=== PATIENT | female | born 1945 | race Caucasian/White ===

== ENCOUNTER 2023-11-02 23:36 | Inpatient (IN) | payer MEDICARE, BC, SELFPAY ==
[2023-11-02] VITALS (23 sets, daily range): BP systolic 77–124; BP diastolic 51–77; BMI 20.8
[2023-11-02] MEDS: NSS 1000 IV ×3 (20:36→21:20)
[2023-11-02 20:37] LABS: % Basophils 0.2 % (0-2); % Eosinophils 0.7 % (0-6); % Immature Granulocytes 0.4 % (0-0.5); % Lymphocytes 4.4 % (20.5-51.1); % Monocytes 4.8 % (1.7-9.3); % Neutrophils 89.5 % (42.2-75.2); Absolute Eosinophils 0.1 10^3/uL (0-0.7); Absolute Immature Granulocytes 0.1 10^3/uL (0-0.05); Absolute Lymphocytes 0.8 10^3/uL (1.2-3.4); Absolute Monocytes 0.9 10^3/uL (0.1-0.6); Absolute Neutrophils 16.3 10^3/uL (1.4-6.5); Hematocrit 38.1 % (37.0-47.0); Hemoglobin 12.4 g/dL (12.0-16.0); Mean Corp Hgb Conc. 32.5 g/dL (33.0-37.0); Mean Platelet Volume 9.5 fL (7.4-10.4); Nucleated Red Blood Cells % 0 %; Platelet Count 628 10^3/uL (130-400); Red Blood Cell Count 4.43 10^6/uL (4.20-5.40); Red Cell Dist. Width 21.9 % (11.5-14.5); White Blood Cell Count 18.2 10^3/uL (4.8-10.8)
[2023-11-02 20:48] LABS: APTT 27.5 Sec (23.4-35.0)
--- NOTE | 2023-11-02 20:49 | ED.GENMED ---
History of Present Illness
General
Chief Complaint: Abdominal Symptoms
Source: patient
Exam Limitations: none
Time Seen by Provider: 11/02/23 20:23
Nursing documentation reviewed up to this point in time: agreed with
History of Present Illness
History of Present Illness:
Patient presents to ED secondary to worsening abdominal pain with multiple vomiting episodes over the past 2 days. Patient has had history of umbilical hernia, which has been asymptomatic. Patient feels as though her local hernia may have
worsened. Denies fever. Denies trauma. Patient unsure of her last bowel movement. Denies previous history of similar symptoms.
Review of Systems
Review of Systems
Allergies reviewed?: Yes
All Other Systems: ROS reviewed and negative except as documented in HPI and ROS
Constitutional: Reports no symptoms
EENT: Reports no symptoms
Respiratory: Reports no symptoms
Cardiac: Reports no symptoms
ABD/GI: Reports abdominal pain, nausea and vomiting
Musculoskeletal: Reports no symptoms
Skin: Reports no symptoms
Neurological: Reports no symptoms
Phy Exam
Physical Exam
Physical Exam:
Physical Exam
General: moderate distress, acutely ill. febrile
Head: nc/at. eomi
Neck: supple. no meningeal signs.
Heart: s1/s2 regular rate and rhythm, no murmur. equal radial pulses.
Lungs: no acute respiratory distress. clear bilaterally
Abdomen: normal bowel sounds. umbilical hernia noted with ecchymosis/swelling/tenderness.
Neuro: alert and oriented. no focal neurological deficits
Skin: no rash
Psychiatric: well kept. interactive and cooperative
Extremities: no edema. no calf tenderness.
Course
Orders/Labs/Results
Orders:
Orders
11/02/23 20:13
Electrocardiogram (*1) Urgent
Reason for Study: Tachycardia
EKG- Treatment ONCE
11/02/23 20:23
IV Insert/Care/Rem.- Treatment PRN
11/02/23 20:30
Type+Screen Urgent
Complete Blood Count/With Diff Urgent
Comprehensive Metabolic Panel Urgent
Magnesium Urgent
PTT Urgent
Prothrombin Time Urgent
11/02/23 20:34
Cardiac Monitoring- Treatment ONCE
O2 Therapy [RESP] Urgent
Titrate/Wean O2 to maintain O2 sat greater than (%): 93
Special Instructions: TO MAINTAIN CONTINUOUS O2 SATS > OR = 93%
11/02/23 20:36
0.9% Sodium Chloride 1000 ml [Nss] 1,000 ml IV BOLUS
11/02/23 20:37
Lactic Acid Q4H
Comment: ON ICE, CANCEL 2ND ORDER IF FIRST LACTIC ACID LEVEL <2
Blood Culture Q30M
MITCH Source: Blood/Venous
Specimen Description:
Comment: FROM 2 SEPARATE SITES
Blood Culture Q30M
MITCH Source: Blood/Venous
Specimen Description:
Comment: FROM 2 SEPARATE SITES
11/02/23 20:44
0.9% Sodium Chloride 1000 ml [Nss] 1,000 ml IV BOLUS
11/02/23 20:54
Acetaminophen 1000MG/100Ml [Ofirmev] 1,000 mg in 100 ml IV ONCE
Acetaminophen IV Indication:: ED Narcotic Naive Pt-ONCE
Piperacillin/Tazo 3.375 Gram [Zosyn] 3.375 gram in 50 ml IV NOW
11/02/23 21:20
0.9% Sodium Chloride 1000 ml [Nss] 1,000 ml IV BOLUS
11/02/23 22:17
NORepinephrine 4 MG/250 ML [Levophed] 4 mg in 250 ml IV NOW
Initial dose in mcg/min, then titrate:: 5
Titrate to keep:: SBP > 90 mmHg
Titrate by mcg/min:: 1-2 mcg/min
Frequency of titrations (minutes):: 5
Maximum dose in ICU in mcg/min:: 30
Maximum dose in IMU in mcg/min:: 8
Maximum dose in IVU in mcg/min:: 4
Begin to taper infusion when:: Remained at goal for 4hrs
Taper by mcg/min:: 1-2 mcg/min
Frequency of taper (minutes) if patient maintains goal:: 30
Taper to off?: Yes
If infusion off & no longer maintaining goal:: Contact Provider
11/03/23 00:26
Lactic Acid Q4H
Comment: ON ICE, CANCEL 2ND ORDER IF FIRST LACTIC ACID LEVEL <2
Abnormal Lab Results
11/02/23 11/02/23
20:30 20:37
WBC 18.2 H 10^3/uL
(4.8-10.8)
MCHC 32.5 L g/dL
(33.0-37.0)
RDW 21.9 H %
(11.5-14.5)
Plt Count 628 H 10^3/uL
(130-400)
Abs Immat Gran (auto) 0.1 H 10^3/uL
(0-0.05)
Absolute Neuts (auto) 16.3 H 10^3/uL
(1.4-6.5)
Absolute Lymphs (auto) 0.8 L 10^3/uL
(1.2-3.4)
Absolute Monos (auto) 0.9 H 10^3/uL
(0.1-0.6)
Neutrophils % 89.5 H %
(42.2-75.2)
Lymphocytes % 4.4 L %
(20.5-51.1)
PT 15.3 H Sec
(11.4-14.6)
Sodium 127 L mmol/L
(135-145)
Chloride 86 L mmol/L
(98-107)
Carbon Dioxide 21 L mmol/L
(22-30)
BUN 67 H mg/dl
(7-17)
Creatinine 1.9 H mg/dL
(0.6-1.0)
Glucose 236 H mg/dl
(70-99)
Lactic Acid 6.3 H* mmol/L
(0.7-2.0)
Magnesium 2.8 H mg/dl
(1.6-2.3)
Total Bilirubin 1.5 H mg/dl
(0.2-1.3)
AST 45 H U/L
(14-36)
Crossmatch IS Only See Detail
11/02/23 20:30
11/02/23 20:30
Vital Signs
Initial and Last Documented VS:
Initial Vital Signs
Pulse Resp BP Pulse Ox
137 20 88/59 100
11/02/23 20:11 11/02/23 20:11 11/02/23 20:11 11/02/23 20:11
Last Documented Vital Signs
Temp Pulse Resp BP Pulse Ox
99.7 F 93 15 100/63 97
11/04/23 07:36 11/04/23 08:30 11/04/23 08:30 11/03/23 23:15 11/04/23 08:30
MDM/Problems Addressed
MDM/Problems Addressed:
History and exam concerning for incarcerated hernia. Hypotension noted and patient being resuscitated with 2 L IV fluid bolus. Hypotension persisting despite IV fluid administration.
Levophed infusion started, along with IV antibiotics.
Discussed with , surgery on-call, who will come and evaluate patient in ED.
Pt evaluated by (surgery) - patient/family refusing surgical intervention. Aware that she may worsen and may potential without intervention. Requesting iv abx/ivf, supportive treatment only at this time.
Pt will be admitted to hospitalist service
Critical care statement: A total of 60 minutes of critical care time was provided for this patient. This includes management of unstable vital signs, evaluation of the patient at bedside, reviewing the patient's pertinent medical records, discussion
with consultants, review of old EKGs and review of pertinent medical records. This time with separate from time utilized to perform the aforementioned documented procedures
*Critical Care Note
Total Time (30-74mins, 75-104mins- exclusive of procedures): 60 min
ED Attending Note
-
Portions of this chart may have been created with voice recognition software.� Occasional wrong word or��sound alike� substitutions may have occurred due to the inherent limitations of voice recognition software.
Discharge Plan
Departure
Patient Disposition: Admit
Date of Disposition: 11/02/23
Time of Disposition: 22:28
Admit to: Telemetry
Presentation/result/management discussed w/ accepting MD/DO: Hospitalist
Discharge Problem:
Septic shock, Incarcerated umbilical hernia
Interventions
Interventions:
*Risk Screen - Suicide Last Done: 11/02/23 20:39
*General Assessment Last Done: 11/02/23 20:39
*Neglect/Abuse Screening Last Done: 11/02/23 20:39
ED- Fall Risk Assessment Last Done: 11/02/23 20:39
*ED COVID-19 Vaccine History Last Done: 11/03/23 00:44
*Nursing Disposition Last Done: 11/03/23 00:44
BL-Abvqtp-Dtfvflgpky Assessment Last Done: 11/02/23 20:39
Discharge Date and Time
Discharge Date/Time: 11/03/23 01:00
[2023-11-02] MEDS: ZOSYN 50 IV (20:59)
[2023-11-02 21:00] LABS: AST (SGOT) 45 U/L (14-36); Albumin 4.2 g/dl (3.5-5.0); Alkaline Phosphatase 116 U/L (38-126); Blood Urea Nitrogen 67 mg/dl (7-17); Calcium 9.6 mg/dl (8.4-10.2); Carbon Dioxide 21 mmol/L (22-30); Chloride 86 mmol/L (98-107); Glucose 236 mg/dl (70-99); Magnesium 2.8 mg/dl (1.6-2.3); Potassium 3.7 mmol/L (3.5-5.1); Sodium 127 mmol/L (135-145); Total Bilirubin 1.5 mg/dl (0.2-1.3); Total Protein 6.8 g/dl (6.3-8.2)
[2023-11-02] MEDS: OFIRMEV 100 IV (21:05)
[2023-11-02 21:08] LABS: Lactic Acid 6.3 mmol/L (0.7-2.0)
[2023-11-02 21:11] LABS: Estimated Creatinine Clearance 20 ml/min; eGFR 26.36
[2023-11-02 21:16] LABS: ALT (SGPT) < 30 U/L (0-35)
[2023-11-02 21:26] LABS: INR 1.23; PT 15.3 Sec (11.4-14.6)
--- NOTE | 2023-11-02 21:28 | PHANOTE ---
med rec althea(11/02/23)- Spouse states patient has stopped taking metronidazole(500mg/100ml BID), metoprolol succinate(100 mg daily), prilosec(20 mg daily), multivitamin, and Afinitor(5 mg daily) due to side effects of the Afinitor. The medications
were stopped on 10/05/23, and the dosages were to be reevaluated in the patient's next appointment with their oncologist.
[2023-11-02] MEDS: LEVOPHED 250 IV (22:26)
--- NOTE | 2023-11-02 22:26 | CON.GS ---
Consultation
-
Reason for Consultation: sepsis; hernia
Medical History
-
Chief Complaint: abdominal pain
History of Present Illness:
78 yo F with history of longstanding umbilical hernia and breast cancer treated at [facility] with ?immunotherapy until a month ago with 2 days of loss of appetite, abdominal discomfort and nausea and emesis. noticed discoloration of the skin at
her known umbilical hernia site this afternoon and thus brought her into ER. In ER BP initially in 70s, fever of 100.9, WBC of 18.2, lactate of 6.3, and creatinine of 1.9. I was consulted with concern for sepsis and umbilical hernia issue.
Patient poor historian who is [place] so does most the talking.
Past Medical History
Past Medical History: Other (breast cancer)
Past Surgical History: Other (no prior abdominal surgery)
Social History
Tobacco: Non-Smoker
Alcohol: None
Personal:
Living: With Family
Family History
Family History: Reviewed & Not Pertinent
Allergies / Home Medications
Allergy/AdvReac Type Severity Reaction Status Date / Time
No Known Allergies Allergy Unverified 11/02/23 20:13
�Medication �Instructions �Recorded �Confirmed �Type
aspirin 81 mg tablet,delayed 81 mg PO DAILYPRN PRN mild pain 11/02/23 11/02/23 History
release
dexamethasone 0.5 mg/5 mL oral 0 mg PO DAILYPRN PRN mouth sores 11/02/23 11/02/23 History
solution
magnesium gluconate 250 mg PO Q48H 11/02/23 11/02/23 History
Review of Systems
-
A 10 point review of systems was completed, and was negative except as per HPI.
Physical Exam
Vital Signs
Temp Pulse Resp BP Pulse Ox
100.9 F H 100 23 86/56 93
11/02/23 20:33 11/02/23 22:15 11/02/23 22:15 11/02/23 22:15 11/02/23 22:15
11/01/23 11/02/23 11/03/23
06:59 06:59 06:59
Actual Weight 55 kg
Body Mass Index (BMI) 20.8
Lab Results
11/02/23 20:30
11/02/23 20:30
WBC 18.2 10^3/uL (4.8-10.8) H 11/02/23 20:30
Hgb 12.4 g/dL (12.0-16.0) 11/02/23 20:30
Hct 38.1 % (37.0-47.0) 11/02/23 20:30
Plt Count 628 10^3/uL (130-400) H 11/02/23 20:30
Abs Immat Gran (auto) 0.1 10^3/uL (0-0.05) H 11/02/23 20:30
Neutrophils % 89.5 % (42.2-75.2) H 11/02/23 20:30
Physical Exam
General: Other (chronically ill appearance)
HEENT: Normocephalic
Respiratory: Clear
Cardiac: S1/S2
GI: Tender (mild to moderate umbilical area), Distended (mild) and Other (umbilical hernia apparent with ecchymosis/discoloration of skin)
Musculoskeletal: No Clubbing, No Cyanosis and No Edema
Skin: Dry
Neuro: Awake and Other
Psych: Other (a bit lethargic)
Data Reviewed
-
Labs: Labs Reviewed by me, Discussed with Physician and Discussed with Family
Total Time Spent with Patient (in minutes): 60
Assessment / Plan
-
78 yo F with likely incarcerated and strangulated umbilical hernia with resultant sepsis. Discussed situation in detail with patient and her family. Recommended trip to OR in an urgent fashion for exploration and possible partial bowel resection,
possible stoma creation, and possible primary umbilical hernia repair. Risks and benefits discussed. Risks covered including bleeding, infection, anastomotic leak (if created), anastomotic stricture (if created), bowel or organ injury, hernia
formation or recurrence, stoma creation, potential need for second look, , and anesthetic risks. Patient and family not interested in surgery and understand that she may pass if surgery not undertaken. They would prefer supportive care and
letting nature take it's course.
[2023-11-03] VITALS (58 sets, daily range): BP systolic 85–171; BP diastolic 43–87; BMI 21.7
[2023-11-03] MEDS: LR 1000 IV ×4 (01:28→20:48)
[2023-11-03] MEDS: ZOSYN 50 IV ×4 (01:50→21:04)
[2023-11-03] MEDS: VANCOCIN 300 ML IV (02:23)
[2023-11-03] MEDS: VANCOCIN 300 MG IV (02:23)
--- NOTE | 2023-11-03 02:25 | HPS.HSE ---
Family Physician
-
Family Physician: * NONE
Chief Complaint
-
Abd Pain, N/V
History of Present Illness
Patient is an 78y F with PMH significant for metastatic breast cancer who presents to ED complaining of poor appetite, abdominal pain and N/V x several days. Patient states that she has felt poorly for about 4-5 days or so with diminished
appetite and occasional episodes of N/V. She began to complain of abdominal discomfort about 2 days ago. Today, family noted discoloration associated with her chronic umbilical hernia which prompted them to bring her to the ED for further
evaluation.
On evaluation in the ED, patient is noted to have firm, tender and grossly discolored umbilical hernia concerning for incarceration +/- strangulation.
She was seen by Colorectal Surgery who discussed benefit of prompt surgical intervention. Patient declines surgery at this time and is to be admitted to medical service to try more conservative therapy.
Patient denies any pain at the time of my examination.
She is quite hard of hearing.
Patient has metastatic breast cancer for which she is followed at [facility]. She was treated for a time with Ibrance which became ineffective.
She was changed to Afinitor in August and had a dramatic response within the first month.
She did have adverse effects including weight loss, anorexia and fatigue associated with this medicine change.
She was seen by her Oncologist October 04 and taken off all of her medications at that time with plan to try a lower dose in early November.
Medical History
Past Medical History
Past Medical History: Reports Other
Additional Past Medical History:
Metastatic Breast Cancer
Past Surgical History: Reports None and Other
Social History
Tobacco: Non-smoker
Alcohol: None
Drug: None
Personal:
Living: With Family
Family History
Family History: Other (Multiple family members with various malignancies.)
Allergies / Home Medications
Allergies reflects when Allergies were last updated in [facility].
Home Medications with original date entered in [facility]
Allergy/Medication List:
Allergies
Allergy/AdvReac Type Severity Reaction Status Date / Time
No Known Allergies Allergy Unverified 11/02/23 20:13
Home Medications
Patient is not currently taking any medications.
Review of Systems
-
History Source: Patient and Family
A 12 point ROS was completed and negative except as noted: Yes
Constitutional: Reports Weight Loss and Fatigue; Denies Fever or Chills
EENT: Denies Sore Throat
Respiratory: Denies Cough or Trouble Breathing
Cardiac: Denies Chest Pain or Palpitations
Abdomen/GI: Reports Abdominal Pain, Nausea, Vomiting and Anorexia; Denies Diarrhea, Bloody Stools or Black Stools
: Denies Dysuria, Frequency or Flank Pain
Musculoskeletal: Denies Joint Pain or Edema
Neurological: Denies Dizzy or Headache
Psych: Denies Depression or Anxiety
Physical Exam
Vital Signs
Vital Signs
Temp Pulse Resp BP Pulse Ox
100.9 F H 103 21 119/71 98
11/02/23 20:33 11/03/23 01:26 11/03/23 01:26 11/03/23 01:26 11/03/23 01:26
Physical Exam
General: Other (Chronically ill-appearing 78y F in no acute distress.)
HEENT: Other (Extremely poor dentition. Skin changes L neck due to metastatic cancer (family denies any prior XRT, etc))
Respiratory: Other (Decreased at bases - otherwise clear.)
Cardiac: S1/S2 and Regular Rhythm; No Murmur
GI: Other (Umbilical hernia with tense edema and localized tenderness. Overlying skin is dusky / discolored with wide area of lesser skin discoloration. Scant bleeding from umbilicus. Bowel sounds are appreciated.)
Musculoskeletal: No Clubbing, No Cyanosis and No Edema
Neuro: Awake, Alert and Other (Patient seems somewhat confused at time. Difficult to assess if cognitive impairment v sequelae of hearing impairment. Likley combination of both.)
Laboratory Results
-
Laboratory Results
PT 15.3 Sec (11.4-14.6) H 11/02/23 20:30
INR 1.23 11/02/23 20:30
APTT 27.5 Sec (23.4-35.0) 11/02/23 20:30
Lactic Acid 6.3 mmol/L (0.7-2.0) H* 11/02/23 20:37
Total Bilirubin 1.5 mg/dl (0.2-1.3) H 11/02/23 20:30
AST 45 U/L (14-36) H 11/02/23 20:30
ALT < 30 U/L (0-35) 11/02/23 20:30
Alkaline Phosphatase 116 U/L (38-126) 11/02/23 20:30
Impression/Plan
-
A/P: Patient is an 78y F with PMH significant for metastatic breast cancer who presents to ED complaining of abdominal pain, N/V and malaise.
Incarcerated / Strangulated Umbilical Hernia
Septic Shock secondary to the above
- Admit for further evaluation and treatment.
- Extensive discussion with patient and family regarding current presentation and treatment options.
- They declined surgical intervention at this time.
- Communicated to family with some difficulty the severity and extent of her current clinical condition and poor prognosis with or without surgical intervention.
- Will treat for now with IVFs, IV abx +/- pressor support to maintain BP / perfusion.
- Family / patient may reconsider surgical options in the future.
- Retail Department Reset / CRS consulted.
- Prognosis is poor.
Metastatic Breast Cancer
- Followed at [facility]. Currently on no active therapy / medications.
- On med holiday for a month with plan to revisit / restart meds in early November.
Hyponatremia
- Likely hypovolemic hyponatremia.
- IVF support as noted above for septic shock.
- Follow for any improvement in labs / lytes / lactate / etc.
REINA
- SCr = 1.9. No prior SCr to compare, but suspect REINA secondary to sepsis / hypoperfusion.
- IVFs / pressor support as noted above.
- Follow for improvement in renal function.
DVT Prophylaxis: SCDs
Code Status: Extensive discussion with patient / family as noted above. In light of decision to forego surgery - addressed code status at length. Advised family that if cardiac arrest were to occur as a result of her current issue, attempts to
resuscitate without addressing underlying primary process (in this case, incarcerated hernia) would likely prove futile. Despite this information, they wish for patient to remain full code.
[2023-11-03 02:47] LABS: Lactic Acid 1.3 mmol/L (0.7-2.0)
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
[2023-11-03 05:01] LABS: ALT (SGPT) 14 U/L (0-35); AST (SGOT) 31 U/L (14-36); Albumin 2.9 g/dl (3.5-5.0); Alkaline Phosphatase 86 U/L (38-126); Blood Urea Nitrogen 63 mg/dl (7-17); Calcium 7.8 mg/dl (8.4-10.2); Carbon Dioxide 23 mmol/L (22-30); Chloride 97 mmol/L (98-107); Direct Bilirubin 0.6 mg/dl (0.0-0.4); Estimated Creatinine Clearance 24 ml/min; Glucose 167 mg/dl (70-99); Magnesium 2.5 mg/dl (1.6-2.3); Phosphorus 4.3 mg/dl (2.5-4.5); Potassium 3.1 mmol/L (3.5-5.1); Sodium 131 mmol/L (135-145); Total Bilirubin 1.1 mg/dl (0.2-1.3); Total Protein 5.2 g/dl (6.3-8.2)
[2023-11-03 05:09] LABS: Hematocrit 29.5 % (37.0-47.0); Hemoglobin 9.9 g/dL (12.0-16.0); Mean Corp Hgb Conc. 33.6 g/dL (33.0-37.0); Mean Corpuscular Hgb 28.3 pg (27.0-31.0); Mean Corpuscular Volume 84.3 fL (81.0-99.0); Mean Platelet Volume 9.4 fL (7.4-10.4); Platelet Count 391 10^3/uL (130-400); Red Cell Dist. Width 21.6 % (11.5-14.5); White Blood Cell Count 11.4 10^3/uL (4.8-10.8)
[2023-11-03] MEDS: KCL 270 MEQ IV (06:11)
--- NOTE | 2023-11-03 07:13 | CON.INTV ---
Consultation
Consultation Request
Date/Time Consultation Requested: 11/03/23
Date/Time Consultation Performed: 11/03/23
Performing Provider: Karen
Reason for Consultation: ICU
Medical History
-
History of Present Illness:
Patient is an 78 year old F with history of metastatic breast cancer (treated at [facility] on Ibrance->Afinitor) presenting to ED complaining of poor appetite, abdominal pain and N/V x 4-5 days. Of note, she had experienced weight
loss/anorexia with use of Afinitor. She began to complain of abdominal discomfort about 2 days ago. Today, family noted discoloration associated with her long standing chronic umbilical hernia which prompted them to bring her to the ED for further
evaluation.
On evaluation in the ED, patient is noted to have firm, tender and grossly discolored umbilical hernia concerning for incarceration +/- strangulation. BP 70s, Tmax 100.9, WBC 18, lactate 6, creat 1.9.
She was seen by Colorectal Surgery who discussed benefit of urgent surgical intervention. Patient declined surgery at this time despite risk of .
She is placed on levophed, and empiric abx and admitted to ICU.
She remains full code.
Past Medical History
Past Medical History: Cancer
Social History
Tobacco: Non-smoker
Alcohol: None
Drug: None
Family History
Family History: Reviewed & Not Pertinent
Allergies / Home Medications
Allergies
Allergy/AdvReac Type Severity Reaction Status Date / Time
No Known Allergies Allergy Unverified 11/02/23 20:13
Home Medications
�Medication �Instructions �Recorded �Confirmed �Last Taken �Type
aspirin 81 mg tablet,delayed 81 mg PO DAILYPRN PRN mild pain 11/02/23 11/02/23 3 Days Ago History
release ~10/30/23
dexamethasone 0.5 mg/5 mL oral 0 mg PO DAILYPRN PRN mouth sores 11/02/23 11/02/23 11/01/23 History
solution
magnesium gluconate 250 mg PO Q48H 11/02/23 11/02/23 3 Days Ago History
~10/30/23
Review of Systems
-
History Source: Patient
All other systems: Negative unless noted
Vitals / Labs / Diagnostic Testing
Vital Signs
Temp Pulse Resp BP Pulse Ox
98.4 F 85 22 121/66 100
11/03/23 02:28 11/03/23 03:45 11/03/23 03:45 11/03/23 03:45 11/03/23 03:45
Lab Data
11/03/23 04:50
11/03/23 04:20
Laboratory Results
11/02/23
20:30
PT 15.3 H
INR 1.23
APTT 27.5
Diagnostic Testing:
Physical Exam
-
HEENT: Normocephalic, Anicteric and Other (dry MM)
Cardiovascular: S1/S2 and Regular Rhythm
Respiratory: Clear and Non-Labored Respirations
GI: Soft, Non Distended and Other (absent BS, malodorous/bruised/discoloration over palpable umbilical hernia, tender to palpation)
Neurology: Awake, Alert, Oriented, AO x 3, No Motor Deficits and Other (very [place])
Skin: Warm and Dry
General: Comfortable, Pain, Poor Appetite and Other (NAD)
Assessment
-
Patient is an 78 year old F with history of metastatic breast cancer (treated at [facility] on Ibrance->Afinitor) presenting to ED complaining of poor appetite, abdominal pain and N/V x 4-5 days. Of note, she had experienced weight
loss/anorexia with use of Afinitor. She began to complain of abdominal discomfort about 2 days ago. Today, family noted discoloration associated with her long standing chronic umbilical hernia. On evaluation in the ED, patient is noted to have
firm, tender and grossly discolored umbilical hernia concerning for incarceration +/- strangulation. BP 70s, Tmax 100.9, WBC 18, lactate 6, creat 1.9. She was seen by Colorectal Surgery who discussed benefit of urgent surgical intervention. She is
placed on levophed, and empiric abx and admitted to ICU.
Septic shock
Incarcerated umbilical hernia wtih concern for ischemic bowel
REINA
Leukocytosis
Lactic acidosis
Hyponatremia
Hyperglycemia
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
Metastatic breast cancer
Plan
No current signs of metabolic encephalopathy or MS changes/following commands
She is very [place]
Denies pain at this time.
Pain/sedation: PRN
RASS goals: 0
Hemodynamically unstable, requiring pressors.
Requiring pressors: levophed, but weaned to off this AM
Cardiac history reviewed--none
No prior ECHO for review
Monitor on telemetry
Oxygen needs: stable on RA
Prior history of lung disease: none
Supplemental O2 as indicated to maintain sats > 89%
No imaging for review
Suspected incarcerated bowel, on exam/severe findings
CRS on board, for OR today
NPO
Aspiration precautions, HOB > 30 degrees
GI prophylaxis if indicated for mechanical ventilation >48 hours, prior history of GERD, stress ulcer formation in the critically ill
REINA present, no history of renal disease
Void trials
Follow urine output, critical I/Os
Replete electrolytes as needed
Possible colitis, ischemic bowel
Fever and increased WBC on presentation, empiric abx started
Antibiotics: Zosyn IV, Vanc IV
Cultures sent/pending
Follow fever trend, WBC count
Lactate elevated on admission, continue to trend until <2
CBC stable, no signs of bleeding or coagulopathy.
DVT prophylaxis as assessed based on risk, including mechanical SCDs
Can transfuse if indicated for Hb <7, plt < 10
INR WNL
No prior h/o diabetes or thyroid disease
Monitor accuchecks PRN/SS coverage if needed
Family Discussions
Karen 11/03/23- I had a long discussion with the and daughter at bedside regarding decision making. Initially patient had declined surgery as she did not want to live with a colostomy but then subsequently did not change her code status
despite urgency of the situation. She then changed her mind this morning stating she does want to live and would undergo surgery. The family did feel she was not quite sure/had cognitive impairment on presentation, but she seems more clear to them
this morning. It is difficult to discuss with her as she has very severe hearing impairment and does not use hearing aids. I answered all questions from including her future oncologic care, that he will need to discuss with their
oncologist for next steps. They are now agreeing for surgery and care team was updated in further discussions.
Diagnostic Data
Chest X-Ray:
CT Scan:
Echo:
PFT's:
Reports and relevant images were personally reviewed.
-----
Critical care time 75 mins -- this includes review of history, physical exam, medications, hemodynamic/ventilator parameters, laboratory data, imaging and discussion with house staff, pharmacy, respiratory therapy, underwater trapper, and nursing.
--- NOTE | 2023-11-03 07:14 | PHA.VAN.IN ---
Assessment
- Assessment
Renal Function: Unknown baseline
Maximum Temperature: 100.9 11/02/232032
Concomitant Antimicrobials: pip/tazo
Plan
- Plan
Initial / Loading Dose: 1500 mg (26 mg/kg) LD given 11/02 ~229
Maintenance Regimen: dose by random level ( CrCl ~20-25 ml/min)
Monitoring: random level 11/03 599
Pharmacokinetics Vancomycin I
- -
Patient Age: 78
Patient Sex: Female
Vancomycin Day #: 1
Indication: Gi / Intra-Abdominal
Requesting Provider: Royal
Height / Weight:
Height 5 ft 4 in
Actual Weight 57.4 kg
Pertinent Past Medical History: met breast ca
- Vital Signs / Lab Results
Temp Pulse Resp BP Pulse Ox
98.4 F 85 22 121/66 100
11/03/23 02:28 11/03/23 03:45 11/03/23 03:45 11/03/23 03:45 11/03/23 03:45
Lab Results - Hematology
11/02/23 11/03/23 11/03/23
20:30 04:19 04:50
WBC 18.2 H Cancelled 11.4 H
Lab Results - Chemistry
11/02/23 11/03/23
20:30 04:20
BUN 67 H 63 H
Creatinine 1.9 H 1.6 H
Estimated Creat Clear
Albumin 4.2 2.9 L
11/02/23 11/03/23 11/03/23
20:37 00:26 00:58
Lactic Acid 6.3 H* 1.3 Cancelled
11/03/23 11/03/23
06:58 12:58
Lactic Acid Cancelled Cancelled
--- NOTE | 2023-11-03 07:30 | PTCARENOTE ---
Received pt awake, lethargic. She is extremely hard of hearing. Right arm with lymphedema.Right arm w/Doppler radial pulse, arm cool, elevated on pillow. Left AC#20g protective catheter with LR@150ml/hr with Potassium Chloride IVPB. Left wrist #20g
protective catheter flushed and patent. Wek DP pulses. Trace ankle edema, Lungs dim throughout posteriorly, poor inspiratory effort. Tolerating oxygen 1 liter nasal cannula. She denies pain but admits to nausea. She was noted to be clearing her
throat often. Abdomen large, round, firm, tender. Umbilical mass, hard and discolored deep maroon with brown edges that are marked. Absent bowel sounds. Temperature sensing Osorio catheter with small amount of nai urine. Optifoam gentle dressing to
sacrum intact. Left neck with hard, puckered skin lesion, anterior chest with a small hard mass and puckered skin. Repositioned. Her and daughter remain at the bedside. Safe environment maintained.
[2023-11-03] MEDS: PROTONIX IV 40 MG IV (08:06)
[2023-11-03] MEDS: NSS (PRESERVATIVE FREE) 10 ML IV (08:06)
--- NOTE | 2023-11-03 08:14 | W.PN.UPDATE ---
Update Note
Progress Note Update
seen and examined
Non-billbale note
Medical Billing And Coding Instructor at bedside discussing care plan with family member
Patient resting comfortably in bed
Remains on small dose of vasopressors.
Abd exam - grossly discolored and ischemic looking umbilical hernia, tenderness around the area, absent bowel sounds
Left neck - metastatic skin lesion, hard subcutaneous tissue
Patient and family have agreed to move forward with surgery and CRS has been notified
Potassium has been low and being replaced
Blood cs collected, maintain on empiric antibiotics
--- NOTE | 2023-11-03 09:20 | PTCARENOTE ---
Pt noted to have increased throat clearing after she brushed her teeth prior to going to the OR. Per the he had noticed her clearing her throat more often in the last week. I expressed my concern for aspiration given she is clearing her
throat more since brushing her teeth, and wiping the side of her mouth frequently with tissues. They verbalized their understanding.
--- NOTE | 2023-11-03 09:54 | W.PN.UPDATE ---
Update Note
Progress Note Update
Patient changed mind this am regarding surgery--wishes to proceed and understands risks. Exam unchanged.
--- NOTE | 2023-11-03 11:23 | W.IMMPOSTOP ---
Addendum entered and electronically signed by Bijan Gonzales MD 11/03/23 11:37:
[facility]# [id number]
Original Note:
Surgical Immed Post Op Note
-
Primary Surgeon: Christian
Assisting Surgeon: Sabas
Pre-op Diagnosis: Strangulated umbilical hernia
Post-op Diagnosis: Strangulated umbilical hernia
Procedure Performed: Exploratory laparotomy, small bowel resection with primary anastomosis, primary umbilical hernia repair
Anesthesia Type: General
Specimen / Cultures:
1. Small bowel
Estimated Blood Loss: 7 cc
Complications: None
Operative Findings:
1. Strangulated umbilical hernia containing 45 cm of necrotic small bowel, fascial defect approximately 4 cm (widened for exposure and anastomosis), healthy proximal and distal bowel
2. Small bowel resection with primary stapled anastomosis using MICKI 80 blue load x2 (Agustín technique), mesenteric defect closed
3. Primary fascial closure under minimal tension with #1 Stratafix
4. Skin stapled, soft tissue packed
--- NOTE | 2023-11-03 11:45 | PTCARENOTE ---
Pt returned from OR via bed with RNjenni, being bagged. She is intubated, with left AC#20g protective catheter with 0.9nss infusing off pump, Left wrist #20g protective catheter capped, and left inner FA#16g protective catheter capped. Left radial
arterial line transduced, calibrated and monitored. #7 ETT secured with clear tape 23cm left lip. Placed on AC 14/450/.10/+5. Pulse ox 98%. Improved breath sounds. Bloody secretions via cast tube. Left Nare [place] sump secured with silk tape @ 55cm.
Placed on LIWS for light brown secretions. Absent bowels sounds. While laying flat pt's abdomen now concave, & soft. Aquacel dressing CDI, no drainage noted. Temperature sensing Osorio catheter intact, minimal nai urine. CHG bath given, medicated
for pain, reviewed the post-op plan of care with Dr. Jones. Will obtain ABG, labs, CXR and abdominal film as ordered. Safe environment maintained. Will continue to monitor. HOB elevated 30%, ETT guillen changed to soft velcro guillen and [place] sump now
secured with drainage tube guillen @55cm left nare. Family was updated regarding the plan of care and remaining on the ventilator overnight. They verbalized their understanding.
[2023-11-03] MEDS: DILAUDID 0.5 MG IV (12:08)
[2023-11-03] MEDS: DIPRIVAN 100 IV ×2 (12:37→21:46)
[2023-11-03] MEDS: SUBLIMAZE 50 MCG IV ×4 (12:39→18:13)
[2023-11-03 13:02] LABS: HCO3 21.2 mmol/L (21-28); PCO2 43 mmHg (32-35); PO2 221 mmHg (83-108)
[2023-11-03 13:22] LABS: ALT (SGPT) 13 U/L (0-35); AST (SGOT) 30 U/L (14-36); Albumin 2.8 g/dl (3.5-5.0); Alkaline Phosphatase 88 U/L (38-126); Blood Urea Nitrogen 62 mg/dl (7-17); Calcium 7.7 mg/dl (8.4-10.2); Carbon Dioxide 20 mmol/L (22-30); Chloride 101 mmol/L (98-107); Estimated Creatinine Clearance 28 ml/min; Glucose 172 mg/dl (70-99); Potassium 3.3 mmol/L (3.5-5.1); Sodium 132 mmol/L (135-145); Total Bilirubin 1.2 mg/dl (0.2-1.3); Triglycerides 151 mg/dl (10-149); eGFR 38.03
--- NOTE | 2023-11-03 13:40 | PTCARENOTE ---
Dr. Jones, Dr. Chavez and Sabas notified of no urinary output this past hour, and current drip rates, including Norepinephrine @ 2mcg/min.Will increase IVF as ordered.
--- NOTE | 2023-11-03 14:15 | PTCARENOTE ---
Dr. Jones notified of ABG and CMP results. Amp NaHCO3 to be administered.
[2023-11-03] MEDS: SODIUM BICARBONATE 50 MEQ IV (14:25)
--- NOTE | 2023-11-03 17:18 | PTCARENOTE ---
Fentanyl bolus administered. She is becoming increasingly restless and pulling on her gown with her right hand. RR increased. Alarming ventilator. She is mouthing words and moving her head side to side. She was informed that surgery is Over and that
she is back in the ICU. She was also informed that she is on the ventilator and would not be able to talk until it is removed. She nodded her head in understanding.
[2023-11-03] MEDS: OFIRMEV 100 IV (18:04)
--- NOTE | 2023-11-03 18:35 | PTCARENOTE ---
Leslee WITT notified of pt's increased restlessness, elevated HR, medication administration and increasing doses of Norepinephrine peripherally. Would require PICC line.
[2023-11-03] MEDS: ATIVAN 0.5 MG IV (18:39)
[2023-11-03] MEDS: NSS (PRESERVATIVE FREE) 0.25 ML IV (18:39)
[2023-11-03] MEDS: SUBLIMAZE 100 IV (18:47)
--- NOTE | 2023-11-03 21:00 | PTCARENOTE ---
rec`d pt at 1900 intubated and sedated. SR to ST on monitor. levo, fent, prop, and LR running through peripherals. 20 LW and 20 LAC. PICC line tried to be place by IV team, but unsuccessful. CREDIT REVIEW MANAGER aware. + pulses. rt arm lymphedema, trace edema lower
legs. afebrile. #7 ETT at 23. a/c 14/450/50%/5 of peep. scds. POX 98%. clear lung sounds. left nare antonieta SOARES. no BS. butcher draining minimal yellow urine. midline abdomen incision closed with linda w/ wet to dry gauze in between. original
post op dressing in place. small drainage. restraints. right bruise on back of hip. left neck calcification, both open to air. safe environment maintained. pt`s also updated via phone call.
[2023-11-03] MEDS: LEVOPHED 250 IV ×2 (21:04→23:19)
--- NOTE | 2023-11-04 | PTCARENOTE ---
levo titrated to maintain a map 65>.
[2023-11-04] MEDS: ZOSYN 50 IV ×4 (02:17→19:43)
[2023-11-04] MEDS: LEVOPHED 250 IV ×4 (02:17→16:32)
--- NOTE | 2023-11-04 02:22 | VATNOTE ---
VAT received PICC order. PICC placed in left cephalic vein at approximately 1930 however unable to advance catheter fully. This VAT RN made several attempts to redirect PICC during insertion to be able to fully insert catheter. Unable to fully
insert PICC as resistance was met with 8cm outside of the vein. TCL 43cm, ECL 8cm. Both lumens flushing with a blood return. Placed sterile gauze over PICC catheter that remains outside of the vein. CXR ordered and [employer] MANAGER notified of issues inserting
PICC and need for IR consult. Primary RN at bedside and made aware not to use PICC until tip is in the correct location. Patient with sufficient peripheral access at the moment. Will continue to monitor and obtain more peripheral access if needed.
[2023-11-04] MEDS: LR 1000 IV ×3 (04:03→22:40)
[2023-11-04 05:17] LABS: B.E. -3.7 mmol/L; HCO3 20.3 mmol/L (21-28); PCO2 32 mmHg (32-35); PO2 174 mmHg (83-108); pH 7.41 (7.35-7.45)
[2023-11-04 05:21] LABS: Hematocrit 30.2 % (37.0-47.0); Hemoglobin 9.7 g/dL (12.0-16.0); Mean Corp Hgb Conc. 32.1 g/dL (33.0-37.0); Mean Corpuscular Hgb 28.2 pg (27.0-31.0); Mean Corpuscular Volume 87.8 fL (81.0-99.0); Mean Platelet Volume 9.4 fL (7.4-10.4); Platelet Count 456 10^3/uL (130-400); Red Blood Cell Count 3.44 10^6/uL (4.20-5.40); Red Cell Dist. Width 21.5 % (11.5-14.5)
[2023-11-04] MEDS: SUBLIMAZE 50 MCG IV ×3 (05:40→19:43)
[2023-11-04 05:43] LABS: Blood Urea Nitrogen 60 mg/dl (7-17); Calcium 7.9 mg/dl (8.4-10.2); Carbon Dioxide 18 mmol/L (22-30); Chloride 101 mmol/L (98-107); Estimated Creatinine Clearance 24 ml/min; Glucose 202 mg/dl (70-99); Potassium 3.2 mmol/L (3.5-5.1); Sodium 130 mmol/L (135-145)
[2023-11-04 05:46] VITALS: BMI 23.5
[2023-11-04 05:48] LABS: Vancomycin Random 10.8 ug/ml
[2023-11-04] MEDS: DIPRIVAN 100 IV ×3 (05:52→20:33)
[2023-11-04] MEDS: KCL 270 MEQ IV (06:00)
--- NOTE | 2023-11-04 06:39 | PTCARENOTE ---
daughter updated via phone call.
--- NOTE | 2023-11-04 07:16 | W.PN.INTV ---
Today's Communication / Plan
Recommendations
Increasing Levophed requirements, add vaso
No plans for SBT while unstable
Bolus 1/2L saline, follow UO
Continue abx, culture pending
L picc attempted-unsuccessful, R fem CVC attempted-unsuccessful, IR consult
Consideration for CT imaging if she continues to clinically deteriorate
Assessment
-
Patient is an 78 year old F with history of metastatic breast cancer (treated at [facility] on Ibrance->Afinitor) presenting to ED complaining of poor appetite, abdominal pain and N/V x 4-5 days. Of note, she had experienced weight
loss/anorexia with use of Afinitor. She began to complain of abdominal discomfort about 2 days ago. Today, family noted discoloration associated with her long standing chronic umbilical hernia. On evaluation in the ED, patient is noted to have
firm, tender and grossly discolored umbilical hernia concerning for incarceration +/- strangulation. BP 70s, Tmax 100.9, WBC 18, lactate 6, creat 1.9. She was seen by Colorectal Surgery who discussed benefit of urgent surgical intervention. She is
placed on levophed, and empiric abx and admitted to ICU.
Septic shock on pressors
Incarcerated umbilical hernia wtih concern for ischemic bowel s/p resection with anastomosis 11/03/23
Perioperative mechanical ventilation
Aspiration PNA upon intubation, 2L bilious vomiting suctioned s/p NGT likely obstruction from hernia
REINA
Leukocytosis
Lactic acidosis
Hyponatremia
Hyperglycemia
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
Metastatic breast cancer
Plan
Sedated/intubated
Denies pain at this time.
Pain/sedation: PRN
RASS goals: 0
Hemodynamically unstable, requiring pressors.
Requiring pressors: levophed increasing, will add vaso
Cardiac history reviewed--none
No prior ECHO for review, can obtain new study in AM
Monitor on telemetry
Vent settings reviewed: AC 450/14/40/5
ABG 7.3/43/221 repeat 7.
Prior history of lung disease: none
Supplemental O2 as indicated to maintain sats > 89%
CXR showing L sided atelectasis improved on repeat CXR with ETT position adjusted
ABx continued for presumed aspiration as well
Will hold off on SBT while unstable
Suspected incarcerated bowel, on exam/severe findings
CRS on board, s/p resection with anastomosis 11/03/23
NPO s/p NGT, 300mL overnight in NGT output, continue monitoring
Aspiration precautions, HOB > 30 degrees
GI prophylaxis if indicated for mechanical ventilation >48 hours, prior history of GERD, stress ulcer formation in the critically ill
Will add H2B ppx
REINA present, no history of renal disease
Void trials
Follow urine output, critical I/Os--increasing in output
Replete electrolytes as needed
IVFs continued, can give 500cc bolus if remains poor/hypotensive
Possible colitis, ischemic bowel, aspiration PNA
Fever and increased WBC on presentation, empiric abx started
Antibiotics: Zosyn IV, Vanc IV
Cultures sent/pending
Follow fever trend, WBC count
Lactate elevated on admission, continue to trend until <2
CBC stable, no signs of bleeding or coagulopathy.
DVT prophylaxis as assessed based on risk, including mechanical SCDs
Can transfuse if indicated for Hb <7, plt < 10
INR WNL
No prior h/o diabetes or thyroid disease
Monitor accuchecks PRN/SS coverage if needed
Lines- PICC attempted on L, could not thread, R fem line attempted (by myself >60 mins) could not thread. She has RUE lymphedema and L sided neck metastatic disease
CVC needed but having difficult access sites, will consult IR
Prognosis guarded
Family Discussions
Karen 11/03/23- I had a long discussion with the and daughter at bedside regarding decision making. Initially patient had declined surgery as she did not want to live with a colostomy but then subsequently did not change her code status
despite urgency of the situation. She then changed her mind this morning stating she does want to live and would undergo surgery. The family did feel she was not quite sure/had cognitive impairment on presentation, but she seems more clear to them
this morning. It is difficult to discuss with her as she has very severe hearing impairment and does not use hearing aids. I answered all questions from including her future oncologic care, that he will need to discuss with their
oncologist for next steps. They are now agreeing for surgery and care team was updated in further discussions.
Diagnostic Data
Chest X-Ray:
CT Scan:
Echo:
PFT's:
Reports and relevant images were personally reviewed.
-----
Critical care time 105 mins -- this includes review of history, physical exam, medications, hemodynamic/ventilator parameters, laboratory data, imaging and discussion with house staff, pharmacy, respiratory therapy, sleep technologist, and nursing. Procedure
attempted but aborted due to failure to pass wire.
Subjective Dataa
Subjective Data
Date of Service:
Date of Service: November 04, 2023
Chief Complaint: [employer] Follow Up
Subjective:
increased pressors requirements overnight
more agitation requiring sedation
picc attempted, could not advance on L
Objective Data
Data Reviewed
Vital Signs / I&O / Oxygen:
Vital Signs
Temp Pulse Resp BP Pulse Ox
99.3 F 95 16 100/63 96
11/04/23 03:38 11/04/23 06:15 11/04/23 06:15 11/03/23 23:15 11/04/23 06:15
Intake and Output
11/03/23 11/04/23 11/05/23
06:59 06:59 06:59
Intake Total 1050 / 1267.5 4167.6 / 4167.6
Output Total 410 / 460 529 / 529
Balance 640 / 807.5 3638.6 / 3638.6
SaO2 [A/C] 98
SaO2 96
Nasal Cannula flow liters per 2
minute
Physical Exam
General: Other (chronically ill appearing, sedated/intubated)
HEENT: Normocephalic and Anicteric
Cardiovascular: S1-S2, Regular Rhythm and Peripheral Edema (R RUE swelling/lymphedema)
Respiratory: Crackles, Non-Labored Respirations and ET Tube
GI: Soft, Non Distended, Other (absent sounds) and Other (incision noted, improved exam from prior)
Neurology: Non Verbal (sedated/intubated)
Skin: Warm, Dry and Other (numerous skin lesions over sternum, L side of neck--presumed fungating metastatic disease)
Labs/Micro/Reports
Lab Data
11/04/23 05:08
11/04/23 05:08
Laboratory Results
11/03/23 11/04/23
12:55 05:08
pH 7.30 L 7.41
pCO2 43 H 32
pO2 221 H 174 H
HCO3 21.2 20.3 L
O2 Delivery Level
Microbiology
11/02/23 20:37 Blood/Venous Blood Culture - Preliminary
No Growth in 24 hours- Final report to follow
11/02/23 20:37 Blood/Venous Blood Culture - Preliminary
No Growth in 24 hours- Final report to follow
--- NOTE | 2023-11-04 07:30 | PTCARENOTE ---
Receive patient from police shift commander. Patient is intubated, sedated, restrained. Patient RASS -3, reduced dose of propofol. Patient has fentanyl, propfol, levophed and potassium rider infusing into peripheral sites. Called IVT, they could not place
central line last night, call was made to IR for access. IV sites appear to be WNL. Patient is intubated with #7 tube at 23 cm at lip. oral care completed. She is AC control 14/450/5/40% with oxygen saturation at 96%. Patient is in a sinus
rhythm in the 90s. Right arm is edematous, has known lymphedema, bilateral SCDs on. Patient is NPO, NG tube is to low intermiteent suction, brownish drainage is noted coming out of tube. Patient has butcher catheter for accurate I&O. Patient has
midline incision to abdomen, surrounding skin ecchymotic. Some petechiae noted on bilateral feet. Will review orders and place call to IR for central line access.
--- NOTE | 2023-11-04 08:05 | PHA.VAN.FU ---
Vancomycin Assessment / Plan
- Assessment
Renal Function: SCR Increasing (1.4->1.6)
In the past 24 hrs, patient has been: Afebrile
Concomitant Antimicrobials: pip/tazo
- Assessment - Therapeutic Drug Monitoring
Random Level: 10.9 - ~ 21 hours post initial 1500 mg dose
- Dosing Plan
Continue: dose by random levels
Dosing by Level: Re-dose today (1000 mg x 1 dose)
- Monitoring Plan
Random Level: repeat random level AM 11/04
- Follow Up
Pharmacy will continue to follow.
Vancomycin Follow UP
- -
Patient Age: 78
Patient Sex: Female
Vancomycin Day #: 2
Indication: Gi / Intra-Abdominal
Requesting Provider: Royal
Height / Weight:
Height 5 ft 4 in
Actual Weight 62.1 kg
Pertinent Past Medical History: met breast ca
- Vital Signs / Lab Results
Temp Pulse Resp BP Pulse Ox
99.7 F 95 16 100/63 95
11/04/23 07:36 11/04/23 06:15 11/04/23 06:15 11/03/23 23:15 11/04/23 07:55
Lab Results - Hematology
11/02/23 11/03/23 11/03/23
20:30 04:19 04:50
WBC 18.2 H Cancelled 11.4 H
11/04/23
05:08
WBC 13.0 H
Lab Results - Chemistry
11/02/23 11/03/23 11/03/23
20:30 04:20 12:55
BUN 67 H 63 H 62 H
Creatinine 1.9 H 1.6 H 1.4 H
Estimated Creat Clear
Albumin 4.2 2.9 L 2.8 L
11/04/23
05:08
BUN 60 H
Creatinine 1.6 H
Estimated Creat Clear 24
Albumin
11/02/23 11/03/23 11/03/23
20:37 00:26 00:58
Lactic Acid 6.3 H* 1.3 Cancelled
11/03/23 11/03/23
06:58 12:58
Lactic Acid Cancelled Cancelled
Microbiology Results
11/02/23 20:37 Blood Culture - Preliminary
Blood/Venous No Growth in 24 hours- Final report to follow
11/02/23 20:37 Blood Culture - Preliminary
Blood/Venous No Growth in 24 hours- Final report to follow
Therapeutic Drug Monitoring
Random Vancomycin 10.8 ug/ml 11/04/23 05:08
--- NOTE | 2023-11-04 08:14 | VATNOTE ---
Called to place additional PIV access. Patient agitated and uncooperative. Unable to use right arm due to reported lymphedema; foot IV order obtained. Multiple unsuccessful attempts made to place PIV. Tumbler Drier Operator at bedside and made aware of access
issues. IRAD consult placed as per last shift RN.
--- NOTE | 2023-11-04 08:20 | PTCARENOTE ---
Dr. Jones at bedside, attempt to put in femoral central line unsuccessful. IRAD called in.
[2023-11-04] MEDS: PITRESSIN 100 IV (08:52)
--- NOTE | 2023-11-04 08:58 | W.PN.HOSP.TC ---
Today's Communication/Plan
-
see note
continue abx
wean off pressure as possible
Assessment / Plan
Assessment / Plan
Incarcerated / Strangulated Umbilical Hernia
Septic Shock
-Patient usually hesitant to undergo surgery although per discussion was held and patient agreeable to surgery afterwards
-Patient underwent resection of 45 cm necrotic small bowel with internal anastomosis and fixation of fascial defect on 11/02
-Patient remains in septic shock postop day 1, vasopressor requirement increased in morning although stabilized at this point
-Continue to wean off vasopressors as possible
-Currently on empiric vancomycin and Zosyn
-Blood culture has been negative so far. No intraoperative culture collected.
Ventilator dependent respiratory failure
-Postop patient was maintained on ventilatory support
-Ongoing vent weaning effort per smoke eater
Metastatic Breast Cancer
-Followed at [facility]. Currently on no active therapy / medications.
-On med holiday for a month with plan to revisit / restart meds in early November.
Acute blood loss anemia from surgery
-Hemoglobin is drifted down to 9.7 postoperatively, at admission 12.5
-continue monitor
Thrombocytosis
-Reactive/infection related as well, monitor
Hyponatremia
-Likely hypovolemic hyponatremia.
Hypokalemia
-replace as needed
REINA
Metabolic acidosis
-SCr = 1.9. No prior SCr to compare, but suspect REINA secondary to sepsis / hypoperfusion.
-IVFs / pressor support as noted above.
-metabolic acidosis multifactorial from lactic acidosis (resolved) and REINA
DVT Prophylaxis: SCDs
Full code
Care plan discussed with smoke eater.
Patient family at bedside and all questions answered with best understanding.
Total critical care time 40 mins . Total critical care time documented does not include time spent on separately billed procedures or the services of residents, students, nurses or physician assistants. I personally saw and examined the patient. I
have reviewed all diagnostic interpretations and treatment plans as written. I was present for the easley portions of any procedures performed and the inclusive time noted in any critical care statement. Critical care time includes patient management
by me, time spent at the patients bedside, time to review lab and imaging results, discussing patient care, documentation in the medical record, and time spent with the family or caregiver.
Anticipated Discharge: > 48 hours
Subjective/Interval History
-
Date of Service: November 04, 2023
patient remains intubated and on vasopressors
difficult IV access
no acute issues reported
Objective Data
-
Labs:
Laboratory Results
11/04/23
05:08
WBC 13.0 H
Hgb 9.7 L
Hct 30.2 L
Plt Count 456 H
HCO3 20.3 L
Sodium 130 L
Potassium 3.2 L
Chloride 101
Carbon Dioxide 18 L
BUN 60 H
Creatinine 1.6 H
Glucose 202 H
Calcium 7.9 L
Vital Signs:
Vital Signs
Temp Pulse Resp BP Pulse Ox
99.7 F 93 15 100/63 97
11/04/23 07:36 11/04/23 08:30 11/04/23 08:30 11/03/23 23:15 11/04/23 08:30
I&O
11/03/23 11/04/23 11/05/23
06:59 06:59 06:59
Intake Total 1050 / 1267.5 4167.6 / 4378.7 286.3 / 286.3
Output Total 410 / 460 529 / 679 150 / 150
Balance 640 / 807.5 3638.6 / 3699.7 136.3 / 136.3
Review of Systems
-
Unable to obtain full review of systems at this time due to: Patient Intubation
Physical Exam
-
General: Comfortable
HEENT: Other (ET tube in place, on vent)
Respiratory: Clear to Auscultation
Cardiac: Regular Rhythm and S1/S2; Negative Murmur or Rub
GI: Distended and Other (Midline dressing in place); Negative Normal Bowel Sounds
Musculoskeletal: No Edema
Neuro: Negative Awake or Alert
Psych: Calm
[2023-11-04] MEDS: NSS IV (09:00)
[2023-11-04] MEDS: PROTONIX IV 40 MG IV (10:38)
[2023-11-04] MEDS: NSS (PRESERVATIVE FREE) 10 ML IV (10:38)
[2023-11-04] MEDS: PEPCID 10 MG IV (11:24)
[2023-11-04] MEDS: VANCOCIN 200 IV (11:28)
--- NOTE | 2023-11-04 11:56 | W.PN.GS2 ---
Addendum entered and electronically signed by Warren Obregon MD 11/04/23 13:25:
I saw and examined the patient.
The SUPERVISOR COKE HANDLING's note was reviewed and I agree with the note.
Comment:
Seen in am with PA.
Patient intubated, sedated, on pressors and with NGT in place.
Tm 100.9. BP supported with pressors. WBC 13 on Zosyn. UO reasonable.
NGT with bilious output.
Abdominal dressings changed. No skin erythema but some bruising vs dark skin discoloration--was present preop. Nondistended.
Obviously still critically ill. Unclear whether aspiration is playing a role here too.
Continue current measures/ICU support.
Discussed situation with Drs. Chavez and Eloise. Also discussed with patient's and daughter.
Original Note:
Today's Communication / Plan
-
Continue NGT to suction
Assessment / Plan
-
78 yo female with h/o metastatic breast ca undergoing recent immunotherapy at [facility] presenting with strangulated umbilical hernia. Patient and family initially declined surgery and patient admitted to ICU on pressors as they also declined hospice.
Roughly 12 hours after presentation, family and patient willing to proceed with surgery and she was taken to the OR emergently.
POD #1 Exploratory laparotomy, small bowel resection with primary anastomosis, primary umbilical hernia repair
Continued on pressors (increasing requirements this am) with and mechanical ventilation support. Afebrile.
Mild leukocytosis
Cr elevated, but stable
NGT with bilious outputs
Await bowel recovery
--Keep NPO with NGT to wall suction
--Dressing changed at bedside, incision without erythema or purulence
--C/W butcher
--Critical care management as per Is Manager
--Lovenox/SCD's for VTE ppx
--Will follow closely
Subjective Data
-
Date of Service: November 04, 2023
Patient seen and examined at bedside with Dr. Obregon. and daughter present, questions addressed. VDRF and sedation limiting subjective portion of exam.
Objective Data
-
Intake and Output
11/03/23 11/04/23 11/05/23
06:59 06:59 06:59
Intake Total 1050 / 1267.5 4167.6 / 4378.7 781.9 / 781.9
Output Total 410 / 460 529 / 679 525 / 525
Balance 640 / 807.5 3638.6 / 3699.7 256.9 / 256.9
Intake:
IV fluids (Total) 750 / 900 3835.1 / 4046.2 781.9 / 781.9
LR 80 / 80
Levophed 882.2 / 957.2 210.0 / 210.0
Lr 1,000 ml @ 125 mls/hr IV . 750 / 900 2700 / 2825 500 / 500
Q8H LORENA Rx#:[id number]
Propofol 142.9 / 151.5 37.9 / 37.9
Vasopressin
fent 30.0 / 32.5 10.0 / 10.0
IV piggybacks 300 / 367.5 302.5 / 302.5
Amount instilled into GI Tube (
Total)
[place]
Output:
Urine, Butcher 410 / 460 529 / 679 525 / 525
Vital Signs
Temp Pulse Resp BP Pulse Ox
99.2 F 93 15 100/63 97
11/04/23 11:30 11/04/23 08:30 11/04/23 08:30 11/03/23 23:15 11/04/23 11:12
Lab Results
11/04/23 05:08
11/04/23 05:08
Calcium 7.9 mg/dl (8.4-10.2) L 11/04/23 05:08
Phosphorus 4.3 mg/dl (2.5-4.5) 11/03/23 04:20
Magnesium 2.5 mg/dl (1.6-2.3) H 11/03/23 04:20
Total Bilirubin 1.2 mg/dl (0.2-1.3) 11/03/23 12:55
Direct Bilirubin 0.6 mg/dl (0.0-0.4) H 11/03/23 04:20
AST 30 U/L (14-36) 11/03/23 12:55
ALT 13 U/L (0-35) 11/03/23 12:55
Alkaline Phosphatase 88 U/L (38-126) 11/03/23 12:55
Total Protein 5.0 g/dl (6.3-8.2) L 11/03/23 12:55
Albumin 2.8 g/dl (3.5-5.0) L 11/03/23 12:55
Physical Exam
-
NAD, sedated
VDRF on pressor support
NGT with 400ml for brown/bilious outputs
ABD soft, nt, mild distention, SUPERVISOR COKE HANDLING. butcher with clear, yellow urine
Incision with intact staple line, open area to umbilicus with ss drainage on packing which was changed
--- NOTE | 2023-11-04 12:00 | PTCARENOTE ---
Patient now has femoral central line, all IV tubing exchanged. Added vasopressin in attempt to wean Levophed. CHG and oral care completed. linens exchanged. Dr. Chavez at bedside with family. Updated patient's and children.
[2023-11-04 12:38] VITALS: BP 152/67
[2023-11-04 13:32] VITALS: BP 136/61
--- NOTE | 2023-11-04 14:17 | PTCARENOTE ---
Fentanyl bolus given for sustained agitation/pain, as charted in MAR
[2023-11-04 14:35] VITALS: BP 121/61
[2023-11-04 16:13] LABS: Blood Urea Nitrogen 45 mg/dl (7-17); Calcium 7.6 mg/dl (8.4-10.2); Carbon Dioxide 20 mmol/L (22-30); Chloride 100 mmol/L (98-107); Estimated Creatinine Clearance 26 ml/min; Glucose 162 mg/dl (70-99); Potassium 3.2 mmol/L (3.5-5.1); Sodium 130 mmol/L (135-145); eGFR 35.01
[2023-11-04 16:15] LABS: Lactic Acid 5.8 mmol/L (0.7-2.0)
--- NOTE | 2023-11-04 16:30 | PTCARENOTE ---
Lactic Acid level came back at 5.8. Notified Dr. Chavez. Will give earlier ordered 250ml bolus and trend Lactic levels q4.
[2023-11-04] MEDS: NSS 250 IV (16:34)
[2023-11-04] MEDS: LOVENOX 30 MG SC (17:58)
--- NOTE | 2023-11-04 19:24 | PTCARENOTE ---
Assumed care of pt. approx 1899.
Intubated/sedated, prop/fent.
MAP goals supported through Norepi gtt, see titration flowsheet for details.
GCS 7T, pupils E/R 3, unable to access sensation/analysis manager due to pt unable to follow commands appropriately.
Sinus tach w/o ectopy, normothermic, s1 s2 present.
Saturating 96-98 sp02 on 40%/5 PEEP, pulling volumes, slight overbreathing of vent.
Abdominal sounds hypoactive, surgical site C/D/I.
[2023-11-04 20:17] LABS: Lactic Acid 3.8 mmol/L (0.7-2.0)
[2023-11-04 22:23] LABS: Blood Urea Nitrogen 42 mg/dl (7-17); Calcium 7.8 mg/dl (8.4-10.2); Carbon Dioxide 22 mmol/L (22-30); Chloride 102 mmol/L (98-107); Estimated Creatinine Clearance 35 ml/min; Glucose 122 mg/dl (70-99); Sodium 131 mmol/L (135-145)
[2023-11-04] MEDS: SUBLIMAZE 100 IV (22:25)
[2023-11-04] MEDS: KCL 100 IV (22:30)
[2023-11-05] VITALS (8 sets, daily range): BP systolic 84–135; BP diastolic 47–71; BMI 24.3
[2023-11-05 00:04] LABS: Lactic Acid 3.1 mmol/L (0.7-2.0)
--- NOTE | 2023-11-05 00:05 | PTCARENOTE ---
No deviation from prior assessment.
repleted K, central line dressing changed, trending serum lactic.
Norepi, Fent, Prop, LR gtt cont., see titration flowsheet for details, Vasopressin remains off.
[2023-11-05] MEDS: ZOSYN 50 IV ×4 (02:07→19:38)
[2023-11-05] MEDS: DIPRIVAN 100 IV ×3 (02:07→21:02)
--- NOTE | 2023-11-05 03:56 | PTCARENOTE ---
No deviation from prior assessment.
Attempting to wean down vasopressor support/sedation.
[2023-11-05 04:34] LABS: HCO3 23.5 mmol/L (21-28); PCO2 37 mmHg (32-35); PO2 141 mmHg (83-108); pH 7.41 (7.35-7.45)
[2023-11-05 04:36] LABS: Hematocrit 26.1 % (37.0-47.0); Hemoglobin 8.7 g/dL (12.0-16.0); Mean Corp Hgb Conc. 33.3 g/dL (33.0-37.0); Mean Corpuscular Hgb 28.4 pg (27.0-31.0); Mean Corpuscular Volume 85.3 fL (81.0-99.0); Mean Platelet Volume 9.3 fL (7.4-10.4); Platelet Count 345 10^3/uL (130-400); Red Blood Cell Count 3.06 10^6/uL (4.20-5.40); Red Cell Dist. Width 21.2 % (11.5-14.5)
[2023-11-05 05:00] LABS: Blood Urea Nitrogen 35 mg/dl (7-17); Calcium 8.1 mg/dl (8.4-10.2); Carbon Dioxide 23 mmol/L (22-30); Chloride 105 mmol/L (98-107); Estimated Creatinine Clearance 35 ml/min; Glucose 115 mg/dl (70-99); Potassium 3.6 mmol/L (3.5-5.1); Sodium 135 mmol/L (135-145)
[2023-11-05 05:06] LABS: Vancomycin Random 12.4 ug/ml
[2023-11-05] MEDS: LR 1000 IV ×4 (05:19→23:35)
[2023-11-05] MEDS: LEVOPHED 250 IV ×4 (06:09→20:45)
--- NOTE | 2023-11-05 06:43 | W.PN.INTV ---
Today's Communication / Plan
Recommendations
Transition to ASV and monitor
Echocardiogram later today
Adjust dosing of antibiotics
1 L bolus this morning, wean norepinephrine
Discontinue famotidine
Chest x-ray in a.m.
Assessment
-
Patient is an 78 year old F with history of metastatic breast cancer (treated at [facility] on Ibrance->Afinitor) presenting to ED complaining of poor appetite, abdominal pain and N/V x 4-5 days. Of note, she had experienced weight
loss/anorexia with use of Afinitor. She began to complain of abdominal discomfort about 2 days ago. Today, family noted discoloration associated with her long standing chronic umbilical hernia. On evaluation in the ED, patient is noted to have
firm, tender and grossly discolored umbilical hernia concerning for incarceration +/- strangulation. BP 70s, Tmax 100.9, WBC 18, lactate 6, creat 1.9. She was seen by Colorectal Surgery who discussed benefit of urgent surgical intervention. She is
placed on levophed, and empiric abx and admitted to ICU.
Septic shock on pressors
Incarcerated umbilical hernia wtih concern for ischemic bowel s/p resection with anastomosis 11/03/23
Perioperative mechanical ventilation
Aspiration PNA upon intubation, 2L bilious vomiting suctioned s/p NGT likely obstruction from hernia
REINA
Leukocytosis
Lactic acidosis
Hyponatremia
Hyperglycemia
Conditions present LEGISLATIVE ASSISTANT
Metastatic breast cancer
Plan/recommendations
At this time, patient remains critically ill. She was on vasopressin, norepinephrine overnight, vasopressin weaned off this morning. She remains on Zosyn/vancomycin. Patient does get agitated with weaning of sedation, moves all extremities, turns
head but does not follow commands. Remains on fentanyl/propofol and IV fluids.
Remains on volume-cycled ventilation, assist control
Moving forward
Continue with VCV
AC 14/450/5/40%
Ppk 25, Pplat 18
Will consider transitioning to ASV to optimize spontaneous breathing in the setting of sedation
Would like to pursue wean as able.
Check chest x-ray in a.m., ABG in a.m.
Sedated/intubated
Denies pain at this time.
Pain/sedation: PRN
RASS goals: 0
Remains on fentanyl/propofol
Hemodynamically unstable, requiring pressors.
Requiring pressors: Vasopressin has been weaned off, Levophed slowly being weaned
Cardiac history reviewed--none
No prior ECHO for review, await study today
Monitor on telemetry
Suspected incarcerated bowel, on exam/severe findings
CRS on board, s/p resection with anastomosis 11/03/23
LAUREN drain 300 cc
Aspiration precautions, HOB > 30 degrees
GI prophylaxis if indicated for mechanical ventilation >48 hours, prior history of GERD, stress ulcer formation in the critically ill
Continue Protonix, discontinue famotidine
REINA present, no history of renal disease
Void trials
Follow urine output, critical I/Os--increasing in output
Replete electrolytes as needed
Received another bolus of 1 L LR this morning. Continue to wean norepinephrine. Creatinine 1.1
Possible colitis, ischemic bowel, aspiration PNA
Fever and increased WBC on presentation, empiric abx started
Antibiotics: Zosyn IV, Vanc IV. Will adjust dosing of Zosyn
Cultures sent/pending
Follow fever trend, WBC count
Lactate elevated on admission, trending down to 3
CBC stable, no signs of bleeding or coagulopathy.
DVT prophylaxis as assessed based on risk, including mechanical SCDs
Can transfuse if indicated for Hb <7, plt < 10
INR WNL
No prior h/o diabetes or thyroid disease
Monitor accuchecks PRN/SS coverage if needed
Lines- PICC attempted on L, could not thread, R fem line attempted (by myself >60 mins) could not thread. She has RUE lymphedema and L sided neck metastatic disease
CVC needed but having difficult access sites. IR placed right groin line
Prognosis guarded
Reviewed at length with critical care nursing, respiratory care, pharmacy, primary service
Critical care time 45 mins -- this includes review of history, physical exam, medications, hemodynamic/ventilator parameters, laboratory data, imaging and discussion with house staff, pharmacy, respiratory therapy, balance clerk, and nursing.
Family Discussions
Jamal 11/05/2023: Extensive update with at the bedside. He does not want his 1 daughter Samreen to be updated as she has difficulty processing information at that time, gets very anxious. Other 2 children are to be updated (Temo, Luna).
All questions answered
Karen 11/03/23- I had a long discussion with the and daughter at bedside regarding decision making. Initially patient had declined surgery as she did not want to live with a colostomy but then subsequently did not change her code status
despite urgency of the situation. She then changed her mind this morning stating she does want to live and would undergo surgery. The family did feel she was not quite sure/had cognitive impairment on presentation, but she seems more clear to them
this morning. It is difficult to discuss with her as she has very severe hearing impairment and does not use hearing aids. I answered all questions from including her future oncologic care, that he will need to discuss with their
oncologist for next steps. They are now agreeing for surgery and care team was updated in further discussions.
Diagnostic Data
Chest X-Ray:
CT Scan:
Echo:
PFT's:
Reports and relevant images were personally reviewed.
-----
Subjective Dataa
Subjective Data
Date of Service:
Date of Service: November 05, 2023
Chief Complaint: Digital Proofing And Platemaker Follow Up
Subjective:
Patient remains critically ill, on pressors. Has been weaned off of vasopressin, norepinephrine also being weaned. Remains on volume-cycled ventilation. LAUREN drainage 300, urine output adequate. Patient spontaneously moves extremities, turns head
but does not follow commands. Remains sedated
Objective Data
Data Reviewed
Vital Signs / I&O / Oxygen:
Vital Signs
Temp Pulse Resp BP Pulse Ox
98.0 F 74 24 121/61 93
11/05/23 03:26 11/05/23 05:30 11/05/23 05:30 11/04/23 14:35 11/05/23 05:30
Intake and Output
11/03/23 11/04/23 11/05/23
06:59 06:59 06:59
Intake Total 1050 / 1267.5 4167.6 / 4378.7 5704.1 / 5704.1
Output Total 410 / 460 529 / 679 3085 / 3085
Balance 640 / 807.5 3638.6 / 3699.7 2619.1 / 2619.1
SaO2 [A/C] 96
SaO2 93
Nasal Cannula flow liters per 2
minute
Physical Exam
General: Comfortable, Other (chronically ill appearing, sedated/intubated) and Other (Right femoral groin line, left upper extremity A-line)
HEENT: Normocephalic and Anicteric
Cardiovascular: S1-S2, Regular Rhythm, Murmur (n), Rub (n) and Peripheral Edema (R RUE swelling/lymphedema)
Respiratory: Wheeze (n), Crackles (n), Rhonchi (n), Non-Labored Respirations, ET Tube and Other (Decreased left base)
GI: Soft, Non Distended, Other (absent sounds) and Other (Abdominal dressing in place)
Neurology: Lethargic (Spontaneously moves extremities, turns head)
Skin: Cyanosis (n), Jaundice (n), Rash and Other (numerous skin lesions over sternum, L side of neck--presumed fungating metastatic disease)
Labs/Micro/Reports
Lab Data
11/05/23 04:22
11/05/23 04:22
Laboratory Results
11/05/23
04:22
pH 7.41
pCO2 37 H
pO2 141 H
HCO3 23.5
O2 Delivery Level
Microbiology
11/02/23 20:37 Blood/Venous Blood Culture - Preliminary
No Growth in 48 hours- Final report to follow
11/02/23 20:37 Blood/Venous Blood Culture - Preliminary
No Growth in 48 hours- Final report to follow
[2023-11-05] MEDS: PROTONIX IV 40 MG IV (07:30)
[2023-11-05] MEDS: NSS (PRESERVATIVE FREE) 10 ML IV (07:30)
--- NOTE | 2023-11-05 08:17 | PTCARENOTE ---
Update with Band Singer this am. Follow up labs, plan of cares and ongoing assessment trends. Updated assessment, vital signs ongoing and as documented. Patient remains very sensitive to levophed wean. Returned presently to 8mcg/min. Continue
fluids, IVF bolus, and antibiotics as ordered. Update family at bedside. Continue with teaching and supportive cares.
--- NOTE | 2023-11-05 08:55 | PHA.VAN.FU ---
Vancomycin Assessment / Plan
- Assessment
Renal Function: Stable
WBC's are: Trending Up
In the past 24 hrs, patient has been: Afebrile
Concomitant Antimicrobials: piperacillin/tazobactam
- Assessment - Therapeutic Drug Monitoring
Random Level: 12.4 - drawn ~17H after previous dose of 1000mg
Specimen was not protected from light and there may have been some degradation of level
- Dosing Plan
Dosing by Level: Re-dose today (Vanc 750mg)
- Monitoring Plan
Random Level: 11/05 06
- Follow Up
Pharmacy will continue to follow.
Vancomycin Follow UP
- -
Patient Age: 78
Patient Sex: Female
Vancomycin Day #: 3
Indication: Gi / Intra-Abdominal
Requesting Provider: Dr. Paige
Pertinent Antimicrobial Allergies:
NKDA
Height / Weight:
Height 5 ft 4 in
Actual Weight 64.2 kg
Pertinent Past Medical History: metastatic breast cancer
- Vital Signs / Lab Results
Temp Pulse Resp BP Pulse Ox
98.3 F 78 14 135/71 98
11/05/23 07:30 11/05/23 08:15 11/05/23 08:15 11/05/23 07:23 11/05/23 08:15
Lab Results - Hematology
11/02/23 11/03/23 11/03/23
20:30 04:19 04:50
WBC 18.2 H Cancelled 11.4 H
11/04/23 11/05/23
05:08 04:22
WBC 13.0 H 19.0 H
Lab Results - Chemistry
11/02/23 11/03/23 11/03/23
20:30 04:20 12:55
BUN 67 H 63 H 62 H
Creatinine 1.9 H 1.6 H 1.4 H
Estimated Creat Clear
Albumin 4.2 2.9 L 2.8 L
11/04/23 11/04/23 11/04/23
05:08 15:47 21:54
BUN 60 H 45 H 42 H
Creatinine 1.6 H 1.5 H 1.1 H
Estimated Creat Clear 24 26 35
Albumin
11/05/23
04:22
BUN 35 H
Creatinine 1.1 H
Estimated Creat Clear 35
Albumin
11/02/23 11/03/23 11/03/23
20:37 00:26 00:58
Lactic Acid 6.3 H* 1.3 Cancelled
11/03/23 11/03/23 11/04/23
06:58 12:58 15:47
Lactic Acid Cancelled Cancelled 5.8 H*
11/04/23 11/04/23 11/05/23
19:57 23:42 04:22
Lactic Acid 3.8 H 3.1 H 3.0 H
Microbiology Results
11/02/23 20:37 Blood Culture - Preliminary
Blood/Venous No Growth in 48 hours- Final report to follow
11/02/23 20:37 Blood Culture - Preliminary
Blood/Venous No Growth in 48 hours- Final report to follow
Therapeutic Drug Monitoring
Random Vancomycin 12.4 ug/ml 11/05/23 04:22
--- NOTE | 2023-11-05 09:16 | PTCARENOTE ---
Update with critical care team in morning rounds. Surgery and Hospitalist teams at bedside with family. Updated plan of cares, updated teaching and follow up concerns. Pharmacy to update antibiotics, follow up via E[facility]. Continue hourly/bedside
rounds. Drip titration as per protocol and follow up parameters. Await echo and follow up diagnostic trends.
--- NOTE | 2023-11-05 09:23 | W.PN.HOSP.TC ---
Today's Communication/Plan
-
Plan discussed with the family member - at bedside.
Plan discussed with ICU and Surgery
Assessment / Plan
Assessment / Plan
Incarcerated / Strangulated Umbilical Hernia
Septic Shock
Remains on pressor support continue to wean as tolerated.
S/p resection of 45 cm necrotic small bowel with internal anastomosis and fixation on 11/02 with surgery
Currently on empiric vancomycin and Zosyn. Dose adjusted per renal function as improving
Blood cultures no growth to date. No IntraOp cultures obtained
May consider infectious disease consult for antibiotic duration and recommendation
Ventilator dependent respiratory failure
-Postop patient was maintained on ventilatory support
-Ongoing vent weaning effort per interactive media director
Metastatic Breast Cancer
-Followed at [facility]. Currently on no active therapy / medications.
-On med holiday for a month with plan to revisit / restart meds in early November.
Acute blood loss anemia from surgery
Now hemoglobin 8.7 postoperatively. Admission ended 12. Trending down slowly. Will continue to monitor closely. Without evidence of ongoing bleeding at this time
Thrombocytosis
-Reactive/infection related as well, monitor
Hyponatremia
Resolved
Hypokalemia
As needed
REINA
Likely secondary to sepsis/hypoperfusion/ischemic ATN. Now on IV fluids and pressor support. Improving to 1.1 from 1.9 unknown baseline
Monitor renal output. Avoid nephrotoxins hypotension.
Renally dose medications
DVT Prophylaxis: SCDs
Full code
Care plan discussed with interactive media director and surgery
Patient family at bedside and all questions answered with best understanding.
Total critical care time 40 mins . Total critical care time documented does not include time spent on separately billed procedures or the services of residents, students, nurses or physician assistants. I personally saw and examined the patient. I
have reviewed all diagnostic interpretations and treatment plans as written. I was present for the easley portions of any procedures performed and the inclusive time noted in any critical care statement. Critical care time includes patient management
by me, time spent at the patients bedside, time to review lab and imaging results, discussing patient care, documentation in the medical record, and time spent with the family or caregiver.
Anticipated Discharge: > 48 hours
Subjective/Interval History
-
Date of Service: November 05, 2023
Seen and examined. Sedated and mechanically ventilated. Remains on norepinephrine.
-Is not following commands. Per hard of hearing better hearing on the right side.
at bedside. Discussed hospital course.
Has a right femoral trialysis catheter
Objective Data
-
Labs:
Laboratory Results
11/04/23 11/05/23
21:54 04:22
WBC 19.0 H
Hgb 8.7 L
Hct 26.1 L
Plt Count 345 D
HCO3 23.5
Sodium 131 L 135
Potassium 3.0 L 3.6
Chloride 102 105
Carbon Dioxide 22 23
BUN 42 H 35 H
Creatinine 1.1 H 1.1 H
Glucose 122 H 115 H
Calcium 7.8 L 8.1 L
Vital Signs:
Vital Signs
Temp Pulse Resp BP Pulse Ox
98.3 F 80 15 135/71 96
11/05/23 07:30 11/05/23 09:15 11/05/23 09:15 11/05/23 07:23 11/05/23 09:15
I&O
11/04/23 11/05/23 11/06/23
06:59 06:59 06:59
Intake Total 4167.6 / 4378.7 5704.1 / 6869.0 1552.1 / 1552.1
Output Total 529 / 679 3085 / 3235 475 / 475
Balance 3638.6 / 3699.7 2619.1 / 3634.0 1077.1 / 1077.1
Review of Systems
-
Unable to obtain full review of systems at this time due to: Patient Intubation
History Source: Family and Records
Physical Exam
-
General: Well Nourished and Comfortable
HEENT: Normocephalic, Atraumatic and Hearing Impaired
Respiratory: Rhonchi (Throughout all lung santos)
Cardiac: Regular Rhythm
Breast: Deferred by me
GI: Soft and Tender (Facial grimacing when abdominal near surgical line palpated)
Rectal: Deferred by Provider
Genito-urinary: Deferred by me
Musculoskeletal: No Clubbing, No Cyanosis, Edema, Right Lower Extrem and Edema, Left Lower Extrem
Skin: Warm and Dry
Neuro: Other (Unable to assess as she is mechanically ventilated and sedated on propofol)
[2023-11-05] MEDS: VANCOCIN 150 IV (09:24)
--- NOTE | 2023-11-05 10:28 | W.PN.GS2 ---
Today's Communication / Plan
-
--Keep NPO with NGT to wall suction
--PICC and TPN
--Increase dosage of Zosyn
Assessment / Plan
-
Patient is an 78 yo F p/w strangulated umbilical hernia
POD#2 Exploratory laparotomy, small bowel resection with primary anastomosis, primary umbilical hernia repair
Continued on pressors with and mechanical ventilation support. Afebrile.
Rising leukocytosis
Cr elevated, but stable
NGT with low volume light bilious outputs
Await bowel recovery
--Keep NPO with NGT to wall suction
--PICC and TPN
--May need to increase dosage of Zosyn given stable Cr clearance
--C/W butcher
--Critical care management as per Water Leak Repairer, continue support and resuscitation with elevated lactate
--Lovenox/SCD's for VTE ppx
--Will follow closely
Subjective Data
-
Date of Service: November 05, 2023
Intubated and sedated
Objective Data
-
Intake and Output
11/04/23 11/05/23 11/06/23
06:59 06:59 06:59
Intake Total 4167.6 / 4378.7 5704.1 / 6869.0 1552.1 / 1552.1
Output Total 529 / 679 3085 / 3235 475 / 475
Balance 3638.6 / 3699.7 2619.1 / 3634.0 1077.1 / 1077.1
Intake:
Oral fluids 0 / 0
IV fluids (Total) 3835.1 / 4046.2 4399.1 / 4564.0 502.1 / 502.1
LR 80 / 80
Levophed 882.2 / 957.2 836.4 / 862.7 86.3 / 86.3
Lr 1,000 ml @ 125 mls/hr IV . 2700 / 2825 3125 / 3250 375 / 375
Q8H [facility] Rx#:[id number]
Propofol 142.9 / 151.5 287.7 / 296.3 25.8 / 25.8
Vasopressin 60 / 60
fent 30.0 / 32.5 90.0 / 95.0 15
IV piggybacks 302.5 / 302.5 1155 / 2155 1050 / 1050
Amount instilled into GI Tube ( 30 150 / 150
Total)
[place] Sump 30 150 / 150
Output:
Gastrointestinal tube output ( 300 / 300
Total)
[place] Sump 300 / 300
Urine, Butcher 529 / 679 2785 / 2935 475 / 475
Vital Signs
Temp Pulse Resp BP Pulse Ox
98.3 F 80 15 135/71 96
11/05/23 07:30 11/05/23 09:15 11/05/23 09:15 11/05/23 07:23 11/05/23 09:15
Lab Results
11/05/23 04:22
11/05/23 04:22
Calcium 8.1 mg/dl (8.4-10.2) L 11/05/23 04:22
Phosphorus 4.3 mg/dl (2.5-4.5) 11/03/23 04:20
Magnesium 2.0 mg/dl (1.6-2.3) 11/05/23 04:22
Total Bilirubin 1.2 mg/dl (0.2-1.3) 11/03/23 12:55
Direct Bilirubin 0.6 mg/dl (0.0-0.4) H 11/03/23 04:20
AST 30 U/L (14-36) 11/03/23 12:55
ALT 13 U/L (0-35) 11/03/23 12:55
Alkaline Phosphatase 88 U/L (38-126) 11/03/23 12:55
Total Protein 5.0 g/dl (6.3-8.2) L 11/03/23 12:55
Albumin 2.8 g/dl (3.5-5.0) L 11/03/23 12:55
Physical Exam
-
Gen: intubated and sedated
HEENT: NGT with light bilious output
Abd: soft, winces with palpation of abdomen, mild distension, non-peritoneal, incision c/d/i - no erythema, slight ecchymotic discoloration, minimal drainage, packing changes at bedside (non-purulent, non-bilious)
[2023-11-05 12:01] LABS: ALT (SGPT) < 10 U/L (0-35); AST (SGOT) 18 U/L (14-36); Albumin 1.2 g/dl (3.5-5.0); Alkaline Phosphatase 65 U/L (38-126); Blood Urea Nitrogen 18 mg/dl (7-17); Calcium 5.2 mg/dl (8.4-10.2); Carbon Dioxide 14 mmol/L (22-30); Chloride 120 mmol/L (98-107); Estimated Creatinine Clearance 65 ml/min; Glucose 106 mg/dl (70-99); Magnesium 1.3 mg/dl (1.6-2.3); Phosphorus 1.2 mg/dl (2.5-4.5); Potassium 2.2 mmol/L (3.5-5.1); Sodium 138 mmol/L (135-145); Total Bilirubin 0.8 mg/dl (0.2-1.3); Total Protein 2.5 g/dl (6.3-8.2); Triglycerides 364 mg/dl (10-149); eGFR > 60.00
[2023-11-05 12:34] LABS: Ionized Calcium 1.17 mMOL/L (1.15-1.33)
[2023-11-05 12:49] LABS: Blood Urea Nitrogen 28 mg/dl (7-17); Calcium 8.1 mg/dl (8.4-10.2); Carbon Dioxide 24 mmol/L (22-30); Chloride 105 mmol/L (98-107); Estimated Creatinine Clearance 43 ml/min; Glucose 144 mg/dl (70-99); Potassium 3.2 mmol/L (3.5-5.1); Sodium 134 mmol/L (135-145); eGFR > 60.00
[2023-11-05] MEDS: KCL 100 IV (13:07)
[2023-11-05] MEDS: SUBLIMAZE 50 MCG IV (13:07)
[2023-11-05] MEDS: MAGNESIUM SULFATE 50 IV (13:07)
--- NOTE | 2023-11-05 13:24 | W.PN.UPDATE ---
Update Note
Progress Note Update
Labs reviewed. Potassium and magnesium being repleted
Patient is currently on ASV mode with spontaneous breathing, is awake, eyes open
Updated at bedside
apparently is refusing echocardiogram. I explained the reasoning for the echocardiogram (high risk for thromboembolic disease, to assess RV function, persistent hypotension, to assess LV function)
He does not want her to experience any pain during the ultrasound due to her left-sided breast cancer. I spoke with the echocardiogram air analysis technician. Although they take extreme care to try to make it as comfortable as possible, cannot guarantee that
patient will not be without discomfort.
was very adamant about minimizing any pain. also proceeded to lecture me on 'do no harm' mentality. I relayed to him that as a critical care physician, we always need to balance risks and benefits keeping in mind to 'do no harm' to
the patient.
Given his concerns, I asked him to reflect on long-term goals if her comfort is the primary goal, especially if chest percussions, CPR is required.
Will cancel echocardiogram based on 's concerns
--- NOTE | 2023-11-05 13:33 | CM ---
CM following re: discharge planning.
Reviewed pt's chart, met with pt. Pt's and daughter Liz at bedside.
Pt is an 78 year old female, admitted with primary dx of POD#2 Exploratory laparotomy, small bowel resection with primary anastomosis, primary umbilical hernia repair. Per Rounds meeting, Per Rounds meeting, pt remains critically ill, remains
intubated, NGT, TPN, continue supportive care.
Per daughter Liz, pt lives with in a condo 2SH, 2 steps to enter, has 3 supportive children. Per daughter pt has no DME, no VN or SNF history.
Pt and OT will evaluate the pt when clinically appropriate to determine a level of care at discharge.
D/C plan: uncertain at this time and will depend on pt's progress.
CM will follow with discharge plan updates as hospitalization progresses
--- NOTE | 2023-11-05 17:43 | PTCARENOTE ---
Telephone Maintenance Mechanic return to bedside to help address any questions might have. Continue to reinforce concerns and follow up cares. Ongoing skin cares, oral cares and early mobility protocols in place. Continue hourly rounds and more frequent
patient safety checks. Ongoing supportive cares and emotional support. Reinforce positive patient progress thru day. IVF, ABX as ordered, follow up medications via [facility].
[2023-11-05] MEDS: LOVENOX 40 MG SC (18:15)
[2023-11-05] MEDS: SUBLIMAZE 100 IV (18:25)
--- NOTE | 2023-11-05 21:19 | PTCARENOTE ---
received patient from previous shift. opens eyes and reaches for tube during turns. pupils 2 bilaterally and sluggish. oral care completed, pt attempted to reach for the tube during care. ASV on the vent sats in the mid 90's. lungs coarse
throughout. NS on the monitor. left radial a-line in place. NG to low intermittent suction. butcher draining clear yellow urine. midline dressing intact, no drainage. fentanyl, propofol,IVF, and levo infusing.
[2023-11-06] VITALS (9 sets, daily range): BP systolic 114–153; BP diastolic 47–68; BMI 25.4
[2023-11-06] MEDS: ZOSYN 50 IV ×4 (03:01→20:15)
[2023-11-06] MEDS: LEVOPHED 250 IV ×2 (03:22→11:50)
[2023-11-06 04:32] LABS: B.E. -3.5 mmol/L; HCO3 21.4 mmol/L (21-28); O2 Saturation % 99.6 % (94-98); PCO2 37 mmHg (32-35); PO2 89 mmHg (83-108); pH 7.37 (7.35-7.45)
[2023-11-06 05:07] LABS: Hematocrit 25.7 % (37.0-47.0); Mean Corp Hgb Conc. 31.1 g/dL (33.0-37.0); Mean Corpuscular Volume 89.9 fL (81.0-99.0); Mean Platelet Volume 9.8 fL (7.4-10.4); Platelet Count 222 10^3/uL (130-400); Red Blood Cell Count 2.86 10^6/uL (4.20-5.40); Red Cell Dist. Width 20.6 % (11.5-14.5); White Blood Cell Count 16.6 10^3/uL (4.8-10.8)
[2023-11-06 05:35] LABS: Blood Urea Nitrogen 20 mg/dl (7-17); Calcium 8.4 mg/dl (8.4-10.2); Carbon Dioxide 25 mmol/L (22-30); Chloride 105 mmol/L (98-107); Estimated Creatinine Clearance 55 ml/min; Glucose 121 mg/dl (70-99); Magnesium 2.2 mg/dl (1.6-2.3); Phosphorus 1.7 mg/dl (2.5-4.5); Potassium 3.6 mmol/L (3.5-5.1); Sodium 133 mmol/L (135-145); eGFR > 60.00
[2023-11-06 05:55] LABS: Triglycerides 455 mg/dl (10-149)
[2023-11-06] MEDS: POTASSIUM PHOSPHATE 259.0909 MEQ IV (06:01)
--- NOTE | 2023-11-06 07:18 | W.PN.INTV ---
Today's Communication / Plan
Recommendations
Echocardiogram today
Discontinue propofol, start Precedex
CPAP wean as able
Decrease IV fluids
TPN per surgery
IR to assess for PICC line, access may be difficult
Ongoing discussion regarding goals of care
Assessment
-
Patient is an 78 year old F with history of metastatic breast cancer (treated at [facility] on Ibrance->Afinitor) presenting to ED complaining of poor appetite, abdominal pain and N/V x 4-5 days. Of note, she had experienced weight
loss/anorexia with use of Afinitor. She began to complain of abdominal discomfort about 2 days ago. Today, family noted discoloration associated with her long standing chronic umbilical hernia. On evaluation in the ED, patient is noted to have
firm, tender and grossly discolored umbilical hernia concerning for incarceration +/- strangulation. BP 70s, Tmax 100.9, WBC 18, lactate 6, creat 1.9. She was seen by Colorectal Surgery who discussed benefit of urgent surgical intervention. She is
placed on levophed, and empiric abx and admitted to ICU.
Septic shock on pressors
Incarcerated umbilical hernia wtih concern for ischemic bowel s/p resection with anastomosis 11/03/23
Perioperative mechanical ventilation
Aspiration PNA upon intubation, 2L bilious vomiting suctioned s/p NGT likely obstruction from hernia
Suspected lung injury, aspiration pneumonitis
REINA
Leukocytosis
Lactic acidosis
Hyponatremia
Hyperglycemia
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
Metastatic breast cancer
Diagnosed 2017
On chemotherapy, held recently months ago due to significant side effects, neutropenia/leukopenia
Plan/recommendations
At this time, patient remains critically ill.
She remains on norepinephrine, unable to wean
Chest x-ray this morning concerning for bilateral patchy infiltrates per my review
Weight is increased 10 kg since admission
NG output 200 cc. Hemoglobin stable at 8.0 but trending down
Albumin 1.2
ABG reviewed, adequate ventilation
Of note, patient did move all extremities, turn head during sedation vacation
Moving forward
Continue with ASV 100%
Airway pressures adequate
Will consider transition to CPAP 5/pressure support 20 intermittently during the day
I am concerned about her chest x-ray findings given clinical presentation with incarcerated bowel, aspiration event
She is at high risk for lung injury process
Ideally, would like to pursue diuresis but difficult given hypotension
Maintain CPAP for now and reassess throughout the day
Sedated/intubated
Will transition from propofol to Precedex
Triglyceride 455
Pain/sedation: PRN
RASS goals: 0
Remains on fentanyl 50 mcg
Hemodynamically unstable, requiring pressors.
Requiring pressors: Vasopressin has been weaned off, Levophed slowly being weaned, unable to wean lower than 8 mcg
Cardiac history reviewed--none
Reviewed at length pathophysiology of hypotension. Would like to rule out RV dysfunction, LV dysfunction
This was explained at length with the patient.
Patient is agreeable to echocardiogram. Reviewed with telecommunications switch technician regarding possibility of pain
Suspected incarcerated bowel, on exam/severe findings
CRS on board, s/p resection with anastomosis 11/03/23
LAUREN drain 200 cc
Aspiration precautions, HOB > 30 degrees
GI prophylaxis if indicated for mechanical ventilation >48 hours, prior history of GERD, stress ulcer formation in the critically ill
Continue Protonix
TPN to be ordered by colorectal surgery
REINA present, no history of renal disease
Void trials
Follow urine output, critical I/Os--increasing in output
Replete electrolytes as needed
Weight up 10 kg
Will decrease LR fluids, continue to monitor I's and O's
Patient at risk for renal injury
Possible colitis, ischemic bowel, aspiration PNA
Fever and increased WBC on presentation, empiric abx started
Antibiotics: Zosyn IV, Vanc IV. Dose adjusted
Cultures sent/pending
Follow fever trend, WBC count
Lactate elevated on admission, trending down to 3
CBC stable, no signs of bleeding or coagulopathy.
DVT prophylaxis as assessed based on risk, including mechanical SCDs
Can transfuse if indicated for Hb <7, plt < 10
INR WNL
Maintain active type and screen but would minimize transfusion given risk for lung injury
No prior h/o diabetes or thyroid disease
Monitor accuchecks PRN/SS coverage if needed
Lines- PICC attempted on L, could not thread, R fem line attempted (by myself >60 mins) could not thread. She has RUE lymphedema and L sided neck metastatic disease
CVC needed but having difficult access sites. IR placed right groin line
Will need to assess for PICC line per IR. This may be difficult given metastatic breast cancer in the left involving the neck and right upper extremity lymphedema
According to , patient refused port placement in the past
Discussed worst-case scenario where we may have to accept chronic right groin placement but this would put patient at risk for infection
Prognosis guarded
Had extensive discussion with 11/05 regarding preadmission chronic medical conditions
Patient at risk for progressive lung injury, renal failure
On multiple occasions he has been suggested that she would not want aggressive care, and at 1 point requested hospice
Unclear when transition from hospice discussion to pursuing surgery and life support happened
I encouraged to take a step back and look at big picture and to look back on what his would want in current situation
is fearful of how he may feel in the setting of . Emotional support provided
We will continue full supportive care
Reviewed at length with critical care nursing, respiratory care, pharmacy, primary service
Reviewed with interventional radiology, surgery
Critical care time 77 mins -- this includes review of history, physical exam, medications, hemodynamic/ventilator parameters, laboratory data, imaging and discussion with house staff, pharmacy, respiratory therapy, global sales director, and nursing.
Family Discussions
Jamal 11/05/2023: Extensive update with at the bedside. He does not want his 1 daughter Samreen to be updated as she has difficulty processing information at that time, gets very anxious. Other 2 children are to be updated (Luna Plascencia).
All questions answered
Karen 11/03/23- I had a long discussion with the and daughter at bedside regarding decision making. Initially patient had declined surgery as she did not want to live with a colostomy but then subsequently did not change her code status
despite urgency of the situation. She then changed her mind this morning stating she does want to live and would undergo surgery. The family did feel she was not quite sure/had cognitive impairment on presentation, but she seems more clear to them
this morning. It is difficult to discuss with her as she has very severe hearing impairment and does not use hearing aids. I answered all questions from including her future oncologic care, that he will need to discuss with their
oncologist for next steps. They are now agreeing for surgery and care team was updated in further discussions.
Diagnostic Data
Chest X-Ray:
CT Scan:
Echo:
PFT's:
Reports and relevant images were personally reviewed.
-----
Subjective Dataa
Subjective Data
Date of Service:
Date of Service: November 06, 2023
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
Subjective:
Patient remains critically ill, on norepinephrine. Had to increase to 8 mcg, unable to wean. Developed tachycardia, tachypnea during CPAP wean yesterday, maintained on ASV overnight
Objective Data
Data Reviewed
Vital Signs / I&O / Oxygen:
Vital Signs
Temp Pulse Resp BP Pulse Ox
99.1 F 78 11 119/54 96
11/06/23 07:08 11/06/23 06:15 11/06/23 06:15 11/05/23 18:50 11/06/23 06:15
Intake and Output
11/05/23 11/06/23 11/07/23
06:59 06:59 06:59
Intake Total 5704.1 / 6869.0 5643.2 / 5643.2
Output Total 3085 / 3235 3105 / 3105
Balance 2619.1 / 3634.0 2538.2 / 2538.2
SaO2 [ASV] 97
SaO2 [A/C] 98
SaO2 96
Nasal Cannula flow liters per 2
minute
Physical Exam
General: Comfortable, Other (chronically ill appearing, sedated/intubated) and Other (Right femoral groin line, left upper extremity A-line)
HEENT: Normocephalic and Anicteric
Cardiovascular: S1-S2, Regular Rhythm, Murmur (n), Rub (n) and Peripheral Edema (R RUE swelling/lymphedema)
Respiratory: Wheeze (n), Crackles (Few), Rhonchi (n), Non-Labored Respirations, ET Tube and Other (Decreased left base)
GI: Soft, Non Distended, Other (absent sounds) and Other (Abdominal dressing in place)
Neurology: Lethargic (Spontaneously moves extremities, turns head)
Skin: Cyanosis (n), Jaundice (n), Rash and Other (numerous skin lesions over sternum, L side of neck--presumed fungating metastatic disease)
Labs/Micro/Reports
Lab Data
11/06/23 04:24
11/06/23 04:24
Laboratory Results
11/06/23
04:24
pH 7.37
pCO2 37 H
pO2 89
HCO3 21.4
O2 Delivery Level
Microbiology
11/02/23 20:37 Blood/Venous Blood Culture - Preliminary
No Growth in 72 hours- Final report to follow
11/02/23 20:37 Blood/Venous Blood Culture - Preliminary
No Growth in 72 hours- Final report to follow
--- NOTE | 2023-11-06 07:58 | PHA.VAN.FU ---
Vancomycin Assessment / Plan
- Assessment
Renal Function: Stable
WBC's are: Trending Down
In the past 24 hrs, patient has been: Afebrile
Concomitant Antimicrobials: piperacillin/tazobactam
- Assessment - Therapeutic Drug Monitoring
Random Level: 11 - drawn ~19H after previous dose of 750mg
- Dosing Plan
Dosing by Level: Re-dose today (Vanc 1000mg)
Patient's renal function improving
Trial of slightly higher dosing today - if not maintaining levels, may require Vanc 1250mg Q24H
- Monitoring Plan
Random Level: 11/06 0600
- Follow Up
Pharmacy will continue to follow.
Vancomycin Follow UP
- -
Patient Age: 78
Patient Sex: Female
Vancomycin Day #: 4
Indication: Gi / Intra-Abdominal
Requesting Provider: Dr. Paige
Pertinent Antimicrobial Allergies:
NKDA
Height / Weight:
Height 5 ft 4 in
Actual Weight 67.1 kg
Pertinent Past Medical History: metastatic breast cancer
- Vital Signs / Lab Results
Temp Pulse Resp BP Pulse Ox
99.1 F 78 11 119/54 96
11/06/23 07:08 11/06/23 06:15 11/06/23 06:15 11/05/23 18:50 11/06/23 06:15
Lab Results - Hematology
11/04/23 11/05/23 11/06/23
05:08 04:22 04:24
WBC 13.0 H 19.0 H 16.6 H
Lab Results - Chemistry
11/03/23 11/04/23 11/04/23
12:55 05:08 15:47
BUN 62 H 60 H 45 H
Creatinine 1.4 H 1.6 H 1.5 H
Estimated Creat Clear
Albumin 2.8 L
11/04/23 11/05/23 11/05/23
21:54 04:22 11:09
BUN 42 H 35 H 18 H
Creatinine 1.1 H 1.1 H 0.6
Estimated Creat Clear 35 35 65
Albumin 1.2 L D
11/05/23 11/06/23
12:18 04:24
BUN 28 H 20 H
Creatinine 0.9 0.7
Estimated Creat Clear 43 55
Albumin
11/04/23 11/04/23 11/04/23
15:47 19:57 23:42
Lactic Acid 5.8 H* 3.8 H 3.1 H
11/05/23
04:22
Lactic Acid 3.0 H
Microbiology Results
11/02/23 20:37 Blood Culture - Preliminary
Blood/Venous No Growth in 72 hours- Final report to follow
11/02/23 20:37 Blood Culture - Preliminary
Blood/Venous No Growth in 72 hours- Final report to follow
Therapeutic Drug Monitoring
Random Vancomycin 11.0 ug/ml 11/06/23 04:24
[2023-11-06] MEDS: PROTONIX IV 40 MG IV (08:16)
[2023-11-06] MEDS: NSS (PRESERVATIVE FREE) 10 ML IV (08:16)
[2023-11-06] MEDS: LR 1000 IV ×2 (08:17→10:14)
--- NOTE | 2023-11-06 08:35 | PTCARENOTE ---
Update with White Metal Corrosion Proofer this am. Update plan of cares, chest xray, labs and morning concerns. Await orders and follow up with pharmacy. Critical care nursing at bedside. .Oral cares and skin cares with mobility protocols in place and in use. Follow
up with respiratory cares team.
[2023-11-06] MEDS: PRECEDEX 100 IV ×2 (09:08→18:04)
--- NOTE | 2023-11-06 10:05 | PTCARENOTE ---
Am rounds with critical care team. Updates with Facility Manager and pharmacy. Surgery at bedside for dressing change and update with at bedside. Facility Manager in conference with to update plan of cares. Hospitalist also at bedside continue
to review teaching, plan of cares and concerns. Will follow drip changes with pharmacy.. Drip trends as per unit based protocols. Teaching and supportive cares ongoing for patient and family.
--- NOTE | 2023-11-06 10:11 | W.PN.GS2 ---
Today's Communication / Plan
-
--Keep NPO with NGT to wall suction
--TPN via central line
--Abx: Zosyn
Assessment / Plan
-
Patient is an 78 yo F p/w strangulated umbilical hernia
POD#3 Exploratory laparotomy, small bowel resection with primary anastomosis, primary umbilical hernia repair
CXR with bl infiltrates
Continued on pressors with and mechanical ventilation support. Afebrile.
Leukocytosis down
Cr normal
NGT with low volume gastric outputs
Await bowel recovery
--Keep NPO with NGT to wall suction
--TPN via central line
--Abx: Zosyn
--C/W Osorio
--Critical care management as per Events Assistant, continue support and resuscitation with elevated lactate
--Lovenox/SCD's for VTE ppx
--Will follow closely
Subjective Data
-
Date of Service: November 06, 2023
Intubated and sedated. Minimal light bilious NGT outputs. No reports of BM per nursing. Down on pressors (off Vaso).
Objective Data
-
Intake and Output
11/05/23 11/06/23 11/07/23
06:59 06:59 06:59
Intake Total 5704.1 / 6869.0 5643.2 / 5852.9 663.2 / 663.2
Output Total 3085 / 3235 3105 / 3140 245 / 245
Balance 2619.1 / 3634.0 2538.2 / 2712.9 418.2 / 418.2
Intake:
Oral fluids 0 / 0
IV fluids (Total) 4399.1 / 4564.0 4058.2 / 4217.9 563.2 / 563.2
Levophed 836.4 / 862.7 757.4 / 783.7 97.8 / 97.8
Lr 1,000 ml @ 125 mls/hr IV . 3125 / 3250 3000 / 3125 375 / 375
Q8H [facility] Rx#:[id number]
Lr 1,000 ml @ 60 mls/hr IV . 60 / 60
[id number] [facility] Rx#:[id number]
Prescedex 3.6 / 3.6
Propofol 287.7 / 296.3 180.8 / 184.2 6.8 / 6.8
Vasopressin 60 / 60
fent 90.0 / 95.0 120 / 125 20 / 20
IV piggybacks 1155 / 2155 1525 / 1575 100 / 100
Amount instilled into GI Tube ( 150 / 150 60 / 60
Total)
[place] Sump 150 / 150 60 / 60
Output:
Gastrointestinal tube output ( 300 / 300 200 / 200
Total)
[place] Sump 300 / 300 200 / 200
Urine, Osorio 2785 / 2935 2905 / 2940 245 / 245
Vital Signs
Temp Pulse Resp BP Pulse Ox
99.4 F 81 16 123/57 95
11/06/23 08:31 11/06/23 08:31 11/06/23 08:31 11/06/23 08:31 11/06/23 09:41
Lab Results
11/06/23 04:24
11/06/23 04:24
Calcium 8.4 mg/dl (8.4-10.2) 11/06/23 04:24
Phosphorus 1.7 mg/dl (2.5-4.5) L 11/06/23 04:24
Magnesium 2.2 mg/dl (1.6-2.3) 11/06/23 04:24
Total Bilirubin 0.8 mg/dl (0.2-1.3) 11/05/23 11:09
Direct Bilirubin 0.6 mg/dl (0.0-0.4) H 11/03/23 04:20
AST 18 U/L (14-36) 11/05/23 11:09
ALT < 10 U/L (0-35) 11/05/23 11:09
Alkaline Phosphatase 65 U/L (38-126) 11/05/23 11:09
Total Protein 2.5 g/dl (6.3-8.2) L D 11/05/23 11:09
Albumin 1.2 g/dl (3.5-5.0) L D 11/05/23 11:09
Physical Exam
-
Gen: intubated and sedated
HEENT NGT with minimal gastric outputs
Abd: soft, wincing with dressing change, mild distension, incision c/d/i - no erythema or drainage, packing changed, slight ecchymotic skin stable
[2023-11-06] MEDS: VANCOCIN 200 IV (10:15)
--- NOTE | 2023-11-06 11:42 | W.PN.UPDATE ---
Update Note
Progress Note Update
Consult placed for IR PICC line. Pt was brought down to IR suite. She has a right arm restriction. US of the left arm showed no accessible vessels.
[2023-11-06] MEDS: SUBLIMAZE 50 MCG IV (11:48)
[2023-11-06] MEDS: SUBLIMAZE 100 IV (12:04)
--- NOTE | 2023-11-06 12:29 | W.PN.HOSP.TC ---
Today's Communication/Plan
-
Case discussed with nursing home physician
Assessment / Plan
Assessment / Plan
General: Orally intubated, sedated, on mechanical ventilator, OGT placed orally to suction
HEENT: Normocephalic, Atraumatic and Moist Mucous Membranes. No JVD
Respiratory: Mechanical vent sounds along with diffuse crackles
Cardiac: Regular Rhythm and S1/S2.
GI: Soft, NT, ND, BS+
Musculoskeletal: No Cyanosis , No Edema
Skin: Dry
Neuro: Sedated
Psych: Unable to assess
Incarcerated / Strangulated Umbilical Hernia
Septic Shock
Remains on pressor support continue to wean as tolerated.
S/p resection of 45 cm necrotic small bowel with internal anastomosis and fixation on 11/02 with surgery
Currently on empiric vancomycin and Zosyn. Dose adjusted per renal function as improving
Blood cultures no growth to date. No IntraOp cultures obtained
May consider infectious disease consult for antibiotic duration and recommendation
Acute hypoxemic respiratory failure secondary to ventilator dependent respiratory failure
-Postop patient was maintained on ventilatory support
-Ongoing vent weaning effort per nursing home physician
-Attempt to liberate from vent
-CXR worse, I personally discussed this with the nursing home physician to change propofol to Precedex. Both agree with this.
- -Fluffiness may be pulmonary edema versus neuro versus poor inspiratory effort versus ARDS. Check ABG calculate FiO2 ratio.
- -May need support/precaution bed
- -May need 2D echocardiogram, will need to discuss this with her as he has been refusing as he is concerned that it will cause her pain as it caused him pain when he received his
- -Come off of fentanyl drip as tolerated however asked her to be in pain as she just recently had surgery
Metastatic Breast Cancer
-Followed at [facility]. Currently on no active therapy / medications.
-On med holiday for a month with plan to revisit / restart meds in early November.
Acute blood loss anemia from surgery
Continues to trend down now he. Blood pressure still fluctuating on pressor support. Without acute evidence of blood loss at this time. Will continue to monitor sleep.
Chest x-ray does show pulmonary edema therefore holding fluid, if hemoglobin less than 7 would consider transfusion depending on volume status and overall clinical picture at that time
Thrombocytosis
-Reactive/infection related as well, monitor
Hyponatremia
Resolved
Hypokalemia
As needed
REINA
Likely secondary to sepsis/hypoperfusion/ischemic ATN. Now on IV fluids and pressor support. Improving to 1.1 from 1.9 unknown baseline
Monitor renal output. Avoid nephrotoxins hypotension.
Renally dose medications
Stage 1 buttock pressure injury
Wound care
Pressure offloading
DVT Prophylaxis: SCDs
Full code
Care plan discussed with nursing home physician and surgery
Patient family at bedside and all questions answered with best understanding
May need to start discussing with family/ goals of care and hospice
-Overall prognosis at this time remains grim
Total critical care time 40 mins . Total critical care time documented does not include time spent on separately billed procedures or the services of residents, students, nurses or physician assistants. I personally saw and examined the patient. I
have reviewed all diagnostic interpretations and treatment plans as written. I was present for the easley portions of any procedures performed and the inclusive time noted in any critical care statement. Critical care time includes patient management
by me, time spent at the patients bedside, time to review lab and imaging results, discussing patient care, documentation in the medical record, and time spent with the family or caregiver.
Anticipated Discharge: > 48 hours
Subjective/Interval History
-
Date of Service: November 06, 2023
Seen and examined. Remains mechanically ventilated sedated.
OGT to suction
Discussed with at bedside.
Objective Data
-
Labs:
Laboratory Results
11/06/23 11/06/23
04:24 18:30
WBC 16.6 H
Hgb 8.0 L
Hct 25.7 L
Plt Count 222 D
HCO3 21.4 Pending
Sodium 133 L
Potassium 3.6
Chloride 105
Carbon Dioxide 25
BUN 20 H
Creatinine 0.7
Glucose 121 H
Calcium 8.4
Vital Signs:
Vital Signs
Temp Pulse Resp BP Pulse Ox
98.8 F 78 24 130/53 95
11/06/23 11:50 11/06/23 10:15 11/06/23 09:45 11/06/23 10:01 11/06/23 10:15
I&O
11/05/23 11/06/23 11/07/23
06:59 06:59 06:59
Intake Total 5704.1 / 6869.0 5643.2 / 5852.9 663.2 / 663.2
Output Total 3085 / 3235 3105 / 3140 245 / 245
Balance 2619.1 / 3634.0 2538.2 / 2712.9 418.2 / 418.2
CXR
IMPRESSION:
Progression of bilateral patchy opacities. Some of several differential diagnostic possibilities include progression of acute pulmonary edema or pneumonia.
Electronically signed by Harry Bender MD,
Review of Systems
-
Unable to obtain full review of systems at this time due to: Patient Intubation
[2023-11-06 13:50] LABS: Triglycerides 391 mg/dl (10-149)
--- NOTE | 2023-11-06 14:00 | PTCARENOTE ---
Updates with family ongoing thru shift. Echo presently at bedside. Patient taken to down to IR and reviewed plan of cares with Pulling Unit Operator, Surgery and pharmacy ongoing. Continue with drip trends as per protocol. Follow up respiratory cares.
Presently back weaning fio2 60% fio2 asv 100% 5 peep. Patient desaturates flat and turning, supported with fio2 in IR. Held Cpap/Ps wean that patient was in earlier today. Will attempt again later. Continue to follow pulmonary assessments with
respiratory cares team. Ongoing teaching, emotional support and supportive cares for patient and family. Assessment unchanged a this hour. Hourly rounds ongoing, frequent patient safety checks, skin cares and oral cares by unit based protocols.
[2023-11-06] MEDS: LOVENOX 40 MG SC (18:04)
--- NOTE | 2023-11-06 18:07 | PTCARENOTE ---
Electronic Assembly update with , updated plan of cares and concerns thru shift and cares from here. Continue follow up teaching. Hold abg till am with plan to return to Cpap/ps, labs, chest xray all pending review for am. Continue levophed wean as
tolerated presently on 4mcg/min. Presently weaned back to 40%fio2 on ASV 100% with 5 of peep. Saturation now 95-97%. verbalizes satisfaction of cares with all aspects of ICU stay, mD, RN, PCT and constant support of staff. Continue
supportive cares emotional support for patient and family ongoing.
[2023-11-06] MEDS: Parenteral Nutrition, Central 890 IV (20:18)
--- NOTE | 2023-11-06 22:41 | PTCARENOTE ---
received patient from the previous shift. opens eyes, does not follow commands. bilateral wrist restraints in place. desatting to the mid 80's on the vent. respiratory called and pt increased from 40-60%. TPN started, IVF discontinued.
called in and was updated.
[2023-11-07] MEDS: ZOSYN 50 IV ×4 (02:07→19:25)
[2023-11-07] MEDS: SUBLIMAZE 50 MCG IV ×3 (02:29→19:27)
[2023-11-07] MEDS: SUBLIMAZE 100 IV ×2 (03:59→15:30)
[2023-11-07 04:06] LABS: B.E. -1.1 mmol/L; HCO3 23.5 mmol/L (21-28); PCO2 38 mmHg (32-35); PO2 177 mmHg (83-108)
[2023-11-07 04:29] LABS: % Basophils 0.3 % (0-2); % Eosinophils 2.8 % (0-6); % Immature Granulocytes 1.6 % (0-0.5); % Lymphocytes 4.4 % (20.5-51.1); % Monocytes 3.4 % (1.7-9.3); % Neutrophils 87.5 % (42.2-75.2); Absolute Basophils 0.1 10^3/uL (0-0.2); Absolute Eosinophils 0.5 10^3/uL (0-0.7); Absolute Immature Granulocytes 0.3 10^3/uL (0-0.05); Absolute Lymphocytes 0.8 10^3/uL (1.2-3.4); Absolute Monocytes 0.6 10^3/uL (0.1-0.6); Hematocrit 27.9 % (37.0-47.0); Hemoglobin 8.8 g/dL (12.0-16.0); Mean Corp Hgb Conc. 31.5 g/dL (33.0-37.0); Mean Corpuscular Hgb 28.2 pg (27.0-31.0); Mean Corpuscular Volume 89.4 fL (81.0-99.0); Nucleated Red Blood Cells % 0 %; Platelet Count 152 10^3/uL (130-400); Red Blood Cell Count 3.12 10^6/uL (4.20-5.40); Red Cell Dist. Width 20.2 % (11.5-14.5); White Blood Cell Count 17.2 10^3/uL (4.8-10.8)
[2023-11-07 04:32] LABS: Vancomycin Random 10.9 ug/ml
--- NOTE | 2023-11-07 04:36 | PTCARENOTE ---
reassessed, pt agitated earlier, opening eyes, reaching for tube, vent alarming. PRN fentanyl given and gtt increased. labs drawn, results pending.
[2023-11-07 04:50] VITALS: BMI 25.8
[2023-11-07 04:54] LABS: Blood Urea Nitrogen 15 mg/dl (7-17); Calcium 8.6 mg/dl (8.4-10.2); Carbon Dioxide 26 mmol/L (22-30); Chloride 104 mmol/L (98-107); Estimated Creatinine Clearance 65 ml/min; Glucose 192 mg/dl (70-99); Magnesium 1.9 mg/dl (1.6-2.3); Phosphorus 2.6 mg/dl (2.5-4.5); Potassium 3.6 mmol/L (3.5-5.1); Sodium 133 mmol/L (135-145); eGFR > 60.00
--- NOTE | 2023-11-07 07:14 | W.PN.INTV ---
Today's Communication / Plan
Recommendations
Lasix 20 mg x 1
CPAP wean as able
Minimize fluids
Continue antibiotics
Check electrolytes, replete as able
Assessment
-
Patient is an 78 year old F with history of metastatic breast cancer (treated at [facility] on Ibrance->Afinitor) presenting to ED complaining of poor appetite, abdominal pain and N/V x 4-5 days. Of note, she had experienced weight
loss/anorexia with use of Afinitor. She began to complain of abdominal discomfort about 2 days ago. Today, family noted discoloration associated with her long standing chronic umbilical hernia. On evaluation in the ED, patient is noted to have
firm, tender and grossly discolored umbilical hernia concerning for incarceration +/- strangulation. BP 70s, Tmax 100.9, WBC 18, lactate 6, creat 1.9. She was seen by Colorectal Surgery who discussed benefit of urgent surgical intervention. She is
placed on levophed, and empiric abx and admitted to ICU.
Septic shock on pressors
Incarcerated umbilical hernia wtih concern for ischemic bowel s/p resection with anastomosis 11/03/23
Perioperative mechanical ventilation
Aspiration PNA upon intubation, 2L bilious vomiting suctioned s/p NGT likely obstruction from hernia
Suspected lung injury, aspiration pneumonitis
Possible component of pulmonary edema
REINA
Leukocytosis
Lactic acidosis
Hyponatremia
Hyperglycemia
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
Metastatic breast cancer
Diagnosed 2017
On chemotherapy, held recently months ago due to significant side effects, neutropenia/leukopenia
Plan/recommendations
At this time, patient remains critically ill.
She remains on norepinephrine, wean down to 1 to 2 mcg. Systolic pressure goes down to the 70s with movement and/or further wean
Chest x-ray this morning concerning for bilateral patchy infiltrates per my review, no change
Weight is increased 10 kg since admission
NG output 175 cc. Hemoglobin stable at 8.8
Albumin 1.2
ABG reviewed, adequate ventilation, oxygenation
Of note, patient did move all extremities, turn head during sedation vacation, pulling for tube
Moving forward
Continue with ASV 100%/50%
Airway pressures adequate
Will consider transition to CPAP 5/pressure support 20 intermittently during the day
I am concerned about her chest x-ray findings given clinical presentation with incarcerated bowel, aspiration event
She is at high risk for lung injury process
Will give low-dose Lasix 20 mg x 1 today and reassess
Maintain CPAP for now and reassess throughout the day as able
Sedated/intubated
Continue with Precedex, fentanyl. Wean Precedex as able
Pain/sedation: PRN
RASS goals: 0
Remains on fentanyl 75 mcg
Hemodynamically unstable, requiring pressors.
Requiring pressors: Vasopressin has been weaned off, Levophed slowly being weaned, now down to 2 mcg
Cardiac history reviewed--none
Reviewed at length pathophysiology of hypotension. Echocardiogram with normal biventricular function, could not assess pulmonary artery pressures
Suspected incarcerated bowel, on exam/severe findings
CRS on board, s/p resection with anastomosis 11/03/23
LAUREN drain 175 cc
Aspiration precautions, HOB > 30 degrees
GI prophylaxis if indicated for mechanical ventilation >48 hours, prior history of GERD, stress ulcer formation in the critically ill
Continue Protonix
Continue TPN per surgery
REINA present, no history of renal disease
Void trials
Follow urine output, critical I/Os--increasing in output
Replete electrolytes as needed
Weight up 10 kg
Fluids discontinued
Lasix low doses
Repeat studies, potassium later p.m.
Possible colitis, ischemic bowel, aspiration PNA
Fever and increased WBC on presentation, empiric abx started
Antibiotics: Zosyn IV, Vanc IV. Dose adjusted
Cultures sent/pending
Follow fever trend, WBC count
Lactate elevated on admission, trending down
CBC stable, no signs of bleeding or coagulopathy.
DVT prophylaxis as assessed based on risk, including mechanical SCDs
Can transfuse if indicated for Hb <7, plt < 10
INR WNL
Maintain active type and screen but would minimize transfusion given risk for lung injury
No prior h/o diabetes or thyroid disease
Monitor accuchecks PRN/SS coverage if needed
Lines- PICC attempted on L, could not thread, R fem line attempted (by myself >60 mins) could not thread. She has RUE lymphedema and L sided neck metastatic disease
CVC needed but having difficult access sites. IR placed right groin line
Unable to place additional access per interventional radiology 11/05 (metastatic breast cancer in the left involving the neck and right upper extremity lymphedema
According to , patient refused port placement in the past
Discussed worst-case scenario where we may have to accept chronic right groin placement but this would put patient at risk for infection
Prognosis guarded
Had extensive discussion with 11/06 regarding preadmission chronic medical conditions
Patient at risk for progressive lung injury, renal failure
On multiple occasions he has been suggested that she would not want aggressive care, and at 1 point requested hospice
Unclear when transition from hospice discussion to pursuing surgery and life support happened
I encouraged to take a step back and look at big picture and to look back on what his would want in current situation
is fearful of how he may feel in the setting of . Emotional support provided
We will continue full supportive care
DVT prophylaxis: Continue with pharmacological and mechanical
GI prophylaxis: Remains on Protonix
Reviewed at length with critical care nursing, respiratory care, pharmacy, primary service
Reviewed with interventional radiology, surgery
Critical care time 40 mins -- this includes review of history, physical exam, medications, hemodynamic/ventilator parameters, laboratory data, imaging and discussion with house staff, pharmacy, respiratory therapy, ballroom dance instructor, and nursing.
Family Discussions
Jamal 11/05/2023: Extensive update with at the bedside. He does not want his 1 daughter Samreen to be updated as she has difficulty processing information at that time, gets very anxious. Other 2 children are to be updated (Luna Plascencia).
All questions answered
Kraen 11/03/23- I had a long discussion with the and daughter at bedside regarding decision making. Initially patient had declined surgery as she did not want to live with a colostomy but then subsequently did not change her code status
despite urgency of the situation. She then changed her mind this morning stating she does want to live and would undergo surgery. The family did feel she was not quite sure/had cognitive impairment on presentation, but she seems more clear to them
this morning. It is difficult to discuss with her as she has very severe hearing impairment and does not use hearing aids. I answered all questions from including her future oncologic care, that he will need to discuss with their
oncologist for next steps. They are now agreeing for surgery and care team was updated in further discussions.
Diagnostic Data
Chest X-Ray:
CT Scan:
Echo:
PFT's:
Reports and relevant images were personally reviewed.
-----
Subjective Dataa
Subjective Data
Date of Service:
Date of Service: November 07, 2023
Chief Complaint: Telesales Specialist Follow Up
Subjective:
Patient remains critically ill, remains on pressors. Chest x-ray with persistent bilateral infiltrates. TPN continues.
Objective Data
Data Reviewed
Vital Signs / I&O / Oxygen:
Vital Signs
Temp Pulse Resp BP Pulse Ox
97.1 F 64 11 126/64 97
11/07/23 04:52 11/07/23 06:30 11/07/23 06:30 11/06/23 18:17 11/07/23 06:30
Intake and Output
11/06/23 11/07/23 11/08/23
06:59 06:59 06:59
Intake Total 5643.2 / 5852.9 2574.9 / 2574.9
Output Total 3105 / 3140 1260 / 1260
Balance 2538.2 / 2712.9 1314.9 / 1314.9
SaO2 [ASV] 93
SaO2 [A/C] 98
SaO2 97
Nasal Cannula flow liters per 2
minute
Physical Exam
General: Comfortable, Other (chronically ill appearing, sedated/intubated) and Other (Right femoral groin line, left upper extremity A-line)
HEENT: Normocephalic and Anicteric
Cardiovascular: S1-S2, Regular Rhythm, Murmur (n), Rub (n) and Peripheral Edema (R RUE swelling/lymphedema)
Respiratory: Wheeze (n), Crackles (Few), Rhonchi (n), Non-Labored Respirations, ET Tube and Other (Decreased left base)
GI: Soft, Non Distended, Other (absent sounds) and Other (Abdominal dressing in place)
Neurology: Lethargic (Spontaneously moves extremities, turns head)
Skin: Cyanosis (n), Jaundice (n), Rash and Other (numerous skin lesions over sternum, L side of neck--presumed fungating metastatic disease)
Labs/Micro/Reports
Lab Data
11/07/23 03:53
11/07/23 03:53
Laboratory Results
11/06/23 11/07/23
18:30 03:53
pH Cancelled 7.40
pCO2 Cancelled 38 H
pO2 Cancelled 177 H
HCO3 Cancelled 23.5
O2 Delivery Level Cancelled
Microbiology
11/02/23 20:37 Blood/Venous Blood Culture - Preliminary
No Growth in 4 days- Final report to follow
11/02/23 20:37 Blood/Venous Blood Culture - Preliminary
No Growth in 4 days- Final report to follow
[2023-11-07] MEDS: PRECEDEX 100 IV (07:20)
[2023-11-07] MEDS: NSS (PRESERVATIVE FREE) 10 ML IV (07:20)
[2023-11-07] MEDS: PROTONIX IV 40 MG IV (07:20)
[2023-11-07 07:34] VITALS: BP 152/68
[2023-11-07] MEDS: LASIX 20 MG IV ×2 (08:40→16:47)
--- NOTE | 2023-11-07 09:10 | PTCARENOTE ---
Addendum entered by Bethany Arthur RN 11/07/23 17:17:
ngt to low int. suction- flushed with water.
Original Note:
pt received from previous rn- ett to vent- see settings as charted on asv mode- switched to cpap by respiratory for wean. precedex decreased see flowsheet, remains on levo and fentanyl. sedation vacation provided- pt anxious, attempting to pull
tubes. right fem cvc dressing c/d/i, flushes with good blood return. left radial zaynab zeroed and functioning. pt with right arm edema, general anasarca. weak pulses. nsr on monitor. lungs coarse. turned and repositioned, suctioned for thick ross
secretions, oral care provided. butcher draining yellow urine. left hand with skin tear, left neck noted from radiation site and bilateral breasts. all safety precautions in place.
[2023-11-07] MEDS: KCL 100 IV (10:34)
[2023-11-07 11:44] LABS: Glucose - Point of Care 250 mg/dl (70-99)
[2023-11-07] MEDS: NOVOLOG FLEXPEN-LOW RESISTANCE 3 UNITS SC (12:11)
--- NOTE | 2023-11-07 12:21 | PTCARENOTE ---
pt tolerating wean cpap 20/5 40%, precedex weaned down, titrating levo for map>65. awakens to name, nods head yes and no to some questions.turned and repositioned. poc discussed with and Dr. Berry. assessment unchanged.
--- NOTE | 2023-11-07 13:06 | W.PN.GS2 ---
Today's Communication / Plan
-
DC vanc
Cont TPN
Wean pressors
Wean vent
Assessment / Plan
-
Patient is an 78 yo F p/w strangulated umbilical hernia
POD#4 Exploratory laparotomy, small bowel resection with primary anastomosis, primary umbilical hernia repair
CXR with bl infiltrates
Continued on pressors with and mechanical ventilation support, pressors down to 1mcg levo only. Afebrile.
Leukocytosis down
Cr normal
NGT with low volume gastric outputs
Await bowel recovery
--Keep NPO with NGT to wall suction
--TPN via central line, reordered with 10% reduction in non-protein calories per Refractory Technician recs, she is having some glucose intolerance
--Abx: Zosyn, OK to DC vanc
--C/W Osorio
--Critical care management as per Railway Equipment Operator, continue support and resuscitation with elevated lactate
--Lovenox/SCD's for VTE ppx
--Will follow closely
Subjective Data
-
Date of Service: November 07, 2023
Remains on low dose pressors, remains vented/sedated
Objective Data
-
Intake and Output
11/06/23 11/07/23 11/08/23
06:59 06:59 06:59
Intake Total 5643.2 / 5852.9 2574.9 / 2634.7 401.2 / 401.2
Output Total 3105 / 3140 1260 / 1360 905 / 905
Balance 2538.2 / 2712.9 1314.9 / 1274.7 -503.8 / -503.8
Intake:
IV fluids (Total) 4058.2 / 4217.9 2164.9 / 2224.7 361.2 / 361.2
Levophed 757.4 / 783.7 402.0 / 405.8 33.9 / 33.9
Lr 1,000 ml @ 125 mls/hr IV . 3000 / 3125 375 / 375
Q8H LORENA Rx#:[id number]
Lr 1,000 ml @ 60 mls/hr IV . 780 / 780
[id number] LORENA Rx#:[id number]
Prescedex 152.6 / 164.1 60.3 / 60.3
Propofol 180.8 / 184.2 6.8 / 6.8
TPN 296 / 333 222 / 222
fent 120 / 125 152.5 / 160.0 45.0 / 45.0
IV piggybacks 1525 / 1575 350 / 350
Amount instilled into GI Tube ( 60 / 60 60 / 60 40 / 40
Total)
[place] 60 / 60 60 / 60 40 / 40
Output:
Gastrointestinal tube output ( 200 / 200 175 / 175
Total)
[place] S[place] 200 / 200 175 / 175
Urine, Osorio 2905 / 2940 1085 / 1185 905 / 905
Vital Signs
Temp Pulse Resp BP Pulse Ox
97.3 F 62 13 123/51 95
11/07/23 11:00 11/07/23 11:00 11/07/23 11:00 11/07/23 08:40 11/07/23 11:30
Lab Results
11/07/23 03:53
11/07/23 03:53
Calcium 8.6 mg/dl (8.4-10.2) 11/07/23 03:53
Phosphorus 2.6 mg/dl (2.5-4.5) 11/07/23 03:53
Magnesium 1.9 mg/dl (1.6-2.3) 11/07/23 03:53
Total Bilirubin 0.8 mg/dl (0.2-1.3) 11/05/23 11:09
Direct Bilirubin 0.6 mg/dl (0.0-0.4) H 11/03/23 04:20
AST 18 U/L (14-36) 11/05/23 11:09
ALT < 10 U/L (0-35) 11/05/23 11:09
Alkaline Phosphatase 65 U/L (38-126) 11/05/23 11:09
Total Protein 2.5 g/dl (6.3-8.2) L D 11/05/23 11:09
Albumin 1.2 g/dl (3.5-5.0) L D 11/05/23 11:09
Physical Exam
-
Gen: vented/sedated
Abd: soft, incision cdi, unable to assess ttp
--- NOTE | 2023-11-07 14:47 | CM ---
CM following re: discharge planning.
Reviewed pt's chart, met with pt.
Pt is POD#4 Exploratory laparotomy, small bowel resection with primary anastomosis, primary umbilical hernia repair. Per Rounds meeting, Per Rounds meeting, pt remains critically ill, remains intubated, NGT, TPN, continue supportive care.
Pt lives with in a condo 2SH, 2 steps to enter, has 3 supportive children and was independent in all areas [employer]AR [employer]OT [employer]
D/C plan: uncertain at this time and will depend on pt's progress.
CM will follow with discharge plan updates as hospitalization progresses
--- NOTE | 2023-11-07 15:24 | W.PN.HOSP.TC ---
Today's Communication/Plan
-
wean vent and precedex
continue zosyn
started on tpn via picc line that was placed by ir
Assessment / Plan
Assessment / Plan
General: Orally intubated, sedated, on mechanical ventilator, OGT placed orally to suction, started on tpn
HEENT: Normocephalic, Atraumatic and Moist Mucous Membranes. No JVD
Respiratory: Mechanical vent sounds along with diffuse crackles
Cardiac: Regular Rhythm and S1/S2.
GI: Soft, NT, ND, BS+
Musculoskeletal: No Cyanosis , No Edema
Skin: Dry
Neuro: Sedated
Psych: Unable to assess
Incarcerated / Strangulated Umbilical Hernia
Septic Shock
Remains on pressor support continue to wean as tolerated.
S/p resection of 45 cm necrotic small bowel with internal anastomosis and fixation on 11/02 with surgery
LAUREN drain remains in
Currently Zosyn. Vanc DC'ed Dose adjusted per renal function as improving
Blood cultures no growth to date. No IntraOp cultures obtained
May consider infectious disease consult for antibiotic duration and recommendation
Acute hypoxemic respiratory failure secondary to ventilator dependent respiratory failure
-Postop patient was maintained on ventilatory support
-Ongoing vent weaning effort per commercial lines account executive
-Attempt to liberate from vent
-CXR worse, I personally discussed this with the commercial [employer] account executive to change propofol to Precedex. Both agree with this.
- -Fluffiness may be pulmonary edema versus neuro versus poor inspiratory effort versus ARDS. Check ABG calculate FiO2 ratio.
- -May need support/precaution bed
- -May need 2D echocardiogram, will need to discuss this with her as he has been refusing as he is concerned that it will cause her pain as it caused him pain when he received his
- -Come off of fentanyl drip as tolerated however asked her to be in pain as she just recently had surgery
Metastatic Breast Cancer
[place] [facility] [place] on no active therapy / medications.
-On med holiday for a month with plan to revisit / restart meds in early November.
Acute blood loss anemia from surgery
Continues to trend down now he. Blood pressure still fluctuating on pressor support. Without acute evidence of blood loss at this time. Will continue to monitor sleep.
Chest x-ray does show pulmonary edema therefore holding fluid, if hemoglobin less than 7 would consider transfusion depending on volume status and overall clinical picture at that time
Thrombocytosis
-Reactive/infection related as well, monitor
Hyponatremia
Resolved
Hypokalemia
Replete as needed
REINA - resolved
Likely secondary to sepsis/hypoperfusion/ischemic ATN. Now on IV fluids and pressor support.
Monitor renal output. Avoid nephrotoxins hypotension.
Renally dose medications
Stage 1 buttock pressure injury
Wound care
Pressure offloading
DVT Prophylaxis: SCDs
Full code
Family at bedside and all questions answered with best understanding
May need to start discussing with family/ goals of care and hospice
-Overall prognosis at this time remains grim
Total critical care time 40 mins . Total critical care time documented does not include time spent on separately billed procedures or the services of residents, students, nurses or physician assistants. I personally saw and examined the patient. I
have reviewed all diagnostic interpretations and treatment plans as written. I was present for the easley portions of any procedures performed and the inclusive time noted in any critical care statement. Critical care time includes patient management
by me, time spent at the patients bedside, time to review lab and imaging results, discussing patient care, documentation in the medical record, and time spent with the family or caregiver.
Anticipated Discharge: > 48 hours
Subjective/Interval History
-
Date of Service: November 07, 2023
seen and examined
remains mechanically ventilated on Precedex
no acute overinght events
Objective Data
-
Labs:
Laboratory Results
11/07/23 11/07/23
03:53 16:00
WBC 17.2 H
Hgb 8.8 L
Hct 27.9 L
Plt Count 152 D
HCO3 23.5
Sodium 133 L
Potassium 3.6 Pending
Chloride 104
Carbon Dioxide 26
BUN 15
Creatinine 0.6
Glucose 192 H
Calcium 8.6
Vital Signs:
Vital Signs
Temp Pulse Resp BP Pulse Ox
98.4 F 77 24 123/51 97
11/07/23 15:00 11/07/23 14:00 11/07/23 14:00 11/07/23 08:40 11/07/23 14:00
I&O
11/06/23 11/07/23 11/08/23
06:59 06:59 06:59
Intake Total 5643.2 / 5852.9 2574.9 / 2634.7 659.6 / 659.6
Output Total 3105 / 3140 1260 / 1360 1255 / 1255
Balance 2538.2 / 2712.9 1314.9 / 1274.7 -595.4 / -595.4
Review of Systems
-
Unable to obtain full review of systems at this time due to: Patient Intubation
[2023-11-07 16:02] LABS: Potassium 4.1 mmol/L (3.5-5.1)
--- NOTE | 2023-11-07 16:41 | PTCARENOTE ---
pt remains on wean, oral care provided, turned and repositioned. assessment unchanged. poc discussed with dr. arroyo.
[2023-11-07] MEDS: LOVENOX 40 MG SC (16:46)
[2023-11-07] MEDS: NOVOLOG FLEXPEN-LOW RESISTANCE 2 UNITS SC (17:02)
[2023-11-07 17:12] VITALS: BP 100/63
[2023-11-07 17:13] LABS: Glucose - Point of Care 245 mg/dl (70-99)
--- NOTE | 2023-11-07 17:17 | PTCARENOTE ---
abdominal dressing changed. fent bolus given for cpot of 7. assessment unchanged. remains on wean.
[2023-11-07] MEDS: NOVOLIN R 5 UNITS IV (18:11)
[2023-11-07] MEDS: NOVOLIN R INSULIN INFUSION 100 IV (18:12)
[2023-11-07 18:20] LABS: Glucose - Point of Care 251 mg/dl (70-99)
[2023-11-07 18:37] VITALS: BP 190/86
[2023-11-07 19:19] LABS: Glucose - Point of Care 217 mg/dl (70-99)
[2023-11-07 20:22] LABS: Glucose - Point of Care 174 mg/dl (70-99)
[2023-11-07] MEDS: Parenteral Nutrition, Central 860 IV (20:41)
--- NOTE | 2023-11-07 20:54 | PTCARENOTE ---
received from previous shift. pt awake, eyes open, pulling at restraints, thrashing in the bed. fentanyl bolus given and precedex gtt increased.
--- NOTE | 2023-11-07 21:00 | PTCARENOTE ---
patients called in for an update. very difficult to understand him, he was having difficulty finding his words, and trouble forming sentences. Asked pts when the last time he received an update on his , he got angry and said 'I
never received and update on her!' Pts was here earlier and spoke to multiple staff so I asked him when the last time he was here was. He said well I left at 6pm. He called in around 830PM. I informed him that since he left there hasn't been
much of a change, I told him that when I received the patient she was wide awake trying to reach for the ETT tube and pulling at the restraints, her heart rate was in the 150's and her BP was elevated so I had to increase her sedation and give her
some pain medication to make her more comfortable. He began to yell at me and tell me he was with her all day and nothing like that happened that I must not know what I'm doing because she has never had this behavior before. Attempted to explain to
the she has done things like this before that this is normal. He just continued to become more agitated and started cursing at me. Telling me that im supposed to be letting her breathe more on her own not giving her medication thats going to
make it more difficult for her to breathe. He said 'dont you understand how this works she cant have that tube in her forever' I told patients if he was going to continue to talk like that I would be ending the conversation. then
asked if she was on 'full blood pressure support' I said im not too sure what you mean by that. However I do have her on medication to bring her blood pressure up. He started yelling again and said that not what i'm asking you. He then asked me to
put the doctor on the phone because I wasn't following the orders that the doctor has given me and that I dont understand whats going on. Told him I wasn't able to do that because the doctor was not in the building. Continued to curse and said 'I
know nabor well you have his cell phone number give him a call right now.' Ended conversation with him after speaking with him for aprox. 15mins.
[2023-11-07 21:33] LABS: Glucose - Point of Care 149 mg/dl (70-99)
[2023-11-07 22:26] LABS: Glucose - Point of Care 137 mg/dl (70-99)
[2023-11-08] MEDS: ZOSYN 50 IV ×3 (01:20→13:50)
[2023-11-08 01:32] LABS: Glucose - Point of Care 116 mg/dl (70-99)
[2023-11-08 03:56] LABS: Glucose - Point of Care 107 mg/dl (70-99)
[2023-11-08 05:06] LABS: B.E. 4.8 mmol/L; HCO3 29.2 mmol/L (21-28); PCO2 42 mmHg (32-35); PO2 143 mmHg (83-108); pH 7.45 (7.35-7.45)
[2023-11-08 05:34] LABS: Blood Urea Nitrogen 21 mg/dl (7-17); Calcium 8.7 mg/dl (8.4-10.2); Carbon Dioxide 28 mmol/L (22-30); Chloride 105 mmol/L (98-107); Estimated Creatinine Clearance 65 ml/min; Glucose 100 mg/dl (70-99); Magnesium 1.8 mg/dl (1.6-2.3); Phosphorus 2.2 mg/dl (2.5-4.5); Potassium 3.5 mmol/L (3.5-5.1); Sodium 137 mmol/L (135-145); eGFR > 60.00
[2023-11-08] MEDS: PRECEDEX 100 IV ×2 (05:39→14:22)
[2023-11-08 05:45] LABS: Glucose - Point of Care 103 mg/dl (70-99)
[2023-11-08] MEDS: SUBLIMAZE 100 IV ×2 (06:15→14:21)
[2023-11-08] MEDS: KCL 160 MEQ IV (06:17)
[2023-11-08] MEDS: LASIX 40 MG IV (06:45)
[2023-11-08] MEDS: SUBLIMAZE 50 MCG IV ×3 (06:57→22:03)
[2023-11-08] MEDS: NSS (PRESERVATIVE FREE) 10 ML IV (06:58)
[2023-11-08] MEDS: PROTONIX IV 40 MG IV (06:58)
[2023-11-08 07:00] VITALS: BMI 25.0
--- NOTE | 2023-11-08 07:05 | W.PN.INTV ---
Addendum entered and electronically signed by Angeles Berry MD 11/08/23 11:54:
I updated son and at length at bedside
Reviewed clinical course to date
Reviewed concern regarding fevers
Encouraged and family to look at long-term, overall picture
I did discuss my concern that patient will not get back to her prior level of independent function, even if extubated
All questions were answered
Original Note:
Today's Communication / Plan
Recommendations
Lasix 40 mg this morning
Panculture
Replete potassium
CPAP wean
Continue TPN
Sedation vacation as able, hopefully can maintain CPAP for 24 hours or greater
Assessment
-
Patient is an 78 year old F with history of metastatic breast cancer (treated at [facility] on Ibrance->Afinitor) presenting to ED complaining of poor appetite, abdominal pain and N/V x 4-5 days. Of note, she had experienced weight
loss/anorexia with use of Afinitor. She began to complain of abdominal discomfort about 2 days ago. Today, family noted discoloration associated with her long standing chronic umbilical hernia. On evaluation in the ED, patient is noted to have
firm, tender and grossly discolored umbilical hernia concerning for incarceration +/- strangulation. BP 70s, Tmax 100.9, WBC 18, lactate 6, creat 1.9. She was seen by Colorectal Surgery who discussed benefit of urgent surgical intervention. She is
placed on levophed, and empiric abx and admitted to ICU.
Septic shock on pressors
Incarcerated umbilical hernia wtih concern for ischemic bowel s/p resection with anastomosis 11/03/23
Perioperative mechanical ventilation
Aspiration PNA upon intubation, 2L bilious vomiting suctioned s/p NGT likely obstruction from hernia
Suspected lung injury, aspiration pneumonitis
Possible component of pulmonary edema
REINA
Leukocytosis
Lactic acidosis
Hyponatremia
Hyperglycemia
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
Metastatic breast cancer
Diagnosed 2017
On chemotherapy, held recently months ago due to significant side effects, neutropenia/leukopenia
Plan/recommendations
At this time, patient remains critically ill. Still on low-dose norepinephrine, 1 to 2 mcg
Systolic pressure goes down to the 70s with movement and/or further wean
Tolerated Lasix overnight, negative fluid status noted
Becomes hypertensive, tachycardic with agitation during wean, resolved intermittently without intervention
Does receive fentanyl bolus intermittently
NG output continues to improve. Hemoglobin stable at 8.8, labs not drawn today
Albumin 1.2
ABG reviewed, adequate ventilation, oxygenation
Of note, patient did move all extremities, turn head during sedation vacation, pulling for tube
Chest x-ray today is improved
Moving forward
Continue with ASV 100%/40%
Airway pressures adequate
Will consider transition to CPAP 5/pressure support 10 through the day
Encouragingly, chest x-ray improved today
Continue as needed Lasix, 40 mg given this morning
Maintain CPAP for now and reassess throughout the day as able
Sedated/intubated
Continue with Precedex, fentanyl. Wean Precedex as able
Pain/sedation: PRN
RASS goals: 0
Remains on fentanyl 75 mcg
Hemodynamically unstable, requiring pressors.
Requiring pressors: Vasopressin has been weaned off, Levophed slowly being weaned, now down to 2 mcg
Cardiac history reviewed--none
Reviewed at length pathophysiology of hypotension. Echocardiogram with normal biventricular function, could not assess pulmonary artery pressures
Suspected incarcerated bowel, on exam/severe findings
CRS on board, s/p resection with anastomosis 11/03/23
LAUREN drain 175 cc
Aspiration precautions, HOB > 30 degrees
GI prophylaxis if indicated for mechanical ventilation >48 hours, prior history of GERD, stress ulcer formation in the critically ill
Continue Protonix
Continue TPN per surgery
Fevers noted
Check cultures through A-line and peripheral culture
Tracheal culture, UA with culture as indicated
Unfortunately, right groin line remains due to no additional access available. TPN continues
These risks were reviewed at length multiple times throughout hospital stay with
Possible colitis, ischemic bowel, aspiration PNA on presentation
Follow white count
REINA present, no history of renal disease
Creatinine normal
Replete potassium
TPN continue as per surgery
CBC stable, no signs of bleeding or coagulopathy.
DVT prophylaxis as assessed based on risk, including mechanical SCDs
Can transfuse if indicated for Hb <7, plt < 10
INR WNL
Maintain active type and screen but would minimize transfusion given risk for lung injury
Check CBC in a.m.
No prior h/o diabetes or thyroid disease
Elevated blood sugars noted since starting TPN requiring initiation of insulin drip
Continue to follow
Lines- PICC attempted on L, could not thread, R fem line attempted (by myself >60 mins) could not thread. She has RUE lymphedema and L sided neck metastatic disease
CVC needed but having difficult access sites. IR placed right groin line
Unable to place additional access per interventional radiology 11/05 (metastatic breast cancer in the left involving the neck and right upper extremity lymphedema
According to , patient refused port placement in the past
Discussed worst-case scenario where we may have to accept chronic right groin placement but this would put patient at risk for infection
This has been reviewed on a daily basis multiple times with
Prognosis guarded
Had extensive discussion with 11/06 regarding preadmission chronic medical conditions
Patient at risk for progressive lung injury, renal failure
On multiple occasions he has been suggested that she would not want aggressive care, and at 1 point requested hospice
Unclear when transition from hospice discussion to pursuing surgery and life support happened
I encouraged to take a step back and look at big picture and to look back on what his would want in current situation
is fearful of how he may feel in the setting of . Emotional support provided
was rude and cursing to nurses overnight by phone saying that he was not being updated. However I have updated him multiple times throughout the day and always updated him prior to leaving for the day
We will continue full supportive care
DVT prophylaxis: Continue with pharmacological and mechanical
GI prophylaxis: Remains on Protonix
Reviewed at length with critical care nursing, respiratory care, pharmacy, primary service
Critical care time 35 mins
Family Discussions
Jamal 11/05/2023: Extensive update with at the bedside. He does not want his 1 daughter Samreen to be updated as she has difficulty processing information at that time, gets very anxious. Other 2 children are to be updated (Temo, Luna).
All questions answered
Karen 11/03/23- I had a long discussion with the and daughter at bedside regarding decision making. Initially patient had declined surgery as she did not want to live with a colostomy but then subsequently did not change her code status
despite urgency of the situation. She then changed her mind this morning stating she does want to live and would undergo surgery. The family did feel she was not quite sure/had cognitive impairment on presentation, but she seems more clear to them
this morning. It is difficult to discuss with her as she has very severe hearing impairment and does not use hearing aids. I answered all questions from including her future oncologic care, that he will need to discuss with their
oncologist for next steps. They are now agreeing for surgery and care team was updated in further discussions.
Diagnostic Data
Chest X-Ray:
CT Scan:
Echo:
PFT's:
Reports and relevant images were personally reviewed.
-----
Subjective Dataa
Subjective Data
Date of Service:
Date of Service: November 08, 2023
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
Subjective:
Patient remains critically ill, remains on norepinephrine. Blood pressure goes down to the 70s when it is discontinued. She is tolerating Lasix therapy, becomes hypertensive when she gets agitated. Tolerated CPAP 5/pressure support 20 throughout
the day yesterday, rested on ASV overnight. Tmax 101.2 overnight noted. Patient does move extremities and reaches for ET tube, but does not consistently follow commands when awake and eyes are open
Objective Data
Data Reviewed
Vital Signs / I&O / Oxygen:
Vital Signs
Temp Pulse Resp BP Pulse Ox
100.3 F 75 13 99/41 96
11/08/23 03:50 11/08/23 06:45 11/08/23 06:15 11/08/23 06:45 11/08/23 06:15
Intake and Output
11/07/23 11/08/23 11/09/23
06:59 06:59 06:59
Intake Total 2574.9 / 2634.7 1595.7 / 1595.7
Output Total 1260 / 1360 2670 / 2670
Balance 1314.9 / 1274.7 -1074.3 / -1074.3
SaO2 [CPAP] 97
SaO2 [ASV] 96
SaO2 [A/C] 98
SaO2 96
Nasal Cannula flow liters per 2
minute
Physical Exam
General: Comfortable, Other (Left neck changes, left chest wall changes from breast cancer, right upper extremity lymphedema) and Other (Right femoral groin line, left upper extremity A-line)
HEENT: Normocephalic and Anicteric
Cardiovascular: S1-S2, Regular Rhythm, Murmur (n), Rub (n), Peripheral Edema (R RUE swelling/lymphedema) and Calf Tenderness (n)
Respiratory: Wheeze (n), Crackles (n), Rhonchi (n), Non-Labored Respirations and ET Tube
GI: Soft, Non Distended, Non Tender and Other (Abdominal dressing in place)
Neurology: Lethargic (Spontaneously moves extremities, turns head, eyes open)
Skin: Cyanosis (n), Jaundice (n), Rash and Other (numerous skin lesions over sternum, L side of neck--presumed fungating metastatic disease)
Labs/Micro/Reports
Lab Data
11/07/23 03:53
Laboratory Results
11/08/23
04:56
pH 7.45
pCO2 42 H
pO2 143 H
HCO3 29.2 H
O2 Delivery Level
Microbiology
11/02/23 20:37 Blood/Venous Blood Culture - Final
No Growth - Final Report
11/02/23 20:37 Blood/Venous Blood Culture - Final
No Growth - Final Report
--- NOTE | 2023-11-08 07:34 | PTCARENOTE ---
Addendum entered by Bethany Arthur RN 11/08/23 07:53:
left radial zaynab zeroed and functioning.
Original Note:
pt received from previous rn- agitated, tachycardiac and tachypneic on vent. pt trying to pull ett. following minimal commands, fentanyl bolus given as per order. Dr. Berry at bedside- poc discussed. oral care provided, turn and repositioned.
butcher draining dark yellow urine. see vent settings as charted. pt continues on insulin, fentanyl, dex and tpn gtts. post fentanyl bolus cpot 3. all safety precautions in place.
[2023-11-08 07:39] LABS: Glucose - Point of Care 115 mg/dl (70-99)
--- NOTE | 2023-11-08 07:55 | PTCARENOTE ---
Addendum entered by Bethany Arthur RN 11/08/23 16:59:
@ 0800- abdominal dressing c/d/i. left hand wound dressing change. left arm continues to weep.
Original Note:
pt received from previous rn- agitated, tachycardiac and tachypneic on vent. pt trying to pull ett. following minimal commands, fentanyl bolus given as per order. Dr. Berry at bedside- poc discussed. oral care provided, turn and repositioned.
butcher draining dark yellow urine. see vent settings as charted. pt continues on insulin, fentanyl, dex and tpn gtts. post fentanyl bolus cpot 3. left radial zaynab zeroed and functioning. ngt to low int. suction, flushed with tap water. all safety
precautions in place.
[2023-11-08 09:27] LABS: Glycohemoglobin (HgbA1c) 5.6 % (4.0-5.6)
[2023-11-08 09:39] LABS: Glucose - Point of Care 145 mg/dl (70-99)
--- NOTE | 2023-11-08 09:55 | W.PN.GS2 ---
Today's Communication / Plan
-
`
Assessment / Plan
-
Patient is an 78 yo F p/w strangulated umbilical hernia
POD#5 Exploratory laparotomy, small bowel resection with primary anastomosis, primary umbilical hernia repair
CXR with bl infiltrates
Continued on pressors with and mechanical ventilation support
Febrile overnight
NGT with low volume gastric outputs
Await bowel recovery
--Keep NPO with NGT to wall suction
--TPN renewed, slightly increased Kphos
--Abx: Zosyn
--C/W Osorio
--Critical care management as per Bull Wheel Worker, continue support and resuscitation with elevated lactate
--Lovenox/SCD's for VTE ppx
Subjective Data
-
Date of Service: November 08, 2023
pt seen and examined
at bedside
remains intubated
Objective Data
-
Intake and Output
11/07/23 11/08/23 11/09/23
06:59 06:59 06:59
Intake Total 2574.9 / 2634.7 1595.7 / 1655.8 178.3 / 178.3
Output Total 1260 / 1360 2670 / 2795 1450 / 1450
Balance 1314.9 / 1274.7 -1074.3 / -1139.2 -1271.7 / -1271.7
Intake:
IV fluids (Total) 2164.9 / 2224.7 1415.7 / 1475.8 178.3 / 178.3
Levophed 402.0 / 405.8 168.9 / 176.4 22.5 / 22.5
Lr 1,000 ml @ 125 mls/hr IV . 375 / 375
Q8H LORENA Rx#:[id number]
Lr 1,000 ml @ 60 mls/hr IV . 780 / 780
[id number] LORENA Rx#:[id number]
Prescedex 152.6 / 164.1 164.7 / 170.5 17.4 / 17.4
Propofol 6.8 / 6.8
TPN 296 / 333 888 / 925 109 / 109
fent 152.5 / 160.0 150.0 / 157.5 22.5 / 22.5
insulin 44.1 / 46.4 6.9 / 6.9
IV piggybacks 350 / 350 100 / 100
Amount instilled into GI Tube ( 60 / 60 80 / 80
Total)
[place] Sump 60 / 60 80 / 80
Output:
Gastrointestinal tube output ( 175 / 175 75 / 75
Total)
[place] Sump 175 / 175 75 / 75
Urine, Osorio 1085 / 1185 2595 / 2720 1450 / 1450
Vital Signs
Temp Pulse Resp BP Pulse Ox
100.5 F H 74 13 99/41 97
11/08/23 09:44 11/08/23 09:00 11/08/23 09:00 11/08/23 06:45 11/08/23 09:00
Lab Results
11/07/23 03:53
Calcium 8.7 mg/dl (8.4-10.2) 11/08/23 04:56
Phosphorus 2.2 mg/dl (2.5-4.5) L 11/08/23 04:56
Magnesium 1.8 mg/dl (1.6-2.3) 11/08/23 04:56
Total Bilirubin 0.8 mg/dl (0.2-1.3) 11/05/23 11:09
Direct Bilirubin 0.6 mg/dl (0.0-0.4) H 11/03/23 04:20
AST 18 U/L (14-36) 11/05/23 11:09
ALT < 10 U/L (0-35) 11/05/23 11:09
Alkaline Phosphatase 65 U/L (38-126) 11/05/23 11:09
Total Protein 2.5 g/dl (6.3-8.2) L D 11/05/23 11:09
Albumin 1.2 g/dl (3.5-5.0) L D 11/05/23 11:09
Physical Exam
-
intubated sedated
ABD: soft, incision with linda, small open area, clean, no drainage
[2023-11-08 10:44] LABS: Urine Albumin Negative (Neg - Trace); Urine Bilirubin Negative (Negative); Urine Character Clear (Clear); Urine Color Yellow; Urine Glucose Negative (Negative); Urine Ketone Negative (Negative); Urine Leukocyte Negative (Negative); Urine Nitrite Negative (Negative); Urine Occult Blood Negative (Negative); Urine Specific Gravity 1.005 (<1.030); Urine Urobilinogen Negative (Neg - 1+)
[2023-11-08] MEDS: LEVOPHED 250 IV (11:29)
[2023-11-08 11:39] LABS: Glucose - Point of Care 109 mg/dl (70-99)
--- NOTE | 2023-11-08 12:28 | PTCARENOTE ---
pt remains on wean, see vent settings- pt continues to tolerate. pt noted with low grade temp- dr. arroyo aware- josue cultures sent as per order. turned and repositioned, oral care provided. assessment unchanged further. education provided to son
and at bedside.
[2023-11-08 13:52] LABS: Glucose - Point of Care 116 mg/dl (70-99)
[2023-11-08 14:03] LABS: Potassium 3.7 mmol/L (3.5-5.1)
[2023-11-08] MEDS: OFIRMEV 100 IV ×2 (14:22→19:18)
--- NOTE | 2023-11-08 15:03 | W.PN.HOSP.TC ---
Today's Communication/Plan
-
Continue weaning Precedex
Wean ventilator
Follow-up on blood cultures
If continues to have fevers may consider obtaining CT abdomen pelvis with without contrast to assess for intra-abdominal fluid collection
Assessment / Plan
Assessment / Plan
General: Orally intubated, sedated, on mechanical ventilator, OGT placed orally to suction, started on tpn
HEENT: Normocephalic, Atraumatic and Moist Mucous Membranes. No JVD
Respiratory: Mechanical vent sounds along with diffuse crackles
Cardiac: Regular Rhythm and S1/S2.
GI: Soft, NT, ND, BS+
Musculoskeletal: No Cyanosis , No Edema
Skin: Dry
Neuro: Sedated
Psych: Unable to assess
Incarcerated / Strangulated Umbilical Hernia
Septic Shock
Remains on pressor support continue to wean as tolerated.
S/p resection of 45 cm necrotic small bowel with internal anastomosis and fixation on 11/02 with surgery
LAUREN drain remains in
Currently Zosyn. Vanc DC'ed Dose adjusted per renal function as improving
Blood cultures no growth to date. No IntraOp cultures obtained
May consider infectious disease consult for antibiotic duration and recommendation
Acute hypoxemic respiratory failure secondary to ventilator dependent respiratory failure
-Postop patient was maintained on ventilatory support
-Ongoing vent weaning effort per spray worker
-Attempt to liberate from vent
-CXR worse, I personally discussed this with the spray worker to change propofol to Precedex. Both agree with this.
-Continue IV Lasix per ICU
Fever potentially infectious versus drug-induced. Coming off of Precedex. Pancultured. ICU following closely.
-Concern is if she develops intra-abdominal infection she may have need to return to the OR as this could lead to septic shock
Metastatic Breast Cancer
-Followed at [facility]. Currently on no active therapy / medications.
-On med holiday for a month with plan to revisit / restart meds in early November.
Acute blood loss anemia from surgery
Continues to trend down now he. Blood pressure still fluctuating on pressor support. Without acute evidence of blood loss at this time. Will continue to monitor sleep.
Chest x-ray does show pulmonary edema therefore holding fluid, if hemoglobin less than 7 would consider transfusion depending on volume status and overall clinical picture at that time
Thrombocytosis
-Reactive/infection related as well, monitor
Hyponatremia
Resolved
Hypokalemia
Replete as needed
REINA - resolved
Likely secondary to sepsis/hypoperfusion/ischemic ATN. Now on IV fluids and pressor support.
Monitor renal output. Avoid nephrotoxins hypotension.
Renally dose medications
Stage 1 buttock pressure injury
Wound care
Pressure offloading
DVT Prophylaxis: SCDs
Full code
-Overall prognosis at this time remains grim
Total critical care time 40 mins . Total critical care time documented does not include time spent on separately billed procedures or the services of residents, students, nurses or physician assistants. I personally saw and examined the patient. I
have reviewed all diagnostic interpretations and treatment plans as written. I was present for the easley portions of any procedures performed and the inclusive time noted in any critical care statement. Critical care time includes patient management
by me, time spent at the patients bedside, time to review lab and imaging results, discussing patient care, documentation in the medical record, and time spent with the family or caregiver.
Anticipated Discharge: > 48 hours
Subjective/Interval History
-
Date of Service: November 08, 2023
Seen and examined. Remains on mechanical ventilated. Precedex coming down. On fentanyl as needed.
Objective Data
-
Labs:
Laboratory Results
11/08/23 11/08/23
04:56 13:41
HCO3 29.2 H
Sodium 137
Potassium 3.5 3.7
Chloride 105
Carbon Dioxide 28
BUN 21 H
Creatinine 0.6
Glucose 100 H
Calcium 8.7
Vital Signs:
Vital Signs
Temp Pulse Resp BP Pulse Ox
100.6 F H 100 22 99/41 97
11/08/23 11:12 11/08/23 12:00 11/08/23 12:00 11/08/23 06:45 11/08/23 12:00
I&O
11/07/23 11/08/23 11/09/23
06:59 06:59 06:59
Intake Total 2574.9 / 2634.7 1595.7 / 1655.8 475.3 / 475.3
Output Total 1260 / 1360 2670 / 2795 2450 / 2450
Balance 1314.9 / 1274.7 -1074.3 / -1139.2 -1973.7 / -1973.7
[2023-11-08 15:46] LABS: Glucose - Point of Care 131 mg/dl (70-99)
[2023-11-08] MEDS: MAGNESIUM SULFATE 102 GRAMS IV (16:24)
[2023-11-08] MEDS: KCL 100 IV (16:27)
[2023-11-08] MEDS: LOVENOX 40 MG SC (16:27)
[2023-11-08 16:54] VITALS: BP 120/69
--- NOTE | 2023-11-08 16:58 | PTCARENOTE ---
labs sent, mag and potassium riders infusing as per order. poc and education provided again to and son at bedside- verbalized understanding. pt remains on wean. given fentanyl bolus for cpot. remains sr to st on monitor.
[2023-11-08 17:27] VITALS: BP 97/57
[2023-11-08 17:34] LABS: Glucose - Point of Care 118 mg/dl (70-99)
[2023-11-08 18:55] VITALS: BP 103/60
--- NOTE | 2023-11-08 19:00 | PTCARENOTE ---
Received patient at 1900. Pt. currently on ventilator. Somnolent but arousable. Nods appropriately. No signs of pain or discomfort. Heart rate and blood prssure have been labile. Rhythm cyrrently sinus tachy. Levophed gtt infusing to maintain MAP
>65. Ventilator settings verified. Lungs sound coarse. Scant secretions. Currently NPO. Pt. has NG tube to LIS. TPN infusing through central line. Osorio catheter in place. Draining without issue. Skin as documented. Vital signs stable at this time.
[2023-11-08 19:34] LABS: Glucose - Point of Care 119 mg/dl (70-99)
[2023-11-08] MEDS: Parenteral Nutrition, Central 910 IV (20:15)
[2023-11-08] MEDS: NOVOLIN R INSULIN INFUSION 100 IV (20:23)
[2023-11-08 21:32] LABS: Glucose - Point of Care 97 mg/dl (70-99)
[2023-11-08 23:39] LABS: Glucose - Point of Care 139 mg/dl (70-99)
--- NOTE | 2023-11-08 23:45 | PTCARENOTE ---
Pt. assessment unchanged. Blood pressure and heart rate remain labile at times. Drips titrated appropriately. Patient appears comfortable at this time. Heart rhythm normal sinus in 80s. Vital signs stable.
[2023-11-09] VITALS (39 sets, daily range): BP systolic 75–190; BP diastolic 46–134; BMI 25.2
[2023-11-09] MEDS: PRECEDEX 100 IV ×4 (00:56→23:15)
[2023-11-09] MEDS: OFIRMEV 100 IV ×4 (00:57→20:29)
[2023-11-09 01:41] LABS: Glucose - Point of Care 107 mg/dl (70-99)
[2023-11-09 03:44] LABS: Glucose - Point of Care 91 mg/dl (70-99)
[2023-11-09 03:51] LABS: B.E. 6.4 mmol/L; HCO3 30.5 mmol/L (21-28); PCO2 41 mmHg (32-35); PO2 146 mmHg (83-108); pH 7.48 (7.35-7.45)
[2023-11-09 03:53] LABS: Hematocrit 22.8 % (37.0-47.0); Hemoglobin 7.6 g/dL (12.0-16.0); Mean Corp Hgb Conc. 33.3 g/dL (33.0-37.0); Mean Corpuscular Volume 84.1 fL (81.0-99.0); Mean Platelet Volume 10.3 fL (7.4-10.4); Platelet Count 145 10^3/uL (130-400); Red Blood Cell Count 2.71 10^6/uL (4.20-5.40); White Blood Cell Count 10.6 10^3/uL (4.8-10.8)
--- NOTE | 2023-11-09 04:00 | PTCARENOTE ---
Pt. assessment remains unchanged. AM labs drawn. Vital signs stable at this time.
[2023-11-09 04:08] LABS: Blood Urea Nitrogen 29 mg/dl (7-17); Calcium 8.8 mg/dl (8.4-10.2); Carbon Dioxide 27 mmol/L (22-30); Chloride 105 mmol/L (98-107); Estimated Creatinine Clearance 55 ml/min; Glucose 92 mg/dl (70-99); Magnesium 1.9 mg/dl (1.6-2.3); Potassium 4.1 mmol/L (3.5-5.1); Sodium 137 mmol/L (135-145); Triglycerides 232 mg/dl (10-149); eGFR > 60.00
[2023-11-09 06:02] LABS: Glucose - Point of Care 134 mg/dl (70-99)
[2023-11-09] MEDS: NSS (PRESERVATIVE FREE) 10 ML IV (07:16)
[2023-11-09] MEDS: PROTONIX IV 40 MG IV (07:16)
--- NOTE | 2023-11-09 07:17 | W.PN.INTV ---
Today's Communication / Plan
Recommendations
SBT
Consider discontinuing antibiotics
Follow cultures
Maintain active type and screen, follow CBC. Would like to minimize transfusion possible
Wean off Precedex during SBT
Ongoing discussion regarding goals of care
Assessment
-
Patient is an 78 year old F with history of metastatic breast cancer (treated at [facility] on Ibrance->Afinitor) presenting to ED complaining of poor appetite, abdominal pain and N/V x 4-5 days. Of note, she had experienced weight
loss/anorexia with use of Afinitor. She began to complain of abdominal discomfort about 2 days ago. Today, family noted discoloration associated with her long standing chronic umbilical hernia. On evaluation in the ED, patient is noted to have
firm, tender and grossly discolored umbilical hernia concerning for incarceration +/- strangulation. BP 70s, Tmax 100.9, WBC 18, lactate 6, creat 1.9. She was seen by Colorectal Surgery who discussed benefit of urgent surgical intervention. She is
placed on levophed, and empiric abx and admitted to ICU.
Septic shock on pressors
Incarcerated umbilical hernia wtih concern for ischemic bowel s/p resection with anastomosis 11/03/23
Post-op VDRF
Aspiration PNA upon intubation, 2L bilious vomiting suctioned s/p NGT likely obstruction from hernia
Suspected lung injury, aspiration pneumonitis
Possible component of pulmonary edema
Improved with diuresis
REINA, improved
Leukocytosis, improved
Lactic acidosis, improved
Hyponatremia, improved
Hyperglycemia, requiring insulin drip
Conditions present ABA TUTOR
Metastatic breast cancer
Diagnosed 2017
On chemotherapy, held recently months ago due to significant side effects, neutropenia/leukopenia
Apparently refused port placement, per
Was being considered for hospice, palliative care at one point, per
Plan/recommendations
At this time, patient remains critically ill. Still on low-dose norepinephrine, 1 to 2 mcg
Labile blood pressure and heart rate noted, seems to be related to agitation
Negative fluid status noted, weight down 2 to 3 kg
Minimal secretions, patient does cough with suction
NG output continues to improve. Hemoglobin trending down 7.6
Albumin 1.2
ABG reviewed, adequate ventilation, oxygenation while on CPAP
Of note, patient did move all extremities, turn head during sedation vacation, pulling for tube
She is following commands for me off Precedex. Remains on fentanyl 75 mcg
Moving forward
Continue with CPAP wean, 09/11
Check ABG
Has tolerated CPAP for greater than 24 hours with adequate ventilation, oxygenation.
Chest x-ray overall improved with diuresis but there is a patchy infiltrate on the right side
Will give Lasix intermittently
Assess for extubation. Will need to review with family risk for reintubation
Sedated/intubated
Continue with Precedex, fentanyl. Wean Precedex as able
Pain/sedation: PRN
RASS goals: 0
Remains on fentanyl 75 mcg
Patient has been complaining of abdominal pain.
Hemodynamically unstable, requiring pressors.
Requiring pressors: Vasopressin has been weaned off, Levophed slowly being weaned, now down to 2 mcg
Cardiac history reviewed--none
Reviewed at length pathophysiology of hypotension.
Echocardiogram with normal biventricular function, could not assess pulmonary artery pressures
Suspected incarcerated bowel, on exam/severe findings
CRS on board, s/p resection with anastomosis 11/03/23
NG tube output decreased
Aspiration precautions, HOB > 30 degrees
GI prophylaxis
Continue TPN per surgery
Fevers noted
Check cultures through A-line and peripheral culture
Tracheal culture, UA with culture as indicated
Unfortunately, right groin line remains due to no additional access available. TPN continues
These risks were reviewed at length multiple times throughout hospital stay with
Possible colitis, ischemic bowel, aspiration PNA on presentation
Follow white count, now normal
Would consider discontinuing antibiotics.
REINA present, no history of renal disease
Creatinine normal
Replete potassium
TPN continue as per surgery
Hemoglobin noted, slowly trending down
DVT prophylaxis as assessed based on risk, including mechanical SCDs
Can transfuse if indicated for Hb <7, plt < 10
INR WNL
Maintain active type and screen but would minimize transfusion given risk for lung injury
Would like to avoid transfusion unless necessary
Follow
No prior h/o diabetes or thyroid disease
Elevated blood sugars noted since starting TPN
requiring initiation of insulin drip
Continue to follow
Lines- PICC attempted on L, could not thread, R fem line attempted (by myself >60 mins) could not thread. She has RUE lymphedema and L sided neck metastatic disease
CVC needed but having difficult access sites. IR placed right groin line
Unable to place additional access per interventional radiology 11/05 (metastatic breast cancer in the left involving the neck and right upper extremity lymphedema
According to , patient refused port placement in the past
Discussed worst-case scenario where we may have to accept chronic right groin placement but this would put patient at risk for infection
This has been reviewed on a daily basis multiple times with
Prognosis guarded
Had extensive discussion with on daily basis and also reviewed with son and 11/07 at length
On multiple occasions he has been suggested that she would not want aggressive care, and at 1 point requested hospice
Unclear when transition from hospice discussion to pursuing surgery and life support happened, but states patient did change her mind last minute
I encouraged and family to take a step back and look at big picture and to look back on what his would want in current situation
is fearful of how he may feel in the setting of . Emotional support provided
We will continue full supportive care
DVT prophylaxis: Continue with pharmacological and mechanical
GI prophylaxis: Remains on Protonix
Reviewed at length with critical care nursing, respiratory care, pharmacy, primary service
Critical care time 35 mins
Family Discussions
Jamal 11/05/2023: Extensive update with at the bedside. He does not want his 1 daughter Samreen to be updated as she has difficulty processing information at that time, gets very anxious. Other 2 children are to be updated (Temo, Luna).
All questions answered
Karen 11/03/23- I had a long discussion with the and daughter at bedside regarding decision making. Initially patient had declined surgery as she did not want to live with a colostomy but then subsequently did not change her code status
despite urgency of the situation. She then changed her mind this morning stating she does want to live and would undergo surgery. The family did feel she was not quite sure/had cognitive impairment on presentation, but she seems more clear to them
this morning. It is difficult to discuss with her as she has very severe hearing impairment and does not use hearing aids. I answered all questions from including her future oncologic care, that he will need to discuss with their
oncologist for next steps. They are now agreeing for surgery and care team was updated in further discussions.
Diagnostic Data
Chest X-Ray:
CT Scan:
Echo:
PFT's:
Reports and relevant images were personally reviewed.
-----
Subjective Dataa
Subjective Data
Date of Service:
Date of Service: November 09, 2023
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
Subjective:
Patient remains critically ill, on low-dose norepinephrine. She has tolerated CPAP now for 24 hours, CPAP 5, pressure support of 10. ABG with adequate oxygenation/ventilation. Low-grade fevers continue, cultures have been sent. Negative fluid
status noted. Patient is awake and following commands but is profoundly weak and deconditioned. Remains on fentanyl
Objective Data
Data Reviewed
Vital Signs / I&O / Oxygen:
Vital Signs
Temp Pulse Resp BP Pulse Ox
100.4 F H 78 12 103/60 98
11/09/23 07:09 11/09/23 05:01 11/09/23 05:01 11/08/23 18:55 11/09/23 05:01
Intake and Output
11/08/23 11/09/23 11/10/23
06:59 06:59 06:59
Intake Total 1595.7 / 1655.8 1668.0 / 1668.0
Output Total 2670 / 2795 3535 / 3535
Balance -1074.3 / -1139.2 -1867.0 / -1867.0
SaO2 [CPAP] 99
SaO2 [ASV] 95
SaO2 [A/C] 98
SaO2 98
Nasal Cannula flow liters per 2
minute
Physical Exam
General: Comfortable, Other (Left neck changes, left chest wall changes from breast cancer, right upper extremity lymphedema) and Other (Right femoral groin line, left upper extremity A-line)
HEENT: Normocephalic and Anicteric
Cardiovascular: S1-S2, Regular Rhythm, Murmur (n), Rub (n), Peripheral Edema (RUE swelling/lymphedema) and Calf Tenderness (n)
Respiratory: Wheeze (n), Crackles (n), Rhonchi (n), Non-Labored Respirations and ET Tube
GI: Soft, Non Distended, Non Tender and Other (Abdominal dressing in place)
Neurology: Lethargic (Eyes are open, she does nod her head appropriately. She moves extremities, trying to say something, moves all extremities to stimuli)
Skin: Cyanosis (n), Jaundice (n), Rash and Other (numerous skin lesions over sternum, L side of neck--presumed fungating metastatic disease)
Labs/Micro/Reports
Lab Data
11/09/23 06:00
11/09/23 03:41
Laboratory Results
11/09/23
03:41
pH 7.48 H
pCO2 41 H
pO2 146 H
HCO3 30.5 H
O2 Delivery Level Not Reportable
Microbiology
11/08/23 10:28 Tracheal Aspirate Gram Stain - Preliminary
11/02/23 20:37 Blood/Venous Blood Culture - Final
No Growth - Final Report
11/02/23 20:37 Blood/Venous Blood Culture - Final
No Growth - Final Report
[2023-11-09 07:31] LABS: Lactic Acid 1.3 mmol/L (0.7-2.0)
[2023-11-09 07:34] LABS: Glucose - Point of Care 126 mg/dl (70-99)
--- NOTE | 2023-11-09 07:59 | PTCARENOTE ---
pt received from previous rn ett to vent- see vent settings as charted- POC discussed with Dr. Berry at bedside, precedex decreased for wean, following simple commands. labs sent as per order. butcher draining yellow urine. sinus tach on monitor.
levo, insulin, fentanyl and tpn gtts continue. left radial zaynab zeroed and calibrated. full am care provided, turned and repositioned. scant oral secretions. ngt flushed and to low int. suction. abdominal dressing c/d/i. left arm continues to weep.
all safety precautions in place.
[2023-11-09 08:48] LABS: Phosphorus 2.9 mg/dl (2.5-4.5)
--- NOTE | 2023-11-09 09:32 | PTCARENOTE ---
pt received from previous rn ett to vent- see vent settings as charted- POC discussed with Dr. Berry at bedside, precedex decreased for wean, following simple commands for Dr. Berry, pt moving arms up and down and leaning forward for rn, not
following all commands. labs sent as per order. butcher draining yellow urine. sinus tach on monitor. levo, insulin, fentanyl and tpn gtts continue. left radial zaynab zeroed and calibrated. full am care provided, turned and repositioned. scant oral
secretions. ngt flushed and to low int. suction. abdominal dressing c/d/i. left arm continues to weep. all safety precautions in place.
[2023-11-09 09:35] LABS: Glucose - Point of Care 103 mg/dl (70-99)
[2023-11-09 10:27] LABS: B.E. 5.9 mmol/L; HCO3 29.7 mmol/L (21-28); PCO2 39 mmHg (32-35); PO2 170 mmHg (83-108); pH 7.49 (7.35-7.45)
[2023-11-09] MEDS: LASIX 40 MG IV (10:30)
[2023-11-09] MEDS: SUBLIMAZE 25 MCG IV ×2 (10:45→11:38)
--- NOTE | 2023-11-09 11:05 | W.PN.GS2 ---
Addendum entered and electronically signed by Taj Parkinson MD 11/09/23 11:29:
I saw and examined the patient.
The Marine Firefighter's note was reviewed and I agree with the note.
Comment: Sedation holiday this am, more awake, does not follow commands. Abd exam approp, though exam is limited. Remains on the vent. Remains on TPN. Remains on levophed. Cont efforts to wean vent/pressors.
Original Note:
Today's Communication / Plan
-
Continue NGT
Assessment / Plan
-
Patient is an 78 yo F p/w strangulated umbilical hernia
POD#6 Exploratory laparotomy, small bowel resection with primary anastomosis, primary umbilical hernia repair
CXR with bl infiltrates, pulm following
Actively being weaned off pressors and mechanical ventilation support this am
Intermittent fevers but with resolution of leukocytosis
Discussed with training engineer regarding abx, ok from surgical/abdominal standpoint to follow off abx
NGT with low volume gastric outputs
Await bowel recovery
--Keep NPO with NGT to wall suction
--TPN renewed
--Follow labs/fever trends
--C/W Osorio
--Local incisional care
--Critical care management as per Sugar Boiler
--Lovenox/SCD's for VTE ppx
Subjective Data
-
Date of Service: November 09, 2023
Patient seen and examined at bedside with Dr. Parkinson. Awake for vent weaning. Pointing at but not following commands well. Family updated and questions addressed.
Objective Data
-
Intake and Output
11/08/23 11/09/23 11/10/23
06:59 06:59 06:59
Intake Total 1595.7 / 1655.8 1668.0 / 1733.6 324.9 / 324.9
Output Total 2670 / 2795 3535 / 3610 260 / 260
Balance -1074.3 / -1139.2 -1867.0 / -1876.4 64.9 / 64.9
Intake:
IV fluids (Total) 1415.7 / 1475.8 1513.0 / 1578.6 284.9 / 284.9
Levophed 168.9 / 176.4 225.6 / 236.9 26.5 / 26.5
Prescedex 164.7 / 170.5 170.0 / 175.8 21.4 / 21.4
TPN 888 / 925 885 / 923 190 / 190
fent 150.0 / 157.5 180.0 / 187.5 37.5 / 37.5
insulin 44.1 / 46.4 52.4 / 55.4 9.5 / 9.5
IV piggybacks 100 / 100 125 / 125
Amount instilled into GI Tube ( 80 / 80 30 / 30 40 / 40
Total)
[place] Sump 80 / 80 30 / 30 40 / 40
Output:
Gastrointestinal tube output ( 75 / 75 50 / 50
Total)
[place] Sump 75 / 75 50 / 50
Urine, Osorio 8923 / 9760 3485 / 3560 260 / 260
Vital Signs
Temp Pulse Resp BP Pulse Ox
100.4 F H 126 30 105/49 98
11/09/23 07:09 11/09/23 10:00 11/09/23 10:00 11/09/23 10:30 11/09/23 10:57
Lab Results
11/09/23 06:00
11/09/23 03:41
Calcium 8.8 mg/dl (8.4-10.2) 11/09/23 03:41
Phosphorus 2.9 mg/dl (2.5-4.5) 11/09/23 03:41
Magnesium 1.9 mg/dl (1.6-2.3) 11/09/23 03:41
Total Bilirubin 0.8 mg/dl (0.2-1.3) 11/05/23 11:09
Direct Bilirubin 0.6 mg/dl (0.0-0.4) H 11/03/23 04:20
AST 18 U/L (14-36) 11/05/23 11:09
ALT < 10 U/L (0-35) 11/05/23 11:09
Alkaline Phosphatase 65 U/L (38-126) 11/05/23 11:09
Total Protein 2.5 g/dl (6.3-8.2) L D 11/05/23 11:09
Albumin 1.2 g/dl (3.5-5.0) L D 11/05/23 11:09
Physical Exam
-
VDRF, Awake, unable to assess orientation, [place]
ABD: soft, incision with linda, small open area, clean, minimal serous drainage. Skin pink/warm.
[2023-11-09 11:43] LABS: Glucose - Point of Care 125 mg/dl (70-99)
--- NOTE | 2023-11-09 11:50 | PTCARENOTE ---
Addendum entered by Bethany Arthur RN 11/09/23 11:58:
respiratory rate in 40s.
Original Note:
pt hr in 160s, attempting to pull tube, restless in bed. dr. arroyo at bedside- fentanyl bolus given, precedex restarted, pt placed back on asv on ventilator.
[2023-11-09] MEDS: SUBLIMAZE 50 MCG IV ×3 (12:12→17:46)
--- NOTE | 2023-11-09 12:12 | W.PN.UPDATE ---
Update Note
Progress Note Update
Patient has been on CPAP wean throughout the day today. ABG reviewed. Adequate oxygenation/ventilation
However, patient becomes tachypneic with respiratory in the 30s, tidal volume dropped down to 250-300 at times. Heart rate increased to 160s with agitation
These parameters put patient at high risk for failed extubation
Resume Precedex, resume fentanyl for pain
Transition to ASV and then reconsider CPAP wean as clinically indicated
Reviewed with multiple family members, /daughter/granddaughter regarding potential window for extubation but risks for reintubation
At this point, given physiological parameters, patient not ready for extubation and I feel she will continue to be deconditioned moving forward.
Has on multiple occasions prior, relayed to the patient that I do not think patient will be able to return to prior functional status
Ongoing discussion regarding goals of care given overall poor long-term prognosis
--- NOTE | 2023-11-09 12:15 | PTCARENOTE ---
per Dr. Arroyo ordered to restart precedex at 0.4mcg/kg/hr (received pt on this dose) pt continues to be restless, agitated, attempting to pull at tubes. hr in 140s, bp 154/99 via cuff pressure, pt moving left wrist, unable to correlate zaynab after
multiple attempts. fentanyl bolus given. respiratory rate remains in 30s. dr. arroyo at bedside.
--- NOTE | 2023-11-09 12:23 | W.PN.HOSP.TC ---
Today's Communication/Plan
-
Continue mechanical ventilator settings per ICU
Resume Precedex/fentanyl
Follow-up blood cultures sputum culture urine culture
Continue TPN. Continue n.p.o. with NGT to wall suction
Continue Levophed. Wean pressor support and mechanical ventilator as tolerated. Continue daily SAT/SBT
ID consult for tracheal culture growing GNR
Assessment / Plan
Assessment / Plan
General: Orally intubated, sedated, on mechanical ventilator, OGT placed orally to suction, started on tpn. Was not following commands for me well when I saw her
HEENT: Normocephalic, Atraumatic and Moist Mucous Membranes. No JVD
Respiratory: Mechanical vent sounds
Cardiac: Regular Rhythm and S1/S2.
GI: Soft, NT, ND, BS+, NGT to suctions
Musculoskeletal: No Cyanosis , No Edema
Skin: Dry
Neuro: Sedated
Psych: Unable to assess
Incarcerated / Strangulated Umbilical Hernia
Septic Shock
Remains on pressor support continue to wean as tolerated.
S/p resection of 45 cm necrotic small bowel with internal anastomosis and fixation on 11/02 with surgery
LAUREN drain remains in
Zosyn DC'ed. Vanc DC'ed
Blood cultures no growth to date. No IntraOp cultures obtained
May consider infectious disease consult for antibiotic duration and recommendation
Acute hypoxemic respiratory failure secondary to ventilator dependent respiratory failure
-Postop patient was maintained on ventilatory support
-Ongoing vent weaning effort per assembler for puller over hand
-Attempt to liberate from vent
-CXR worse, I personally discussed this with the assembler for puller over hand to change propofol to Precedex. Both agree with this.
-Continue IV Lasix per ICU
Fever potentially infectious versus drug-induced. Coming off of Precedex. Pancultured. ICU following closely.
-Concern is if she develops intra-abdominal infection she may have need to return to the OR as this could lead to septic shock
-Tracheal cultures growing gnr, this was obtained while she was on Zosyn and having fevers, will ask ID to see her.
Metastatic Breast Cancer
-Followed at [facility]. Currently on no active therapy / medications.
-On med holiday for a month with plan to revisit / restart meds in early November.
Acute blood loss anemia from surgery
Continues to trend down now he. Blood pressure still fluctuating on pressor support. Without acute evidence of blood loss at this time. Will continue to monitor sleep.
Chest x-ray does show pulmonary edema therefore holding fluid, if hemoglobin less than 7 would consider transfusion depending on volume status and overall clinical picture at that time
Thrombocytosis
-Reactive/infection related as well, monitor
Hyponatremia
Resolved
Hypokalemia
Replete as needed
REINA - resolved
Likely secondary to sepsis/hypoperfusion/ischemic ATN. Now on IV fluids and pressor support.
Monitor renal output. Avoid nephrotoxins hypotension.
Renally dose medications
Stage 1 buttock pressure injury
Wound care
Pressure offloading
DVT Prophylaxis: SCDs
Full code
-Overall prognosis at this time remains grim
Total critical care time 40 mins . Total critical care time documented does not include time spent on separately billed procedures or the services of residents, students, nurses or physician assistants. I personally saw and examined the patient. I
have reviewed all diagnostic interpretations and treatment plans as written. I was present for the easley portions of any procedures performed and the inclusive time noted in any critical care statement. Critical care time includes patient management
by me, time spent at the patients bedside, time to review lab and imaging results, discussing patient care, documentation in the medical record, and time spent with the family or caregiver.
Anticipated Discharge: > 48 hours
Subjective/Interval History
-
Date of Service: November 09, 2023
Seen and examined. No new complaints. No acute overnight events.
Remains mechanically ventilated however on a weaning trial.
Spoke with bedside nurse not tolerating wean well. Reviewed update note from ICU respiratory rate into the 30s drop and tidal volume heart rate increased with agitation. Therefore likely has I have high RSBI which is not consistent with extubation
and if extubated likely will fail requiring reintubation. Therefore agree to resume Precedex fentanyl.
Objective Data
-
Labs:
Laboratory Results
11/09/23 11/09/23 11/09/23
03:41 06:00 10:20
WBC 10.6 Cancelled
Hgb 7.6 L Cancelled
Hct 22.8 L Cancelled
Plt Count 145 Cancelled
HCO3 30.5 H 29.7 H
Sodium 137
Potassium 4.1
Chloride 105
Carbon Dioxide 27
BUN 29 H
Creatinine 0.7
Glucose 92
Calcium 8.8
Vital Signs:
Vital Signs
Temp Pulse Resp BP Pulse Ox
100.6 F H 137 22 131/67 98
11/09/23 11:30 11/09/23 12:17 11/09/23 12:17 11/09/23 12:17 11/09/23 12:17
I&O
11/08/23 11/09/23 11/10/23
06:59 06:59 06:59
Intake Total 1595.7 / 1655.8 1668.0 / 1733.6 379.4 / 379.4
Output Total 2670 / 2795 3535 / 3610 1100 / 1100
Balance -1074.3 / -1139.2 -1867.0 / -1876.4 -720.6 / -720.6
[2023-11-09] MEDS: SUBLIMAZE 100 IV ×2 (12:39→22:05)
[2023-11-09] MEDS: SUBLIMAZE IV (13:17)
[2023-11-09 13:34] LABS: Glucose - Point of Care 126 mg/dl (70-99)
--- NOTE | 2023-11-09 14:21 | CON.ID ---
Consultation
-
Date/Time Consultation Requested: 11/09/23 12:40
Date/Time Consultation Performed: 11/09/23 14:21
Requesting Provider: Dr Chavez
Performing Provider: Dr Barber
Reason for Consultation: tracheal culture - gnr, septic shock
Chief Complaint / Past History
Chief Complaint
abdominal pain, nausea, vomiting
History of Present Illness
Ms Dowell is an 78 year old female with history of metastatic breast cancer on (treated at [facility] on [facility]) until 1 month ago who presented here 11/02 for abdominal pain, nausea, vomiting and anorexia. Symptoms first began about
4-5 days prior to arrival with poor appetite and nausea/vomiting. Then about 2 days ago progressed to abdominal pain. Then on day of arrival family noted discoloration of the chronic umbilical hernia which prompted them to present toe the ER for
further evaluation. History obtained by chart review due to the condition of the patient.
Of note chemotherapy was held several months ago due to neutropenia/leukopenia. Hospice was being consider prior to this admission.
Of note on dexamethasone swish and spit (do not swallow) for mouth sores prior to arrival.
Since arrival here she was initially febrile to 100.9, bp initially hypotensive, and tachycardic, wbc initially 18.2, hgb 12, plt 628, cr 1.9, na 127, lactic acid 6.3, t bili 1.5, ast 45, alt <30, alk phos 116, here staff noted that the umbilical
hernia was firm, tender and discolored; she was seen by colorectal surgery in the ER and felt to have a strangulated hernia, urgent partial bowel resection was recommended, patient and family declined initially. She began to require pressors and
was started on zosyn and vancomycin. She eventually agreed to surgery and was taken to the OR 11/02 for exlap, small bowel resection with primary anastomosis, primary umbilical hernia repair, 45 cm of necrotic small bowel was resected, there was
hemorrhagic and turbid fluid within the sac, post operatively patient with increasing pressor requirements. There were no intraoperative cultures done. Of note there was aspiration upon intubated with 2L bilious vomiting suctioned, aspiration
pneumonitis noted. She is on TPN at this time. Access has been very challenging and she currently has a right groin catheter. Patient was on vancomycin and zosyn from 11/01-11/06, then continued on zosyn monotherapy until yesterday when it was
stopped.
Currently core Ts are elevated to 101.2-101.3; note that with core Ts a fever is definited as above 101.0, bp with increasing pressor requirements this afternoon now on 4 mcg/min of levophed, wbc yesterday 17 today 10.6, hgb 7.6, plt 145, yesterday
L shfit was notable, as was lymphocytopenia, K 4.1, c4 0.7, lactic acid currently 1.3, 11/07 ua: no pyuria, CXR Low lung volumes with redemonstration of diffusely increased interstitial and patchy ground glass opacities bilaterally. No significant
pleural effusions, tracheal aspirate moderate GNR, rare squamous epithelial cells, blood cultures x2 from arrival finalized negative. repeat blood cultures x2 no growth at 24 hours. Currently not on antibiotics.
Discussed current findings at length with (medical decision maker) including my concerns that she has developed new fevers, increasing pressor requirements, new tachycardia, that it is now the period of time in which I would expect the
development of an intraabdominal abscess/fluid collection which is a common complication of necrotic bowel, however he is adamant that 'she didnt want a CT scan' even from the beginning and not willing to consider it now. I explained that if we
want to continue to be aggressive with her treatment that at this point in time that in my opinion it would be indicated and seeing a developing abscess/fluid collection at this time would be common. Shares his concern that he believes that CTs lead
to cancer. I discussed that a CT scan at this time is very unlikely to impact her cancer and would be a routine recommendation in this situation however he dismissed the idea. Went on to demand that I 'look him in the eye when you speak to me, Im
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
echocardiogram could be painful for her. Demands to know if Jeane ever had an echo myself; I explained that it would not be indicated for me. I stated that I was not involved in the decision making for that procedure and he would need to speak to
the ordering doctor. Asks when the CT would be done, and I explained that it was my understanding that she was going down to IR to have the line exchanged. (I did not state at that time, however I had the impression from speaking with her nurse
and assembler installer structures about next steps). He stated that she wasnt going down stairs and that she just had the procedure here in the room which determined that she would not be going down. I wasnt aware of this being part of the plan and expressed that
in my experience typically the patient would go down to the IR suite for the procedure. became more upset 'you better know before you speak with me.' At this time he is refusing the CT scan on his 's behalf. Asks to speak with the
surgeon 'who did the original surgery' and I explained that the surgical team will be by for rounds tomorrow and he can speak with the group at that time. I later called and learned that the utilization management nurse IR MD had recommended a bedside US of the IJ and
that unfortunately it was not patent; this was new information to me.
Past History
Additional Past Medical History:
as per hpi
Additional Past Surgical History:
of note refused port placement
Allergy History:
No Known Allergies Allergy (Unverified 11/02/23 20:13)
Medications Reviewed: Yes
Social History
Tobacco: Non-Smoker
Alcohol: None
Drug: None
Family History
Family History: Not Pertinent
Review of Systems
Review of Systems
unable to obtain due to the condition of the patient - intubated
Vital Signs
Temp Pulse Resp BP Pulse Ox
100.6 F H 137 22 131/67 98
11/09/23 11:30 11/09/23 12:17 11/09/23 12:17 11/09/23 12:17 11/09/23 12:17
Physical Exam
Physical Exam
Constitutional: No Acute Distress and Chronically Ill
Cardiovascular: Regular Rate and S1/S2; Negative Murmur or Rub
Pulmonary: Clear, Symmetric, Non Labored and Other (moderate amount of ross secretions in the canister at the bedside); Negative Wheezes, Rales or Rhonchi
Gastrointestinal: Soft, Non Tender, Non Distended and Normal Bowel Sounds
Skin: Warm and Dry; Negative Rash or Jaundice
Wound: Other (surgical site with pale tissue, visible in the wound bed - no significant drainage or odor)
Psychological: Negative Calm
Lines: Other (groin with TLC in place, no erythema, warmth, tenderness or drainage)
Lab / Diagnostic Study Results
11/09/23 06:00
11/09/23 03:41
Abs Immat Gran (auto) 0.3 10^3/uL (0-0.05) H 11/07/23 03:53
Absolute Neuts (auto) 15.0 10^3/uL (1.4-6.5) H 11/07/23 03:53
Absolute Lymphs (auto) 0.8 10^3/uL (1.2-3.4) L 11/07/23 03:53
Absolute Monos (auto) 0.6 10^3/uL (0.1-0.6) 11/07/23 03:53
Absolute Basos (auto) 0.1 10^3/uL (0-0.2) 11/07/23 03:53
Immature Gran % 1.6 % (0-0.5) H 11/07/23 03:53
Neutrophils % 87.5 % (42.2-75.2) H 11/07/23 03:53
Lymphocytes % 4.4 % (20.5-51.1) L 11/07/23 03:53
Monocytes % 3.4 % (1.7-9.3) 11/07/23 03:53
Eosinophils % 2.8 % (0-6) 11/07/23 03:53
Basophils % 0.3 % (0-2) 11/07/23 03:53
PT 15.3 Sec (11.4-14.6) H 11/02/23 20:30
INR 1.23 11/02/23 20:30
Lactic Acid 1.3 mmol/L (0.7-2.0) 11/09/23 07:05
Microbiology Results
Micro:
11/08/23 10:28 Blood Culture - Preliminary
Blood/Venous No Growth in 24 hours- Final report to follow
11/08/23 10:31 Blood Culture - Preliminary
Blood/Venous No Growth in 24 hours- Final report to follow
11/08/23 10:28 Respiratory Culture - Preliminary
Tracheal Aspirate Gram negative bacilli
Gram Stain - Preliminary
11/02/23 20:37 Blood Culture - Final
Blood/Venous No Growth - Final Report
11/02/23 20:37 Blood Culture - Final
Blood/Venous No Growth - Final Report
Assessment / Plan
Strangulated Umbilical Hernia s/p resection with anastomosis 11/03/23
Ongoing shock - suspected septic
H/o aspiration possible developing pneumonia
H/o leukopenia/neutropenia
- blood cultures x2 from 11/07 in progress no growth to date
- note blood cultures from 11/01 finalized negative
- resp culture 11/07 moderate GNR
- wbc count, hgb and plt have all been drifting down - she may be developing cytopenias (which she has a history of), alternatively leukocytosis may be normalizing
- note CXR with ground glass opacities
- not currently stable for extubation
- intubated 11/02, with aspiration noted at that time
- many GNR in the sputum, possible developing pneumonia
- additionally recommended CT scan of abd/pelvis with contrast to assess for developing intraabdominal abscesses/fluid collections given persistent HD instability, refuses. Risks, benefits, alternatives and impacts on medical decision
making discussed at length with who expresses understanding.
- will restart empiric meropenem and micafungin, decision re: duration of therapy (if she responds) will be more complicated if we do not get imaging, additionally, if there is a fluid collection that we do not identify, sepsis can progress. If
there is infection it could be partially treated and relapse later. Drainage could be indicated to improve response to antibiotics. There could be development of resistant bacteria.
Agree that short term to medium term prognosis is guarded. Patient is critically ill.
[2023-11-09] MEDS: LEVOPHED 250 IV (14:37)
--- NOTE | 2023-11-09 15:02 | CM ---
CM reviewed medical records. Patient remains critically ill. CM will remain available as needed.
[2023-11-09] MEDS: MYCAMINE 105 MG IV (16:06)
[2023-11-09 16:13] LABS: Glucose - Point of Care 81 mg/dl (70-99)
[2023-11-09 16:18] LABS: Hematocrit 22.7 % (37.0-47.0); Hemoglobin 7.4 g/dL (12.0-16.0)
[2023-11-09] MEDS: STERILE WATER FOR INJECTION 10 ML IV ×2 (16:20→23:22)
[2023-11-09] MEDS: MERREM 500 MG IV ×2 (16:21→23:21)
--- NOTE | 2023-11-09 16:24 | W.PN.UPDATE ---
Update Note
Progress Note Update
RE: venous access. Ultrasound was performed at the bedside in the ICU to evaluate for potential RIJ catheter placement. Right internal jugular vein not identified. There was a small external jugular vein branch with unsatisfactory course for central
line placement. With RUE restriction in place, no other satisfactory site for central venous access at this time. d/w Dr. Berry
--- NOTE | 2023-11-09 16:34 | PTCARENOTE ---
pt remains on asv- tachypneic at times, precedex at 1mcg/kg/hr, fentanyl at 100mcg/hr. oral care provided. labs sent. and daughter updated at bedside. awaiting ir consult. wedding band removed and taken by .
[2023-11-09 16:35] LABS: Blood Urea Nitrogen 29 mg/dl (7-17); Calcium 8.8 mg/dl (8.4-10.2); Carbon Dioxide 28 mmol/L (22-30); Chloride 103 mmol/L (98-107); Estimated Creatinine Clearance 55 ml/min; Glucose 75 mg/dl (70-99); Magnesium 1.8 mg/dl (1.6-2.3); Potassium 4.1 mmol/L (3.5-5.1); Sodium 137 mmol/L (135-145); eGFR > 60.00
[2023-11-09 17:12] LABS: Glucose - Point of Care 119 mg/dl (70-99)
--- NOTE | 2023-11-09 17:13 | PTCARENOTE ---
zaynab no longer functioning, Dr. Berry ordered to remove- pressure held, dressing applied. ngt noted with increased output- surgery and Dr. Berry made aware. no further orders at this time. ice packs applied for temp. turned and repositioned,
oral care provided. pt remains tachycardiac.
[2023-11-09] MEDS: LOVENOX 40 MG SC (17:46)
[2023-11-09 18:02] LABS: Glucose - Point of Care 115 mg/dl (70-99)
[2023-11-09 19:15] LABS: Glucose - Point of Care 118 mg/dl (70-99)
[2023-11-09 20:13] LABS: Glucose - Point of Care 107 mg/dl (70-99)
[2023-11-09] MEDS: Parenteral Nutrition, Central 1110 IV (20:20)
--- NOTE | 2023-11-09 20:30 | PTCARENOTE ---
Assumed care of pt. approx 1899.
Remains intubated, settings ASV 100 m/V, 5 Peep, 40 % fiO2.
Sedation w/ 1.2 ml dex, 100 fent.
Insulin gtt. to support TPN.
Remains sinus tach w/o ectopy, BP supported w/ single vasopressor norepi @ 2.
Febrile, agitated.
Bilat soft restraints remain in place.
[2023-11-09 21:08] LABS: Glucose - Point of Care 128 mg/dl (70-99)
[2023-11-09 22:14] LABS: Glucose - Point of Care 138 mg/dl (70-99)
[2023-11-09 23:37] LABS: Glucose - Point of Care 127 mg/dl (70-99)
[2023-11-10] VITALS (46 sets, daily range): BP systolic 87–160; BP diastolic 47–131; BMI 25.3
[2023-11-10 00:09] LABS: Glucose - Point of Care 141 mg/dl (70-99)
--- NOTE | 2023-11-10 00:30 | PTCARENOTE ---
No change from prior assessment.
MAP goals maintained w/ norepi. Remains febrile. Tachycardic w/o ectopy.
[2023-11-10 01:18] LABS: Glucose - Point of Care 160 mg/dl (70-99)
[2023-11-10 02:10] LABS: Glucose - Point of Care 162 mg/dl (70-99)
[2023-11-10 03:22] LABS: Glucose - Point of Care 157 mg/dl (70-99)
--- NOTE | 2023-11-10 04:09 | PTCARENOTE ---
No change from prior assessment.
Unable to titrate off 1 mcg of norepi, remains on fent/dex.
Tracheal culture back positive for gram negative rods.
[2023-11-10] MEDS: SUBLIMAZE 50 MCG IV ×7 (04:40→17:51)
[2023-11-10] MEDS: MERREM 500 MG IV ×4 (04:47→22:06)
[2023-11-10] MEDS: STERILE WATER FOR INJECTION 10 ML IV ×4 (04:47→22:06)
[2023-11-10] MEDS: PRECEDEX 100 IV ×5 (04:52→23:18)
[2023-11-10 04:53] LABS: % Basophils 0.3 % (0-2); % Eosinophils 4.3 % (0-6); % Immature Granulocytes 1.4 % (0-0.5); % Lymphocytes 16.4 % (20.5-51.1); % Neutrophils 69.6 % (42.2-75.2); Absolute Eosinophils 0.5 10^3/uL (0-0.7); Absolute Immature Granulocytes 0.2 10^3/uL (0-0.05); Absolute Neutrophils 8.3 10^3/uL (1.4-6.5); Hematocrit 26.3 % (37.0-47.0); Hemoglobin 8.1 g/dL (12.0-16.0); Mean Corp Hgb Conc. 30.8 g/dL (33.0-37.0); Mean Corpuscular Hgb 27.4 pg (27.0-31.0); Mean Corpuscular Volume 88.9 fL (81.0-99.0); Mean Platelet Volume 10.8 fL (7.4-10.4); Nucleated Red Blood Cells % 0 %; Platelet Count 197 10^3/uL (130-400); Red Blood Cell Count 2.96 10^6/uL (4.20-5.40); Red Cell Dist. Width 20.9 % (11.5-14.5); White Blood Cell Count 11.9 10^3/uL (4.8-10.8)
[2023-11-10 05:12] LABS: Glucose - Point of Care 120 mg/dl (70-99)
[2023-11-10 05:21] LABS: ALT (SGPT) 23 U/L (0-35); AST (SGOT) 56 U/L (14-36); Albumin 2.4 g/dl (3.5-5.0); Alkaline Phosphatase 160 U/L (38-126); Blood Urea Nitrogen 30 mg/dl (7-17); Carbon Dioxide 27 mmol/L (22-30); Chloride 104 mmol/L (98-107); Estimated Creatinine Clearance 65 ml/min; Glucose 108 mg/dl (70-99); Magnesium 1.9 mg/dl (1.6-2.3); Phosphorus 3.5 mg/dl (2.5-4.5); Potassium 4.4 mmol/L (3.5-5.1); Sodium 138 mmol/L (135-145); Total Bilirubin 1.1 mg/dl (0.2-1.3); Total Protein 5.2 g/dl (6.3-8.2); eGFR > 60.00
--- NOTE | 2023-11-10 05:38 | W.PN.INTV ---
Today's Communication / Plan
Recommendations
Continue antibiotics per ID
Transition to CPAP 5, pressure support 20
Wean Precedex as able
Follow cultures
Lasix intermittently
Minimize transfusion if able, not indicated at this time
Assessment
-
Patient is an 78 year old F with history of metastatic breast cancer (treated at [facility] on Ibrance->Afinitor) presenting to ED complaining of poor appetite, abdominal pain and N/V x 4-5 days. Of note, she had experienced weight
loss/anorexia with use of Afinitor. She began to complain of abdominal discomfort about 2 days ago. Today, family noted discoloration associated with her long standing chronic umbilical hernia. On evaluation in the ED, patient is noted to have
firm, tender and grossly discolored umbilical hernia concerning for incarceration +/- strangulation. BP 70s, Tmax 100.9, WBC 18, lactate 6, creat 1.9. She was seen by Colorectal Surgery who discussed benefit of urgent surgical intervention. She is
placed on levophed, and empiric abx and admitted to ICU.
Septic shock on pressors
Incarcerated umbilical hernia wtih concern for ischemic bowel s/p resection with anastomosis 11/03/23
Post-op VDRF
Aspiration PNA upon intubation, 2L bilious vomiting suctioned s/p NGT likely obstruction from hernia
Suspected lung injury, aspiration pneumonitis
Possible component of pulmonary edema
Improved with diuresis
REINA, improved
Leukocytosis, improved
Lactic acidosis, improved
Hyponatremia, improved
Hyperglycemia, requiring insulin drip
Persistent fevers
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
Metastatic breast cancer
Diagnosed 2017
On chemotherapy, held recently months ago due to significant side effects, neutropenia/leukopenia
Apparently refused port placement, per
Was being considered for hospice, palliative care at one point, per
Plan/recommendations
At this time, patient remains critically ill. Norepinephrine has been briefly weaned off this morning
Labile blood pressure and heart rate noted, seems to be related to agitation
Negative fluid status noted, weight down 2 to 3 kg
Minimal secretions, patient does cough with suction
Chest x-ray today with slight improvement
NG output increased over the last 24 hours, 580
Albumin 1.2
ABG reviewed, adequate ventilation, oxygenation while on CPAP
Of note, patient did move all extremities, turn head during sedation vacation, pulling for tube
She is following commands for me off Precedex. Remains on fentanyl 75 mcg
Did not tolerate SBT yesterday due to tachycardia, rapid shallow breathing, agitation
Moving forward
Continue with CPAP wean, resumed today 09/23
Chest x-ray overall improved with diuresis but there is a patchy infiltrate on the right side
Will give Lasix intermittently
Ongoing assessment for extubation
Sedated/intubated
Continue with Precedex, fentanyl. Wean Precedex as able
Pain/sedation: PRN
RASS goals: 0
Remains on fentanyl 75 mcg
Patient has been complaining of abdominal pain.
Hemodynamically unstable, requiring pressors.
Requiring pressors: Vasopressin has been weaned off, Levophed slowly being weaned, now off
Cardiac history reviewed--none
Echocardiogram with normal biventricular function, could not assess pulmonary artery pressures
Suspected incarcerated bowel, on exam/severe findings
CRS on board, s/p resection with anastomosis 11/03/23
NG tube output decreased
Aspiration precautions, HOB > 30 degrees
GI prophylaxis
Continue TPN per surgery
Fevers noted
Check cultures through A-line and peripheral culture
Tracheal culture gram-negative bacilli, await identification
Unfortunately, right groin line remains due to no additional access available. TPN continues
These risks were reviewed at length multiple times throughout hospital stay with
Possible colitis, ischemic bowel, aspiration PNA on presentation
ID following. Meropenem, micafungin
Note that refused abdominal imaging to rule out abscess or fluid collection
He is concerned about radiation from imaging. Despite discussing pros and cons and tried to educate with regards to critical care management, he has been difficult throughout hospital stay.
REINA present, no history of renal disease
Creatinine normal
Replete potassium
TPN continue as per surgery
Hemoglobin noted, slowly trending down
DVT prophylaxis as assessed based on risk, including mechanical SCDs
Can transfuse if indicated for Hb <7, plt < 10
INR WNL
Maintain active type and screen but would minimize transfusion given risk for lung injury
Would like to avoid transfusion unless necessary
is also implied he may not consent to transfusion (his granddaughter had a bad reaction)
Follow for now
No prior h/o diabetes or thyroid disease
Elevated blood sugars noted since starting TPN
requiring initiation of insulin drip
Continue to follow
Lines- PICC attempted on L, could not thread, R fem line attempted (by myself >60 mins) could not thread. She has RUE lymphedema and L sided neck metastatic disease
CVC needed but having difficult access sites. IR placed right groin line
Unable to place additional access per interventional radiology 11/05 (metastatic breast cancer in the left involving the neck and right upper extremity lymphedema
According to , patient refused port placement in the past
Discussed worst-case scenario where we may have to accept chronic right groin placement but this would put patient at risk for infection
This has been reviewed on a daily basis multiple times with
IR has evaluated 3 times for access, no practical solution. Will need to maintain right groin line. Site looks okay
Prognosis guarded
Had extensive discussion with on daily basis and also reviewed with son and 11/07 at length
On multiple occasions he has been suggested that she would not want aggressive care, and at 1 point requested hospice
Unclear when transition from hospice discussion to pursuing surgery and life support happened, but states patient did change her mind last minute
I encouraged and family to take a step back and look at big picture and to look back on what his would want in current situation
is fearful of how he may feel in the setting of . Emotional support provided
We will continue full supportive care
DVT prophylaxis: Continue with pharmacological and mechanical
GI prophylaxis: Remains on Protonix
Reviewed at length with critical care nursing, respiratory care, pharmacy, primary service
Critical care time 40mins
Family Discussions
Jamal 11/05/2023: Extensive update with at the bedside. He does not want his 1 daughter Samreen to be updated as she has difficulty processing information at that time, gets very anxious. Other 2 children are to be updated (Temo, Luna).
All questions answered
Karen 11/03/23- I had a long discussion with the and daughter at bedside regarding decision making. Initially patient had declined surgery as she did not want to live with a colostomy but then subsequently did not change her code status
despite urgency of the situation. She then changed her mind this morning stating she does want to live and would undergo surgery. The family did feel she was not quite sure/had cognitive impairment on presentation, but she seems more clear to them
this morning. It is difficult to discuss with her as she has very severe hearing impairment and does not use hearing aids. I answered all questions from including her future oncologic care, that he will need to discuss with their
oncologist for next steps. They are now agreeing for surgery and care team was updated in further discussions.
Diagnostic Data
Chest X-Ray:
CT Scan:
Echo:
PFT's:
Reports and relevant images were personally reviewed.
-----
Subjective Dataa
Subjective Data
Date of Service:
Date of Service: November 10, 2023
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
Subjective:
Patient remains critically ill, on and off norepinephrine. Agitated overnight, back on Precedex. Significant diuresis noted, almost -3 L. Hemoglobin stable. Maintained on ASV overnight
Objective Data
Data Reviewed
Vital Signs / I&O / Oxygen:
Vital Signs
Temp Pulse Resp BP Pulse Ox
98.4 F 98 22 139/69 95
11/10/23 03:15 11/10/23 03:00 11/10/23 03:00 11/10/23 03:00 11/10/23 04:05
Intake and Output
11/08/23 11/09/23 11/10/23
06:59 06:59 06:59
Intake Total 1595.7 / 1655.8 1668.0 / 1733.6 1949.8 / 1949.8
Output Total 2670 / 2795 3535 / 3610 4420 / 4420
Balance -1074.3 / -1139.2 -1867.0 / -1876.4 -2470.2 / -2470.2
SaO2 [CPAP] 97
SaO2 [ASV] 98
SaO2 [A/C] 98
SaO2 95
Nasal Cannula flow liters per 2
minute
Physical Exam
General: Comfortable, Other (Left neck changes, left chest wall changes from breast cancer, right upper extremity lymphedema) and Other (Right femoral groin line)
HEENT: Normocephalic and Anicteric
Cardiovascular: S1-S2, Regular Rhythm, Murmur (n), Rub (n), Peripheral Edema (RUE swelling/lymphedema) and Calf Tenderness (n)
Respiratory: Wheeze (n), Crackles (n), Rhonchi (n), Non-Labored Respirations and ET Tube
GI: Soft, Non Distended, Non Tender and Other (Abdominal dressing in place)
Neurology: Lethargic (Eyes are open, she does nod her head appropriately. She moves extremities, trying to say something, moves all extremities to stimuli)
Skin: Cyanosis (n), Jaundice (n), Rash and Other (numerous skin lesions over sternum, L side of neck--presumed fungating metastatic disease)
Labs/Micro/Reports
Lab Data
11/10/23 04:16
11/10/23 04:16
Laboratory Results
11/09/23
10:20
pH 7.49 H
pCO2 39 H
pO2 170 H
HCO3 29.7 H
O2 Delivery Level
Microbiology
11/08/23 10:28 Tracheal Aspirate Respiratory Culture - Preliminary
Gram negative bacilli
11/08/23 10:28 Tracheal Aspirate Gram Stain - Preliminary
11/08/23 10:28 Blood/Venous Blood Culture - Preliminary
No Growth in 24 hours- Final report to follow
11/08/23 10:31 Blood/Venous Blood Culture - Preliminary
No Growth in 24 hours- Final report to follow
11/02/23 20:37 Blood/Venous Blood Culture - Final
No Growth - Final Report
11/02/23 20:37 Blood/Venous Blood Culture - Final
No Growth - Final Report
[2023-11-10 06:51] LABS: Glucose - Point of Care 115 mg/dl (70-99)
--- NOTE | 2023-11-10 07:30 | PTCARENOTE ---
Received pt intubated,sedated with bilateral soft wrist restraints intact. She is awake and alert. Extremely RUBY. She is mouthing words, restless in the bed, and mouthing words. She was informed of the plan of care speaking directly into her right
ear. Right femoral TL CVC with TPN @ 46ml/hr via proximal port, Insulin drip @ 2.3units/hr via medial port with CCGP followed, Fentanyl@ 100mcg/hr and Precedex@ 1.2mcg/kg/hr via distal port. Doppler pedal pulses, palpable radial pulses, +2 anasarca
with right upper extremity +4 lymphedema and left +3 edema. #7 ETT secured 21cm left lip. ASV 100% MV, FiO2 .40/+5 peep. Posteriorly CTA Anteriorly left coarse breath sounds. Abdomen round, soft, hypoactive BSX4. Abdominal dressing CDI. Left nare
[place] sump to LIWS, flushed and draining green bilious secretions. Left hand dressing saturated with serous drainage, dressing changed. Skin barrier to left hand, Mepilex and secured with SBD. Optifoam dressing to sacrum intact, sacrum pink and
blanchable. Repositioned in the bed. Aspiration precautions maintained. Safe environment maintained.
--- NOTE | 2023-11-10 07:35 | W.PN.ID1 ---
Addendum entered and electronically signed by Cleo Barber MD 11/10/23 10:50:
notified by staff that patients is using AI program to determine which medical recommendations he accepts.
Original Note:
Date of Service
Date of Service: November 10, 2023
Today's Communication
continue meropenem/micafungin
Assessment / Plan
Strangulated Umbilical Hernia s/p resection with anastomosis 11/03/23
Ongoing shock - suspected septic
Developing pneumonia
H/o aspiration
H/o leukopenia/neutropenia
- fever may be improving since restarting and broadening antibiotics, wbc count has increased today
- bilious output from the NGT - no BM x6 days
- blood cultures x2 from 11/07 in progress no growth to date
- resp culture 11/07 moderate GNR
- recommend CT ab/pelvis which would help clarify cause of leukocytosis/fevers, duration of therapy, confirm source control, optimize management. Please see extended discussion in 11/08 note. Family has refused.
- continue meropenem/micafungin
- follow clinically
Agree that short term to medium term prognosis is guarded. There is some possible interval improvement since broadening coverage however prognosis unchanged.
Chief Complaint
-: Fever, Leukocytosis and Other (shock)
Subjective / Review of Systems
fevers ongoing overnight, may be resolving this am
pressors currently off
wbc/plt/hgb now increasing
no left shift today
cr 0.6
CXR: my read persistent infiltrates
11/07 blood cultures no growth to date
awaiting ID of the GNR from the ETT - moderate amount in culture
Vital Signs / Physical Exam
Vital Signs
Vital Signs
Temp Pulse Resp BP Pulse Ox
98.9 F 75 11 110/62 99
11/10/23 06:00 11/10/23 06:00 11/10/23 06:00 11/10/23 06:00 11/10/23 06:00
Physical Exam
Constitutional: Acutely Ill and Chronically Ill
Cardiovascular: Regular Rate and S1/S2; Negative Murmur or Rub
Pulmonary: Symmetric, Rhonchi (few anterior) and Non Labored; Negative Wheezes or Rales
Gastrointestinal: Soft, Non Tender, Non Distended and Normal Bowel Sounds
Skin: Warm and Dry; Negative Rash or Jaundice
Neurological: Awake
Lines: Other (bilious fluid in the NGT)
Objective Data
Lab Data
Lab Results
11/10/23 04:16
11/10/23 04:16
PT 15.3 Sec (11.4-14.6) H 11/02/23 20:30
INR 1.23 11/02/23 20:30
APTT 27.5 Sec (23.4-35.0) 11/02/23 20:30
Estimated Creat Clear 65 ml/min 11/10/23 04:16
Lactic Acid 1.3 mmol/L (0.7-2.0) 11/09/23 07:05
Total Bilirubin 1.1 mg/dl (0.2-1.3) 11/10/23 04:16
AST 56 U/L (14-36) H 11/10/23 04:16
ALT 23 U/L (0-35) 11/10/23 04:16
Alkaline Phosphatase 160 U/L (38-126) H 11/10/23 04:16
Most recent labs reviewed.
Micro Results:
11/08/23 10:28 Respiratory Culture - Preliminary
Tracheal Aspirate Gram negative bacilli
Gram Stain - Preliminary
11/08/23 10:28 Blood Culture - Preliminary
Blood/Venous No Growth in 24 hours- Final report to follow
11/08/23 10:31 Blood Culture - Preliminary
Blood/Venous No Growth in 24 hours- Final report to follow
11/02/23 20:37 Blood Culture - Final
Blood/Venous No Growth - Final Report
11/02/23 20:37 Blood Culture - Final
Blood/Venous No Growth - Final Report
[2023-11-10 07:43] LABS: Glucose - Point of Care 98 mg/dl (70-99)
[2023-11-10] MEDS: PROTONIX IV 40 MG IV (08:10)
[2023-11-10] MEDS: NSS (PRESERVATIVE FREE) 10 ML IV (08:10)
[2023-11-10 08:42] LABS: Glucose - Point of Care 127 mg/dl (70-99)
[2023-11-10 09:51] LABS: Glucose - Point of Care 111 mg/dl (70-99)
--- NOTE | 2023-11-10 11:11 | PTCARENOTE ---
provided supportive care. He is aware if the plan of care. He is also aware that we will continue to wean however, we are concerned that it is taking this long.
[2023-11-10 11:49] LABS: Glucose - Point of Care 107 mg/dl (70-99)
--- NOTE | 2023-11-10 12:25 | PTCARENOTE ---
Moderate amount of thick yellow secretions suctioned from the back of her throat. She was cooperative with mouth care. Her and son are here but speaking a conference room as to not excite and stimulate her. It was observed that her HR, RR @
activity increase significantly with stimulation. She continues to pedal her legs in the bed. She was provided supportive care.
--- NOTE | 2023-11-10 12:59 | W.PN.GS2 ---
Addendum entered and electronically signed by Kumar Roca MD 11/10/23 18:50:
Patient seen examined with nurse practitioner earlier today. This is a delayed entry.
Remains intubated. Weaning off sedation. Difficult to communicate with patient secondary to hearing loss. She does not readily follow commands but her eyes are open.
Febrile, sinus tachycardia, vital signs otherwise stable
Remains intubated
Abdomen is soft, nondistended, NG tube in place with minimal bilious output
Assessment/plan: Continue TPN
Suspect pulmonary source for ongoing fevers given severity of aspiration pneumonitis and infiltrate seen on x-ray
Abdominal examination soft, incision site healing well without erythema. Small opening clean and without any purulence or exudate noted.
No objection to further imaging of abdomen if family was agreeable
Will give Dulcolax suppository
If were to extubate NG tube can be removed
If ongoing vent dependent respiratory failure then consider starting enteral nutrition via NG tube
Original Note:
Today's Communication / Plan
-
Cont TPN
ABX as per ID
Assessment / Plan
-
Patient is an 78 yo F with breast CA and [place] [facility] [place]
POD#7 Exploratory laparotomy, small bowel resection with primary anastomosis, primary umbilical hernia repair
Intermittent fevers, tachycardic. BP stable and has been weaned off pressors.
ID following with us for abx
CXR with bl infiltrates, pulm following. Aspirated gastric contents early in admission
VDRF, weaning as per pulm
NGT with low volume gastric outputs, No BM's as of yet
Acute on chronic anemia, no signs of active bleeding
Mild leukocytosis
--Keep NPO with NGT to wall suction. Ok to remove NGT once extubated.
--TPN renewed, nutrition following.
--Follow labs/fever trends
--C/W Osorio
--Local incisional care
--Critical care management as per Policy Specialist
--Dulcolax supp x1
--Lovenox/SCD's for VTE ppx
Subjective Data
-
Date of Service: November 10, 2023
Patient seen and examined at bedside. Comfortable appearing. Subjective portion of exam limited d/t VDRF
Objective Data
-
Intake and Output
11/09/23 11/10/23 11/11/23
06:59 06:59 06:59
Intake Total 1668.0 / 1733.6 2031.7 / 2147.6 490.5 / 490.5
Output Total 3535 / 3610 4470 / 4620 665 / 665
Balance -1867.0 / -1876.4 -2438.3 / -2472.4 -174.5 / -174.5
Intake:
Oral fluids 0 / 0
IV fluids (Total) 1513.0 / 1578.6 1715.7 / 1745.6 144.5 / 144.5
Levophed 225.6 / 236.9 221.6 / 221.6 0 / 0
Prescedex 170.0 / 175.8 294.6 / 312.2 109.7 / 109.7
TPN 885 / 923 984 / 984
fent 180.0 / 187.5 180.0 / 190.0 22.5 / 22.5
insulin 52.4 / 55.4 35.5 / 37.8 12.3 / 12.3
IV piggybacks 125 / 125 110 / 110
TPN/PPN 46 / 92 276 / 276
Amount instilled into GI Tube ( 30 / 30 160 / 200 70 / 70
Total)
[place] Sump 30 / 30 160 / 200 70 / 70
Output:
Gastrointestinal tube output ( 50 / 50 580 / 580
Total)
[place] Sump 50 / 50 580 / 580
Urine, Osorio 3485 / 3560 3890 / 4040 665 / 665
Vital Signs
Temp Pulse Resp BP Pulse Ox
100.4 F H 112 25 123/88 99
11/10/23 12:14 11/10/23 12:00 11/10/23 12:00 11/10/23 12:00 11/10/23 12:00
Lab Results
11/10/23 04:16
11/10/23 04:16
Calcium 9.0 mg/dl (8.4-10.2) 11/10/23 04:16
Phosphorus 3.5 mg/dl (2.5-4.5) 11/10/23 04:16
Magnesium 1.9 mg/dl (1.6-2.3) 11/10/23 04:16
Total Bilirubin 1.1 mg/dl (0.2-1.3) 11/10/23 04:16
Direct Bilirubin 0.6 mg/dl (0.0-0.4) H 11/03/23 04:20
AST 56 U/L (14-36) H 11/10/23 04:16
ALT 23 U/L (0-35) 11/10/23 04:16
Alkaline Phosphatase 160 U/L (38-126) H 11/10/23 04:16
Total Protein 5.2 g/dl (6.3-8.2) L 11/10/23 04:16
Albumin 2.4 g/dl (3.5-5.0) L 11/10/23 04:16
Physical Exam
-
VDRF, Awake, unable to assess orientation, KLAMATH
ABD: soft, incision with linda, small open area to umbilicus, clean, minimal serous drainage. Skin pink/warm. NGT with minimal gastric contents
--- NOTE | 2023-11-10 13:00 | PTCARENOTE ---
Dr. Roca notified of no BM since admission, [place] sump to LIWS with less than 100ml's out overnight. Should she be extubated the [place] sump tube is also to be removed at that time per Dr. Roca. Will administer suppository as ordered. Family
updated regarding Dr. Roca's recommendation for Suppository due to no BM since admission. Discussed the importance of making a plan should she not be a successful extubation because the had stated the day of her surgery that she should
not want a tracheotomy.
[2023-11-10 13:39] LABS: Glucose - Point of Care 92 mg/dl (70-99)
--- NOTE | 2023-11-10 14:56 | W.PN.HOSP.TC ---
Today's Communication/Plan
-
continue sat/sbt
continue tpn
ngt to suction
continue meropenem/micafungin
monitor uop
prn lasix
Assessment / Plan
Assessment / Plan
General: Orally intubated, on mechanical ventilator, OGT placed orally to suction, started on tpn. W Attempting to wiggle toes by moving feet when asked and attempting to give thumbs up as she gave me index finger up
HEENT: Normocephalic, Atraumatic and Moist Mucous Membranes. No JVD
Respiratory: Mechanical vent sounds
Cardiac: Regular Rhythm and S1/S2.
GI: Soft, NT, ND, BS+, NGT to suctions
Musculoskeletal: No Cyanosis , No Edema
Skin: Dry
Neuro: Sedated
Psych: Unable to assess
Incarcerated / Strangulated Umbilical Hernia
Septic Shock
Remains on pressor support continue to wean as tolerated.
S/p resection of 45 cm necrotic small bowel with internal anastomosis and fixation on 11/02 with surgery
Blood cultures no growth to date. No IntraOp cultures obtained
Repeat cultures
-bcx ngtd
-ucx ngtd
-tracheal culture with growth - gnr
- - ID following resumed antibitoics and also started micafungin
Ideally, should obtain CTAP however, family refusing, has been reported in physician documentation that is using AI
- This has been a difficult and challenging case as the biggest barrier to be able to provide care to optimize treatment plans is hindered by her .
Acute hypoxemic respiratory failure secondary to ventilator dependent respiratory failure
-Postop patient was maintained on ventilatory support
-Ongoing vent weaning effort per finishing supervisor
-Attempt to liberate from vent.
-s/p IV lasix now on PRN IV Lasix per ICU
Fever potentially infectious versus drug-induced. Coming off of Precedex. Pancultured. ICU following closely.
-Concern is if she develops intra-abdominal infection she may have need to return to the OR as this could lead to septic shock
-Tracheal cultures growing gnr, this was obtained while she was on Zosyn and having fevers
- - ID started Lyle/Micafungin
Metastatic Breast Cancer
-[place] [facility] [place] Currently on no active therapy / medications.
-On med holiday for a month with plan to revisit / restart meds in early November.
Acute blood loss anemia from surgery
Continues to trend down now he. Blood pressure still fluctuating on pressor support. Without acute evidence of blood loss at this time. Will continue to monitor sleep.
Chest x-ray does show pulmonary edema therefore holding fluid, if hemoglobin less than 7 would consider transfusion depending on volume status and overall clinical picture at that time
Check CTAP but family declining.
Thrombocytosis
-Reactive/infection related as well, monitor
Hyponatremia
Resolved
Hypokalemia
Replete as needed
REINA - resolved
Likely secondary to sepsis/hypoperfusion/ischemic ATN. Now on IV fluids and pressor support.
Monitor renal output. Avoid nephrotoxins hypotension.
Renally dose medications
Stage 1 buttock pressure injury
Wound care
Pressure offloading
DVT Prophylaxis: SCDs
Full code
-Overall prognosis at this time remains grim
Total critical care time 40 mins . Total critical care time documented does not include time spent on separately billed procedures or the services of residents, students, nurses or physician assistants. I personally saw and examined the patient. I
have reviewed all diagnostic interpretations and treatment plans as written. I was present for the easley portions of any procedures performed and the inclusive time noted in any critical care statement. Critical care time includes patient management
by me, time spent at the patients bedside, time to review lab and imaging results, discussing patient care, documentation in the medical record, and time spent with the family or caregiver.
Anticipated Discharge: > 48 hours
Subjective/Interval History
-
Date of Service: November 10, 2023
seen and examined
remains vented on light sedation
attempting to follow commands
Objective Data
-
Labs:
Laboratory Results
11/10/23
04:16
WBC 11.9 H
Hgb 8.1 L
Hct 26.3 L
Plt Count 197 D
Sodium 138
Potassium 4.4
Chloride 104
Carbon Dioxide 27
BUN 30 H
Creatinine 0.6
Glucose 108 H
Calcium 9.0
Total Bilirubin 1.1
AST 56 H
ALT 23
Alkaline Phosphatase 160 H
Vital Signs:
Vital Signs
Temp Pulse Resp BP Pulse Ox
100.4 F H 112 25 123/88 99
11/10/23 12:14 11/10/23 12:00 11/10/23 12:00 11/10/23 12:00 11/10/23 12:00
I&O
11/09/23 11/10/23 11/11/23
06:59 06:59 06:59
Intake Total 1668.0 / 1733.6 2031.7 / 2147.6 490.5 / 490.5
Output Total 3535 / 3610 4470 / 4620 665 / 665
Balance -1867.0 / -1876.4 -2438.3 / -2472.4 -174.5 / -174.5
[2023-11-10] MEDS: DULCOLAX 10 MG RECTAL (15:20)
[2023-11-10] MEDS: MYCAMINE 105 MG IV (15:22)
[2023-11-10 15:45] LABS: Glucose - Point of Care 131 mg/dl (70-99)
--- NOTE | 2023-11-10 16:55 | PTCARENOTE ---
Pt agitated. and son sitting quietly in the room. While administering fentanyl she was kicking her leg up, striking the nurse. She was informed of the plan of care, repositioned, with safe environment maintained.
[2023-11-10] MEDS: LOVENOX 40 MG SC (17:50)
[2023-11-10 18:00] LABS: Glucose - Point of Care 95 mg/dl (70-99)
--- NOTE | 2023-11-10 19:19 | PTCARENOTE ---
Assumed care of pt. approx. 190.
Restless GCS 9T, not following simple commands, of note is very hard of hearing.
Pupils slugish =/R 3mm.
Wean ended, during dayshift, placed back on ASV 100 mV/40%/5 Peep, tolerating well.
Normotensive on no vasopressor support. Febrile. Tachycardic w/o ectopy. weak pulses.
Cont. ABX for systemic infections based upon josue CX results.
Fentanyl gtt off, receiving sedation by DEX only at 1.5.
TPN cont. w/ insulin gtt support.
[2023-11-10 19:28] LABS: Glucose - Point of Care 117 mg/dl (70-99)
[2023-11-10] MEDS: NOVOLIN R INSULIN INFUSION 100 IV (19:58)
[2023-11-10] MEDS: Parenteral Nutrition, Central 1110 IV (19:59)
[2023-11-10 21:56] LABS: Glucose - Point of Care 80 mg/dl (70-99)
[2023-11-10 23:44] LABS: Glucose - Point of Care 127 mg/dl (70-99)
[2023-11-11] VITALS (55 sets, daily range): BP systolic 87–159; BP diastolic 43–96; PULSE 59; BMI 25.5
--- NOTE | 2023-11-11 00:25 | PTCARENOTE ---
remains intubated/sedated.
Max dose of DEX for sedation. tolerating ASV however very restless.
No change in assessment from prior.
[2023-11-11] MEDS: VERSED 2 MG IV ×3 (01:46→19:48)
[2023-11-11 01:51] LABS: Glucose - Point of Care 94 mg/dl (70-99)
[2023-11-11] MEDS: PRECEDEX 100 IV ×4 (02:43→19:34)
[2023-11-11 03:47] LABS: Glucose - Point of Care 142 mg/dl (70-99)
[2023-11-11] MEDS: STERILE WATER FOR INJECTION 10 ML IV ×4 (03:50→21:02)
[2023-11-11] MEDS: MERREM 500 MG IV ×4 (03:50→21:02)
--- NOTE | 2023-11-11 04:00 | PTCARENOTE ---
Very restless, kicking all over, attempting to grab tube despite soft rx.
2 mg versed push ordered.
Tube remains intact.
No change from prior assessment.
[2023-11-11 04:09] LABS: Mean Corp Hgb Conc. 31.4 g/dL (33.0-37.0); Mean Corpuscular Hgb 27.6 pg (27.0-31.0); Platelet Count 198 10^3/uL (130-400); Red Blood Cell Count 2.17 10^6/uL (4.20-5.40); Red Cell Dist. Width 21.1 % (11.5-14.5); White Blood Cell Count 7.4 10^3/uL (4.8-10.8)
[2023-11-11 04:27] LABS: Hematocrit 19.1 % (37.0-47.0)
[2023-11-11 04:30] LABS: Blood Urea Nitrogen 31 mg/dl (7-17); Calcium 8.6 mg/dl (8.4-10.2); Carbon Dioxide 30 mmol/L (22-30); Chloride 106 mmol/L (98-107); Estimated Creatinine Clearance 65 ml/min; Glucose 120 mg/dl (70-99); Potassium 4.5 mmol/L (3.5-5.1); Sodium 136 mmol/L (135-145); eGFR > 60.00
--- NOTE | 2023-11-11 04:52 | PTCARENOTE ---
Addendum entered by Judd Bradley RN 11/11/23 06:19:
verbally consented over phone to icu petra for blood transfusion.
Transfusion orders placed.
Addendum entered by Judd Bradley RN 11/11/23 05:14:
STAT H/H resulted back hgb 6.2.
Due to risk of TRALI, from eyeglass inspector progress notes icu petra will defer to day team for further evaluation.
Addendum entered by Judd Bradley RN 11/11/23 04:53:
Type and screen current.
Original Note:
HGB resulted at 6.0. STAT H/H drawn to confirm. Blood consent not on chart. ICU PETRA made aware, awaiting orders.
[2023-11-11 05:14] LABS: Hematocrit 19.6 % (37.0-47.0); Hemoglobin 6.2 g/dL (12.0-16.0)
[2023-11-11 05:56] LABS: Glucose - Point of Care 94 mg/dl (70-99)
--- NOTE | 2023-11-11 07:06 | W.PN.INTV ---
Today's Communication / Plan
Recommendations
Transfuse 1 unit
Repeat hemoglobin in p.m.
Fentanyl, Versed as needed
Continue Precedex
CPAP wean as able
Chest x-ray in a.m.
Ongoing discussion regarding goals of care
Assessment
-
Patient is an 78 year old F with history of metastatic breast cancer (treated at [facility] on Ibrance->Afinitor) presenting to ED complaining of poor appetite, abdominal pain and N/V x 4-5 days. Of note, she had experienced weight
loss/anorexia with use of Afinitor. She began to complain of abdominal discomfort about 2 days ago. Today, family noted discoloration associated with her long standing chronic umbilical hernia. On evaluation in the ED, patient is noted to have
firm, tender and grossly discolored umbilical hernia concerning for incarceration +/- strangulation. BP 70s, Tmax 100.9, WBC 18, lactate 6, creat 1.9. She was seen by Colorectal Surgery who discussed benefit of urgent surgical intervention. She is
placed on levophed, and empiric abx and admitted to ICU.
Septic shock on pressors
Incarcerated umbilical hernia wtih concern for ischemic bowel s/p resection with anastomosis 11/03/23
Post-op VDRF
Aspiration PNA upon intubation, 2L bilious vomiting suctioned s/p NGT likely obstruction from hernia
Suspected lung injury, aspiration pneumonitis
Possible component of pulmonary edema
Improved with diuresis
REINA, improved
Leukocytosis, improved
Lactic acidosis, improved
Hyponatremia, improved
Hyperglycemia, requiring insulin drip
Persistent fevers
Anemia, requiring transfusion 11/10
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
Metastatic breast cancer
Diagnosed 2016
On chemotherapy, held recently months ago due to significant side effects, neutropenia/leukopenia
Apparently refused port placement, per
Was being considered for hospice, palliative care at one point, per
Plan/recommendations
At this time, patient remains critically ill. Norepinephrine has been briefly weaned off this morning
Labile blood pressure and heart rate noted, seems to be related to agitation
Negative fluid status noted, weight down 2 to 3 kg
Minimal secretions, patient does cough with suction
Chest x-ray today with slight improvement
NG output stable. No bowel movement to date
Albumin 1.2
ABG reviewed, adequate ventilation, oxygenation while on CPAP
Of note, patient did move all extremities, turn head during sedation vacation, pulling for tube
She is following commands for me off Precedex. Remains on fentanyl 75 mcg
She is now more agitated, responding to Versed as needed
Did not tolerate SBT 11/08 due to rapid shallow breathing, tachypnea, tachycardia
Moving forward
Continue with CPAP wean, resumed today 09/23, will decrease pressure support as able
Chest x-ray overall improved with diuresis but there is a patchy infiltrate on the right side
Will give Lasix intermittently
Ongoing assessment for extubation. Reviewed with patient and son that I do not think we will be able to liberate her. They have made it clear that they do not want tracheotomy.
Check chest x-ray in a.m.
Sedated/intubated
Continue with Precedex, fentanyl. Wean Precedex as able. Versed as needed
Pain/sedation: PRN
RASS goals: 0
Remains on fentanyl bolus as needed
Patient has been complaining of abdominal pain intermittently.
Hemodynamically unstable, requiring pressors.
Requiring pressors: Vasopressin has been weaned off, Levophed slowly being weaned, now off
Cardiac history reviewed--none
Echocardiogram with normal biventricular function, could not assess pulmonary artery pressures
Suspected incarcerated bowel, on exam/severe findings
CRS on board, s/p resection with anastomosis 11/03/23
NG tube output decreased
Aspiration precautions, HOB > 30 degrees
GI prophylaxis
Continue TPN per surgery
Fevers noted
Check cultures through A-line and peripheral culture
Tracheal culture gram-negative bacilli, await identification
Unfortunately, right groin line remains due to no additional access available. TPN continues
These risks were reviewed at length multiple times throughout hospital stay with
Possible colitis, ischemic bowel, aspiration PNA on presentation
ID following. Meropenem, micafungin
Note that refused abdominal imaging to rule out abscess or fluid collection
He is concerned about radiation from imaging. Despite discussing pros and cons and tried to educate with regards to critical care management, he has been difficult throughout hospital stay.
Reviewed with ID
REINA present, no history of renal disease
Creatinine normal
Replete potassium
TPN continue as per surgery
Hemoglobin noted, slowly trending down
DVT prophylaxis as assessed based on risk, including mechanical SCDs
Can transfuse if indicated for Hb <7, plt < 10
INR WNL
Maintain active type and screen but would minimize transfusion given risk for lung injury
Transfuse 1 unit
Repeat hemoglobin in the p.m.
No prior h/o diabetes or thyroid disease
Elevated blood sugars noted since starting TPN
requiring initiation of insulin drip
Continue to follow
Lines- PICC attempted on L, could not thread, R fem line attempted (by myself >60 mins) could not thread. She has RUE lymphedema and L sided neck metastatic disease
CVC needed but having difficult access sites. IR placed right groin line
Unable to place additional access per interventional radiology 11/05 (metastatic breast cancer in the left involving the neck and right upper extremity lymphedema
According to , patient refused port placement in the past
Discussed worst-case scenario where we may have to accept chronic right groin placement but this would put patient at risk for infection
This has been reviewed on a daily basis multiple times with
IR has evaluated 3 times for access, no practical solution. Will need to maintain right groin line. Site looks okay
Prognosis guarded
Had extensive discussion with on daily basis (sometimes 2-3 times a day)
Reviewed again today with son and poor prognosis
Family has suggested that tracheotomy and feeding tube is not an option
They seem to have focused on '14-day' number given to them for ET tube/mechanical ventilation prior to tracheotomy
Will continue to wean as able on a daily basis
Family would like to take opportunity for extubation if small window presents itself. Therefore this, I relayed it would be important to come up with a plan if she fails which she has a high percentage to fail. This would entail transition to
hospice/comfort. I would not recommend reintubation but has yet to say he does not want reintubation
We will continue full supportive care
DVT prophylaxis: Continue with pharmacological and mechanical
GI prophylaxis: Remains on Protonix
Reviewed at length with critical care nursing, respiratory care, primary service, ID
Critical care time 35 mins
Family Discussions
Jamal 11/05/2023: Extensive update with at the bedside. He does not want his 1 daughter Samreen to be updated as she has difficulty processing information at that time, gets very anxious. Other 2 children are to be updated (Temo, Luna).
All questions answered
Karen 11/03/23- I had a long discussion with the and daughter at bedside regarding decision making. Initially patient had declined surgery as she did not want to live with a colostomy but then subsequently did not change her code status
despite urgency of the situation. She then changed her mind this morning stating she does want to live and would undergo surgery. The family did feel she was not quite sure/had cognitive impairment on presentation, but she seems more clear to them
this morning. It is difficult to discuss with her as she has very severe hearing impairment and does not use hearing aids. I answered all questions from including her future oncologic care, that he will need to discuss with their
oncologist for next steps. They are now agreeing for surgery and care team was updated in further discussions.
Diagnostic Data
Chest X-Ray:
CT Scan:
Echo:
PFT's:
Reports and relevant images were personally reviewed.
-----
Subjective Dataa
Subjective Data
Date of Service:
Date of Service: November 11, 2023
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
Subjective:
Patient remains critically ill. Requiring dose of Versed overnight with agitation. Continues to Abdominal intermittently. Drop in hemoglobin noted. No active bleeding noted
Objective Data
Data Reviewed
Vital Signs / I&O / Oxygen:
Vital Signs
Temp Pulse Resp BP Pulse Ox
98.8 F 73 19 122/56 100
11/11/23 07:02 11/11/23 07:02 11/11/23 07:02 11/11/23 07:02 11/11/23 07:02
Intake and Output
11/10/23 11/11/23 11/12/23
06:59 06:59 06:59
Intake Total 2031.7 / 2147.6 1824.2 / 1824.2
Output Total 4470 / 4620 2520 / 2520
Balance -2438.3 / -2472.4 -695.8 / -695.8
SaO2 [CPAP] 98
SaO2 [ASV] 97
SaO2 [A/C] 98
SaO2 100
Nasal Cannula flow liters per 2
minute
Physical Exam
General: Comfortable, Other (Left neck changes, left chest wall changes from breast cancer, right upper extremity lymphedema) and Other (Right femoral groin line)
HEENT: Normocephalic and Anicteric
Cardiovascular: S1-S2, Regular Rhythm, Murmur (n), Rub (n), Peripheral Edema (RUE swelling/lymphedema) and Calf Tenderness (n)
Respiratory: Wheeze (n), Crackles (n), Rhonchi (n), Non-Labored Respirations and ET Tube
GI: Soft, Non Distended, Non Tender and Other (Abdominal dressing in place)
Neurology: Lethargic (Presently she is sedated)
Skin: Cyanosis (n), Jaundice (n), Rash and Other (numerous skin lesions over sternum, L side of neck--presumed fungating metastatic disease)
Labs/Micro/Reports
Lab Data
11/11/23 04:40
11/11/23 03:48
Microbiology
11/08/23 10:28 Blood/Venous Blood Culture - Preliminary
No Growth in 48 hours- Final report to follow
11/08/23 10:31 Blood/Venous Blood Culture - Preliminary
No Growth in 48 hours- Final report to follow
11/08/23 10:28 Tracheal Aspirate Respiratory Culture - Final
Klebsiella oxytoca
11/08/23 10:28 Tracheal Aspirate Gram Stain - Final
--- NOTE | 2023-11-11 07:25 | PTCARENOTE ---
Received pt intubated with bilateral soft wrist restraints and side rails up. She opens her eyes to noise in the room. Mouthing words. While speaking directly into her right ear I informed her of the plan of care, she started to pull on her
restraints and thrash her head side to side. Right femoral TLCVC with Precedex, Insulin, TPN and PRBC's infusing. Right upper extremity +4 lymphedema. +2 anasarca. Left U/E +3 edema. #7 ETT secured centered 21cm @ lip. Breath sounds CTA. +BSX4. Left
Nare Teller Sump tube secured @55cm to LIWS for green bilious secretions. Flushed as ordered. Abdominal soft with dressing CDI. Temperature sensing Osorio catheter secured draining CYU. Knee-hi scd's intact. Left hand dressing CDI, sacral optifoam
gentle dressing CDI. Safe environment maintained. Will continue to monitor.
[2023-11-11 07:56] LABS: Glucose - Point of Care 137 mg/dl (70-99)
--- NOTE | 2023-11-11 08:10 | W.PN.ID1 ---
Date of Service
Date of Service: November 11, 2023
Today's Communication
- 11/07 sputum cx: K oxytoca - sensitive to most antibiotics - should have responded to zosyn previously if Pneumonia was the cause of persistent shock. Lack of prior clinical response suggests an alternative cause of ongoing fevers such as an
intraabdominal abscess. Unlikely to have an ongoing drug fever from two antibiotics in separate classes.
- recommend ct a/p - ideally with iv and oral contrast if feasible - still without bilious output from NGT which could limit oral contrast.
Assessment / Plan
Strangulated Umbilical Hernia s/p resection with anastomosis 11/03/23
Resolved shock
Pneumonia due to K oxytoca
H/o aspiration
H/o leukopenia/neutropenia
- 11/07 sputum cx: K oxytoca - sensitive to most antibiotics - should have responded to zosyn previously if Pneumonia was the cause of persistent shock. Lack of prior clinical response suggests an alternative cause of ongoing fevers such as an
intraabdominal abscess. Unlikely to have an ongoing drug fever from two antibiotics in separate classes.
- hgb drop by two points - management per primary team
- blood cultures x2 from 11/07 in progress no growth to date
- esr and CRP in the AM
- recommend ct a/p - ideally with iv and oral contrast if feasible - still without bilious output from NGT which could limit oral contrast. CT would help clarify cause of leukocytosis/fevers, duration of therapy, confirm source control, optimize
management. Please see extended discussion in 11/08 note. Family has refused.
- continue meropenem/micafungin day 3
- follow clinically
Agree that short term to medium term prognosis is guarded. There is some possible interval improvement since broadening coverage however prognosis unchanged.
Chief Complaint
-: Fever, Leukocytosis and Other (shock)
Subjective / Review of Systems
febrile overnight to 101.2
bp stable off of pressors
hgb drop by two points
wbc normalized today
plt stable
cr 0.6
CXR: read by radiology as improvement in the right midlung - I would agree
11/07 sputum cx: K oxytoca - sensitive to most antibiotics - should have responded to zosyn previously. Lack of prior clinical response suggests an alternative cause of ongoing fevers such as an intraabdominal abscess
had a brown liquid BM post ducolax
Vital Signs / Physical Exam
Vital Signs
Vital Signs
Temp Pulse Resp BP Pulse Ox
98.6 F 66 15 159/66 100
11/11/23 08:03 11/11/23 08:00 11/11/23 08:00 11/11/23 08:00 11/11/23 08:00
Physical Exam
Constitutional: No Acute Distress and Chronically Ill
Cardiovascular: Regular Rate and S1/S2; Negative Murmur or Rub
Pulmonary: Clear and Symmetric; Negative Wheezes or Rales
Gastrointestinal: Soft, Non Tender, Non Distended and Normal Bowel Sounds
Skin: Warm and Dry; Negative Rash or Jaundice
Wound: Other (surgical site with pale tissue where linda removed, no significant drainage;)
Objective Data
Lab Data
Lab Results
11/11/23 04:40
11/11/23 03:48
PT 15.3 Sec (11.4-14.6) H 11/02/23 20:30
INR 1.23 11/02/23 20:30
APTT 27.5 Sec (23.4-35.0) 11/02/23 20:30
Estimated Creat Clear 65 ml/min 11/11/23 03:48
Lactic Acid 1.3 mmol/L (0.7-2.0) 11/09/23 07:05
Total Bilirubin 1.1 mg/dl (0.2-1.3) 11/10/23 04:16
AST 56 U/L (14-36) H 11/10/23 04:16
ALT 23 U/L (0-35) 11/10/23 04:16
Alkaline Phosphatase 160 U/L (38-126) H 11/10/23 04:16
Most recent labs reviewed.
Micro Results:
11/08/23 10:28 Blood Culture - Preliminary
Blood/Venous No Growth in 48 hours- Final report to follow
11/08/23 10:31 Blood Culture - Preliminary
Blood/Venous No Growth in 48 hours- Final report to follow
11/08/23 10:28 Respiratory Culture - Final
Tracheal Aspirate Klebsiella oxytoca
Gram Stain - Final
11/02/23 20:37 Blood Culture - Final
Blood/Venous No Growth - Final Report
11/02/23 20:37 Blood Culture - Final
Blood/Venous No Growth - Final Report
[2023-11-11] MEDS: NSS (PRESERVATIVE FREE) 10 ML IV (09:13)
[2023-11-11] MEDS: PROTONIX IV 40 MG IV (09:13)
[2023-11-11 09:42] LABS: Glucose - Point of Care 107 mg/dl (70-99)
--- NOTE | 2023-11-11 11:30 | W.PN.GS2 ---
Today's Communication / Plan
-
`
Assessment / Plan
-
Assessment: Patient is an 78 yo F with breast CA and [place] at [facility] [place]w strangulated umbilical her[place]
POD#8 Exploratory laparotomy, small bowel resection with primary anastomosis, primary umbilical hernia repair
ID following with us for abx
CXR with bl infiltrates, pulm following. Aspirated gastric contents early in admission
VDRF, weaning as per pulm
NGT with low volume gastric outputs, No BM's as of yet
Acute on chronic anemia, no signs of active bleeding
Mild leukocytosis
Plan: Initiate trickle tube feeds and monitor for tolerance
Renew TPN until able to advance tube feedings
Subjective Data
-
Date of Service: November 11, 2023
Patient seen and examined. Her and son are at bedside.
Patient remains intubated and mildly sedated
No acute events overnight
Objective Data
-
Intake and Output
11/10/23 11/11/23 11/12/23
06:59 06:59 06:59
Intake Total 2031.7 / 2147.6 1824.2 / 1925.6 642.9 / 642.9
Output Total 4470 / 4620 2520 / 2595 252 / 252
Balance -2438.3 / -2472.4 -695.8 / -669.4 390.9 / 390.9
Intake:
Oral fluids 0 / 0 0 / 0
IV fluids (Total) 1715.7 / 1745.6 574.2 / 599.6 132.9 / 132.9
Levophed 221.6 / 221.6 0 / 0
Prescedex 294.6 / 312.2 507.0 / 531.8 122.3 / 122.3
TPN 984 / 984
fent 180.0 / 190.0 22.5 / 22.5
insulin 35.5 / 37.8 44.7 / 45.3 10.6 / 10.6
IV piggybacks 110 / 110
TPN/PPN 46 / 92 1150 / 1196 230 / 230
Amount instilled into GI Tube ( 160 / 200 100 / 130 30 / 30
Total)
Sultan Sump 160 / 200 100 / 130 30 / 30
Blood Product Amount Infused ( 0 / 0 250 / 250
mL)
Packed Rbc Leukoreduced Unit 0 / 0 250 / 250
[id number]
Output:
Gastrointestinal tube output ( 580 / 580 180 / 180
Total)
Sultan Sump 580 / 580 180 / 180
Urine, Osorio 3890 / 4040 2340 / 2415 252 / 252
Other:
Number of unmeasured liquid
stools
Rectum 1
Vital Signs
Temp Pulse Resp BP Pulse Ox
98.4 F 64 14 128/54 100
11/11/23 09:11 11/11/23 11:00 11/11/23 11:00 11/11/23 11:00 11/11/23 11:00
Lab Results
11/11/23 04:40
11/11/23 03:48
Calcium 8.6 mg/dl (8.4-10.2) 11/11/23 03:48
Phosphorus 3.5 mg/dl (2.5-4.5) 11/10/23 04:16
Magnesium 1.9 mg/dl (1.6-2.3) 11/10/23 04:16
Total Bilirubin 1.1 mg/dl (0.2-1.3) 11/10/23 04:16
Direct Bilirubin 0.6 mg/dl (0.0-0.4) H 11/03/23 04:20
AST 56 U/L (14-36) H 11/10/23 04:16
ALT 23 U/L (0-35) 11/10/23 04:16
Alkaline Phosphatase 160 U/L (38-126) H 11/10/23 04:16
Total Protein 5.2 g/dl (6.3-8.2) L 11/10/23 04:16
Albumin 2.4 g/dl (3.5-5.0) L 11/10/23 04:16
Physical Exam
-
NAD, sedated
ABD: Soft, nondistended, incision dressing in place clean
[2023-11-11 11:43] LABS: Glucose - Point of Care 107 mg/dl (70-99)
--- NOTE | 2023-11-11 12:55 | PTCARENOTE ---
Repositioned in the bed. TF started as ordered via left nare salem sump tube secured 55cm. Pt suddenly opened her eyes and was pulling on her restraints. Her and son were at the bedside and was able to get her to follow some simple commands
and were attempting to orient her and to inform her that we have been trying to get her off the ventilator. She was mouthing words and pointing but I was not able to discern what she was saying. This distressed her .
--- NOTE | 2023-11-11 13:28 | W.PN.HOSP.TC ---
Today's Communication/Plan
-
1u prbc
sat/sbt
tpn
iv abx and and iv antifungals
Assessment / Plan
Assessment / Plan
General: Orally intubated, on mechanical ventilator, OGT placed orally to suction, started on tpn. W Attempting to wiggle toes by moving feet when asked and attempting to give thumbs up as she gave me index finger up
HEENT: Normocephalic, Atraumatic and Moist Mucous Membranes. No JVD
Respiratory: Mechanical vent sounds
Cardiac: Regular Rhythm and S1/S2.
GI: Soft, NT, ND, BS+, NGT to suctions
Musculoskeletal: No Cyanosis , No Edema
Skin: Dry
Neuro: Sedated
Psych: Unable to assess
Incarcerated / Strangulated Umbilical Hernia
Septic Shock
Remains on pressor support continue to wean as tolerated.
S/p resection of 45 cm necrotic small bowel with internal anastomosis and fixation on 11/02 with surgery
Blood cultures no growth to date. No IntraOp cultures obtained
Repeat cultures
-bcx ngtd
-ucx ngtd
-tracheal culture with growth - klebsiella oxytoca
- - ID following resumed antibitoics and also started micafungin
Ideally, should obtain CTAP however, family refusing, has been reported in physician documentation that is using AI
- This has been a difficult and challenging case as the biggest barrier to be able to provide care to optimize treatment plans is hindered by her .
Acute hypoxemic respiratory failure secondary to ventilator dependent respiratory failure
-Postop patient was maintained on ventilatory support
-Ongoing vent weaning effort per crm marketing manager
-Attempt to liberate from vent.
-s/p IV lasix now on PRN IV Lasix per ICU
- -11/11/2023 again had goals of care discussion with Mr. Sommer at her bedside. I informed that he should start discussing with his family in the off chance if unable to extubate with they want trach PEG. I also informed him as he uses AI/googles
everything to look up mortality rate within the first year in patients which are recently trached and PEG.
Fever potentially infectious versus drug-induced. Coming off of Precedex. Pancultured. ICU following closely.
-Concern is if she develops intra-abdominal infection she may have need to return to the OR as this could lead to septic shock
-Tracheal cultures growing gnr, this was obtained while she was on Zosyn and having fevers
- - ID started Lyle/Micafungin
Metastatic Breast Cancer
-Followed at [facility] [place]. Currently on no active therapy / medications.
-On med holiday for a month with plan to revisit / restart meds in early November.
Acute blood loss anemia from surgery
Continues to trend down now he. Blood pressure still fluctuating on pressor support. Without acute evidence of blood loss at this time. Will continue to monitor sleep.
Chest x-ray does show pulmonary edema therefore holding fluid, if hemoglobin less than 7 would consider transfusion depending on volume status and overall clinical picture at that time
Check CTAP but family declining.
11/11/2023 received 1 unit PRBC. Will check posttransfusion CBC if hemodynamically unstable or evidence of active bleeding. If not could obtain CT repeat CBC in the a.m.
Thrombocytosis
-Reactive/infection related as well, monitor
Hyponatremia
Resolved
Hypokalemia
Replete as needed
REINA - resolved
Likely secondary to sepsis/hypoperfusion/ischemic ATN. Now on IV fluids and pressor support.
Monitor renal output. Avoid nephrotoxins hypotension.
Renally dose medications
Stage 1 buttock pressure injury
Wound care
Pressure offloading
DVT Prophylaxis: SCDs
Full code
-Overall prognosis at this time remains grim
Will need to continue to have goals of care discussions.
-[facility] from sometime ago on 06 Sep 2023. She was previously in the 12-13 range. Then slowly started coming down. Now hemoglobin today 6.2 requiring 1 unit PRBC. They were agreeable to provide her with this. I informed them that if
there is not an appropriate improvement then there would be a concern for active bleeding internally if we do not see any blood externally. At that time we may need to consider obtaining CT abdomen pelvis to see if there is any bleeding.
Additionally discussed tracheostomy and PEG in the off chance if she does not get extubated. We reviewed RSBI and what it should be after couple of hours and reasons for extubation in a safe manner. Additionally, we will need to continue to
discuss this with him about if she does get extubated and cannot tolerate need to be reintubated or at that point in time do we make her comfortable and hospice, if we cannot extubate within 14 days then with family want terminal extubation versus
trach PEG.
Total critical care time 40 mins .
Anticipated Discharge: > 48 hours
Subjective/Interval History
-
Date of Service: November 11, 2023
seen and examined
no new complaitns
no acute overnights events
Objective Data
-
Labs:
Laboratory Results
11/11/23 11/11/23
03:48 04:40
WBC 7.4
Hgb 6.0 L* D 6.2 L*
Hct 19.1 L* 19.6 L*
Plt Count 198
Sodium 136
Potassium 4.5
Chloride 106
Carbon Dioxide 30
BUN 31 H
Creatinine 0.6
Glucose 120 H
Calcium 8.6
Vital Signs:
Vital Signs
Temp Pulse Resp BP Pulse Ox
98.1 F 67 21 119/74 99
11/11/23 11:48 11/11/23 13:00 11/11/23 13:00 11/11/23 13:00 11/11/23 13:00
I&O
11/10/23 11/11/23 11/12/23
06:59 06:59 06:59
Intake Total 2031.7 / 2147.6 1824.2 / 1925.6 811.9 / 811.9
Output Total 4470 / 4620 2520 / 2595 312 / 312
Balance -2438.3 / -2472.4 -695.8 / -669.4 499.9 / 499.9
[2023-11-11 13:56] LABS: Glucose - Point of Care 89 mg/dl (70-99)
[2023-11-11 15:45] LABS: Glucose - Point of Care 163 mg/dl (70-99)
--- NOTE | 2023-11-11 16:03 | CHAP ---
Ms. Dowell was sleeping, non-responsive. No family was present. I offered words of comfort and support, and prayers.
--- NOTE | 2023-11-11 16:40 | PTCARENOTE ---
and Son reiterating and weighing the options discussed at length regarding goals of care, hospice, comfort measures & withdrawal of care. They understand that at any time they may decide to transition to comfort however they a would also
like information on Hospice as an option. Dr. Berry & Dr. Olinda Chavez notified via TT of pt's and son wanting information regarding Hospice only for informational purposes. Charlene Wilcox on-call hospice nurse also notified via TT. Plan for
10am in-person meeting tomorrow with pt's and her 2 children present.
--- NOTE | 2023-11-11 16:41 | HOSPNOTE ---
Contacted by nurse to ask to speak to family and give information regarding hospice. I called and spoke to the patients spouse. He asked if an in person meeting could be arranged with him and his daughter tomorrow at 10 am. Will notify Jessica to
meet family at 10 am tomorrow to provide information on hospice services. Charge nurse updated.
[2023-11-11] MEDS: MYCAMINE 105 MG IV (17:30)
[2023-11-11] MEDS: LOVENOX 40 MG SC (17:31)
[2023-11-11 17:47] LABS: Glucose - Point of Care 119 mg/dl (70-99)
[2023-11-11 18:27] LABS: Hemoglobin 7.8 g/dL (12.0-16.0)
--- NOTE | 2023-11-11 19:06 | PTCARENOTE ---
assumed care of pt. approx. 1900.
Remains intubated, Pressure support 20/5 tolerating well. SPO2 100, 40% fi02 being delivered.
Mouthing words, does not follow commands, of note pt. very hard of hearing weighing that factor in w/ assessment.
GCS 9T, pupils =/R 3mm. movement in all extremities, purposeful movements towards breathing tube.
Sinus w/o ectopy, normotensive, normothermic, edema persists see assessment for details.
Insulin gtt, TPN, jevity 1.5 initiated today, regaining bowel sounds, UO WNL.
Sedating w/ DEX 1.3, analgesia management w/ fent pushs, versed added for restlessness.
[2023-11-11 19:50] LABS: Glucose - Point of Care 122 mg/dl (70-99)
[2023-11-11] MEDS: Parenteral Nutrition, Central 1110 IV (21:04)
[2023-11-11 21:19] LABS: Glucose - Point of Care 93 mg/dl (70-99)
[2023-11-11] MEDS: SUBLIMAZE 50 MCG IV (22:53)
[2023-11-11 23:07] LABS: Glucose - Point of Care 148 mg/dl (70-99)
--- NOTE | 2023-11-11 23:54 | PTCARENOTE ---
Vent settings changed back to ASV 100 mV/40%/5. approx 2044.
Cuff leak noticed, condensation in inflation port, gurgling noise. RT called and addressed leak, issue since resolved.
Cont. end tidal added to circuit.
Daughter and son updated at length via phone regarding plan of care, addressing concerns.
[2023-11-12] VITALS (44 sets, daily range): BP systolic 96–174; BP diastolic 39–88; PULSE 55; BMI 24.7
[2023-11-12] MEDS: VERSED 2 MG IV ×2 (00:13→12:43)
[2023-11-12] MEDS: PRECEDEX 100 IV ×6 (00:13→22:34)
--- NOTE | 2023-11-12 00:23 | PTCARENOTE ---
GRV 300, ICU NAMITA notified tube feeding held per order.
[2023-11-12 01:18] LABS: Glucose - Point of Care 111 mg/dl (70-99)
[2023-11-12 02:14] LABS: Glucose - Point of Care 118 mg/dl (70-99)
[2023-11-12] MEDS: SUBLIMAZE 50 MCG IV ×3 (02:44→20:59)
[2023-11-12 03:26] LABS: Glucose - Point of Care 129 mg/dl (70-99)
[2023-11-12] MEDS: STERILE WATER FOR INJECTION 10 ML IV ×4 (03:39→21:03)
[2023-11-12] MEDS: MERREM 500 MG IV ×4 (03:39→21:03)
[2023-11-12] MEDS: NOVOLIN R INSULIN INFUSION 100 IV (03:50)
--- NOTE | 2023-11-12 04:16 | PTCARENOTE ---
GRV remains greater than 200, approx 260, tube feeds remain on hold.
Pt. restless, fentanyl given, versed held due to anticipated SBT/wean in AM.
Central line and abdominal dressings changed.
[2023-11-12 04:19] LABS: Hematocrit 24.1 % (37.0-47.0); Hemoglobin 7.8 g/dL (12.0-16.0); Mean Corp Hgb Conc. 32.4 g/dL (33.0-37.0); Mean Corpuscular Hgb 28.4 pg (27.0-31.0); Mean Corpuscular Volume 87.6 fL (81.0-99.0); Mean Platelet Volume 11.4 fL (7.4-10.4); Platelet Count 285 10^3/uL (130-400); Red Blood Cell Count 2.75 10^6/uL (4.20-5.40); Red Cell Dist. Width 19.4 % (11.5-14.5); White Blood Cell Count 8.2 10^3/uL (4.8-10.8)
[2023-11-12 04:20] LABS: Glucose - Point of Care 150 mg/dl (70-99)
[2023-11-12 04:41] LABS: ALT (SGPT) 31 U/L (0-35); AST (SGOT) 74 U/L (14-36); Albumin 2.2 g/dl (3.5-5.0); Alkaline Phosphatase 236 U/L (38-126); Blood Urea Nitrogen 37 mg/dl (7-17); Calcium 9.1 mg/dl (8.4-10.2); Carbon Dioxide 25 mmol/L (22-30); Chloride 109 mmol/L (98-107); Estimated Creatinine Clearance 65 ml/min; Glucose 136 mg/dl (70-99); Magnesium 2.1 mg/dl (1.6-2.3); Phosphorus 3.2 mg/dl (2.5-4.5); Potassium 4.6 mmol/L (3.5-5.1); Sodium 137 mmol/L (135-145); Total Bilirubin 0.8 mg/dl (0.2-1.3); Total Protein 4.9 g/dl (6.3-8.2); Triglycerides 306 mg/dl (10-149); eGFR > 60.00
[2023-11-12 04:59] LABS: Erythrocyte Sed Rate 133 mm/hour (0-20)
[2023-11-12 05:16] LABS: Glucose - Point of Care 156 mg/dl (70-99)
[2023-11-12 06:17] LABS: Glucose - Point of Care 162 mg/dl (70-99)
[2023-11-12] MEDS: LASIX 40 MG IV (06:21)
--- NOTE | 2023-11-12 07:36 | W.PN.INTV ---
Today's Communication / Plan
Recommendations
Continue attempts at CPAP wean
Abdominal CT to rule out abscess/fluid collection
Continue fentanyl for pain, as needed
Try to minimize Versed if able
Continue Precedex
Continue TPN, reattempt tube feeds as able
Continue insulin drip
Continue broad-spectrum antibiotics
Await meeting with hospice team for information purposes
Assessment
-
Patient is an 78 year old F with history of metastatic breast cancer (treated at [facility] on Ibrance->Afinitor) presenting to ED complaining of poor appetite, abdominal pain and N/V x 4-5 days. Of note, she had experienced weight
loss/anorexia with use of Afinitor. She began to complain of abdominal discomfort about 2 days ago. Today, family noted discoloration associated with her long standing chronic umbilical hernia. On evaluation in the ED, patient is noted to have
firm, tender and grossly discolored umbilical hernia concerning for incarceration +/- strangulation. BP 70s, Tmax 100.9, WBC 18, lactate 6, creat 1.9. She was seen by Colorectal Surgery who discussed benefit of urgent surgical intervention. She is
placed on levophed, and empiric abx and admitted to ICU.
Septic shock on pressors
Weaned off as of 11/09
Incarcerated umbilical hernia wtih concern for ischemic bowel s/p resection with anastomosis 11/03/23
Post-op VDRF
Aspiration PNA upon intubation, 2L bilious vomiting suctioned s/p NGT likely obstruction from hernia
Suspected lung injury, aspiration pneumonitis, culture positive Klebsiella oxytocin (S to Zosyn)
Possible component of pulmonary edema
Improved with diuresis
REINA, improved
Leukocytosis, improved
Lactic acidosis, improved
Hyponatremia, improved
Hyperglycemia, requiring insulin drip
Persistent fevers
Anemia, requiring transfusion 11/10
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
Metastatic breast cancer
Diagnosed 2016
On chemotherapy, held recently months ago due to significant side effects, neutropenia/leukopenia
Apparently refused port placement, per
Was being considered for hospice, palliative care at one point, per
Plan/recommendations
At this time, patient remains critically ill, intermittently agitated. Received 3 doses of Versed over last 24 hours, which she seems to respond to. 2 doses of fentanyl 25 mcg. Remains on Precedex drip at 1.3
Labile blood pressure and heart rate noted, seems to be related to agitation
Responding to Lasix given this morning
Was placed on CPAP 5, pressure support of 8 earlier this morning on 11/11. Developed worsening tachycardia, hypertension, rapid shallow breathing
At 1 point, developed junctional rhythm, heart rate went down to the 60s, improved with suction, plugs removed per respiratory care
At that point, pressure support was increased to 20 and has been stable since
Chest x-ray today with persistent patchy infiltrate, heart failure versus aspiration pneumonitis
NG output stable. Small stool smear yesterday p.m.
Albumin 1.2
ABG 11/12/23: 7.36//96. This is somewhat concerning given her respiratory pattern, rapid shallow breathing
Of note, patient did move all extremities, turn head during sedation vacation, pulling for tube, motioning to tube
She is following commands for me, remains on Precedex. Fentanyl and Versed as needed, no dosing since 30 in the morning
Did not tolerate SBT 11/08 due to rapid shallow breathing, tachypnea, tachycardia
Moving forward
Continue with CPAP wean, resumed today 09/23, will decrease pressure support as able
I am not hopeful for extubation today
Chest x-ray overall improved with diuresis but there is a patchy infiltrate on the right side
Will give Lasix intermittently
Ongoing daily assessment for extubation.
Reviewed with patient and son that I do not think we will be able to liberate her from the ventilator. They have made it clear that they do not want tracheotomy.
I have been very kamar with the , son and daughter on multiple occasions throughout this week. Do not think patient will be able to make it back home in her prior functional state
In fact, I suspect she will require long-term nursing care/rehabilitation if successfully extubated
Sedated/intubated
Continue with Precedex, fentanyl. Continue fentanyl as needed. Would prefer to avoid Versed given plans to wean ventilator
Pain/sedation: PRN
RASS goals: 0
Remains on fentanyl bolus as needed
Patient has been complaining of abdominal pain intermittently.
Required pressors: Vasopressin has been weaned off, Levophed slowly being weaned, now off as of 11/09
Cardiac history reviewed--none
Echocardiogram with normal biventricular function, could not assess pulmonary artery pressures
Suspected incarcerated bowel, on exam/severe findings
CRS on board, s/p resection with anastomosis 11/03/23
NG tube output decreased
Aspiration precautions, HOB > 30 degrees
GI prophylaxis
Continue TPN per surgery
Tube feeds started 11/10, significant increased residuals overnight, held at this time
Fevers noted
Check cultures through A-line and peripheral culture
Tracheal culture gram-negative bacilli, Klebsiella, sensitive to Zosyn
Unfortunately, right groin line remains due to no additional access available. TPN continues
These risks were reviewed at length multiple times throughout hospital stay with
Possible colitis, ischemic bowel, aspiration PNA on presentation
ID following. Meropenem, micafungin
Note that refused abdominal imaging to rule out abscess or fluid collection
He is concerned about radiation from imaging. Despite discussing pros and cons and tried to educate with regards to critical care management, he has been difficult throughout hospital stay.
He is now agreeable. We will order abdominal CT today
I reviewed potential for abscess or fluid collection and possible need for drainage. This was reviewed both with and daughter on 11/11
REINA present, no history of renal disease
Creatinine normal
Replete potassium
TPN continue as per surgery
Lasix therapy intermittently
Hemoglobin noted, slowly trending down
DVT prophylaxis as assessed based on risk, including mechanical SCDs
Can transfuse if indicated for Hb <7, plt < 10
INR WNL
Maintain active type and screen but would minimize transfusion given risk for lung injury
Transfuse 1 unit on 11/10
Transfuse for hemoglobin less than 7
Reviewed with and daughter 11/11
No prior h/o diabetes or thyroid disease
Elevated blood sugars noted since starting TPN
requiring initiation of insulin drip
Continue to follow
Lines- PICC attempted on L, could not thread, R fem line attempted (by myself >60 mins) could not thread. She has RUE lymphedema and L sided neck metastatic disease
CVC needed but having difficult access sites. IR placed right groin line
Unable to place additional access per interventional radiology 11/05 (metastatic breast cancer in the left involving the neck and right upper extremity lymphedema
According to , patient refused port placement in the past
Discussed worst-case scenario where we may have to accept chronic right groin placement but this would put patient at risk for infection
This has been reviewed on a daily basis multiple times with
IR has evaluated 3 times for access, no practical solution. Will need to maintain right groin line. Site looks okay
Prognosis guarded
Had extensive discussion with on daily basis (sometimes 2-3 times a day)
Reviewed again today with son and poor prognosis 11/10 in the PM
, son and daughter have confirmed on a variety of occasions that tracheotomy is not an option
They seem to have focused on '14-day' number given to them for ET tube/mechanical ventilation prior to tracheotomy
Will continue to wean as able on a daily basis
Family would like to take opportunity for extubation, even if the risk for failure is high (i.e respiratory failure, cardiac arrest).
I have told him on a daily basis that she is not ready for extubation, and is not ready today
They want to avoid having her on the ventilator
Discussed potential outcomes which would include 1) extremely poor prognosis, transition to comfort while on the vent, withdrawal of care/comfort. 2) attempted extubation with high risk for failure, development of progressive respiratory distress,
cardiac arrhythmias, cardiac arrest with prompt transition to comfort. 3) attempted extubation with initial success but subsequent setbacks in the days/weeks that would prompt evaluation for rehospitalization, feeding tube, reintubation, invasive
procedures. states he would not want patient to be placed back on life support if fails extubation in the short-term (hours to few weeks). Family has suggested that ideally she would be at home and at home if it came to that.
I reviewed again with and daughter on 11/11 that I do not think patient has adequate conditioning from a respiratory standpoint to successfully be extubated and return to home, especially in the setting of metastatic breast cancer,
incarcerated bowel requiring emergent surgery, persistent fevers, prolonged mechanical ventilation.
Unfortunately, has misinterpreted/misconstrued many factual statements that we have made as a provider team. Therefore, I have tried to be consistent in my explanation of prognosis, plan for the day and I try to do this in the presence of
critical care nursing, respiratory care and son/daughter when able.
To our discussions today, also has stated that if she were to develop cardiac arrest, life-threatening cardiac arrhythmias, that he would not want chest compressions, shock
Therefore patient will be DNR
DVT prophylaxis: Continue with pharmacological and mechanical
GI prophylaxis: Remains on Protonix
Reviewed at length with critical care nursing, respiratory care, primary service, surgery
Reviewed with /daughter
Critical care time 80 mins
Family Discussions
Jamal 11/05/2023: Extensive update with at the bedside. He does not want his 1 daughter Samreen to be updated as she has difficulty processing information at that time, gets very anxious. Other 2 children are to be updated (Luna Plascencia).
All questions answered
Karen 11/03/23- I had a long discussion with the and daughter at bedside regarding decision making. Initially patient had declined surgery as she did not want to live with a colostomy but then subsequently did not change her code status
despite urgency of the situation. She then changed her mind this morning stating she does want to live and would undergo surgery. The family did feel she was not quite sure/had cognitive impairment on presentation, but she seems more clear to them
this morning. It is difficult to discuss with her as she has very severe hearing impairment and does not use hearing aids. I answered all questions from including her future oncologic care, that he will need to discuss with their
oncologist for next steps. They are now agreeing for surgery and care team was updated in further discussions.
Diagnostic Data
Chest X-Ray:
CT Scan:
Echo:
PFT's:
Reports and relevant images were personally reviewed.
-----
Subjective Dataa
Subjective Data
Date of Service:
Date of Service: November 12, 2023
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
Subjective:
Patient remains critically ill. Required ASV overnight due to agitation. Occasional thick secretions noted per respiratory care. Tachycardia, hypertensive, rapid shallow breathing with any attempted wean. Fevers noted. Status post 1 unit
transfusion yesterday. Given Lasix this morning. Tube feeds held due to excessive residuals, rate was 20 cc
Objective Data
Data Reviewed
Vital Signs / I&O / Oxygen:
Vital Signs
Temp Pulse Resp BP Pulse Ox
99.8 F 73 27 131/65 100
11/12/23 07:08 11/12/23 06:21 11/12/23 06:00 11/12/23 06:21 11/12/23 06:00
Intake and Output
11/11/23 11/12/23 11/13/23
06:59 06:59 06:59
Intake Total 1824.2 / 1925.6 2398.8 / 2398.8
Output Total 2520 / 2595 1082 / 1082
Balance -695.8 / -669.4 1316.8 / 1316.8
SaO2 [CPAP] 100
SaO2 [ASV] 100
SaO2 [A/C] 98
SaO2 100
Nasal Cannula flow liters per 2
minute
Physical Exam
General: Comfortable (Intermittently agitated depending on level of sedation), Other (Left neck changes, left chest wall changes from breast cancer, right upper extremity lymphedema) and Other (Right femoral groin line)
HEENT: Normocephalic and Anicteric
Cardiovascular: S1-S2, Regular Rhythm, Murmur (n), Rub (n), Peripheral Edema (RUE swelling/lymphedema) and Calf Tenderness (n)
Respiratory: Wheeze (n), Crackles (n), Rhonchi (few), Non-Labored Respirations and ET Tube
GI: Soft, Non Distended, Non Tender, NG Tube and Other (Abdominal dressing in place)
Neurology: Awake, Alert and No Motor Deficits (Moving all extremities. Squeezes hand, attempts to raise head with command. Attempting to mouth words. Inconsistent respond to commands)
Skin: Cyanosis (n), Jaundice (n), Rash (n) and Other (numerous skin lesions over sternum, L side of neck--presumed fungating metastatic disease)
Labs/Micro/Reports
Lab Data
11/12/23 04:00
11/12/23 04:00
Microbiology
11/08/23 10:28 Blood/Venous Blood Culture - Preliminary
No Growth in 72 hours- Final report to follow
11/08/23 10:31 Blood/Venous Blood Culture - Preliminary
No Growth in 72 hours- Final report to follow
11/08/23 10:28 Tracheal Aspirate Respiratory Culture - Final
Klebsiella oxytoca
11/08/23 10:28 Tracheal Aspirate Gram Stain - Final
--- NOTE | 2023-11-12 07:44 | PN.DE.MGMTRT ---
Insulin Management
- -
11/12/2023: Diabetes Management Consult
78 year old female with h/o metastatic breast cancer (treated at [facility] on Ibrance->Afinitor), admitted on 11/01 with c/o poor appetite, abdominal pain and N/V x 4-5 days. Of note, she had experienced weight loss/anorexia with use of
Afinitor. 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 On evaluation in the ED, patient was noted for firm, tender and grossly discolored umbilical hernia concerning for incarceration +/- strangulation.
Pt is now POD#9 s/p Exploratory laparotomy, small bowel resection with primary anastomosis and primary umbilical hernia repair.
Diabetes consult requested on 11/10 for Hyperglycemia after initiation of TPN and tube feeds. No known Hx of diabetes, A1C 5.6%, Cr 0.5, eGFR>60
Pt is currently intubated and unable to discuss diabetes mgt. Family at bedside, no questions.
Remains on glycemic protocol while on TPN and trickle tube feeds.
Blood sugars in range of 111 to 162, requiring 1.2 to 1.7 units of insulin/hr.
Yesterday TDD of insulin was 30 units. Will transition off glycemic protocol to SQ insulin
Give Lantus 15 units now and daily in AM thereafter. Turn Drip off @ 9AM.
Start NovoLog 5 units Q6hrs with low corrective insulin Q6hrs.
Will follow and make further adjustments if necessary
Diabetes History
- -
Type of Diabetes: 2
Pre-Admission Diabetes Regimen
11/12/23
04:00
Creatinine 0.5 L
Lab Results
Hemoglobin A1c Cancelled 11/07/23 17:29
Insulin Pump Settings
IP Diabetes Regimen
11/11/23 11/11/23 11/11/23
07:45 09:30 11:31
Glucose
POC Glucose 137 H 107 H 107 H
0711/11/23 11/11/23
13:44 15:33 17:26
Glucose
POC Glucose 89 163 H 119 H
11/11/23 11/11/23 11/11/23
19:38 21:07 22:57
Glucose
POC Glucose 122 H 93 148 H
11/12/23 11/12/23 11/12/23
01:06 02:02 03:15
Glucose
POC Glucose 111 H 118 H 129 H
11/12/23 11/12/23 11/12/23
04:00 04:08 05:04
Glucose 136 H
POC Glucose 150 H 156 H
11/12/23
06:04
Glucose
POC Glucose 162 H
Patient Education
--- NOTE | 2023-11-12 07:45 | PTCARENOTE ---
Assumed care of patient. Pt rec'd awake on ventilator. TRIBE. Pupils 3/sluggish. Able to KEENE's. Occasionally follows commands...bilateral wrist restraints on. Anxious..restless. S1 S2 reg w/ NSR on monitor. Weak pulses. +2 generalized edema.
+4 CARINE pitting edema. +2-3 IRVIN edema...left arm weeping. Heels elevated on pillows. Intubated w/ #7 ETT 21cm left side of mouth. Rec'd on ASV settings: 100% min vol/PEEP 5/40%...sats
98%. Lungs CTA except coarse posteriorly. Suctioned orally and via ETT for thick yellow/ross secretions. To be placed on CPAP wean this am per . Abdomen round...hypo BS. No BM. Left nare [place] clamped....flushed w/ 30mls of tap water.
TF's on hold due to high residuals thru night. Temp sensing butcher draining yellow urine. Skin pale in color...sacrum pink and blanchable....mid abdominal dressing dry and intact. Right hip bruise noted. Left neck w/ sclerosed healing area.
Right femoral TLC w/ TPN, precedex gtt, and KVO infusing. VS documented. Safe environment confirmed. Will continue to monitor closely.
[2023-11-12] MEDS: NSS (PRESERVATIVE FREE) 10 ML IV (08:00)
[2023-11-12] MEDS: PROTONIX IV 40 MG IV (08:00)
--- NOTE | 2023-11-12 08:09 | W.PN.HOSP.TC ---
Today's Communication/Plan
-
potential extubation today
continued GOC discussions
meropenem/micafungin
appreciate consultants
Assessment / Plan
Assessment / Plan
General: Orally intubated, on mechanical ventilator, OGT placed orally to suction, started on tpn. W Attempting to wiggle toes by moving feet when asked and attempting to give thumbs up as she gave me index finger up
HEENT: Normocephalic, Atraumatic and Moist Mucous Membranes. No JVD
Respiratory: Mechanical vent sounds
Cardiac: Regular Rhythm and S1/S2.
GI: Soft, NT, ND, BS+, NGT to suctions
Musculoskeletal: No Cyanosis , No Edema
Skin: Dry
Neuro: Sedated
Psych: Unable to assess
Ms. Priscilla Dowell is a 78 y o woman with hx metastatic breast CA (follows at [facility], currently off medications with plans to start lower dose early November) presents to the ER with abdominal pain, nausea and vomiting found to have incarcerated and
strangulated umbilical hernia; s/p OR 11/02, admitted to ICU with septic shock. concern also raised for aspiration pneumonia.
Operative Findings 11/02
Operative Findings:
1. Strangulated umbilical hernia containing 45 cm of necrotic small bowel, fascial defect approximately 4 cm (widened for exposure and anastomosis), healthy proximal and distal bowel
2. Small bowel resection with primary stapled anastomosis using MICKI 80 blue load x2 (Agustín technique), mesenteric defect closed
3. Primary fascial closure under minimal tension with #1 Stratafix
4. Skin stapled, soft tissue packed
Incarcerated / Strangulated Umbilical Hernia
Septic Shock
Remains on pressor support continue to wean as tolerated.
S/p resection of 45 cm necrotic small bowel with internal anastomosis and fixation on 11/02 with surgery
Blood cultures no growth to date. No IntraOp cultures obtained
Repeat cultures
-bcx ngtd
-ucx ngtd
-tracheal culture with growth - klebsiella oxytoca
- - ID following resumed antibitoics and also started micafungin
Ideally, should obtain CTAP however, family refusing, has been reported in physician documentation that is using AI
- This has been a difficult and challenging case as the biggest barrier to be able to provide care to optimize treatment plans is hindered by her .
Acute hypoxemic respiratory failure secondary to ventilator dependent respiratory failure
-Postop patient was maintained on ventilatory support
-Ongoing vent weaning effort per dental nurse
-Attempt to liberate from vent.
-s/p IV lasix now on PRN IV Lasix per ICU
- Per Dr. Chavez: -11/11/2023 again had goals of care discussion with Mr. Sommer at her bedside. I informed that he should start discussing with his family in the off chance if unable to extubate with they want trach PEG. I also informed him as he
uses AI/googles everything to look up mortality rate within the first year in patients which are recently trached and PEG.
Fever potentially infectious versus drug-induced. Coming off of Precedex. Pancultured. ICU following closely.
-Tracheal cultures growing gnr, this was obtained while she was on Zosyn and having fevers
- was refusing CT
- - ID started Lyle/Micafungin, fever curve improving
Metastatic Breast Cancer
-Followed at [facility]. Currently on no active therapy / medications.
-On med holiday for a month with plan to revisit / restart meds in early November.
Acute blood loss anemia from surgery
Continues to trend down now he. Blood pressure still fluctuating on pressor support. Without acute evidence of blood loss at this time. Will continue to monitor sleep.
Chest x-ray does show pulmonary edema therefore holding fluid, if hemoglobin less than 7 would consider transfusion depending on volume status and overall clinical picture at that time
Check CTAP but family declining.
11/11/2023 received 1 unit PRBC with appropriate rise
Thrombocytosis
-Reactive/infection related as well, monitor
Hyponatremia
Resolved
Hypokalemia
Replete as needed
REINA - resolved
Likely secondary to sepsis/hypoperfusion/ischemic ATN. Now on IV fluids and pressor support.
Monitor renal output. Avoid nephrotoxins hypotension.
Renally dose medications
Stage 1 buttock pressure injury
Wound care
Pressure offloading
DVT Prophylaxis: SCDs
Full code
-Overall prognosis at this time remains grim
Will need to continue to have goals of care discussions.
per Dr. Chavez:
-[facility] from sometime ago on 06 Sep 2023. She was previously in the 12-13 range. Then slowly started coming down. Now hemoglobin today 6.2 requiring 1 unit PRBC. They were agreeable to provide her with this. I informed them that if
there is not an appropriate improvement then there would be a concern for active bleeding internally if we do not see any blood externally. At that time we may need to consider obtaining CT abdomen pelvis to see if there is any bleeding.
Additionally discussed tracheostomy and PEG in the off chance if she does not get extubated. We reviewed RSBI and what it should be after couple of hours and reasons for extubation in a safe manner. Additionally, we will need to continue to
discuss this with him about if she does get extubated and cannot tolerate need to be reintubated or at that point in time do we make her comfortable and hospice, if we cannot extubate within 14 days then with family want terminal extubation versus
trach PEG.
Total critical care time 40 mins .
Anticipated Discharge: > 48 hours
Subjective/Interval History
-
Date of Service: November 12, 2023
intubated, going through weaning
appears agitated
Objective Data
-
Labs:
Laboratory Results
11/12/23
04:00
WBC 8.2
Hgb 7.8 L
Hct 24.1 L
Plt Count 285 D
Sodium 137
Potassium 4.6
Chloride 109 H
Carbon Dioxide 25
BUN 37 H
Creatinine 0.5 L
Glucose 136 H
Calcium 9.1
Total Bilirubin 0.8
AST 74 H
ALT 31
Alkaline Phosphatase 236 H
Vital Signs:
Vital Signs
Temp Pulse Resp BP Pulse Ox
99.8 F 73 27 131/65 100
11/12/23 07:08 11/12/23 06:21 11/12/23 06:00 11/12/23 06:21 11/12/23 07:59
I&O
11/11/23 11/12/23 11/13/23
06:59 06:59 06:59
Intake Total 1824.2 / 1925.6 2398.8 / 2398.8
Output Total 2520 / 2595 1082 / 1082
Balance -695.8 / -669.4 1316.8 / 1316.8
Review of Systems
-
History Source: Patient
All other systems: Reviewed and negative
Physical Exam
-
General: Other (awake, appears anxious)
HEENT: PERRLA
Respiratory: Negative Wheezes
Cardiac: Regular Rhythm and S1/S2
GI: Other (gauze c/d/i)
Musculoskeletal: No Edema
Neuro: Awake and Alert
Psych: Anxious
Data Reviewed
-
Diagnostic Radiology: Report Reviewed by me
Labs: Labs Reviewed by me
[2023-11-12 08:10] LABS: Glucose - Point of Care 138 mg/dl (70-99)
[2023-11-12] MEDS: LANTUS 0.15 UNITS SC (08:47)
--- NOTE | 2023-11-12 08:55 | PTCARENOTE ---
Variartions in heart rate noted w/ SBT this am. At one point...HR decreased to 40-50 BPM...appeared junctional....poor tidal volumes on vent...suctioned for thick yellow secretions....HR recovered to 120-130's. made aware.
[2023-11-12 09:13] LABS: B.E. 0.3 mmol/L; O2 Saturation % 99.5 % (94-98); PCO2 46 mmHg (32-35); PO2 96 mmHg (83-108); pH 7.36 (7.35-7.45)
--- NOTE | 2023-11-12 09:24 | W.PN.ID1 ---
Date of Service
Date of Service: November 12, 2023
Today's Communication
- continue meropenem/micafungin day 4 of 7; duration could change if abdominal imaging obtained
- follow clinically
Agree that short term to medium term prognosis is guarded. There is some possible interval improvement since broadening coverage however prognosis unchanged.
Assessment / Plan
Strangulated Umbilical Hernia s/p resection with anastomosis 11/03/23
Resolved shock
Pneumonia due to K oxytoca
H/o aspiration
H/o leukopenia/neutropenia
- 11/07 sputum cx: K oxytoca - sensitive to most antibiotics - should have responded to zosyn previously if pneumonia was the cause of persistent shock. Lack of prior clinical response suggests an alternative cause the fevers and shock such as an
intraabdominal abscess. Unlikely to have an ongoing drug fever from two antibiotics in separate classes. She is now clinically responding to empiric therapy
- blood cultures x2 from 11/07 in progress no growth to date
- esr and CRP - elevated as expected - follow clinically
- recommend ct a/p - ideally with iv and oral contrast if feasible - still without bilious output from NGT which could limit oral contrast. CT would help clarify cause of leukocytosis/fevers, duration of therapy, confirm source control, optimize
management. Please see extended discussion in 11/08 note. Family has refused
- continue meropenem/micafungin day 4 ; duration could change if abdominal imaging obtained
- follow clinically
Agree that short term to medium term prognosis is guarded. There is some possible interval improvement since broadening coverage however prognosis unchanged.
Chief Complaint
-: Fever, Leukocytosis and Other (shock)
Subjective / Review of Systems
no further fevers
now consistently off of pressors
wbc 8.2, hgb improving at 7.8
plt further improved
crp 64
alk phos 236
cxr: stable/bilateral airspace disease
11/07 blood cultures remain no growth to date
NGT to suction, as she did not tolerate TF - remains on tpn
Vital Signs / Physical Exam
Vital Signs
Vital Signs
Temp Pulse Resp BP Pulse Ox
99.8 F 98 28 131/65 100
11/12/23 07:08 11/12/23 09:00 11/12/23 09:00 11/12/23 06:21 11/12/23 09:00
Physical Exam
Constitutional: No Acute Distress
Cardiovascular: Regular Rate and S1/S2; Negative Murmur or Rub
Pulmonary: Clear and Symmetric; Negative Wheezes or Rales
Gastrointestinal: Soft, Non Tender, Non Distended and Normal Bowel Sounds
Skin: Warm and Dry; Negative Rash or Jaundice
Objective Data
Lab Data
Lab Results
11/12/23 04:00
11/12/23 04:00
ESR 133 mm/hour (0-20) H 11/12/23 04:00
PT 15.3 Sec (11.4-14.6) H 11/02/23 20:30
INR 1.23 11/02/23 20:30
APTT 27.5 Sec (23.4-35.0) 11/02/23 20:30
Estimated Creat Clear 65 ml/min 11/12/23 04:00
Lactic Acid Cancelled 11/12/23 01:54
Total Bilirubin 0.8 mg/dl (0.2-1.3) 11/12/23 04:00
AST 74 U/L (14-36) H 11/12/23 04:00
ALT 31 U/L (0-35) 11/12/23 04:00
Alkaline Phosphatase 236 U/L (38-126) H 11/12/23 04:00
C-Reactive Protein 64.30 mg/L (0.0-10.00) H 11/12/23 04:00
Most recent labs reviewed.
Micro Results:
11/08/23 10:28 Blood Culture - Preliminary
Blood/Venous No Growth in 72 hours- Final report to follow
11/08/23 10:31 Blood Culture - Preliminary
Blood/Venous No Growth in 72 hours- Final report to follow
11/08/23 10:28 Respiratory Culture - Final
Tracheal Aspirate Klebsiella oxytoca
Gram Stain - Final
11/02/23 20:37 Blood Culture - Final
Blood/Venous No Growth - Final Report
11/02/23 20:37 Blood Culture - Final
Blood/Venous No Growth - Final Report
Care Review
Plan reviewed with: Physician (Dr Berry - need for abdominal imaging)
--- NOTE | 2023-11-12 09:33 | W.PN.GS2 ---
Today's Communication / Plan
-
Continue TPN
Assessment / Plan
-
Assessment: Patient is an 78 yo F with breast CA and treatment at [facility] p/w strangulated umbilical hernia
POD#9 Exploratory laparotomy, small bowel resection with primary anastomosis, primary umbilical hernia repair
ID following with us for abx
CXR with bl infiltrates, pulm following. Aspirated gastric contents early in admission
VDRF, weaning as per pulm
No BM's as of yet, high residual with trickle tube feedings: held per parameters
Afebrile since 11/09. Off pressors, hypertensive with vent weaning this am. Tachycardia resolved.
Acute on chronic anemia, no signs of active bleeding
Mild leukocytosis
Plan: Return NGT to suction, as she did not tolerate TF
Renew TPN until able to feed enterically
Subjective Data
-
Date of Service: November 12, 2023
Patient seen and examined at bedside with Dr. Villeda. Weaning from vent. Not following commands. Awake.
Objective Data
-
Intake and Output
11/11/23 11/12/23/01/28
06:59 06:59 06:59
Intake Total 1824.2 / 1925.6 2398.8 / 2398.8
Output Total 2520 / 2595 1082 / 1082
Balance -695.8 / -669.4 1316.8 / 1316.8
Intake:
Oral fluids 0 / 0 0 / 0
IV fluids (Total) 574.2 / 599.6 584.8 / 584.8
Levophed 0 / 0
Prescedex 507.0 / 531.8 530.7 / 530.7
fent 22.5 / 22.5
insulin 44.7 / 45.3 54.1 / 54.1
TPN/PPN 1150 / 1196 1104 / 1104
Tube feeding 240 / 240
Feeding tube flush amount 120 / 120
Amount instilled into GI Tube ( 100 / 130 100 / 100
Total)
[place] Sump 100 / 130 100 / 100
Blood Product Amount Infused ( 0 / 0 250 / 250
mL)
Packed Rbc Leukoreduced Unit 0 / 0 250 / 250
[id number]
Output:
Gastrointestinal tube output ( 180 / 180
Total)
[place] Sump 180 / 180
Urine, Osorio 2340 / 2415 1082 / 1082
Other:
Number of unmeasured liquid
stools
Rectum 1
Vital Signs
Temp Pulse Resp BP Pulse Ox
99.8 F 98 28 131/65 100
11/12/23 07:08 11/12/23 09:23 11/12/23 09:23 11/12/23 06:21 11/12/23 09:23
Lab Results
11/12/23 04:00
11/12/23 04:00
Calcium 9.1 mg/dl (8.4-10.2) 11/12/23 04:00
Phosphorus 3.2 mg/dl (2.5-4.5) 11/12/23 04:00
Magnesium 2.1 mg/dl (1.6-2.3) 11/12/23 04:00
Total Bilirubin 0.8 mg/dl (0.2-1.3) 11/12/23 04:00
Direct Bilirubin 0.6 mg/dl (0.0-0.4) H 11/03/23 04:20
AST 74 U/L (14-36) H 11/12/23 04:00
ALT 31 U/L (0-35) 11/12/23 04:00
Alkaline Phosphatase 236 U/L (38-126) H 11/12/23 04:00
Total Protein 4.9 g/dl (6.3-8.2) L 11/12/23 04:00
Albumin 2.2 g/dl (3.5-5.0) L 11/12/23 04:00
Physical Exam
-
NAD, sedated
ABD: Soft, mild distention, incision dressing in place clean. NGT clamped
Midline incision with clean, well approximated staple line. No purulence. Open area near umbilicus with packing changed, granulating well. Skin changes to hernia site have resolved.
[2023-11-12] MEDS: TYLENOL ORAL SOLUTION 650 MG TUBE (10:15)
--- NOTE | 2023-11-12 11:33 | HOSPNOTE ---
Spoke with spouse and daughter at length in regards to hospice care and the philosophy. I explained removing a patient from a ventilator that we always medicate prior and the patient will not suffer and our goal would be to make the patient
comfortable and allow for a peaceful passing. The spouse and daughter feel that the patient is not ready to 'give up' and would want to continue fighting. I explained we are on day 10 and it was stated that the patient would not want to have a
trach/peg and the spouse agreed that the patient would not want that intervention. There is a CT scan scheduled for today and the family would like to wait for the results and asked me to come back possibly tomorrow and they are hopeful that the
patient will be doing much better. I supported their decision, however encouraged them to make a decision sooner then later. I will continue to support. Updated physician and nurse. Will continue to follow daily.
[2023-11-12] MEDS: NOVOLOG FLEXPEN-LOW RESISTANCE 2 UNITS SC (11:55)
[2023-11-12] MEDS: NOVOLOG FLEXPEN 5 UNITS SC ×3 (11:55→23:33)
--- NOTE | 2023-11-12 12:00 | PTCARENOTE ---
Pt taken for uneventful abdominal cat scan. Remains intubated on vent...current vent settings: CPAP 5/PSV 20...sats 99%. Remains on precedex gtt and TPN infusioin. No major changes in physical assessment. VS documented. Will continue to monitor
closely.
[2023-11-12 12:04] LABS: Glucose - Point of Care 227 mg/dl (70-99)
--- NOTE | 2023-11-12 12:06 | CM ---
CM following re: discharge planning.
Reviewed pt's chart. pt's and daughter at bedside.
Pt is POD#9 Exploratory laparotomy, small bowel resection with primary anastomosis, primary umbilical hernia repair. Pt remains intubated, continue supportive care.
Hospice consult noted. per family request, a referral made to hospice early today for informations purposes regarding hospice benefits. health care liaison met with pt's family, no decision regarding hospice care/comfort care made.
D/C plan: Uncertain at this time and will depend on pt's progress.
CM will follow with discharge plan updates as hospitalization progresses
--- NOTE | 2023-11-12 12:30 | PTCARENOTE ---
Low HR of 24 noted on cardiac care nurse. Pt bagged for approximately 10-20 seconds....HR recovered to 110-120. made aware. Versed 2mg IV given and precedex gtt decreased per . Will continue to monitor closely.
[2023-11-12 12:58] LABS: Hematocrit 27.6 % (37.0-47.0); Hemoglobin 8.8 g/dL (12.0-16.0); Mean Corp Hgb Conc. 31.9 g/dL (33.0-37.0); Mean Corpuscular Hgb 28.6 pg (27.0-31.0); Mean Corpuscular Volume 89.6 fL (81.0-99.0); Mean Platelet Volume 11.1 fL (7.4-10.4); Platelet Count 416 10^3/uL (130-400); Red Blood Cell Count 3.08 10^6/uL (4.20-5.40); Red Cell Dist. Width 19.9 % (11.5-14.5); White Blood Cell Count 14.3 10^3/uL (4.8-10.8)
[2023-11-12 13:03] LABS: INR 1.08; PT 13.8 Sec (11.4-14.6)
[2023-11-12 13:07] LABS: ALT (SGPT) 43 U/L (0-35); AST (SGOT) 85 U/L (14-36); Albumin 2.6 g/dl (3.5-5.0); Alkaline Phosphatase 338 U/L (38-126); Blood Urea Nitrogen 37 mg/dl (7-17); Calcium 9.3 mg/dl (8.4-10.2); Carbon Dioxide 26 mmol/L (22-30); Chloride 105 mmol/L (98-107); Estimated Creatinine Clearance 65 ml/min; Glucose 213 mg/dl (70-99); Potassium 4.8 mmol/L (3.5-5.1); Sodium 139 mmol/L (135-145); Total Bilirubin 0.7 mg/dl (0.2-1.3); Total Protein 5.6 g/dl (6.3-8.2); eGFR > 60.00
[2023-11-12 13:22] LABS: Troponin I 0.095 ng/ml
[2023-11-12 13:27] LABS: B.E. 1.3 mmol/L; HCO3 26.6 mmol/L (21-28); PCO2 44 mmHg (32-35); PO2 191 mmHg (83-108); pH 7.39 (7.35-7.45)
--- NOTE | 2023-11-12 13:39 | W.PN.UPDATE ---
Update Note
Progress Note Update
Patient had brief episode of bradycardia earlier this morning, heart rate went down to 50. Appeared to be junctional rhythm on telemetry. This occurred again after returning from abdominal CAT scan. Heart rate went down to 30, appears to be
junctional rhythm per telemetry strip.
During these episodes, patient is moving extremities, awake, appears agitated, while on CPAP 5/pressure support 20
Patient was placed back on ASV mode, given Versed
Stat labs showed stable hemoglobin, stable oxygenation/ventilation per ABG, no obvious electrolyte abnormalities.
LFTs appear to be slowly worsening, over the last 48 hours, alkaline phosphatase now up to 338
Troponin mildly elevated
Abdominal CT without any obvious fluid collection
Evidence of diffuse bony metastases throughout the spine and the ribs
Reviewed above findings and events at length with and daughter at bedside.
Reviewed my concern regarding her hemodynamic lability
Again discussed my opinion that patient would not be successfully liberated from mechanical ventilation
I revisited prior discussion regarding cardiac resuscitation. confirmed DNR status. Daughter also present.
Continue with supportive care
continues to maintain hold for some improvement, that will eventually lead to a chance to, with the ventilator
Emotional support provided
Updated critical care nursing
TCCT 30 min
[2023-11-12] MEDS: MYCAMINE 105 MG IV (15:52)
--- NOTE | 2023-11-12 16:00 | PTCARENOTE ---
Pt remains intubated and on precedex gtt. No major changes in physical assessment. Family at bedside. VS obtained. Will continue to monitor closely.
[2023-11-12] MEDS: LOVENOX 40 MG SC (17:14)
[2023-11-12 17:48] LABS: Glucose - Point of Care 178 mg/dl (70-99)
--- NOTE | 2023-11-12 18:00 | PTCARENOTE ---
Spoke w/ pt's and dtrs throughout day and fully updated on plan of care. Emotional support provided.
[2023-11-12] MEDS: NOVOLOG FLEXPEN-LOW RESISTANCE 1 UNITS SC (18:02)
[2023-11-12 18:40] LABS: Troponin I 0.104 ng/ml
--- NOTE | 2023-11-12 19:30 | PTCARENOTE ---
Resumed care of pt this evening. Received pt intubated and sedated on precedex gtt. Pt is also on TPN gtt for nutritional support infusing via rt femoral central line. Pt opens eyes spontaneously and tracts w/ eyes. Pt mouths words but does not
appear to be intelligible and moves all 4 extremities. Pt is SR on tele monitor, has +2 GA, and palpable pedal pulses. Pt tolerating vent ASV settings satting at 100% pulse ox. On auscultation pt lungs sound diminished, coarse, and rhonchorous TO.
Pt suctioned for small of amount of thick ross colored secretions. Pt NPO, has a round abdomen, and hypoactive BS. Osorio cath in place draining yellow colored urine. Abdominal surgical dressing C/D/I.
[2023-11-12] MEDS: Parenteral Nutrition, Central 1110 IV (20:00)
--- NOTE | 2023-11-12 22:30 | PTCARENOTE ---
Pt continues to tolerate vent settings satting at 99% pulse ox. PRN dose of fentanyl administered by this RN for restlessness.
[2023-11-12 22:50] LABS: Glucose - Point of Care 123 mg/dl (70-99)
[2023-11-12] MEDS: NOVOLOG FLEXPEN-LOW RESISTANCE SC (23:34)
[2023-11-13] VITALS (37 sets, daily range): BP systolic 109–156; BP diastolic 45–102; BMI 24.5
--- NOTE | 2023-11-13 01:00 | PTCARENOTE ---
Pt became bradycardic during ETT suction. Pt's HR dropped to 37. Shortly after pt returned to NSR.
[2023-11-13 01:21] LABS: Troponin I 0.061 ng/ml
[2023-11-13] MEDS: PRECEDEX 100 IV ×5 (03:23→21:53)
[2023-11-13] MEDS: MERREM 500 MG IV ×4 (03:23→21:05)
[2023-11-13] MEDS: STERILE WATER FOR INJECTION 10 ML IV ×4 (03:23→21:05)
[2023-11-13 03:57] LABS: % Basophils 0.4 % (0-2); % Eosinophils 1.6 % (0-6); % Immature Granulocytes 0.7 % (0-0.5); % Lymphocytes 12.6 % (20.5-51.1); % Monocytes 8.9 % (1.7-9.3); % Neutrophils 75.8 % (42.2-75.2); Absolute Eosinophils 0.1 10^3/uL (0-0.7); Absolute Immature Granulocytes 0.1 10^3/uL (0-0.05); Absolute Lymphocytes 0.9 10^3/uL (1.2-3.4); Absolute Monocytes 0.6 10^3/uL (0.1-0.6); Absolute Neutrophils 5.4 10^3/uL (1.4-6.5); Hemoglobin 7.2 g/dL (12.0-16.0); Mean Corp Hgb Conc. 32.7 g/dL (33.0-37.0); Mean Corpuscular Hgb 28.5 pg (27.0-31.0); Mean Platelet Volume 10.8 fL (7.4-10.4); Nucleated Red Blood Cells % 0 %; Platelet Count 335 10^3/uL (130-400); Red Blood Cell Count 2.53 10^6/uL (4.20-5.40); Red Cell Dist. Width 19.9 % (11.5-14.5); White Blood Cell Count 7.1 10^3/uL (4.8-10.8)
[2023-11-13 04:47] LABS: ALT (SGPT) 36 U/L (0-35); AST (SGOT) 63 U/L (14-36); Albumin 2.2 g/dl (3.5-5.0); Alkaline Phosphatase 245 U/L (38-126); Blood Urea Nitrogen 41 mg/dl (7-17); Carbon Dioxide 27 mmol/L (22-30); Chloride 108 mmol/L (98-107); Estimated Creatinine Clearance 65 ml/min; Glucose 125 mg/dl (70-99); Potassium 4.5 mmol/L (3.5-5.1); Sodium 139 mmol/L (135-145); Total Bilirubin 0.6 mg/dl (0.2-1.3); Total Protein 4.8 g/dl (6.3-8.2); eGFR > 60.00
[2023-11-13 06:14] LABS: Glucose - Point of Care 184 mg/dl (70-99)
[2023-11-13] MEDS: NOVOLOG FLEXPEN 5 UNITS SC ×3 (06:34→17:23)
[2023-11-13] MEDS: NOVOLOG FLEXPEN-LOW RESISTANCE 1 UNITS SC ×3 (06:35→17:23)
--- NOTE | 2023-11-13 07:09 | W.PN.INTV ---
Today's Communication / Plan
Recommendations
Continue daily weaning trials, not optimistic patient can be extubated safely, family aware
If not significant progress is made this week, we will revisit comfort measures
Continue supportive care for now
Change sedation parameters/goals
Patient is DNR, extensive discussions with family noted below
Assessment
-
Patient is an 78 year old F with history of metastatic breast cancer (treated at [facility] on Ibrance->Afinitor) presenting to ED complaining of poor appetite, abdominal pain and N/V x 4-5 days. Of note, she had experienced weight
loss/anorexia with use of Afinitor. She began to complain of abdominal discomfort about 2 days ago. Today, family noted discoloration associated with her long standing chronic umbilical hernia. On evaluation in the ED, patient is noted to have
firm, tender and grossly discolored umbilical hernia concerning for incarceration +/- strangulation. BP 70s, Tmax 100.9, WBC 18, lactate 6, creat 1.9. She was seen by Colorectal Surgery who discussed benefit of urgent surgical intervention. She is
placed on levophed, and empiric abx and admitted to ICU.
Septic shock on pressors
Weaned off as of 11/09
Incarcerated umbilical hernia wtih concern for ischemic bowel s/p resection with anastomosis 11/03/23
Post-op VDRF
Aspiration PNA upon intubation, 2L bilious vomiting suctioned s/p NGT likely obstruction from hernia
Suspected lung injury, aspiration pneumonitis, culture positive Klebsiella oxytocin (S to Zosyn)
Possible component of pulmonary edema
Improved with diuresis
REINA, improved
Leukocytosis, improved
Lactic acidosis, improved
Hyponatremia, improved
Hyperglycemia, requiring insulin drip
Persistent fevers
Anemia, requiring transfusion 11/10
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
Metastatic breast cancer
Diagnosed 2017
On chemotherapy, held recently months ago due to significant side effects, neutropenia/leukopenia
Apparently refused port placement, per
Was being considered for hospice, palliative care at one point, per
Plan
At this time, patient remains critically ill, intermittently agitated.
Pain/sedation: PRN
RASS goals: 0
Remains on fentanyl bolus as needed
Patient has been complaining of abdominal pain intermittently.
Received 3 doses of Versed over last 24 hours, which she seems to respond to. 2 doses of fentanyl 25 mcg. Remains on Precedex drip at 1.3
Change versed to ativan PRN, will add seroquel BID
Maintained on precedex as tolerated (could be cause of intermittent fevers)
Will change tylenol to scheduled as well
Labile blood pressure and heart rate noted, seems to be related to agitation
Responding to Lasix given this morning
SBT trials ongoing
Was placed on CPAP 5, pressure support of 8 11/12/23. Developed worsening tachycardia, hypertension, rapid shallow breathing, then bradycardia
Has been tried on 23/09 past week with no reduction in pressure that was tolerated
Ongoing daily trials reviewed with family
I do not feel confident she could extubate well with this level of progress/on high PS requirements
Chest x-ray today with persistent patchy infiltrate, heart failure versus aspiration pneumonitis
Remains on abx
Repeat sputum culture with +kleb from aspiration 11/08/23
Moving forward
Continue with CPAP wean, resumed today 09/23, will decrease pressure support as able
I am not hopeful for extubation today
Chest x-ray overall improved with diuresis but there is a patchy infiltrate on the right side
Will give Lasix intermittently
Ongoing daily assessment for extubation.
Required pressors: pressors off as of 11/09
Cardiac history reviewed--none
Echocardiogram with normal biventricular function, could not assess pulmonary artery pressures
Monitor on telemetry
Suspected incarcerated bowel, on exam/severe findings
CRS on board, s/p resection with anastomosis 11/03/23
NG tube output decreased/surgery team following, no further interventions offered at this point
Aspiration precautions, HOB > 30 degrees
GI prophylaxis
Continue TPN per surgery
Tube feeds started 11/10, significant increased residuals overnight, held at this time
Fevers noted
Check cultures through A-line and peripheral culture
Tracheal culture gram-negative bacilli, Klebsiella, sensitive to Zosyn
Unfortunately, right groin line remains due to no additional access available. TPN continues
These risks were reviewed at length multiple times throughout hospital stay with
Possible colitis, ischemic bowel, aspiration PNA on presentation
ID following. Meropenem, micafungin
CT AP reviewed, negative for collection 11/12/23
REINA present, no history of renal disease--improved
Creatinine normal
Replete potassium
TPN continue as per surgery
Lasix therapy intermittently
Hemoglobin noted, slowly trending down
DVT prophylaxis as assessed based on risk, including mechanical SCDs
Can transfuse if indicated for Hb <7, plt < 10
INR WNL
Maintain active type and screen but would minimize transfusion given risk for lung injury
Transfuse 1 unit on 11/10
Transfuse for hemoglobin less than 7
Reviewed with and daughter 11/11
No prior h/o diabetes or thyroid disease
Elevated blood sugars noted since starting TPN
Requiring initiation of insulin drip--bridged to SQ
Continue to follow hyperglycemic protocol
Lines- PICC attempted on L, could not thread, R fem line attempted (by myself >60 mins) could not thread. She has RUE lymphedema and L sided neck metastatic disease
CVC needed but having difficult access sites. IR placed right groin line
Unable to place additional access per interventional radiology 11/05 (metastatic breast cancer in the left involving the neck and right upper extremity lymphedema
According to , patient refused port placement in the past
Discussed worst-case scenario where we may have to accept chronic right groin placement but this would put patient at risk for infection
This has been reviewed on a daily basis multiple times with
IR has evaluated 3 times for access, no practical solution. Will need to maintain right groin line. Site looks okay
To date, has stated that if she were to develop cardiac arrest, life-threatening cardiac arrhythmias, that he would not want chest compressions, shock
Therefore patient is DNR
Prognosis guarded/poor
DVT prophylaxis: Continue with pharmacological and mechanical
GI prophylaxis: Remains on Protonix
Reviewed at length with critical care nursing, respiratory care, primary service, surgery
Reviewed with /daughter on rounds
Family Discussions
Karen 11/13/23- extensive conversation today on rounds regarding her progress in weaning, in my opinion is not significant enough to safely extubate. She is day #11, I think that at this point if she has not made significant progress, she is unlikely
to remain without full vent support. We will need to discuss in next 24-48 hours if family would like to move forward with comfort measures.
Jamal - I reviewed again with and daughter on 11/11 that I do not think patient has adequate conditioning from a respiratory standpoint to successfully be extubated and return to home, especially in the setting of metastatic breast cancer,
incarcerated bowel requiring emergent surgery, persistent fevers, prolonged mechanical ventilation.
Reviewed with patient and son that I do not think we will be able to liberate her from the ventilator. They have made it clear that they do not want tracheotomy.
I have been very kamar with the , son and daughter on multiple occasions throughout this week. Do not think patient will be able to make it back home in her prior functional state
In fact, I suspect she will require long-term nursing care/rehabilitation if successfully extubated
Had extensive discussion with on daily basis (sometimes 2-3 times a day)-Reviewed again today with son and poor prognosis 11/10 in the PM
, son and daughter have confirmed on a variety of occasions that tracheotomy is not an option
They seem to have focused on '14-day' number given to them for ET tube/mechanical ventilation prior to tracheotomy
Family would like to take opportunity for extubation, even if the risk for failure is high (i.e respiratory failure, cardiac arrest).
I have told him on a daily basis that she is not ready for extubation, and is not ready today. They want to avoid having her on the ventilator
Discussed potential outcomes which would include 1) extremely poor prognosis, transition to comfort while on the vent, withdrawal of care/comfort. 2) attempted extubation with high risk for failure, development of progressive respiratory distress,
cardiac arrhythmias, cardiac arrest with prompt transition to comfort. 3) attempted extubation with initial success but subsequent setbacks in the days/weeks that would prompt evaluation for rehospitalization, feeding tube, reintubation, invasive
procedures. states he would not want patient to be placed back on life support if fails extubation in the short-term (hours to few weeks). Family has suggested that ideally she would be at home and at home if it came to that.
Unfortunately, has misinterpreted/misconstrued many factual statements that we have made as a provider team. Therefore, I have tried to be consistent in my explanation of prognosis, plan for the day and I try to do this in the presence of
critical care nursing, respiratory care and son/daughter when able.
11/05/2023: Extensive update with at the bedside. He does not want his 1 daughter Samreen to be updated as she has difficulty processing information at that time, gets very anxious. Other 2 children are to be updated (Temo, Luna). All
questions answered
Karen 11/03/23- I had a long discussion with the and daughter at bedside regarding decision making. Initially patient had declined surgery as she did not want to live with a colostomy but then subsequently did not change her code status
despite urgency of the situation. She then changed her mind this morning stating she does want to live and would undergo surgery. The family did feel she was not quite sure/had cognitive impairment on presentation, but she seems more clear to them
this morning. It is difficult to discuss with her as she has very severe hearing impairment and does not use hearing aids. I answered all questions from including her future oncologic care, that he will need to discuss with their
oncologist for next steps. They are now agreeing for surgery and care team was updated in further discussions.
Diagnostic Data
Chest X-Ray: 11/12/23- Stable bilateral airspace disease/pneumonia.
11/10/23- Findings/impression: Endotracheal tube and nasogastric tube remain in place. Persistent interstitial and subtle airspace opacity is again demonstrated bilaterally. However, slightly improved aeration is suggested especially in the right
midlung zone. Slightly irregular retrocardiac opacity is essentially unchanged (atelectasis versus pneumonia).
No pneumothorax. The cardiac mediastinal margins are stable.
11/09/23- Diffusely increased interstitial and patchy groundglass opacities bilaterally, similar in appearance compared to the prior study.
11/07/23- Stable support devices. Bilateral airspace opacities with slight worsening in the left upper lobe.
CT Scan: AP 11/12/23- 1. Postoperative changes without overt evidence for bowel ischemia, within limitations of unenhanced technique.
2. Trace bilateral pleural effusions. Bibasilar airspace disease suspicious for pneumonia.
3. Evidence for osseous metastatic disease involving T10, L4 and the right ninth rib.
Echo: 11/06/23- Normal biventricular size and systolic function without regional wall motion abnormality. Estimated LVEF 55-60%.Aortic sclerosis without stenosis. Mild/moderate tricuspid regurgitation. Normal PASP. Estimated pulmonary artery pressure
of 34 mmHg assuming a right atrial pressure of 8 mmHg. No prior study available for comparison.
PFT's:
Reports and relevant images were personally reviewed.
-----
Critical Care time 76 mins -- The patient is admitted for acute critical illness for the treatment of vital organ failure and/or prevention of further life-threatening conditions. Total care includes time spent in review of history, physical exam,
medications, hemodynamic/ventilator parameters, laboratory data, imaging and discussion with house staff, pharmacy, respiratory therapy, it web development consultant, and nursing.
Subjective Dataa
Subjective Data
Date of Service:
Date of Service: November 13, 2023
Chief Complaint: Audio Specialist Follow Up
Subjective:
remains intubated, not on pressors
failed weaning trial yesterday on 12/09
had been tried last week on 23/09
and daughter at bedside
Objective Data
Data Reviewed
Vital Signs / I&O / Oxygen:
Vital Signs
Temp Pulse Resp BP Pulse Ox
100.0 F 69 18 114/73 99
11/13/23 03:39 11/13/23 06:30 11/13/23 06:30 11/13/23 06:30 11/13/23 06:00
Intake and Output
11/12/23 11/13/23 11/14/23
06:59 06:59 06:59
Intake Total 2398.8 / 2478.0 1858.3 / 1858.3
Output Total 1082 / 1582 3428.0 / 3428.0
Balance 1316.8 / 896.0 -1569.7 / -1569.7
SaO2 [CPAP] 98
SaO2 [ASV] 100
SaO2 [A/C] 98
SaO2 99
Nasal Cannula flow liters per 2
minute
Physical Exam
General: Comfortable (Intermittently agitated depending on level of sedation), Other (Left neck changes, left chest wall changes from breast cancer, right upper extremity lymphedema) and Other (Right femoral groin line)
HEENT: Normocephalic and Anicteric
Cardiovascular: S1-S2, Regular Rhythm, Murmur (n), Rub (n), Peripheral Edema (RUE swelling/lymphedema) and Calf Tenderness (n)
Respiratory: Wheeze (n), Crackles (n), Rhonchi (few), Non-Labored Respirations and ET Tube
GI: Soft, Non Distended, Non Tender, NG Tube and Other (Abdominal dressing in place)
Neurology: Awake, Alert, No Motor Deficits (Moving all extremities. Squeezes hand, attempts to raise head with command. Attempting to mouth words. Inconsistent respond to commands), Lethargic (sedated) and Other (at times restless)
Skin: Cyanosis (n), Jaundice (n), Rash (n) and Other (numerous skin lesions over sternum, L side of neck--presumed fungating metastatic disease)
Labs/Micro/Reports
Lab Data
11/13/23 03:47
11/13/23 03:47
Laboratory Results
11/12/23 11/12/23 11/12/23
08:59 12:45 13:05
PT 13.8
INR 1.08
pH 7.36 7.39
pCO2 46 H 44 H
pO2 96 191 H
HCO3 26.0 26.6
O2 Delivery Level
Microbiology
11/08/23 10:28 Blood/Venous Blood Culture - Preliminary
No Growth in 4 days- Final report to follow
11/08/23 10:31 Blood/Venous Blood Culture - Preliminary
No Growth in 4 days- Final report to follow
11/08/23 10:28 Tracheal Aspirate Respiratory Culture - Final
Klebsiella oxytoca
11/08/23 10:28 Tracheal Aspirate Gram Stain - Final
--- NOTE | 2023-11-13 08:02 | PN.DE.MGMTRT ---
Insulin Management
- -
11/13/2023: Diabetes Management Consult Follow up
Patient admitted 11/01 with c/o poor appetite, abdominal pain and N/V for 4-5 days. PMH metastatic breast cancer (treated at [facility] on Ibrance->Afinitor). Patient had experienced weight loss/anorexia with use of Afinitor.
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 On evaluation in the ED, patient was noted for firm, tender and grossly discolored umbilical hernia concerning for incarceration +/- strangulation.
Pt is now POD#10 s/p Exploratory laparotomy, small bowel resection with primary anastomosis and primary umbilical hernia repair.
Diabetes consult requested on 11/10 for Hyperglycemia after initiation of TPN and tube feeds. No known Hx of diabetes, A1C 5.6%, Cr 0.5, eGFR>60
Pt is currently intubated and unable to discuss diabetes mgt. Family at bedside.
Patient was on glycemic protocol while on TPN and trickle tube feeds, transitioned 11/11 to lantus 15 units in AM with novolog 5 units Q 6 hours and low corrective insulin
Blood sugars in range of 123 to 227. Will make no change to current regimen.
Will follow and make further adjustments if necessary
Diabetes History
- -
Pre-Admission Diabetes Regimen
11/12/23 11/13/23
12:45 03:47
Creatinine 0.6 0.5 L
Lab Results
Hemoglobin A1c Cancelled 11/07/23 17:29
Insulin Pump Settings
IP Diabetes Regimen
11/12/23 11/12/23 11/12/23
07:58 11:51 12:45
Glucose 213 H
POC Glucose 138 H 227 H
11/12/23 11/12/23 11/13/23
17:37 22:39 03:47
Glucose 125 H
POC Glucose 178 H 123 H
11/13/23
06:03
Glucose
POC Glucose 184 H
Patient Education
--- NOTE | 2023-11-13 08:15 | W.PN.HOSP.TC ---
Today's Communication/Plan
-
continue attempt to wean from vent
meropenem/micafungin
TPN
appreciate consultants
Assessment / Plan
Assessment / Plan
General: Orally intubated, on mechanical ventilator, OGT placed orally to suction, started on tpn. W Attempting to wiggle toes by moving feet when asked and attempting to give thumbs up as she gave me index finger up
HEENT: Normocephalic, Atraumatic and Moist Mucous Membranes. No JVD
Respiratory: Mechanical vent sounds
Cardiac: Regular Rhythm and S1/S2.
GI: Soft, NT, ND, BS+, NGT to suctions
Musculoskeletal: No Cyanosis , No Edema
Skin: Dry
Neuro: Sedated
Psych: Unable to assess
Ms. Priscilla Dowell is a 78 y o woman with hx metastatic breast CA ([place] [facility] off medications with plans to start lower dose early November) presents to the ER with abdominal pain, nausea and vomiting found to have incarcerated and
strangulated umbilical hernia; s/p OR 11/02, admitted to ICU with septic shock. concern also raised for aspiration pneumonia.
Operative Findings 11/02
Operative Findings:
1. Strangulated umbilical hernia containing 45 cm of necrotic small bowel, fascial defect approximately 4 cm (widened for exposure and anastomosis), healthy proximal and distal bowel
2. Small bowel resection with primary stapled anastomosis using MICKI 80 blue load x2 (Agustín technique), mesenteric defect closed
3. Primary fascial closure under minimal tension with #1 Stratafix
4. Skin stapled, soft tissue packed
CT A/P
IMPRESSION:
1. Postoperative changes without overt evidence for bowel ischemia, within limitations of unenhanced technique.
2. Trace bilateral pleural effusions. Bibasilar airspace disease suspicious for pneumonia.
3. Evidence for osseous metastatic disease involving T10, L4 and the right ninth rib.
Incarcerated / Strangulated Umbilical Hernia
Septic Shock
S/p resection of 45 cm necrotic small bowel with internal anastomosis and fixation on 11/02 with surgery
Aspiration upon intubation with 2L bilious vomiting suctioned, aspiration pneumonitis noted.
Blood cultures no growth to date. Micro respiratory culture with Klebsiella
-Patient was on vancomycin and Zosyn from 11/01-11/06, then continued on Zosyn monotherapy 11/07
-She developed new fevers after stopping antibiotics prompting ID consult. At this point CT A/P recommended but family reufsed.
-empiric meropenem and micafungin started on 11/08
-ID following and resumed antibiotics for continued fevers; and also started micafungin
-family initially refused CT A/P - ordered yesterday without contrast - results above
-patient remains with high residuals/ TF on home
-continue TPN
Acute hypoxemic respiratory failure secondary to ventilator dependent respiratory failure
-Postop patient was maintained on ventilatory support
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
-s/p IV lasix now on PRN IV Lasix per ICU
- Per Dr. Chavez: -11/11/2023 again had goals of care discussion with Mr. Hendricks at her bedside. I informed that he should start discussing with his family in the off chance if unable to extubate with they want trach PEG. I also informed him as he uses
AI/googles everything to look up mortality rate within the first year in patients which are recently trached and PEG.
-daily SAT/SBT; vent management per Pulm. GO discussions on-going
Metastatic Breast Cancer
-Followed [place] [facility] [place]. Currently on no active therapy / medications.
-On med holiday for a month with plan to revisit / restart meds in early November.
Acute blood loss anemia from surgery
11/11/2023 received 1 unit PRBC with appropriate rise
-Hg 7.2 this AM (yesterday afternoon likely outlier)
Thrombocytosis
-Reactive/infection related as well, monitor
Hyponatremia
Resolved
Hypokalemia
Replete as needed
REINA - resolved
Likely secondary to sepsis/hypoperfusion/ischemic ATN. Now on IV fluids and pressor support.
Monitor renal output. Avoid nephrotoxins hypotension.
Renally dose medications
Stage 1 buttock pressure injury
Wound care
Pressure offloading
DVT Prophylaxis: SCDs
Full code
-Overall prognosis at this time remains grim
Total critical care time 40 mins .
Anticipated Discharge: > 48 hours
Subjective/Interval History
-
Date of Service: November 13, 2023
patient appears more calm this morning
following commands
Objective Data
-
Labs:
Laboratory Results
11/13/23
03:47
WBC 7.1
Hgb 7.2 L
Hct 22.0 L
Plt Count 335
Sodium 139
Potassium 4.5
Chloride 108 H
Carbon Dioxide 27
BUN 41 H
Creatinine 0.5 L
Glucose 125 H
Calcium 9.0
Total Bilirubin 0.6
AST 63 H
ALT 36 H
Alkaline Phosphatase 245 H
Vital Signs:
Vital Signs
Temp Pulse Resp BP Pulse Ox
99.2 F 69 18 114/73 99
11/13/23 07:53 11/13/23 06:30 11/13/23 06:30 11/13/23 06:30 11/13/23 06:00
I&O
11/12/23 11/13/23 11/14/23
06:59 06:59 06:59
Intake Total 2398.8 / 2478.0 1858.3 / 1858.3
Output Total 1082 / 1582 3428.0 / 3428.0
Balance 1316.8 / 896.0 -1569.7 / -1569.7
Review of Systems
-
History Source: Patient
All other systems: Reviewed and negative
Physical Exam
-
General: Intubated
HEENT: PERRLA
Respiratory: Negative Wheezes
Cardiac: Regular Rhythm and S1/S2
GI: Other (frankie c/d/i)
Musculoskeletal: No Edema
Neuro: Awake and Alert
Psych: Anxious
Data Reviewed
-
Diagnostic Radiology: Report Reviewed by me
[2023-11-13] MEDS: LANTUS 0.15 UNITS SC (08:26)
[2023-11-13] MEDS: NSS (PRESERVATIVE FREE) 10 ML IV (08:26)
[2023-11-13] MEDS: PROTONIX IV 40 MG IV (08:26)
--- NOTE | 2023-11-13 08:36 | W.PN.ID1 ---
Date of Service
Date of Service: November 13, 2023
Today's Communication
check covid ag
stop micafungin
continue meropenem to 7 days
Assessment / Plan
Ongoing Fevers - intermittent, core route
Strangulated Umbilical Hernia s/p resection with anastomosis 11/03/23
Resolved shock
Pneumonia due to K oxytoca
H/o aspiration
H/o leukopenia/neutropenia
- ongoing fevers by the core route, transient leukocytosis/thrombocytosis yesterday resolved today, CT abd/pelvis limited without contrast
- check covid ag
- unusual for hgb to increase a full point and then drop again, changes on the 12:45 cbc were not sustained on repeat draw
- drug fever from antibiotics unlikely given desperate classes
- tumor fever also on the differential
- 11/07 sputum cx: K oxytoca - sensitive to most antibiotics
- blood cultures x2 from 11/07 in progress no growth to date
- recent negative UA
- continue meropenem day 5 of 7
- stop micafungin
- follow clinically
Agree that short term to medium term prognosis is guarded. Doubt patient would be a candidate to restart chemotherapy in the short term due to frailty and much less likely if unable to successfully wean from the ventilator.
Chief Complaint
-: Fever, Leukocytosis and Other (shock)
Subjective / Review of Systems
intermittent fevers ongoing via core route
bp currently stable off of antibiotics
waxing and waning leukocytosis - today resolved - yesterday afternoon as high as 14.3, plt currently normal were elevated yesterday afternoon
left shift persists
ESR yesterday 133
troponin leak overnight - peaked at 0.1
minimal transaminitis, alk phos now improving
CT without contrast - limited study - no kamar abscesses appreciated
discussed with and adult daughter my concerns about frailty - unsure that she will be a candidate for further chemotherapy particularly if unable to be weaned from the ventilator
Vital Signs / Physical Exam
Vital Signs
Vital Signs
Temp Pulse Resp BP Pulse Ox
99.2 F 69 18 114/73 100
11/13/23 07:53 11/13/23 06:30 11/13/23 06:30 11/13/23 06:30 11/13/23 08:14
Physical Exam
Constitutional: No Acute Distress and Chronically Ill
Cardiovascular: Regular Rate and S1/S2; Negative Murmur or Rub
Pulmonary: Clear and Symmetric; Negative Wheezes or Rales
Gastrointestinal: Soft, Non Tender, Non Distended and Normal Bowel Sounds
Skin: Warm and Dry; Negative Rash or Jaundice
Wound: Other (moderate amount of serous drainage from the surgical site)
Objective Data
Lab Data
Lab Results
11/13/23 03:47
11/13/23 03:47
ESR 133 mm/hour (0-20) H 11/12/23 04:00
PT 13.8 Sec (11.4-14.6) 11/12/23 12:45
INR 1.08 11/12/23 12:45
APTT 27.5 Sec (23.4-35.0) 11/02/23 20:30
Estimated Creat Clear 65 ml/min 11/13/23 03:47
Lactic Acid Cancelled 11/12/23 01:54
Total Bilirubin 0.6 mg/dl (0.2-1.3) 11/13/23 03:47
AST 63 U/L (14-36) H 11/13/23 03:47
ALT 36 U/L (0-35) H 11/13/23 03:47
Alkaline Phosphatase 245 U/L (38-126) H 11/13/23 03:47
C-Reactive Protein 64.30 mg/L (0.0-10.00) H 11/12/23 04:00
Most recent labs reviewed.
Micro Results:
11/08/23 10:28 Blood Culture - Preliminary
Blood/Venous No Growth in 4 days- Final report to follow
11/08/23 10:31 Blood Culture - Preliminary
Blood/Venous No Growth in 4 days- Final report to follow
11/08/23 10:28 Respiratory Culture - Final
Tracheal Aspirate Klebsiella oxytoca
Gram Stain - Final
11/02/23 20:37 Blood Culture - Final
Blood/Venous No Growth - Final Report
11/02/23 20:37 Blood Culture - Final
Blood/Venous No Growth - Final Report
--- NOTE | 2023-11-13 09:00 | PTCARENOTE ---
pt awake and agitated in am , on Precedex gtt , avoiding giving sedation for pt to wean on vent later today , NSR on monitor , BP 125/69 , sats at 100% on 40% fio2 , butcher with nai urine , NGT with green drainage , abdomen is soft , tender , labs
noted
--- NOTE | 2023-11-13 10:44 | W.PN.GS2 ---
Today's Communication / Plan
-
-- No changes from surgical perspective
-- NPO, NGT
-- TPN, monitor LFTs
-- Goals of care on going
Assessment / Plan
-
Assessment: Patient is an 78 yo F with breast CA and treatment at [facility] [place] p/w strangulated umbilical hernia
POD#10 Exploratory laparotomy, small bowel resection with primary anastomosis, primary umbilical hernia repair
ID following with us for abx
CXR with bl infiltrates, pulm following. Aspirated gastric contents early in admission
VDRF, weaning as per pulm
CT A/P (11/11): no significant bowel distension or radiographic signs of obstruction, no significant fluid around the anastomosis, no pneumatosis or free air, bl pleural effusions with airspace disease concerning for pneumonia, bony mets
Off pressors, hypertensive with vent weaning this am. Tachycardia resolved.
Acute on chronic anemia, no signs of active bleeding
WBC normalized
Plan:
-- No changes from surgical perspective
-- NPO, NGT
-- TPN, monitor LFTs
-- Goals of care on going
Subjective Data
-
Date of Service: November 13, 2023
Intubated and sedated. Liquid BM with enema yesterday. No reports of increasing NGT outputs. Tube feeds previously held due to high residuals. Febrile to 101 yesterday. Continues on vent.
Objective Data
-
Intake and Output
11/12/23 11/13/23 11/14/23
06:59 06:59 06:59
Intake Total 2398.8 / 2478.0 1858.3 / 1858.3
Output Total 1082 / 1582 3428.0 / 3428.0
Balance 1316.8 / 896.0 -1569.7 / -1569.7
Intake:
Oral fluids 0 / 0
IV fluids (Total) 584.8 / 618.0 604.3 / 604.3
KVO 110 / 110
Precedex gtt 360.6 / 360.6
Prescedex 530.7 / 552.2 129.0 / 129.0
insulin 54.1 / 55.8 4.7 / 4.7
TPN/PPN 1104 / 1150 1104 / 1104
Tube feeding 240 / 240
Feeding tube flush amount 120 / 120
Amount instilled into GI Tube ( 100 / 100 150 / 150
Total)
Boelus Sump 100 / 100 150 / 150
Blood Product Amount Infused ( 250 / 250
mL)
Packed Rbc Leukoreduced Unit 250 / 250
[id number]
Output:
Gastrointestinal tube output ( 600 / 600
Total)
Boelus Sump 600 / 600
Urine, Osorio 1082 / 1582 2828.0 / 2828.0
Vital Signs
Temp Pulse Resp BP Pulse Ox
99.2 F 69 18 114/73 100
11/13/23 07:53 11/13/23 06:30 11/13/23 06:30 11/13/23 06:30 11/13/23 08:14
Lab Results
11/13/23 03:47
11/13/23 03:47
Calcium 9.0 mg/dl (8.4-10.2) 11/13/23 03:47
Phosphorus 3.2 mg/dl (2.5-4.5) 11/12/23 04:00
Magnesium 2.0 mg/dl (1.6-2.3) 11/12/23 12:45
Total Bilirubin 0.6 mg/dl (0.2-1.3) 11/13/23 03:47
Direct Bilirubin 0.6 mg/dl (0.0-0.4) H 11/03/23 04:20
AST 63 U/L (14-36) H 11/13/23 03:47
ALT 36 U/L (0-35) H 11/13/23 03:47
Alkaline Phosphatase 245 U/L (38-126) H 11/13/23 03:47
Total Protein 4.8 g/dl (6.3-8.2) L 11/13/23 03:47
Albumin 2.2 g/dl (3.5-5.0) L 11/13/23 03:47
Physical Exam
-
Gen: NAD
HEENT: NGT with gastric outputs
Abd: soft, mild distension, no tympany, non-peritoneal (limited by vent status, though no firmness or wincing)
[2023-11-13 11:48] LABS: Glucose - Point of Care 170 mg/dl (70-99)
[2023-11-13 12:51] LABS: COVID-19 Antigen Negative (Negative)
[2023-11-13] MEDS: TYLENOL ORAL SOLUTION 650 MG TUBE ×2 (13:04→17:22)
[2023-11-13] MEDS: SEROQUEL 25 MG TUBE ×2 (13:05→20:47)
--- NOTE | 2023-11-13 13:22 | HOSPNOTE ---
Updated per nursing staff, family still needs time in regards to hospice care. The plan is for hospice to continue to follow and support family if needed. Updated that family will most likely wait until the end of the week to make any decisions.
--- NOTE | 2023-11-13 15:29 | PTCARENOTE ---
Addendum entered by Eufemia Tyler RN 11/13/23 16:53:
pt weaning from 10:45
Original Note:
pt now on vent wean since 1145 , pt is on CPAP and PS 5/5/40% , she is tolerating well with sats of 100% , she has been not given any anti anxieties or narcotics to help with vent wean and possible delirium , pt was started on 25mg PO Seroquel and
is now more relaxed and sleeping at times , she continues with Precedex gtt at 1.3 mcg , pt and daughter in visiting , they spoke in length with Dr Navas in ICU rounds regarding patients chronic conditions and outcomes , plan for now is to
wean pt on vent as patient is able to tolerate .
--- NOTE | 2023-11-13 16:16 | CHAP ---
Emotional and spiritual support provided for Ms. Dowell and family at bedside. They had questions about getting a surplus property disposal agent for [facility] but decided to wait. They are aware of mortgage loan processor services and availability. Will follow
[2023-11-13 17:07] LABS: Glucose - Point of Care 157 mg/dl (70-99)
[2023-11-13] MEDS: LOVENOX 40 MG SC (17:22)
--- NOTE | 2023-11-13 19:40 | PTCARENOTE ---
Resumed care of pt this evening. Received pt intubated and sedated on precedex gtt infusing via rt femoral central line. Pt also receiving TPN gtt for nutritional support. Pt awakens to tactile stimuli and tracts with eyes. Pt moves all 4
extremities but movement and demeanor does not appear to be intelligible. Pupils are equal and reactive to light. Pt is NSR on tele monitor, has +2 pitting GA edema, and has weak but palpable pedal pulses. Pt has a #7 ETT, 22cm at the left lip
connected to ASV vent settings. Pt is satting at 100% on current vent settings. On auscultation pt lungs sound diminished, rhonchorous, and coarse TO. Pt abdomen is round, obese, and has hypoactive BS. Pt incontinent of bladder, purewick external
cath in place draining nai colored urine. Midline abdominal dressing C/D/I. Protective sacral foam dressing applied.
[2023-11-13] MEDS: Parenteral Nutrition, Central 1110 IV (20:36)
[2023-11-13 23:30] LABS: Glucose - Point of Care 105 mg/dl (70-99)
[2023-11-14] VITALS (27 sets, daily range): BP systolic 99–148; BP diastolic 53–92; BMI 24.7
[2023-11-14] MEDS: NOVOLOG FLEXPEN 5 UNITS SC ×4 (00:20→18:14)
[2023-11-14] MEDS: NOVOLOG FLEXPEN-LOW RESISTANCE SC ×4 (00:20→18:13)
--- NOTE | 2023-11-14 00:30 | PTCARENOTE ---
Upon reassessment pt continues to tolerate vent settings, satting at 100% pulse ox. Pt's mentation unchanged.
[2023-11-14] MEDS: TYLENOL ORAL SOLUTION 650 MG TUBE ×4 (01:03→18:18)
[2023-11-14] MEDS: PRECEDEX 100 IV ×3 (03:54→16:53)
[2023-11-14] MEDS: MERREM 500 MG IV ×4 (04:08→21:38)
[2023-11-14] MEDS: STERILE WATER FOR INJECTION 10 ML IV ×4 (04:08→21:38)
[2023-11-14 04:23] LABS: % Basophils 0.6 % (0-2); % Eosinophils 3.3 % (0-6); % Immature Granulocytes 0.8 % (0-0.5); % Lymphocytes 11.6 % (20.5-51.1); % Monocytes 7.1 % (1.7-9.3); % Neutrophils 76.6 % (42.2-75.2); Absolute Eosinophils 0.2 10^3/uL (0-0.7); Absolute Immature Granulocytes 0.1 10^3/uL (0-0.05); Absolute Lymphocytes 0.7 10^3/uL (1.2-3.4); Absolute Monocytes 0.5 10^3/uL (0.1-0.6); Absolute Neutrophils 4.9 10^3/uL (1.4-6.5); Hematocrit 22.8 % (37.0-47.0); Hemoglobin 7.4 g/dL (12.0-16.0); Mean Corp Hgb Conc. 32.5 g/dL (33.0-37.0); Mean Corpuscular Hgb 29.2 pg (27.0-31.0); Mean Corpuscular Volume 90.1 fL (81.0-99.0); Nucleated Red Blood Cells % 0 %; Platelet Count 326 10^3/uL (130-400); Red Blood Cell Count 2.53 10^6/uL (4.20-5.40); Red Cell Dist. Width 19.9 % (11.5-14.5); White Blood Cell Count 6.4 10^3/uL (4.8-10.8)
[2023-11-14 05:20] LABS: Blood Urea Nitrogen 36 mg/dl (7-17); Calcium 8.7 mg/dl (8.4-10.2); Carbon Dioxide 25 mmol/L (22-30); Chloride 112 mmol/L (98-107); Estimated Creatinine Clearance 65 ml/min; Glucose 110 mg/dl (70-99); Magnesium 2.1 mg/dl (1.6-2.3); Potassium 4.3 mmol/L (3.5-5.1); Sodium 139 mmol/L (135-145); eGFR > 60.00
[2023-11-14 05:39] LABS: Glucose - Point of Care 130 mg/dl (70-99)
--- NOTE | 2023-11-14 07:14 | W.PN.INTV ---
Today's Communication / Plan
Recommendations
SBT with plan to extubate, confirmed DNR status post extubation
BIPAP post extubation PRN
Continue further management/supportive care
Discussed with at bedside
Assessment
-
Patient is an 78 year old F with history of metastatic breast cancer (treated at [facility] on Ibrance->Afinitor) presenting to ED complaining of poor appetite, abdominal pain and N/V x 4-5 days. Of note, she had experienced weight
loss/anorexia with use of Afinitor. She began to complain of abdominal discomfort about 2 days ago. Today, family noted discoloration associated with her long standing chronic umbilical hernia. On evaluation in the ED, patient is noted to have
firm, tender and grossly discolored umbilical hernia concerning for incarceration +/- strangulation. BP 70s, Tmax 100.9, WBC 18, lactate 6, creat 1.9. She was seen by Colorectal Surgery who discussed benefit of urgent surgical intervention. She is
placed on levophed, and empiric abx and admitted to ICU.
Septic shock on pressors
Weaned off as of 11/09
Incarcerated umbilical hernia wtih concern for ischemic bowel s/p resection with anastomosis 11/03/23
Post-op VDRF
Aspiration PNA upon intubation, 2L bilious vomiting suctioned s/p NGT likely obstruction from hernia
Suspected lung injury, aspiration pneumonitis, culture positive Klebsiella oxytocin (S to Zosyn)
Possible component of pulmonary edema
Improved with diuresis
REINA, improved
Leukocytosis, improved
Lactic acidosis, improved
Hyponatremia, improved
Hyperglycemia, requiring insulin drip
Persistent fevers
Anemia, requiring transfusion 11/10
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
Metastatic breast cancer
Diagnosed 2016
On chemotherapy, held recently months ago due to significant side effects, neutropenia/leukopenia
Apparently refused port placement, per
Was being considered for hospice, palliative care at one point, per
Plan
At this time, patient remains critically ill, intermittently agitated.
Pain/sedation: PRN
RASS goals: 0
Stop fent/ativan, continue seroquel BID
Maintained on precedex as tolerated (could be cause of intermittent fevers)--wean today to off
Tylenol scheduled
Labile blood pressure and heart rate noted, seems to be related to agitation
Responding to Lasix given this morning
SBT trials ongoing
Was placed on CPAP 5, pressure support of 8 11/12/23. Developed worsening tachycardia, hypertension, rapid shallow breathing, then bradycardia
Has been tried on 23/09 past week with no reduction in pressure that was tolerated
Ongoing daily trials reviewed with family
Doing well, will plan to extubate and confirmed with if she were to decompensate we would not re-intubate
BPAP post extubation PRN
Chest x-ray today with persistent patchy infiltrate, heart failure versus aspiration pneumonitis
Remains on abx
Repeat sputum culture with +kleb from aspiration 11/08/23
Moving forward
Continue with CPAP wean, resumed today 09/23, will decrease pressure support as able
I am not hopeful for extubation today
Chest x-ray overall improved with diuresis but there is a patchy infiltrate on the right side
Will give Lasix intermittently
Ongoing daily assessment for extubation.
Required pressors: pressors off as of 11/09
Cardiac history reviewed--none
Echocardiogram with normal biventricular function, could not assess pulmonary artery pressures
Monitor on telemetry
Suspected incarcerated bowel, on exam/severe findings
CRS on board, s/p resection with anastomosis 11/03/23
NG tube output decreased/surgery team following, no further interventions offered at this point
Aspiration precautions, HOB > 30 degrees
GI prophylaxis
Continue TPN per surgery
Tube feeds started 11/10, significant increased residuals overnight, held at this time
Fevers noted
Check cultures through A-line and peripheral culture
Tracheal culture gram-negative bacilli, Klebsiella, sensitive to Zosyn
Unfortunately, right groin line remains due to no additional access available. TPN continues
These risks were reviewed at length multiple times throughout hospital stay with
Possible colitis, ischemic bowel, aspiration PNA on presentation
ID following. Meropenem, micafungin
CT AP reviewed, negative for collection 11/12/23
REINA present, no history of renal disease--improved
Creatinine normal
Replete potassium
TPN continue as per surgery
Lasix therapy intermittently
Hemoglobin noted, slowly trending down
DVT prophylaxis as assessed based on risk, including mechanical SCDs
Can transfuse if indicated for Hb <7, plt < 10
INR WNL
Maintain active type and screen but would minimize transfusion given risk for lung injury
Transfuse 1 unit on 11/10
Transfuse for hemoglobin less than 7
Reviewed with and daughter 11/11
No prior h/o diabetes or thyroid disease
Elevated blood sugars noted since starting TPN
Requiring initiation of insulin drip--bridged to SQ
Continue to follow hyperglycemic protocol
Lines- PICC attempted on L, could not thread, R fem line attempted (by myself >60 mins) could not thread. She has RUE lymphedema and L sided neck metastatic disease
CVC needed but having difficult access sites. IR placed right groin line
Unable to place additional access per interventional radiology 11/05 (metastatic breast cancer in the left involving the neck and right upper extremity lymphedema
According to , patient refused port placement in the past
Discussed worst-case scenario where we may have to accept chronic right groin placement but this would put patient at risk for infection
This has been reviewed on a daily basis multiple times with
IR has evaluated 3 times for access, no practical solution. Will need to maintain right groin line. Site looks okay
To date, has stated that if she were to develop cardiac arrest, life-threatening cardiac arrhythmias, that he would not want chest compressions, shock
Therefore patient is DNR
Prognosis guarded/poor
DVT prophylaxis: Continue with pharmacological and mechanical
GI prophylaxis: Remains on Protonix
Reviewed at length with critical care nursing, respiratory care, primary service, surgery
Reviewed with /daughter on rounds
Family Discussions
Karen 11/13/23- extensive conversation today on rounds regarding her progress in weaning, in my opinion is not significant enough to safely extubate. She is day #11, I think that at this point if she has not made significant progress, she is unlikely
to remain without full vent support. We will need to discuss in next 24-48 hours if family would like to move forward with comfort measures.
Jamal - I reviewed again with and daughter on 11/11 that I do not think patient has adequate conditioning from a respiratory standpoint to successfully be extubated and return to home, especially in the setting of metastatic breast cancer,
incarcerated bowel requiring emergent surgery, persistent fevers, prolonged mechanical ventilation.
Reviewed with patient and son that I do not think we will be able to liberate her from the ventilator. They have made it clear that they do not want tracheotomy.
I have been very kamar with the , son and daughter on multiple occasions throughout this week. Do not think patient will be able to make it back home in her prior functional state
In fact, I suspect she will require long-term nursing care/rehabilitation if successfully extubated
Had extensive discussion with on daily basis (sometimes 2-3 times a day)-Reviewed again today with son and poor prognosis 11/10 in the PM
, son and daughter have confirmed on a variety of occasions that tracheotomy is not an option
They seem to have focused on '14-day' number given to them for ET tube/mechanical ventilation prior to tracheotomy
Family would like to take opportunity for extubation, even if the risk for failure is high (i.e respiratory failure, cardiac arrest).
I have told him on a daily basis that she is not ready for extubation, and is not ready today. They want to avoid having her on the ventilator
Discussed potential outcomes which would include 1) extremely poor prognosis, transition to comfort while on the vent, withdrawal of care/comfort. 2) attempted extubation with high risk for failure, development of progressive respiratory distress,
cardiac arrhythmias, cardiac arrest with prompt transition to comfort. 3) attempted extubation with initial success but subsequent setbacks in the days/weeks that would prompt evaluation for rehospitalization, feeding tube, reintubation, invasive
procedures. states he would not want patient to be placed back on life support if fails extubation in the short-term (hours to few weeks). Family has suggested that ideally she would be at home and at home if it came to that.
Unfortunately, has misinterpreted/misconstrued many factual statements that we have made as a provider team. Therefore, I have tried to be consistent in my explanation of prognosis, plan for the day and I try to do this in the presence of
critical care nursing, respiratory care and son/daughter when able.
11/05/2023: Extensive update with at the bedside. He does not want his 1 daughter Samreen to be updated as she has difficulty processing information at that time, gets very anxious. Other 2 children are to be updated (Luna Plascencia). All
questions answered
Karen 11/03/23- I had a long discussion with the and daughter at bedside regarding decision making. Initially patient had declined surgery as she did not want to live with a colostomy but then subsequently did not change her code status
despite urgency of the situation. She then changed her mind this morning stating she does want to live and would undergo surgery. The family did feel she was not quite sure/had cognitive impairment on presentation, but she seems more clear to them
this morning. It is difficult to discuss with her as she has very severe hearing impairment and does not use hearing aids. I answered all questions from including her future oncologic care, that he will need to discuss with their
oncologist for next steps. They are now agreeing for surgery and care team was updated in further discussions.
Diagnostic Data
Chest X-Ray: 11/12/23- Stable bilateral airspace disease/pneumonia.
11/10/23- Findings/impression: Endotracheal tube and nasogastric tube remain in place. Persistent interstitial and subtle airspace opacity is again demonstrated bilaterally. However, slightly improved aeration is suggested especially in the right
midlung zone. Slightly irregular retrocardiac opacity is essentially unchanged (atelectasis versus pneumonia).
No pneumothorax. The cardiac mediastinal margins are stable.
11/09/23- Diffusely increased interstitial and patchy groundglass opacities bilaterally, similar in appearance compared to the prior study.
11/07/23- Stable support devices. Bilateral airspace opacities with slight worsening in the left upper lobe.
CT Scan: AP 11/12/23- 1. Postoperative changes without overt evidence for bowel ischemia, within limitations of unenhanced technique.
2. Trace bilateral pleural effusions. Bibasilar airspace disease suspicious for pneumonia.
3. Evidence for osseous metastatic disease involving T10, L4 and the right ninth rib.
Echo: 11/06/23- Normal biventricular size and systolic function without regional wall motion abnormality. Estimated LVEF 55-60%.Aortic sclerosis without stenosis. Mild/moderate tricuspid regurgitation. Normal PASP. Estimated pulmonary artery pressure
of 34 mmHg assuming a right atrial pressure of 8 mmHg. No prior study available for comparison.
PFT's:
Reports and relevant images were personally reviewed.
-----
Critical Care time 36 mins -- The patient is admitted for acute critical illness for the treatment of vital organ failure and/or prevention of further life-threatening conditions. Total care includes time spent in review of history, physical exam,
medications, hemodynamic/ventilator parameters, laboratory data, imaging and discussion with house staff, pharmacy, respiratory therapy, crossing tender, and nursing.
Subjective Dataa
Subjective Data
Date of Service:
Date of Service: November 14, 2023
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
Subjective:
no acute events ON
remains intubated
PS trials ongoing
at bedside
Objective Data
Data Reviewed
Vital Signs / I&O / Oxygen:
Vital Signs
Temp Pulse Resp BP Pulse Ox
97.8 F 60 18 122/57 99
11/14/23 03:11 11/14/23 06:00 11/14/23 06:00 11/14/23 06:00 11/14/23 06:00
Intake and Output
11/13/23 11/14/23 11/15/23
06:59 06:59 06:59
Intake Total 1858.3 / 1925.8 1625.2 / 1625.2
Output Total 3428.0 / 3478.0 500 / 500
Balance -1569.7 / -1552.2 1125.2 / 1125.2
SaO2 [CPAP] 99
SaO2 [ASV] 100
SaO2 [A/C] 98
SaO2 99
Nasal Cannula flow liters per 2
minute
Physical Exam
General: Comfortable (Intermittently agitated depending on level of sedation), Other (Left neck changes, left chest wall changes from breast cancer, right upper extremity lymphedema) and Other (Right femoral groin line)
HEENT: Normocephalic and Anicteric
Cardiovascular: S1-S2, Regular Rhythm, Murmur (n), Rub (n), Peripheral Edema (RUE swelling/lymphedema) and Calf Tenderness (n)
Respiratory: Wheeze (n), Crackles (n), Rhonchi (few), Non-Labored Respirations and ET Tube
GI: Soft, Non Distended, Non Tender, NG Tube and Other (Abdominal dressing in place)
Neurology: Awake, Alert, No Motor Deficits (Moving all extremities. Squeezes hand, attempts to raise head with command. Attempting to mouth words. Inconsistent respond to commands), Lethargic (sedated) and Other (at times restless)
Skin: Cyanosis (n), Jaundice (n), Rash (n) and Other (numerous skin lesions over sternum, L side of neck--presumed fungating metastatic disease)
Labs/Micro/Reports
Lab Data
11/14/23 04:05
11/14/23 04:05
Microbiology
11/08/23 10:28 Blood/Venous Blood Culture - Final
No Growth - Final Report
11/08/23 10:31 Blood/Venous Blood Culture - Final
No Growth - Final Report
--- NOTE | 2023-11-14 07:35 | PTCARENOTE ---
Received pt intubated with bilateral soft wrist restraints intact. She opened her eyes and KEENE with continued verbal and tactile stimuli. Speaking directly into her right ear she was informed of the plan of care to hopefully extubate today. Right
femoral TL CVC with distal port flushed and patent. Proximal port with Precedex @ 1mcg/kg/hr, Medial port with TPN @46ml/hr. Dressing CDI. Weak peripheral pulses. +2 anasarca. right upper extremity +3 edema, Left U/E +3 edema. She is mouthing words.
#7 ETT secured 22cm left lip. Loosened ETT straps to accommodate 2 finger tips. Tolerating ASV 100%MV, FiO2 .40, +5 peep. Breath sounds dim in the left base and coarse rhonchi throughout. Clear oral secretions. Moist non-productive cough. Poor
dentition. Left nare [place] sump clamped at this time. Connected to LIWS draining green bilious secretions. Absent BSX4. Purwick intact. Clear nai urine. Left hand silicone border dressing CDI. Aspiration precautions maintained. Right upper
extremity restrictions maintained. Will continue to monitor. Supportive care maintained.
[2023-11-14] MEDS: NSS (PRESERVATIVE FREE) 10 ML IV (08:06)
[2023-11-14] MEDS: PROTONIX IV 40 MG IV (08:07)
[2023-11-14] MEDS: LANTUS 0.15 UNITS SC (08:08)
[2023-11-14] MEDS: SEROQUEL 25 MG TUBE ×2 (08:08→15:52)
--- NOTE | 2023-11-14 08:24 | PN.DE.MGMTRT ---
Insulin Management
- -
11/14/2023: Diabetes Management Consult Follow up
Patient admitted 11/01 with c/o poor appetite, abdominal pain and N/V for 4-5 days. PMH metastatic breast cancer (treated at [facility] on Ibrance->Afinitor). Patient had experienced weight loss/anorexia with use of Afinitor.
She began to complain of abdominal discomfort about 2 days [employer]. On evaluation in the ED, patient was noted for firm, tender and grossly discolored umbilical hernia concerning for incarceration +/- strangulation.
Pt is now POD#11 s/p Exploratory laparotomy, small bowel resection with primary anastomosis and primary umbilical hernia repair.
Diabetes consult requested on 11/10 for Hyperglycemia after initiation of TPN and tube feeds. No known Hx of diabetes, A1C 5.6%, Cr 0.5, eGFR>60
Pt is currently intubated and unable to discuss diabetes mgt. Family at bedside.
Patient was on glycemic protocol while on TPN and trickle tube feeds, she did not tolerate tube feeds at that time, transitioned 11/11 to lantus 15 units in AM with novolog 5 units Q 6 hours and low corrective insulin
Blood sugars in range of 105 to 184. Will make no change to current regimen.
Will follow and make further adjustments if necessary
Diabetes History
- -
Pre-Admission Diabetes Regimen
11/14/23
04:05
Creatinine 0.4 L
Lab Results
Hemoglobin A1c Cancelled 11/07/23 17:29
Insulin Pump Settings
IP Diabetes Regimen
11/13/23 11/13/23 11/13/23
11:37 16:56 23:18
Glucose
POC Glucose 170 H 157 H 105 H
11/14/23 11/14/23
04:05 05:28
Glucose 110 H
POC Glucose 130 H
Patient Education
--- NOTE | 2023-11-14 08:51 | W.PN.HOSP.TC ---
Today's Communication/Plan
-
-see plan
Assessment / Plan
Assessment / Plan
Ms. Priscilla Dowell is a 78 y o woman with hx metastatic breast CA (follows at [facility], currently off medications with plans to start lower dose early November) presents to the ER with abdominal pain, nausea and vomiting found to have incarcerated and
strangulated umbilical hernia; s/p OR 11/02, admitted to ICU with septic shock. concern also raised for aspiration pneumonia.
Operative Findings 11/02
Operative Findings:
1. Strangulated umbilical hernia containing 45 cm of necrotic small bowel, fascial defect approximately 4 cm (widened for exposure and anastomosis), healthy proximal and distal bowel
2. Small bowel resection with primary stapled anastomosis using MICKI 80 blue load x2 (Agustín technique), mesenteric defect closed
3. Primary fascial closure under minimal tension with #1 Stratafix
4. Skin stapled, soft tissue packed
CT A/P
IMPRESSION:
1. Postoperative changes without overt evidence for bowel ischemia, within limitations of unenhanced technique.
2. Trace bilateral pleural effusions. Bibasilar airspace disease suspicious for pneumonia.
3. Evidence for osseous metastatic disease involving T10, L4 and the right ninth rib.
Incarcerated / Strangulated Umbilical Hernia
Septic Shock
S/p resection of 45 cm necrotic small bowel with internal anastomosis and fixation on 11/02 with surgery
Aspiration upon intubation with 2L bilious vomiting suctioned, aspiration pneumonitis noted.
Blood cultures no growth to date. Micro respiratory culture with Klebsiella
-Patient was on vancomycin and Zosyn from 11/01-11/06, then continued on Zosyn monotherapy 11/07
-She developed new fevers after stopping antibiotics prompting ID consult. At this point CT A/P recommended but family reufsed.
-empiric meropenem and micafungin started on 11/08
-ID following and resumed antibiotics for continued fevers; and also started micafungin
-family initially refused CT A/P - ordered yesterday without contrast - results above
-patient remains with high residuals/ TF on home
-continue TPN
Acute hypoxemic respiratory failure secondary to ventilator dependent respiratory failure
-Postop patient was maintained on ventilatory support
-Ongoing vent weaning effort per branch office manager
-s/p IV lasix now on PRN IV Lasix per ICU
- Per Dr. Chavez: -11/11/2023 again had goals of care discussion with Mr. Hnedricks at her bedside. I informed that he should start discussing with his family in the off chance if unable to extubate with they want trach PEG. I also informed him as he uses
AI/googles everything to look up mortality rate within the first year in patients which are recently trached and PEG.
-daily SAT/SBT; vent management per Pulm. [facility] discussions on-going
Metastatic Breast Cancer
-Followed at [facility]. Currently on no active therapy / medications.
-On med holiday for a month with plan to revisit / restart meds in early November.
Acute blood loss anemia from surgery
11/11/2023 received 1 unit PRBC with appropriate rise
-Hg stable
Thrombocytosis
-Reactive/infection related as well, monitor
Hyponatremia
Resolved
Hypokalemia
Replete as needed
REINA - resolved
Likely secondary to sepsis/hypoperfusion/ischemic ATN. Now on IV fluids and pressor support.
Monitor renal output. Avoid nephrotoxins hypotension.
Renally dose medications
Stage 1 buttock pressure injury
Wound care
Pressure offloading
DVT Prophylaxis: lovenox
Full code
-Overall prognosis at this time remains grim
Total critical care time 40 mins .
Anticipated Discharge: > 48 hours
Subjective/Interval History
-
Date of Service: November 14, 2023
awake/alert
following commands
trying to communicate
Objective Data
-
Labs:
Laboratory Results
11/14/23
04:05
WBC 6.4
Hgb 7.4 L
Hct 22.8 L
Plt Count 326
Sodium 139
Potassium 4.3
Chloride 112 H
Carbon Dioxide 25
BUN 36 H
Creatinine 0.4 L
Glucose 110 H
Calcium 8.7
Vital Signs:
Vital Signs
Temp Pulse Resp BP Pulse Ox
97.7 F 66 20 122/57 99
11/14/23 07:33 11/14/23 08:41 11/14/23 08:41 11/14/23 06:00 11/14/23 08:41
I&O
11/13/23 11/14/23 11/15/23
06:59 06:59 06:59
Intake Total 1858.3 / 1925.8 1625.2 / 1625.2
Output Total 3428.0 / 3478.0 500 / 500
Balance -1569.7 / -1552.2 1125.2 / 1125.2
Review of Systems
-
Unable to obtain full review of systems at this time due to: Patient Intubation
Physical Exam
-
General: Intubated
HEENT: PERRLA
Respiratory: Negative Wheezes
Cardiac: Regular Rhythm and S1/S2
GI: Other (gauze c/d/i)
Musculoskeletal: No Edema
Neuro: Awake and Alert
Psych: Anxious
Data Reviewed
-
Diagnostic Radiology: Report Reviewed by me
Labs: Labs Reviewed by me
--- NOTE | 2023-11-14 09:17 | W.PN.ID1 ---
Date of Service
Date of Service: November 14, 2023
Today's Communication
day 6 of 7 of meropenem
prognosis appears grim
Assessment / Plan
Fevers and borderline hypothermia - intermittent, core route
Strangulated Umbilical Hernia s/p resection with anastomosis 11/03/23
Resolved shock
Pneumonia due to K oxytoca
H/o aspiration
H/o leukopenia/neutropenia
- fever resolved however running borderline hypothermia - continue to observe
- covid ag neg
- 11/07 sputum cx: K oxytoca - sensitive to most antibiotics
- blood cultures x2 from 11/07 in progress no growth to date
- recent negative UA
- continue meropenem day 6 of 7
- follow clinically
Agree that short term to medium term prognosis is guarded. Doubt patient would be a candidate to restart chemotherapy in the short term due to frailty and much less likely if unable to successfully wean from the ventilator.
Chief Complaint
-: Fever, Leukocytosis and Other (shock)
Subjective / Review of Systems
fever resolved
bp stable
without leukocytosis
cr stable
no significant change
Vital Signs / Physical Exam
Vital Signs
Vital Signs
Temp Pulse Resp BP Pulse Ox
97.7 F 65 21 122/57 100
11/14/23 07:33 11/14/23 09:14 11/14/23 09:14 11/14/23 06:00 11/14/23 09:14
Physical Exam
Constitutional: No Acute Distress, Chronically Ill and Non-toxic
Cardiovascular: Regular Rate and S1/S2; Negative Murmur or Rub
Pulmonary: Clear and Symmetric; Negative Wheezes or Rales
Gastrointestinal: Soft, Non Tender, Non Distended and Normal Bowel Sounds
Skin: Warm and Dry; Negative Rash or Jaundice
Wound: Other (serous drainage ongoing from the surgical site)
Neurological: Awake
Objective Data
Lab Data
Lab Results
11/14/23 04:05
11/14/23 04:05
ESR 133 mm/hour (0-20) H 11/12/23 04:00
PT 13.8 Sec (11.4-14.6) 11/12/23 12:45
INR 1.08 11/12/23 12:45
APTT 27.5 Sec (23.4-35.0) 11/02/23 20:30
Estimated Creat Clear 65 ml/min 11/14/23 04:05
Lactic Acid Cancelled 11/12/23 01:54
Total Bilirubin 0.6 mg/dl (0.2-1.3) 11/13/23 03:47
AST 63 U/L (14-36) H 11/13/23 03:47
ALT 36 U/L (0-35) H 11/13/23 03:47
Alkaline Phosphatase 245 U/L (38-126) H 11/13/23 03:47
C-Reactive Protein 64.30 mg/L (0.0-10.00) H 11/12/23 04:00
Most recent labs reviewed.
Micro Results:
11/08/23 10:28 Blood Culture - Final
Blood/Venous No Growth - Final Report
11/08/23 10:31 Blood Culture - Final
Blood/Venous No Growth - Final Report
11/08/23 10:28 Respiratory Culture - Final
Tracheal Aspirate Klebsiella oxytoca
Gram Stain - Final
11/02/23 20:37 Blood Culture - Final
Blood/Venous No Growth - Final Report
11/02/23 20:37 Blood Culture - Final
Blood/Venous No Growth - Final Report
[2023-11-14 10:20] LABS: B.E. 1.8 mmol/L; HCO3 25.1 mmol/L (21-28); PCO2 33 mmHg (32-35); PO2 172 mmHg (83-108); pH 7.49 (7.35-7.45)
--- NOTE | 2023-11-14 11:23 | RESPNOTE ---
11:15 extubated patient and placed on 2L n.c. 100%
--- NOTE | 2023-11-14 11:32 | W.PN.GS2 ---
Today's Communication / Plan
-
Rec cont NGT upon extubation
Assessment / Plan
-
Assessment: Patient is an 78 yo F with breast CA and treatment at [facility] p/w strangulated umbilical hernia
POD#11 Exploratory laparotomy, small bowel resection with primary anastomosis, primary umbilical hernia repair
ID following with us for abx
CXR with bl infiltrates, pulm following. Aspirated gastric contents early in admission
VDRF, weaning as per pulm
CT A/P (11/11): no significant bowel distension or radiographic signs of obstruction, no significant fluid around the anastomosis, no pneumatosis or free air, bl pleural effusions with airspace disease concerning for pneumonia, bony mets
Off pressors, improving
Acute on chronic anemia, no signs of active bleeding
WBC normalized
Plan:
-- No changes from surgical perspective
-- NPO, NGT
-- TPN, monitor LFTs
--Per ICU team the plan is to extubate today, family has made her a DNR/DNI in the event she does not do well with extubation
-- Goals of care on going
Subjective Data
-
Date of Service: November 14, 2023
More awake and alert today, does not follow commands well
Objective Data
-
Intake and Output
11/13/23 11/14/23 11/15/23
06:59 06:59 06:59
Intake Total 1858.3 / 1925.8 1625.2 / 1687.7 336.7 / 336.7
Output Total 3428.0 / 3478.0 500 / 500 400 / 400
Balance -1569.7 / -1552.2 1125.2 / 1187.7 -63.3 / -63.3
Intake:
IV fluids (Total) 604.3 / 625.8 427.2 / 443.7 62.7 / 62.7
KVO 110 / 110
Precedex gtt 360.6 / 382.1 427.2 / 443.7 62.7 / 62.7
Prescedex 129.0 / 129.0
insulin 4.7 / 4.7
TPN/PPN 1104 / 1150 1058 / 1104 184 / 184
Amount instilled into GI Tube ( 150 / 150 140 / 140 90 / 90
Total)
Early Sump 150 / 150 140 / 140 90 / 90
Output:
Gastrointestinal tube output ( 600 / 600 200 / 200
Total)
Early Sump 600 / 600 200 / 200
Urine, Osorio 2828.0 / 2878.0 300 / 300
Urine, Voided 400 / 400
Other:
How many times incontinent 1
SATURATED amount urine
Vital Signs
Temp Pulse Resp BP Pulse Ox
97.7 F 69 22 99/74 100
11/14/23 07:33 11/14/23 10:30 11/14/23 10:30 11/14/23 10:00 11/14/23 11:15
Lab Results
11/14/23 04:05
11/14/23 04:05
Calcium 8.7 mg/dl (8.4-10.2) 11/14/23 04:05
Phosphorus 3.2 mg/dl (2.5-4.5) 11/12/23 04:00
Magnesium 2.1 mg/dl (1.6-2.3) 11/14/23 04:05
Total Bilirubin 0.6 mg/dl (0.2-1.3) 11/13/23 03:47
Direct Bilirubin 0.6 mg/dl (0.0-0.4) H 11/03/23 04:20
AST 63 U/L (14-36) H 11/13/23 03:47
ALT 36 U/L (0-35) H 11/13/23 03:47
Alkaline Phosphatase 245 U/L (38-126) H 11/13/23 03:47
Total Protein 4.8 g/dl (6.3-8.2) L 11/13/23 03:47
Albumin 2.2 g/dl (3.5-5.0) L 11/13/23 03:47
Physical Exam
-
Gen: intubated
Abd: soft, approp ttp, incision cdi with opening at the midportion of the owund and some clear serous drainage, wound base appears healthy
[2023-11-14 11:48] LABS: Glucose - Point of Care 134 mg/dl (70-99)
[2023-11-14 12:08] LABS: Glucose - Point of Care 135 mg/dl (70-99)
--- NOTE | 2023-11-14 14:13 | PTCARENOTE ---
Patient on CPAP wean x2 Hours, respiratory pattern easy and unlabored. ABG as resulted, obtained orders for extubation. Extubated to 2 liters nasal cannula. Pulsox 100%. Family remains at the bedside and informed that we will monitor for signs and
symptoms of distress and aspiration, which is a concern due to wet gurgly voice quality after extubation. Continuing to taper precedex as ordered.
--- NOTE | 2023-11-14 14:42 | CM ---
CM following re: discharge planning.
Reviewed pt's chart.
Pt is POD#9 Exploratory laparotomy, small bowel resection with primary anastomosis, primary umbilical hernia repair. Pt remains intubated, prognosis remain grim, continue supportive care, the plan is to extubate today, family has made her a
DNR/DNI in the event she does not do well with extubation. Goals of care discussion on going.
D/C plan: Uncertain at this time and will depend on pt's progress.
CM will follow with discharge plan updates as hospitalization progresses
--- NOTE | 2023-11-14 15:27 | PTCARENOTE ---
Increased agitation,trying to get OOB. Family alerted RN. Pt wrists bound with soft wrist restraints. She was not able to be reoriented to her surrounding. She was verbalizing that rats will come and bite her in her sleep, and that she wants to come
home. Dr. Jones notified.
[2023-11-14] MEDS: LOVENOX 40 MG SC (18:14)
[2023-11-14 18:22] LABS: Glucose - Point of Care 133 mg/dl (70-99)
--- NOTE | 2023-11-14 20:30 | PTCARENOTE ---
patient support representative, pt awake, disoriented, talking about seeing an elephant in the room. has moments of clarity during assessment-talking about her at bedside- and other family members but remains confused to situation. KEENE. B/L UE restraints
maintained as pt reaches to grab R Fem TLC. SR HR 70-80s. Sat 100% on 2LNC. mouth care done. NGT to suction- bilious drainage. purewick intact. turned/repositioned. POC discussed w/pt and . call francisco with pt.
[2023-11-14] MEDS: Parenteral Nutrition, Central 1120 IV (21:36)
[2023-11-15] VITALS (26 sets, daily range): BP systolic 122–190; BP diastolic 58–109; BMI 24.4
[2023-11-15] MEDS: NOVOLOG FLEXPEN 5 UNITS SC ×5 (00:44→23:56)
[2023-11-15] MEDS: NOVOLOG FLEXPEN-LOW RESISTANCE SC ×3 (00:44→23:56)
[2023-11-15] MEDS: SEROQUEL 25 MG TUBE ×4 (00:45→23:57)
[2023-11-15] MEDS: TYLENOL ORAL SOLUTION 650 MG TUBE ×5 (00:45→23:56)
--- NOTE | 2023-11-15 00:45 | PTCARENOTE ---
Reassessed, pt assisted w/bedpan- no BM. turned, skin care, new purewick, repositioned. no changes in assessment.
[2023-11-15 00:55] LABS: Glucose - Point of Care 148 mg/dl (70-99)
[2023-11-15] MEDS: STERILE WATER FOR INJECTION 10 ML IV ×4 (04:45→22:01)
[2023-11-15] MEDS: MERREM 500 MG IV ×4 (04:45→22:01)
--- NOTE | 2023-11-15 04:45 | PTCARENOTE ---
pt + large liquid stool, skin care, turned/repositioned. pt intermittently more oriented. no further changes.
[2023-11-15 05:17] LABS: Hematocrit 25.7 % (37.0-47.0); Hemoglobin 8.4 g/dL (12.0-16.0); Mean Corp Hgb Conc. 32.7 g/dL (33.0-37.0); Mean Corpuscular Hgb 29.3 pg (27.0-31.0); Mean Corpuscular Volume 89.5 fL (81.0-99.0); Mean Platelet Volume 10.4 fL (7.4-10.4); Platelet Count 471 10^3/uL (130-400); Red Blood Cell Count 2.87 10^6/uL (4.20-5.40); Red Cell Dist. Width 19.9 % (11.5-14.5); White Blood Cell Count 6.5 10^3/uL (4.8-10.8)
[2023-11-15 05:42] LABS: Blood Urea Nitrogen 34 mg/dl (7-17); Calcium 8.8 mg/dl (8.4-10.2); Carbon Dioxide 22 mmol/L (22-30); Chloride 112 mmol/L (98-107); Estimated Creatinine Clearance 65 ml/min; Glucose 124 mg/dl (70-99); Potassium 4.5 mmol/L (3.5-5.1); Sodium 139 mmol/L (135-145); eGFR > 60.00
--- NOTE | 2023-11-15 07:14 | W.PN.INTV ---
Today's Communication / Plan
Recommendations
Extubated and doing relatively well, continue BIPAP PRN
MS an issue, most likely delirium, add saphris PRN, clonidine PO
Reassurance provided to
Resume trickle feeding, BM regiment added
Stop TPN if tolerated
PT/OT as able
Assessment
-
Patient is an 78 year old F with history of metastatic breast cancer (treated at [facility] on Ibrance->Afinitor) presenting to ED complaining of poor appetite, abdominal pain and N/V x 4-5 days. Of note, she had experienced weight
loss/anorexia with use of Afinitor. She began to complain of abdominal discomfort about 2 days ago. Today, family noted discoloration associated with her long standing chronic umbilical hernia. On evaluation in the ED, patient is noted to have
firm, tender and grossly discolored umbilical hernia concerning for incarceration +/- strangulation. BP 70s, Tmax 100.9, WBC 18, lactate 6, creat 1.9. She was seen by Colorectal Surgery who discussed benefit of urgent surgical intervention. She is
placed on levophed, and empiric abx and admitted to ICU.
Septic shock on pressors
Weaned off as of 11/09
Incarcerated umbilical hernia wtih concern for ischemic bowel s/p resection with anastomosis 11/03/23
Post-op VDRF
Aspiration PNA upon intubation, 2L bilious vomiting suctioned s/p NGT likely obstruction from hernia
Suspected lung injury, aspiration pneumonitis, culture positive Klebsiella oxytocin (S to Zosyn)
Possible component of pulmonary edema
Improved with diuresis
REINA, improved
Leukocytosis, improved
Lactic acidosis, improved
Hyponatremia, improved
Hyperglycemia, requiring insulin drip
Persistent fevers
Anemia, requiring transfusion 11/10
Conditions present WOOD ROOM HAND
Metastatic breast cancer
Diagnosed 2017
On chemotherapy, held recently months ago due to significant side effects, neutropenia/leukopenia
Apparently refused port placement, per
Was being considered for hospice, palliative care at one point, per
Plan
Confused, with delirium
Pain/sedation: PRN
RASS goals: 0
Stop fent/ativan, continue seroquel q8
Off precedex, agitation ongoing-will add saphris/clonidine PO
Tylenol scheduled
Labile blood pressure and heart rate noted, seems to be related to agitation
Responding to Lasix given this morning
Extubated 11/14/23
BPAP post extubation PRN
Chest x-ray today with persistent patchy infiltrate, heart failure versus aspiration pneumonitis
Remains on abx
Repeat sputum culture with +kleb from aspiration 11/08/23
Aspiration still an ongoing risk given MS
Pressors off as of 11/09
Cardiac history reviewed--none
Echocardiogram with normal biventricular function, could not assess pulmonary artery pressures
Monitor on telemetry
Suspected incarcerated bowel, on exam/severe findings
CRS on board, s/p resection with anastomosis 11/03/23
NG tube output decreased/surgery team following, no further interventions offered at this point
Aspiration precautions, HOB > 30 degrees
GI prophylaxis
Continue TPN per surgery
Tube feeds started 11/10, significant increased residuals overnight, held at this time
Bowel regiment, retry trickle feeding
Micro reviewed
Tracheal culture gram-negative bacilli, Klebsiella, sensitive to Zosyn
Unfortunately, right groin line remains due to no additional access available--TPN continues
These risks were reviewed at length multiple times throughout hospital stay with /declined new line
Possible colitis, ischemic bowel, aspiration PNA on presentation
ID following. Meropenem, micafungin
CT AP reviewed, negative for collection 11/12/23
REINA present, no history of renal disease--improved
Creatinine normal
Replete potassium
TPN continue as per surgery
Lasix therapy intermittently
Hemoglobin noted, slowly trending down
DVT prophylaxis as assessed based on risk, including mechanical SCDs
Can transfuse if indicated for Hb <7, plt < 10
INR WNL
Maintain active type and screen but would minimize transfusion given risk for lung injury
Transfuse 1 unit on 11/10
Transfuse for hemoglobin less than 7
Reviewed with and daughter 11/11
No prior h/o diabetes or thyroid disease
Elevated blood sugars noted since starting TPN
Requiring initiation of insulin drip--bridged to SQ
Continue to follow hyperglycemic protocol
Lines- PICC attempted on L, could not thread, R fem line attempted (by myself >60 mins) could not thread. She has RUE lymphedema and L sided neck metastatic disease
CVC needed but having difficult access sites. IR placed right groin line
Unable to place additional access per interventional radiology 11/05 (metastatic breast cancer in the left involving the neck and right upper extremity lymphedema
According to , patient refused port placement in the past
Discussed worst-case scenario where we may have to accept chronic right groin placement but this would put patient at risk for infection
This has been reviewed on a daily basis multiple times with
IR has evaluated 3 times for access, no practical solution. Will need to maintain right groin line. Site looks okay
To date, has stated that if she were to develop cardiac arrest, life-threatening cardiac arrhythmias, that he would not want chest compressions, shock
Therefore patient is DNR
Prognosis guarded/poor
DVT prophylaxis: Continue with pharmacological and mechanical
GI prophylaxis: Remains on Protonix
Reviewed at length with critical care nursing, respiratory care, primary service, surgery
Reviewed with /daughter on rounds
Family Discussions
Karen 11/13/23- extensive conversation today on rounds regarding her progress in weaning, in my opinion is not significant enough to safely extubate. She is day #11, I think that at this point if she has not made significant progress, she is unlikely
to remain without full vent support. We will need to discuss in next 24-48 hours if family would like to move forward with comfort measures.
Jamal - I reviewed again with and daughter on 11/11 that I do not think patient has adequate conditioning from a respiratory standpoint to successfully be extubated and return to home, especially in the setting of metastatic breast cancer,
incarcerated bowel requiring emergent surgery, persistent fevers, prolonged mechanical ventilation.
Reviewed with patient and son that I do not think we will be able to liberate her from the ventilator. They have made it clear that they do not want tracheotomy.
I have been very kamar with the , son and daughter on multiple occasions throughout this week. Do not think patient will be able to make it back home in her prior functional state
In fact, I suspect she will require long-term nursing care/rehabilitation if successfully extubated
Had extensive discussion with on daily basis (sometimes 2-3 times a day)-Reviewed again today with son and poor prognosis 11/10 in the PM
, son and daughter have confirmed on a variety of occasions that tracheotomy is not an option
They seem to have focused on '14-day' number given to them for ET tube/mechanical ventilation prior to tracheotomy
Family would like to take opportunity for extubation, even if the risk for failure is high (i.e respiratory failure, cardiac arrest).
I have told him on a daily basis that she is not ready for extubation, and is not ready today. They want to avoid having her on the ventilator
Discussed potential outcomes which would include 1) extremely poor prognosis, transition to comfort while on the vent, withdrawal of care/comfort. 2) attempted extubation with high risk for failure, development of progressive respiratory distress,
cardiac arrhythmias, cardiac arrest with prompt transition to comfort. 3) attempted extubation with initial success but subsequent setbacks in the days/weeks that would prompt evaluation for rehospitalization, feeding tube, reintubation, invasive
procedures. states he would not want patient to be placed back on life support if fails extubation in the short-term (hours to few weeks). Family has suggested that ideally she would be at home and at home if it came to that.
Unfortunately, has misinterpreted/misconstrued many factual statements that we have made as a provider team. Therefore, I have tried to be consistent in my explanation of prognosis, plan for the day and I try to do this in the presence of
critical care nursing, respiratory care and son/daughter when able.
11/05/2023: Extensive update with at the bedside. He does not want his 1 daughter Samreen to be updated as she has difficulty processing information at that time, gets very anxious. Other 2 children are to be updated (Temo, Luna). All
questions answered
Karen 11/03/23- I had a long discussion with the and daughter at bedside regarding decision making. Initially patient had declined surgery as she did not want to live with a colostomy but then subsequently did not change her code status
despite urgency of the situation. She then changed her mind this morning stating she does want to live and would undergo surgery. The family did feel she was not quite sure/had cognitive impairment on presentation, but she seems more clear to them
this morning. It is difficult to discuss with her as she has very severe hearing impairment and does not use hearing aids. I answered all questions from including her future oncologic care, that he will need to discuss with their
oncologist for next steps. They are now agreeing for surgery and care team was updated in further discussions.
Diagnostic Data
Chest X-Ray: 11/12/23- Stable bilateral airspace disease/pneumonia.
11/10/23- Findings/impression: Endotracheal tube and nasogastric tube remain in place. Persistent interstitial and subtle airspace opacity is again demonstrated bilaterally. However, slightly improved aeration is suggested especially in the right
midlung zone. Slightly irregular retrocardiac opacity is essentially unchanged (atelectasis versus pneumonia).
No pneumothorax. The cardiac mediastinal margins are stable.
11/09/23- Diffusely increased interstitial and patchy groundglass opacities bilaterally, similar in appearance compared to the prior study.
11/07/23- Stable support devices. Bilateral airspace opacities with slight worsening in the left upper lobe.
CT Scan: AP 11/12/23- 1. Postoperative changes without overt evidence for bowel ischemia, within limitations of unenhanced technique.
2. Trace bilateral pleural effusions. Bibasilar airspace disease suspicious for pneumonia.
3. Evidence for osseous metastatic disease involving T10, L4 and the right ninth rib.
Echo: 11/06/23- Normal biventricular size and systolic function without regional wall motion abnormality. Estimated LVEF 55-60%.Aortic sclerosis without stenosis. Mild/moderate tricuspid regurgitation. Normal PASP. Estimated pulmonary artery pressure
of 34 mmHg assuming a right atrial pressure of 8 mmHg. No prior study available for comparison.
PFT's:
Reports and relevant images were personally reviewed.
-----
Critical Care time 40 mins -- The patient is admitted for acute critical illness for the treatment of vital organ failure and/or prevention of further life-threatening conditions. Total care includes time spent in review of history, physical exam,
medications, hemodynamic/ventilator parameters, laboratory data, imaging and discussion with house staff, pharmacy, respiratory therapy, proof plate maker, and nursing.
Subjective Dataa
Subjective Data
Date of Service:
Date of Service: November 15, 2023
Chief Complaint: Balance Wheel Motion Inspector Follow Up
Subjective:
tolerated extubation but confused
NGT still in place
Large BM this AM
Objective Data
Data Reviewed
Vital Signs / I&O / Oxygen:
Vital Signs
Temp Pulse Resp BP Pulse Ox
97.9 F 100 19 161/78 100
11/15/23 04:30 11/15/23 06:00 11/15/23 06:00 11/15/23 06:00 11/15/23 05:00
Intake and Output
11/14/23 11/15/23 11/16/23
06:59 06:59 06:59
Intake Total 1625.2 / 1687.7 1343.2 / 1343.2
Output Total 500 / 500 1675 / 1675
Balance 1125.2 / 1187.7 -331.8 / -331.8
SaO2 [CPAP] 100
SaO2 [ASV] 95
SaO2 [A/C] 98
SaO2 100
Nasal Cannula flow liters per 2
minute
Physical Exam
General: Comfortable (Intermittently agitated depending on level of sedation), Other (Left neck changes, left chest wall changes from breast cancer, right upper extremity lymphedema) and Other (Right femoral groin line)
HEENT: Normocephalic and Anicteric
Cardiovascular: S1-S2, Regular Rhythm, Murmur (n), Rub (n), Peripheral Edema (RUE swelling/lymphedema) and Calf Tenderness (n)
Respiratory: Wheeze (n), Crackles (n), Rhonchi (bilateral, constant) and Non-Labored Respirations
GI: Soft, Non Distended, Non Tender, NG Tube and Other (Abdominal dressing in place)
Neurology: Awake, Alert, No Motor Deficits (moving extremities), Other (confused, speaking nonsensically) and Other (agitation ongoing)
Skin: Cyanosis (n), Jaundice (n), Rash (n) and Other (numerous skin lesions over sternum, L side of neck--presumed fungating metastatic disease)
Labs/Micro/Reports
Lab Data
11/15/23 04:48
11/15/23 04:48
Laboratory Results
11/14/23
10:05
pH 7.49 H
pCO2 33
pO2 172 H
HCO3 25.1
O2 Delivery Level
Microbiology
11/08/23 10:28 Blood/Venous Blood Culture - Final
No Growth - Final Report
11/08/23 10:31 Blood/Venous Blood Culture - Final
No Growth - Final Report
[2023-11-15] MEDS: NSS (PRESERVATIVE FREE) 10 ML IV (07:53)
[2023-11-15] MEDS: FLUSH (NSS) 1 FLUSH IV ×3 (07:53→16:23)
[2023-11-15] MEDS: PROTONIX IV 40 MG IV (07:53)
[2023-11-15 08:34] LABS: Glucose - Point of Care 149 mg/dl (70-99)
--- NOTE | 2023-11-15 08:36 | W.PN.HOSP.TC ---
Today's Communication/Plan
-
see plan
Assessment / Plan
Assessment / Plan
Ms. Priscilla Dowell is a 78 y o woman with hx metastatic breast CA [place] [facility] [place] off medications with plans to start lower dose early November) presents to the ER with abdominal pain, nausea and vomiting found to have incarcerated and
strangulated umbilical hernia; s/p OR 11/02, admitted to ICU with septic shock. concern also raised for aspiration pneumonia.
Operative Findings 11/02
Operative Findings:
1. Strangulated umbilical hernia containing 45 cm of necrotic small bowel, fascial defect approximately 4 cm (widened for exposure and anastomosis), healthy proximal and distal bowel
2. Small bowel resection with primary stapled anastomosis using MICKI 80 blue load x2 (Agustín technique), mesenteric defect closed
3. Primary fascial closure under minimal tension with #1 Stratafix
4. Skin stapled, soft tissue packed
CT A/P
IMPRESSION:
1. Postoperative changes without overt evidence for bowel ischemia, within limitations of unenhanced technique.
2. Trace bilateral pleural effusions. Bibasilar airspace disease suspicious for pneumonia.
3. Evidence for osseous metastatic disease involving T10, L4 and the right ninth rib.
Incarcerated / Strangulated Umbilical Hernia
Septic Shock
S/p resection of 45 cm necrotic small bowel with internal anastomosis and fixation on 11/02 with surgery
Aspiration upon intubation with 2L bilious vomiting suctioned, aspiration pneumonitis noted.
Blood cultures no growth to date. Micro respiratory culture with Klebsiella
-Patient was on vancomycin and Zosyn from 11/01-11/06, then continued on Zosyn monotherapy 11/07. She developed new fevers after stopping antibiotics prompting ID consult. At this point CT A/P recommended but family refused. ID following and resumed
antibiotics for continued fevers; and also started micafungin
-empiric meropenem and micafungin started on 11/08; Micafungin now off
-family initially refused CT A/P - ordered 11/12 without contrast - results above
-had a BM overnight
-continue NGT; TPN
-appreciate consultants
Acute hypoxemic respiratory failure secondary to ventilator dependent respiratory failure
-Postop patient was maintained on ventilatory support with difficulty weaning but able to be extubated on 11/14/23; now on 2L
-patient is DNR/DNI
Agitation
ICU Delirium
patient on standing Seroquel, received this AM
precedex weaned off
monitor closely, will likely need further medication titrations
Metastatic Breast Cancer
-Followed at [facility] [place]. Currently on no active therapy / medications.
-On med holiday for a month with plan to revisit / restart meds in early November.
Acute blood loss anemia from surgery
11/11/2023 received 1 unit PRBC with appropriate rise
-Hg stable
Thrombocytosis
-Reactive/infection related as well, monitor
Hyponatremia
Resolved
Hypokalemia
Replete as needed
REINA - resolved
Stage 1 buttock pressure injury
Wound care
Pressure offloading
DVT Prophylaxis: lovenox
Full code
-Overall prognosis at this time remains grim
Total critical care time 40 mins
Anticipated Discharge: > 48 hours
Subjective/Interval History
-
Date of Service: November 15, 2023
patient stating she can go home
she is anxious with elevated HR and BP
Objective Data
-
Labs:
Laboratory Results
11/15/23
04:48
WBC 6.5
Hgb 8.4 L
Hct 25.7 L
Plt Count 471 H D
Sodium 139
Potassium 4.5
Chloride 112 H
Carbon Dioxide 22
BUN 34 H
Creatinine 0.4 L
Glucose 124 H
Calcium 8.8
Vital Signs:
Vital Signs
Temp Pulse Resp BP Pulse Ox
97.7 F 100 19 161/78 100
11/15/23 08:13 11/15/23 06:00 11/15/23 06:00 11/15/23 06:00 11/15/23 05:00
I&O
11/14/23 11/15/23 11/16/23
06:59 06:59 06:59
Intake Total 1625.2 / 1687.7 1343.2 / 1343.2
Output Total 500 / 500 1675 / 1675
Balance 1125.2 / 1187.7 -331.8 / -331.8
Review of Systems
-
History Source: Patient
All other systems: Reviewed and negative
Physical Exam
-
General: Other (frail appearing, confused )
HEENT: PERRLA
Respiratory: Negative Wheezes
Cardiac: Regular Rhythm and S1/S2
GI: Other (gauze c/d/i)
Musculoskeletal: Other (RUE lymphedema)
Neuro: Awake and Alert
Psych: Confused and Anxious
Data Reviewed
-
Diagnostic Radiology: Report Reviewed by me
Labs: Labs Reviewed by me
--- NOTE | 2023-11-15 08:56 | PN.DE.MGMTRT ---
Insulin Management
- -
11/15/2023: Diabetes Management Consult Follow up
Patient admitted 11/01 with c/o poor appetite, abdominal pain and N/V for 4-5 days. PMH metastatic breast cancer (treated at [facility] on Ibrance->Afinitor). Patient had experienced weight loss/anorexia with use of Afinitor.
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 On evaluation in the ED, patient was noted for firm, tender and grossly discolored umbilical hernia concerning for incarceration +/- strangulation.
Pt is now POD#12 s/p Exploratory laparotomy, small bowel resection with primary anastomosis and primary umbilical hernia repair.
Diabetes consult requested on 11/10 for Hyperglycemia after initiation of TPN and tube feeds. No known Hx of diabetes, A1C 5.6%, Cr 0.5, eGFR>60
Pt extubated 11/13 ~ 14:30 now on 2 L NC. Patient is confused unable to participate in discussion regarding insulin requirements.
TPN continues. Blood sugars in range of 110 to 148. Will make no change to current regimen, novolog 5 units Q 6 and lantus 15 units in am. If tube feeds resume patient may require additional insulin.
Will follow and make further adjustments if necessary
Diabetes History
- -
Pre-Admission Diabetes Regimen
11/15/23
04:48
Creatinine 0.4 L
Lab Results
Hemoglobin A1c Cancelled 11/07/23 17:29
Insulin Pump Settings
IP Diabetes Regimen
11/14/23 11/14/23 11/14/23
11:37 11:56 18:10
Glucose
POC Glucose 134 H 135 H 133 H
11/15/23 11/15/23 11/15/23
00:43 04:48 08:23
Glucose 124 H
POC Glucose 148 H 149 H
Patient Education
--- NOTE | 2023-11-15 09:00 | PTCARENOTE ---
Rec'd pt at 0700 awake and alert. Oriented to self but not to place or events. Very rambling conversation with some rare coherent thoughts. Keeps saying she wants/needs to go home that her daughter and grandaughter need her at home. Also talking
about being on a carousel and that a group of boys broke her teeth. Has no insight as to why she is the hospital and does not keep focus to understand/acknowledge that she had surgery. Restless at intervals Does have hand tremors. Pt is ABSENTEE-SHAWNEE. Respirs
are shallow but non-labored. Currently on 2l nc with sats of 99%. BS in general are decreased and coarse. Coughing a moist sometimes prod cough for whitish secretions- needs the use of the Yankeur to remove secretions from her mouth. Monitor ST in
the 120-130 range and BP elevated as documented. Will update MD's. + pulses. +3 R arm edema and +2 generalized anasarca. Denies chest pain. Abd is soft with hypoactive BS. Dressing change done to midline abd incision. Most of the incision is
approximated with linda intact. 1 area mid incision is open - wet to dry dressing done and covered with 4x4 and abd. On bedpan and incont of loose brown stool -large amt. Difficult to say if some urine was mixed with the stool. New purewick
placed. If pt with another stool will remove the purewick. NG L nare with greenish drainage. Clamped after am Seroquel. R femoral TLC with 2 ports capped and the other with TPN at 47 ml/hr. Turned and repositioned. Skin and mouth care given. Pts
at the bedside and updated. expressing concern over her confusion and agitation. Explanations and support given.
--- NOTE | 2023-11-15 09:14 | W.PN.ID1 ---
Date of Service
Date of Service: November 15, 2023
Today's Communication
final day of meropenem
Agree that short term to medium term prognosis is guarded.
Assessment / Plan
Fever - resolved
Strangulated Umbilical Hernia s/p resection with anastomosis 11/03/23
Pneumonia due to K oxytoca
H/o aspiration
H/o leukopenia/neutropenia
- fever resolved however running borderline hypothermia - continue to observe
- covid ag neg
- 11/07 sputum cx: K oxytoca - sensitive to most antibiotics
- blood cultures x2 from 11/07 in progress no growth to date
- recent negative UA
- continue meropenem day
- follow clinically
Agree that short term to medium term prognosis is guarded.
Chief Complaint
-: Fever, Leukocytosis and Other (shock)
Subjective / Review of Systems
no further fevers
BP stable
without leukocytosis
developing thrombocytosis noted
cr 0.4
oriented to person and time; does not respond to questions regarding place
requesting discharge, reporting marked anxiety
Vital Signs / Physical Exam
Vital Signs
Vital Signs
Temp Pulse Resp BP Pulse Ox
97.7 F 100 19 161/78 100
11/15/23 08:13 11/15/23 06:00 11/15/23 06:00 11/15/23 06:00 11/15/23 05:00
Physical Exam
Constitutional: No Acute Distress
Cardiovascular: Regular Rate and S1/S2; Negative Murmur or Rub
Pulmonary: Clear and Symmetric; Negative Wheezes or Rales
Gastrointestinal: Soft, Non Tender, Non Distended and Normal Bowel Sounds
Skin: Warm and Dry; Negative Rash or Jaundice
Objective Data
Lab Data
Lab Results
11/15/23 04:48
11/15/23 04:48
ESR 133 mm/hour (0-20) H 11/12/23 04:00
PT 13.8 Sec (11.4-14.6) 11/12/23 12:45
INR 1.08 11/12/23 12:45
APTT 27.5 Sec (23.4-35.0) 11/02/23 20:30
Estimated Creat Clear 65 ml/min 11/15/23 04:48
Lactic Acid Cancelled 11/12/23 01:54
Total Bilirubin 0.6 mg/dl (0.2-1.3) 11/13/23 03:47
AST 63 U/L (14-36) H 11/13/23 03:47
ALT 36 U/L (0-35) H 11/13/23 03:47
Alkaline Phosphatase 245 U/L (38-126) H 11/13/23 03:47
C-Reactive Protein 64.30 mg/L (0.0-10.00) H 11/12/23 04:00
Most recent labs reviewed.
Micro Results:
11/08/23 10:28 Blood Culture - Final
Blood/Venous No Growth - Final Report
11/08/23 10:31 Blood Culture - Final
Blood/Venous No Growth - Final Report
11/08/23 10:28 Respiratory Culture - Final
Tracheal Aspirate Klebsiella oxytoca
Gram Stain - Final
11/02/23 20:37 Blood Culture - Final
Blood/Venous No Growth - Final Report
11/02/23 20:37 Blood Culture - Final
Blood/Venous No Growth - Final Report
Care Review
Plan reviewed with: Nurse (anxiety)
[2023-11-15] MEDS: LANTUS 0.15 UNITS SC (10:10)
--- NOTE | 2023-11-15 10:10 | PTCARENOTE ---
very concerned about pts level of agitation. Pt with mostly rambling confused conversation mixed with occasional appropriate statements. Keeps saying she wants to go home but has no insight into the she had surgery. HR remains elevated into
the 130's and BP elevated. Dr. Navas in to speak with . Clonidine 0.1 mg given for BP 190/101. Pt repositioned.
[2023-11-15] MEDS: CATAPRES 0.1 MG PO ×3 (10:11→23:57)
--- NOTE | 2023-11-15 10:38 | W.PN.GS2 ---
Today's Communication / Plan
-
`
Assessment / Plan
-
Assessment: Patient is an 78 yo F with breast CA and treatment at [facility] p/w strangulated umbilical hernia
POD#12 Exploratory laparotomy, small bowel resection with primary anastomosis, primary umbilical hernia repair
ID following with us for abx
CXR with bl infiltrates, pulm following. Aspirated gastric contents early in admission
VDRF, weaning as per pulm
CT A/P (11/11): no significant bowel distension or radiographic signs of obstruction, no significant fluid around the anastomosis, no pneumatosis or free air, bl pleural effusions with airspace disease concerning for pneumonia, bony mets
extubated 11/13
Plan: trick TF on hold d/t high residuals, re-attempt as tolerated
--if felt to be beneficial for respiratory efforts/secretions okay to d/c NGT although would loose enteral access for TF as would not anticipate pt being able to swallow
TPN renewed - reduced NaCl and bumped Na Acitate
okay to start bowel regiment
ongoing supportive care but considerations of hospice would be appropriate
Subjective Data
-
Date of Service: November 15, 2023
pt seen and examined
at bedside
extubated yesterday, confused and difficult to understand
Objective Data
-
Intake and Output
11/14/23 11/15/23 11/16/23
06:59 06:59 06:59
Intake Total 1625.2 / 1687.7 1343.2 / 1343.2
Output Total 500 / 500 1675 / 1675
Balance 1125.2 / 1187.7 -331.8 / -331.8
Intake:
IV fluids (Total) 427.2 / 443.7 231.2 / 231.2
KVO 46 / 46
Precedex gtt 427.2 / 443.7 185.2 / 185.2
TPN/PPN 1058 / 1104 1022 / 1022
Amount instilled into GI Tube ( 140 / 140 90 / 90
Total)
Gaines Sump 140 / 140 90 / 90
Output:
Gastrointestinal tube output ( 200 / 200 350 / 350
Total)
Gaines Sump 200 / 200 350 / 350
Urine, Osorio 300 / 300
Urine, Voided 1325 / 1325
Other:
How many times incontinent 1 1
SATURATED amount urine
Number of unmeasured liquid
stools
Rectum 1
Vital Signs
Temp Pulse Resp BP Pulse Ox
97.7 F 132 19 190/101 100
11/15/23 08:13 11/15/23 10:11 11/15/23 06:00 11/15/23 10:11 11/15/23 05:00
Lab Results
11/15/23 04:48
11/15/23 04:48
Calcium 8.8 mg/dl (8.4-10.2) 11/15/23 04:48
Phosphorus 3.2 mg/dl (2.5-4.5) 11/12/23 04:00
Magnesium 2.1 mg/dl (1.6-2.3) 11/14/23 04:05
Total Bilirubin 0.6 mg/dl (0.2-1.3) 11/13/23 03:47
Direct Bilirubin 0.6 mg/dl (0.0-0.4) H 11/03/23 04:20
AST 63 U/L (14-36) H 11/13/23 03:47
ALT 36 U/L (0-35) H 11/13/23 03:47
Alkaline Phosphatase 245 U/L (38-126) H 11/13/23 03:47
Total Protein 4.8 g/dl (6.3-8.2) L 11/13/23 03:47
Albumin 2.2 g/dl (3.5-5.0) L 11/13/23 03:47
Physical Exam
-
ill appearing, confused, trying to clear secretions
ABD; soft, ND, NTTP
--- NOTE | 2023-11-15 11:00 | PTCARENOTE ---
Sl calmer- mostly when people are talking to her. Incont again of loose stool. Difficult to tell if a little urine is mixed in. Bladder scanned for 361 mls. Family at the bedside.
[2023-11-15] MEDS: DULCOLAX RECTAL (11:56)
[2023-11-15] MEDS: COLACE LIQUID TUBE ×3 (11:56→19:27)
[2023-11-15] MEDS: MIRALAX TUBE (11:56)
[2023-11-15 12:09] LABS: Glucose - Point of Care 163 mg/dl (70-99)
[2023-11-15] MEDS: NOVOLOG FLEXPEN-LOW RESISTANCE 1 UNITS SC ×2 (12:39→18:17)
[2023-11-15] MEDS: SAPHRIS 2.5 MG SL (12:39)
--- NOTE | 2023-11-15 13:00 | PTCARENOTE ---
Back on bedpan again at 1230 for loose brown stool mixed with what looks like urine- difficult to tell.. Rebladder scanned for 361 mls. Still with rambling confused conversation with some appropriate conversation. No insight into condition. Soft
wrist restraints remain in place for pt safety as she does tend touch her tubes. Son and grandson came in and she recognized them right away but then will tend to ramble about different subjects. BP and HR are still elevated. Medicated with Saphris
2.5 mg sl at 1240. Tube feeds restarted via L nare [place]- Jevity 1.5 at 10 ml/hr with 10 ml/hr water flush. NG has mostly been clamped this am due to meds- 15 ml greenish residual aspirated. Turned and repositioned. Skin and mouth care given. Family
at the bedside.
--- NOTE | 2023-11-15 14:00 | PTCARENOTE ---
Decreased earlier to 1L nc and currently changed to RA as sats are 98%
--- NOTE | 2023-11-15 15:10 | PTCARENOTE ---
Sleepier since Saphris but easily arousable. On bedpan for mod amt of urine. Still with disoriented conversation but does make some appropriate comments and has been able to ask for the bedpan at intervals. Will continue to monitor
--- NOTE | 2023-11-15 17:00 | PTCARENOTE ---
No changes in assessment. Incont of urine. Skin care given. Repositioned. Overall HR better 118-120 ST. VS as documented. Moist cough- productive with the use of the yankeur for thick whitish secretions. Mouth tends to get very dry. 100 mls
aspirated from NG and reinstilled-Will monitor
--- NOTE | 2023-11-15 17:15 | PTCARENOTE ---
No changes in assessment. Incont of urine. Skin care given. Repositioned. Overall HR better 118-120 ST. VS as documented. Moist cough- productive with the use of the yankeur for thick whitish secretions. Mouth tends to get very dry.
[2023-11-15 17:41] LABS: Glucose - Point of Care 151 mg/dl (70-99)
[2023-11-15] MEDS: LOVENOX 40 MG SC (18:17)
--- NOTE | 2023-11-15 20:00 | PTCARENOTE ---
rn disease management, pt awake, oriented to self, confused conversation. KEENE. B/L UE restraints maintained as pt reaches to grab R Fem TLC. ST HR 1teens-120s. RA Sat 98%. NGT w/trickle TF at goal-100cc residual noted. purewick intact. POC discussed w/pt
and . call francisco with pt.
[2023-11-15] MEDS: Parenteral Nutrition, Central 1120 IV (21:58)
[2023-11-15 23:25] LABS: Glucose - Point of Care 127 mg/dl (70-99)
[2023-11-16] VITALS (52 sets, daily range): BP systolic 112–202; BP diastolic 55–128; BMI 23.9
[2023-11-16 00:06] LABS: Glucose - Point of Care 135 mg/dl (70-99)
[2023-11-16] MEDS: LOPRESSOR 5 MG IV (01:32)
[2023-11-16] MEDS: SAPHRIS 2.5 MG SL (01:33)
--- NOTE | 2023-11-16 02:30 | PTCARENOTE ---
inc large liquid BM, CHG bath, skin care, turned, new linen, repositioned.
--- NOTE | 2023-11-16 03:07 | PTCARENOTE ---
intermittently agitated- difficult to obtain accurate BP.
[2023-11-16] MEDS: STERILE WATER FOR INJECTION IV ×3 (03:30→17:32)
[2023-11-16 03:34] LABS: Hematocrit 26.2 % (37.0-47.0); Hemoglobin 8.5 g/dL (12.0-16.0); Mean Corp Hgb Conc. 32.4 g/dL (33.0-37.0); Mean Corpuscular Hgb 28.2 pg (27.0-31.0); Mean Platelet Volume 10.2 fL (7.4-10.4); Platelet Count 557 10^3/uL (130-400); Red Blood Cell Count 3.01 10^6/uL (4.20-5.40); Red Cell Dist. Width 20.4 % (11.5-14.5); White Blood Cell Count 7.3 10^3/uL (4.8-10.8)
[2023-11-16 04:09] LABS: Blood Urea Nitrogen 29 mg/dl (7-17); Calcium 9.4 mg/dl (8.4-10.2); Carbon Dioxide 24 mmol/L (22-30); Chloride 109 mmol/L (98-107); Estimated Creatinine Clearance 65 ml/min; Glucose 149 mg/dl (70-99); Potassium 4.8 mmol/L (3.5-5.1); Sodium 139 mmol/L (135-145); eGFR > 60.00
[2023-11-16] MEDS: APRESOLINE 10 MG IV (05:09)
[2023-11-16] MEDS: CATAPRES PO ×2 (05:10→13:12)
[2023-11-16] MEDS: TYLENOL ORAL SOLUTION TUBE ×2 (05:10→12:00)
--- NOTE | 2023-11-16 05:10 | PTCARENOTE ---
pt found to have removed NGT. KFlahertyNP made aware- plan for dht placement during day rather than replace. TRAVEL RN also aware pts SBP elevated as high as 202, not yet due for prn lopressor, 10mg IV hydralazine ordered/given. no further changes.
[2023-11-16] MEDS: NOVOLOG FLEXPEN 5 UNITS SC ×4 (05:16→23:18)
[2023-11-16] MEDS: NOVOLOG FLEXPEN-LOW RESISTANCE SC (05:16)
[2023-11-16 05:27] LABS: Glucose - Point of Care 136 mg/dl (70-99)
--- NOTE | 2023-11-16 07:16 | W.PN.INTV ---
Today's Communication / Plan
Recommendations
Pulled NGT, speech eval with plan to replace with DHT
Complete abx 11/14, observe off
TPN ongoing, will need to address NEED for TPN given fem CVC
Midline access placement otherwise
Continue supportive care, ongoing delirium
Assessment
-
Patient is an 78 year old F with history of metastatic breast cancer (treated at [facility] on Ibrance->Afinitor) presenting to ED complaining of poor appetite, abdominal pain and N/V x 4-5 days. Of note, she had experienced weight
loss/anorexia with use of Afinitor. She began to complain of abdominal discomfort about 2 days ago. Today, family noted discoloration associated with her long standing chronic umbilical hernia. On evaluation in the ED, patient is noted to have
firm, tender and grossly discolored umbilical hernia concerning for incarceration +/- strangulation. BP 70s, Tmax 100.9, WBC 18, lactate 6, creat 1.9. She was seen by Colorectal Surgery who discussed benefit of urgent surgical intervention. She is
placed on levophed, and empiric abx and admitted to ICU.
Septic shock on pressors
Weaned off as of 11/09
Incarcerated umbilical hernia wtih concern for ischemic bowel s/p resection with anastomosis 11/03/23
Post-op VDRF
Aspiration PNA upon intubation, 2L bilious vomiting suctioned s/p NGT likely obstruction from hernia
Suspected lung injury, aspiration pneumonitis, culture positive Klebsiella oxytocin (S to Zosyn)
Possible component of pulmonary edema
Improved with diuresis
REINA, improved
Leukocytosis, improved
Lactic acidosis, improved
Hyponatremia, improved
Hyperglycemia, requiring insulin drip
Persistent fevers
Anemia, requiring transfusion 11/10
HTN Urgency
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
Metastatic breast cancer
Diagnosed 2017
On chemotherapy, held recently months ago due to significant side effects, neutropenia/leukopenia
Apparently refused port placement, per
Was being considered for hospice, palliative care at one point, per
Plan
Confused, with delirium
Pain/sedation: saphris PRN, seroquel q8, tylenol scheduled
RASS goals: 0
Off precedex, agitation ongoing-clonidine PO weaning down
Consideration for other antipsychotic agents
Labile blood pressure and heart rate noted, seems to be related to agitation
Responding to Lasix given this morning
Extubated 11/14/23
BPAP post extubation PRN
Add cardene gtt for hypertensive urgency
Chest x-ray with patchy infiltrate, heart failure versus aspiration pneumonitis
Repeat sputum culture with +kleb from aspiration 11/08/23
Completed MRP course 11/14 last dose, observe off
Aspiration still an ongoing risk given MS
Pressors off as of 11/09
Cardiac history reviewed--none
Echocardiogram with normal biventricular function, could not assess pulmonary artery pressures
Monitor on telemetry
Incarcerated bowel s/p resection with anastomosis 11/03/23
NG tube discontinued/surgery team following, no further interventions offered at this point
Aspiration precautions, HOB > 30 degrees
GI prophylaxis
Continue TPN per surgery
Tube feeds resumed past 24 hours
Replace DHT and resume again
Micro reviewed
Tracheal culture gram-negative bacilli, Klebsiella, sensitive to Zosyn
Unfortunately, right groin line remains due to no additional access available--TPN continues
These risks were reviewed at length multiple times throughout hospital stay with /declined new line
Possible colitis, ischemic bowel, aspiration PNA on presentation
ID following, off abx
CT AP reviewed, negative for collection 11/12/23
REINA present, no history of renal disease--improved
Creatinine normal
Replete potassium
TPN continue as per surgery
Lasix therapy intermittently
Hemoglobin noted, slowly trending down
DVT prophylaxis as assessed based on risk, including mechanical SCDs
Can transfuse if indicated for Hb <7, plt < 10
INR WNL
Maintain active type and screen but would minimize transfusion given risk for lung injury
Transfuse 1 unit on 11/10
Transfuse for hemoglobin less than 7
Reviewed with and daughter 11/11
No prior h/o diabetes or thyroid disease
Elevated blood sugars noted since starting TPN
Requiring initiation of insulin drip--bridged to SQ
Continue to follow hyperglycemic protocol
Lines- PICC attempted on L, could not thread, R fem line attempted (by myself >60 mins) could not thread. She has RUE lymphedema and L sided neck metastatic disease
CVC needed but having difficult access sites. IR placed right groin line
Unable to place additional access per interventional radiology 11/05 (metastatic breast cancer in the left involving the neck and right upper extremity lymphedema
According to , patient refused port placement in the past
Discussed worst-case scenario where we may have to accept chronic right groin placement but this would put patient at risk for infection
This has been reviewed on a daily basis multiple times with
IR has evaluated 3 times for access, no practical solution. Will need to maintain right groin line. Site looks okay
To date, has stated that if she were to develop cardiac arrest, life-threatening cardiac arrhythmias, that he would not want chest compressions, shock
Therefore patient is DNR
Prognosis guarded/poor
DVT prophylaxis: Continue with pharmacological and mechanical
GI prophylaxis: Remains on Protonix
Reviewed at length with critical care nursing, respiratory care, primary service, surgery
Reviewed with /daughter on rounds
Family Discussions
Karen 11/13/23- extensive conversation today on rounds regarding her progress in weaning, in my opinion is not significant enough to safely extubate. She is day #11, I think that at this point if she has not made significant progress, she is unlikely
to remain without full vent support. We will need to discuss in next 24-48 hours if family would like to move forward with comfort measures.
Jamal - I reviewed again with and daughter on 11/11 that I do not think patient has adequate conditioning from a respiratory standpoint to successfully be extubated and return to home, especially in the setting of metastatic breast cancer,
incarcerated bowel requiring emergent surgery, persistent fevers, prolonged mechanical ventilation.
Reviewed with patient and son that I do not think we will be able to liberate her from the ventilator. They have made it clear that they do not want tracheotomy.
I have been very kamar with the , son and daughter on multiple occasions throughout this week. Do not think patient will be able to make it back home in her prior functional state
In fact, I suspect she will require long-term nursing care/rehabilitation if successfully extubated
Had extensive discussion with on daily basis (sometimes 2-3 times a day)-Reviewed again today with son and poor prognosis 11/10 in the PM
, son and daughter have confirmed on a variety of occasions that tracheotomy is not an option
They seem to have focused on '14-day' number given to them for ET tube/mechanical ventilation prior to tracheotomy
Family would like to take opportunity for extubation, even if the risk for failure is high (i.e respiratory failure, cardiac arrest).
I have told him on a daily basis that she is not ready for extubation, and is not ready today. They want to avoid having her on the ventilator
Discussed potential outcomes which would include 1) extremely poor prognosis, transition to comfort while on the vent, withdrawal of care/comfort. 2) attempted extubation with high risk for failure, development of progressive respiratory distress,
cardiac arrhythmias, cardiac arrest with prompt transition to comfort. 3) attempted extubation with initial success but subsequent setbacks in the days/weeks that would prompt evaluation for rehospitalization, feeding tube, reintubation, invasive
procedures. states he would not want patient to be placed back on life support if fails extubation in the short-term (hours to few weeks). Family has suggested that ideally she would be at home and at home if it came to that.
Unfortunately, has misinterpreted/misconstrued many factual statements that we have made as a provider team. Therefore, I have tried to be consistent in my explanation of prognosis, plan for the day and I try to do this in the presence of
critical care nursing, respiratory care and son/daughter when able.
11/05/2023: Extensive update with at the bedside. He does not want his 1 daughter Samreen to be updated as she has difficulty processing information at that time, gets very anxious. Other 2 children are to be updated (Temo, Luna). All
questions answered
Karen 11/03/23- I had a long discussion with the and daughter at bedside regarding decision making. Initially patient had declined surgery as she did not want to live with a colostomy but then subsequently did not change her code status
despite urgency of the situation. She then changed her mind this morning stating she does want to live and would undergo surgery. The family did feel she was not quite sure/had cognitive impairment on presentation, but she seems more clear to them
this morning. It is difficult to discuss with her as she has very severe hearing impairment and does not use hearing aids. I answered all questions from including her future oncologic care, that he will need to discuss with their
oncologist for next steps. They are now agreeing for surgery and care team was updated in further discussions.
Diagnostic Data
Chest X-Ray: 11/12/23- Stable bilateral airspace disease/pneumonia.
11/10/23- Findings/impression: Endotracheal tube and nasogastric tube remain in place. Persistent interstitial and subtle airspace opacity is again demonstrated bilaterally. However, slightly improved aeration is suggested especially in the right
midlung zone. Slightly irregular retrocardiac opacity is essentially unchanged (atelectasis versus pneumonia).
No pneumothorax. The cardiac mediastinal margins are stable.
11/09/23- Diffusely increased interstitial and patchy groundglass opacities bilaterally, similar in appearance compared to the prior study.
11/07/23- Stable support devices. Bilateral airspace opacities with slight worsening in the left upper lobe.
CT Scan: AP 11/12/23- 1. Postoperative changes without overt evidence for bowel ischemia, within limitations of unenhanced technique.
2. Trace bilateral pleural effusions. Bibasilar airspace disease suspicious for pneumonia.
3. Evidence for osseous metastatic disease involving T10, L4 and the right ninth rib.
Echo: 11/06/23- Normal biventricular size and systolic function without regional wall motion abnormality. Estimated LVEF 55-60%.Aortic sclerosis without stenosis. Mild/moderate tricuspid regurgitation. Normal PASP. Estimated pulmonary artery pressure
of 34 mmHg assuming a right atrial pressure of 8 mmHg. No prior study available for comparison.
PFT's:
Reports and relevant images were personally reviewed.
-----
Critical Care time 40 mins -- The patient is admitted for acute critical illness for the treatment of vital organ failure and/or prevention of further life-threatening conditions. Total care includes time spent in review of history, physical exam,
medications, hemodynamic/ventilator parameters, laboratory data, imaging and discussion with house staff, pharmacy, respiratory therapy, diazo technician, and nursing.
Subjective Dataa
Subjective Data
Date of Service:
Date of Service: November 16, 2023
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
Subjective:
agitation intermittent, off precedex, saphris PRN helpful
HTN overnight
at bedside
remains confused, pulled NGT
Objective Data
Data Reviewed
Vital Signs / I&O / Oxygen:
Vital Signs
Temp Pulse Resp BP Pulse Ox
98.7 F 115 31 186/92 97
11/16/23 03:04 11/16/23 06:00 11/16/23 06:00 11/16/23 06:00 11/16/23 06:00
Intake and Output
11/15/23 11/16/23 11/17/23
06:59 06:59 06:59
Intake Total 1343.2 / 1390.2 1588 / 1588
Output Total 1675 / 1675 750 / 750
Balance -331.8 / -284.8 838 / 838
SaO2 [CPAP] 100
SaO2 [ASV] 95
SaO2 [A/C] 98
SaO2 97
Nasal Cannula flow liters per 2
minute
Physical Exam
General: Comfortable (Intermittently agitated depending on level of sedation), Other (Left neck changes, left chest wall changes from breast cancer, right upper extremity lymphedema) and Other (Right femoral groin line)
HEENT: Normocephalic and Anicteric
Cardiovascular: S1-S2, Regular Rhythm, Murmur (n), Rub (n), Peripheral Edema (RUE swelling/lymphedema) and Calf Tenderness (n)
Respiratory: Wheeze (n), Crackles (n), Rhonchi (bilateral, constant) and Non-Labored Respirations
GI: Soft, Non Distended, Non Tender and Other (Abdominal dressing in place)
Neurology: Awake, Alert, No Motor Deficits (moving extremities), Other (confused, speaking nonsensically) and Other (agitation ongoing)
Skin: Cyanosis (n), Jaundice (n), Rash (n) and Other (numerous skin lesions over sternum, L side of neck--presumed fungating metastatic disease)
Labs/Micro/Reports
Lab Data
11/16/23 03:07
11/16/23 03:07
Microbiology
11/08/23 10:28 Blood/Venous Blood Culture - Final
No Growth - Final Report
11/08/23 10:31 Blood/Venous Blood Culture - Final
No Growth - Final Report
--- NOTE | 2023-11-16 08:26 | PN.DE.MGMTRT ---
Insulin Management
- -
11/16/2023: Diabetes Management Follow up
Patient admitted 11/01 with c/o poor appetite, abdominal pain and N/V for 4-5 days. PMH metastatic breast cancer (treated at [facility] on Ibrance->Afinitor). Patient had experienced weight loss/anorexia with use of Afinitor.
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 On evaluation in the ED, patient was noted for firm, tender and grossly discolored umbilical hernia concerning for incarceration +/- strangulation.
Pt is now POD#12 s/p Exploratory laparotomy, small bowel resection with primary anastomosis and primary umbilical hernia repair.
Diabetes consult requested on 11/10 for Hyperglycemia after initiation of TPN and tube feeds. No known Hx of diabetes, A1C 5.6%, Cr 0.5, eGFR>60
Pt awake, alert, oriented to self only, unable to participate in discussion regarding insulin requirements.
Pt extubated 11/13 ~ 14:30 now on 2 L NC. at bedside, all questions answered
Continues on TPN, blood sugars in range of 110 to 148. Tube feeds on hold, awaiting speech eval with potential plans to replace feeding tube
Will make no change to current regimen, NovoLog 5 units Q 6 and Lantus 15 units in am as long as pt remains on TPN.
If tube feeds resume pt may require additional insulin. Otherwise, pt may be switched to corrective insulin with Lantus 10 units if TPN d/c'd and pt starts PO diet.
Will follow and make further adjustments if necessary
Diabetes History
- -
Pre-Admission Diabetes Regimen
11/16/23
03:07
Creatinine 0.4 L
Lab Results
Hemoglobin A1c Cancelled 11/07/23 17:29
Insulin Pump Settings
IP Diabetes Regimen
11/15/23 11/15/23 11/15/23
08:23 11:55 17:30
Glucose
POC Glucose 149 H 163 H 151 H
11/15/23 11/15/23 11/16/23
23:13 23:55 03:07
Glucose 149 H
POC Glucose 127 H 135 H
11/16/23
05:15
Glucose
POC Glucose 136 H
Patient Education
--- NOTE | 2023-11-16 08:31 | W.PN.HOSP.TC ---
Today's Communication/Plan
-
see plan
Assessment / Plan
Assessment / Plan
Ms. Priscilla Dowell is a 78 y o woman with hx metastatic breast CA (follows at [facility] [place], currently off medications with plans to start lower dose early November) presents to the ER with abdominal pain, nausea and vomiting found to have incarcerated and
strangulated umbilical hernia; s/p OR 11/02, admitted to ICU with septic shock. concern also raised for aspiration pneumonia.
Operative Findings 11/02
Operative Findings:
1. Strangulated umbilical hernia containing 45 cm of necrotic small bowel, fascial defect approximately 4 cm (widened for exposure and anastomosis), healthy proximal and distal bowel
2. Small bowel resection with primary stapled anastomosis using MICKI 80 blue load x2 (Agustín technique), mesenteric defect closed
3. Primary fascial closure under minimal tension with #1 Stratafix
4. Skin stapled, soft tissue packed
CT A/P
IMPRESSION:
1. Postoperative changes without overt evidence for bowel ischemia, within limitations of unenhanced technique.
2. Trace bilateral pleural effusions. Bibasilar airspace disease suspicious for pneumonia.
3. Evidence for osseous metastatic disease involving T10, L4 and the right ninth rib.
Incarcerated / Strangulated Umbilical Hernia
Septic Shock
S/p resection of 45 cm necrotic small bowel with internal anastomosis and fixation on 11/02 with surgery
Aspiration upon intubation with 2L bilious vomiting suctioned, aspiration pneumonitis noted.
Blood cultures no growth to date. Micro respiratory culture with Klebsiella
-Patient was on vancomycin and Zosyn from 11/01-11/06, then continued on Zosyn monotherapy 11/07. She developed new fevers after stopping antibiotics prompting ID consult. At this point CT A/P recommended but family refused. ID following and resumed
antibiotics for continued fevers; and also started micafungin
-empiric meropenem and micafungin started on 11/08; Micafungin now off; completed course of Meropenem on 11/14
-family initially refused CT A/P - ordered 11/12 without contrast - results above
-having BM
-overnight pulled out NGT - confirming with surgery if OK to order ST eval
-continue TPN per surgery
-appreciate consultants
Acute hypoxemic respiratory failure secondary to ventilator dependent respiratory failure
-Postop patient was maintained on ventilatory support with difficulty weaning but able to be extubated on 11/14/23; now on 2L
-patient is DNR/DNI
Agitation
ICU Delirium
patient on standing Seroquel, received this AM
precedex weaned off
-standing clonidine; saphris PRN
Metastatic Breast Cancer
-Followed at [facility] [place]. Currently on no active therapy / medications.
-On med holiday for a month with plan to revisit / restart meds in early November.
Acute blood loss anemia from surgery
11/11/2023 received 1 unit PRBC with appropriate rise
-Hg stable
Thrombocytosis
-Reactive/infection related as well, monitor
Hyponatremia
Resolved
Hypokalemia
Replete as needed
REINA - resolved
Stage 1 buttock pressure injury
Wound care
Pressure offloading
DVT Prophylaxis: lovenox
Full code
-Overall prognosis at this time remains grim
51 minutes spent on patient evaluation, medical decision making, coordination of care
Anticipated Discharge: > 48 hours
Subjective/Interval History
-
Date of Service: November 16, 2023
she is confused
Objective Data
-
Labs:
Laboratory Results
11/16/23
03:07
WBC 7.3
Hgb 8.5 L
Hct 26.2 L
Plt Count 557 H
Sodium 139
Potassium 4.8
Chloride 109 H
Carbon Dioxide 24
BUN 29 H
Creatinine 0.4 L
Glucose 149 H
Calcium 9.4
Vital Signs:
Vital Signs
Temp Pulse Resp BP Pulse Ox
97.9 F 127 27 194/109 95
11/16/23 07:28 11/16/23 07:00 11/16/23 07:00 11/16/23 07:00 11/16/23 07:00
I&O
11/15/23 11/16/23 11/17/23
06:59 06:59 06:59
Intake Total 1343.2 / 1390.2 1588 / 1635
Output Total 1675 / 1675 750 / 750
Balance -331.8 / -284.8 838 / 885
Review of Systems
-
Unable to obtain full review of systems at this time due to: Other (patient confusion)
History Source: Patient
Physical Exam
-
General: Other (frail appearing, confused )
HEENT: PERRLA
Respiratory: Negative Wheezes
Cardiac: Regular Rhythm and S1/S2
GI: Other (gauze c/d/i)
Musculoskeletal: Other (RUE lymphedema)
Neuro: Awake and Alert
Psych: Confused and Anxious
Data Reviewed
-
Diagnostic Radiology: Report Reviewed by me
Labs: Labs Reviewed by me
[2023-11-16] MEDS: PROTONIX IV 40 MG IV (08:46)
[2023-11-16] MEDS: LANTUS 0.15 UNITS SC (08:46)
[2023-11-16] MEDS: NSS (PRESERVATIVE FREE) 10 ML IV (08:46)
[2023-11-16] MEDS: CARDENE 200 IV (08:47)
[2023-11-16] MEDS: FLUSH (NSS) 2 FLUSH IV (08:47)
[2023-11-16] MEDS: DULCOLAX 10 MG RECTAL (08:47)
[2023-11-16 08:57] LABS: Glucose - Point of Care 194 mg/dl (70-99)
[2023-11-16] MEDS: SEROQUEL TUBE (09:00)
[2023-11-16] MEDS: COLACE LIQUID TUBE ×2 (09:00→21:33)
--- NOTE | 2023-11-16 09:00 | PTCARENOTE ---
Rec'd pt at 0700 awake in bed but restless and down in the bed. Pt repositioned. Oriented to self but nothing else. Continues with rambling at times clear at time garbled conversation with occasional coherent thought. Repetative with conversation.
Denies pain. KEENE. + hand tremors. Skin is pale wm and dry. Dr. Gonzales in and midline abd incision dressing changed. Most of Incision is appoximated with linda intact except for middle of incision is open and not approximated - paced with guaze
tape and 4x4 and dsd applied. Respirs are shallow and at times tachypnic but non-labored on RA with sats of 99%. BS are decreased and sl coarse. Voice is wet sounding. Pt has a moist cough but non productive unless yankeur used then able to get some
whitish secretions. Monitor ST. BP has remained elevated 168/109- Cardene gtt started at 5 mg via R femoral TLC at 0845. + pulses. Edema as noted R arm with +3 lymphedema. Denies chest pain. ABd is round and soft with hypoactive BS. No stool
currently. Incont around and voiding via purewick yellow urine. New purewick placed. TPN infusing via TLC at 47 ml/hr. Skin and mouth care given. Turned and repositioned. Bilat soft wrist restraints in place for pt safety.
--- NOTE | 2023-11-16 09:15 | VATNOTE ---
Patient with femoral TLC in place. Discussed with PCN about need for different central access for TPN.
--- NOTE | 2023-11-16 10:02 | W.PN.GS2 ---
Addendum entered and electronically signed by Bijan Gonzales MD 11/16/23 15:19:
Patient seen and examined. Agree with assessment plan as documented below.
Awake but confused. No active complaints
Gen: ill appearing
Resp: increased secretions, NGT removed
Abd: soft, ND, NT, incision with intact staple line, open area to umbilicus without purulence or erythema
Patient is an 78 yo F with breast CA and treatment at [facility] p/w strangulated umbilical hernia
POD#13 Exploratory laparotomy, small bowel resection with primary anastomosis, primary umbilical hernia repair
CT A/P (11/11) in follow up: no significant bowel distension or radiographic signs of obstruction, no significant fluid around the anastomosis, no pneumatosis or free air, bl pleural effusions with airspace disease concerning for pneumonia, bony mets
CXR with bl infiltrates, pulm following. Aspirated gastric contents early in admission
Prolonged intubation but was able to be extubated 11/14/23
HTN this am: on Cardene gtt
Afebrile, mild tachycardia
Removed own NGT early this am
TF held yesterday d/t high residuals. Passed BM's x6 since yesterday afternoon
Plan:
-- [employer] eval pending prior to any PO dietary advancements. If cleared by [employer], ok for clears today
-- TPN renewed, need to consider line change or switching to TF
-- Abx per ID for aspiration pneumonia
-- Ongoing supportive care
Original Note:
Today's Communication / Plan
-
Continue TPN
[employer] eval
Assessment / Plan
-
Assessment: Patient is an 78 yo F with breast CA and treatment at [facility] p/w strangulated umbilical hernia
POD#13 Exploratory laparotomy, small bowel resection with primary anastomosis, primary umbilical hernia repair
CT A/P (11/11) in follow up: no significant bowel distension or radiographic signs of obstruction, no significant fluid around the anastomosis, no pneumatosis or free air, bl pleural effusions with airspace disease concerning for pneumonia, bony mets
ID following with us for abx
CXR with bl infiltrates, pulm following. Aspirated gastric contents early in admission
Prolonged intubation but was able to be extubated 11/14/23
HTN this am: on Cardene gtt
Afebrile, mild tachycardia
Removed own NGT early this am
TF held yesterday d/t high residuals. Passed BM's x6 since yesterday afternoon
Plan: [employer] eval pending prior to any PO dietary advancements. If cleared by [employer], ok for clears today
TPN renewed
continue bowel regimen, hold for diarrhea
ongoing supportive care
Subjective Data
-
Date of Service: November 16, 2023
Patient seen and examined at bedside. Awake but confused. No active complaints.
Objective Data
-
Intake and Output
11/15/23 11/16/23 11/17/23
06:59 06:59 06:59
Intake Total 1343.2 / 1390.2 1588 / 1635 141 / 141
Output Total 1675 / 1675 750 / 750
Balance -331.8 / -284.8 838 / 885 141 / 141
Intake:
IV fluids (Total) 231.2 / 231.2
KVO 46 / 46
Precedex gtt 185.2 / 185.2
TPN/PPN 1022 / 1069 1128 / 1175 141 / 141
Tube feeding 170 / 170
Feeding tube flush amount 210 / 210
Amount instilled into GI Tube ( 90 / 90 80 / 80
Total)
[place] Sump 90 / 90 80 / 80
Output:
Gastrointestinal tube output ( 350 / 350
Total)
[place] Sump 350 / 350
Urine, Voided 1325 / 1325 750 / 750
Other:
Number of approximated SMALL 1
amounts of urine
Number of approximated MODERATE 1
amounts of urine
How many times incontinent 1 1 1
SATURATED amount urine
Number of unmeasured liquid
stools
Rectum 1
Vital Signs
Temp Pulse Resp BP Pulse Ox
97.9 F 112 29 133/68 99
11/16/23 07:28 11/16/23 09:30 11/16/23 09:30 11/16/23 09:30 11/16/23 09:30
Lab Results
11/16/23 03:07
11/16/23 03:07
Calcium 9.4 mg/dl (8.4-10.2) 11/16/23 03:07
Phosphorus 3.2 mg/dl (2.5-4.5) 11/12/23 04:00
Magnesium 2.1 mg/dl (1.6-2.3) 11/14/23 04:05
Total Bilirubin 0.6 mg/dl (0.2-1.3) 11/13/23 03:47
Direct Bilirubin 0.6 mg/dl (0.0-0.4) H 11/03/23 04:20
AST 63 U/L (14-36) H 11/13/23 03:47
ALT 36 U/L (0-35) H 11/13/23 03:47
Alkaline Phosphatase 245 U/L (38-126) H 11/13/23 03:47
Total Protein 4.8 g/dl (6.3-8.2) L 11/13/23 03:47
Albumin 2.2 g/dl (3.5-5.0) L 11/13/23 03:47
Physical Exam
-
ill appearing, confused, trying to clear secretions with weak cough
ABD; soft, ND, NTTP
Incision with intact staple line, open area to umbilicus without purulence or eythema
--- NOTE | 2023-11-16 10:18 | VATNOTE ---
[facility] order noted. Spoke with PCN and Dr. Navas regarding plan for TPN; MD states awaiting decision from other providers regarding TPN. Reconfirmed need for central access if patient to remain on TPN.
--- NOTE | 2023-11-16 10:34 | PTCARENOTE ---
Pt more awake but overall more restful. Cardene decreased to 2.5 mg/hr for syst of 112. Awaiting speech therapy
--- NOTE | 2023-11-16 11:28 | PTOTSP ---
Dysphagia Evaluation
Patient with profound oral stage dysphagia likely exacerbated by delirium and prolonged NPO status secondary to acute illness. Patient is at an elevated risk for dysphagia/aspiration given her history of VDRF (11/02-11/13) with subsequent signs of
poor airway protection (wet vocal quality, inability to clear). She is at a high risk for complications if aspiration were to occur given poor oral health, decreased mobility, and comorbidities (metastatic breast cancer).
Recommend:
1. NPO - consider non-oral means
2. Medications - via non-oral means
3. Aspiration Risk Hydration Protocol is NOT appropriate.
4. Oral care 3x daily with suctioning
5. Dysphagia tx at the acute care level if aligned with GOC.
[2023-11-16 11:49] LABS: Glucose - Point of Care 223 mg/dl (70-99)
--- NOTE | 2023-11-16 12:00 | PTCARENOTE ---
Pt mostly restful this morning. Just admits to being tired. Speech therapy in to see pt and did not pass speech eval as per orders, small bore feeding tube placed via the L nare at the 65 cm mak. Placement auscultated and currently abd xray taken.
Pt remains confused, rambling with conversation and does not necessarily follow commands. VS as documented. Remains on Cardene 2.5 mg and BP's mostly 120-140's. Incont around the purewick of urine and also had a mod amt of loose stool so again will
leave purewick out. Joann and mouth care given. Pt with soft wrist restraints and mitts to keep pt from removing lines/tubes Turned and repositioned. Family at the bedside.
[2023-11-16] MEDS: NOVOLOG FLEXPEN-LOW RESISTANCE 2 UNITS SC (13:00)
[2023-11-16] MEDS: MIRALAX 17 GRAMS TUBE (13:43)
--- NOTE | 2023-11-16 13:45 | PTCARENOTE ---
After placement confirmed on feeding tube- Jevity 1.5 tube feeds restarted at 10 ml/hr with 10 ml/hr water flush. Pt resting. Dr. Navas and Zandra Montenegro CHILD CARE WORKER updated.
--- NOTE | 2023-11-16 14:34 | CM ---
CM following re: discharge planning.
Discussed in rounds, reviewed pt's chart, met with pt and pt's at bedside.
Pt is POD#13 Exploratory laparotomy, small bowel resection with primary anastomosis, primary umbilical hernia repair. Pt extubated on 11/14/23, remains weak, continue supportive care.
Per , pt's wishes to be at home and pt's feels that the best for the pt is to return back home with requires and necessary services.
D/C plan: per request, home with required necessary services and family support.
CM will follow with discharge plan updates as hospitalization progresses
[2023-11-16] MEDS: SEROQUEL 25 MG TUBE ×2 (16:20→23:29)
[2023-11-16] MEDS: CATAPRES 0.1 MG PO (16:20)
--- NOTE | 2023-11-16 16:30 | PTCARENOTE ---
Pt resting on and off this afternoon. Sometimes dozing and othertimes restless. Found pt with mitts off twice-once said pt took them off herself and the other time he admitted he took them off because 'she was uncomfortable'. Informed
to leave them in place and why they are there as to not pull her feeding tube out. Remains rambling and often garbled with confused conversation. VS as documented. BP in the 120-140 range for the most part on the Cardene 2.5 mg. Tolerating
tube feeds - 45 mls residual. Incont of a small amt of urine and stool Joann and mouth care given. Repositoned. at bedside
[2023-11-16 17:29] LABS: Glucose - Point of Care 176 mg/dl (70-99)
[2023-11-16] MEDS: LOVENOX 40 MG SC (17:58)
[2023-11-16] MEDS: NOVOLOG FLEXPEN-LOW RESISTANCE 1 UNITS SC ×2 (17:59→23:20)
[2023-11-16] MEDS: TYLENOL ORAL SOLUTION 650 MG TUBE ×2 (18:00→23:29)
--- NOTE | 2023-11-16 18:05 | PTCARENOTE ---
Dozing after Seroquel. No other changes
--- NOTE | 2023-11-16 20:14 | PTCARENOTE ---
Pt received in bed @ 19:00. Drowsy and sleeping intermittently. Pt oriented to self. Confused conversation. Denying pain. B/L soft wrist and mitts in place. SaO2 95% on room air. Lungs coarse and diminished. Oral care provided and suctioned for
thick white sputum. Sinus tach on youth nutritional monitor. HR 100s - 130s. Cardene gtt d/c'd @ 19:30 per order. SBP remains > 120s and < 140. +2 generalized anasarca with +3 RUE edema. Dobhoff tube in place with Jevity 1.5 infusing @ 10ml/hr with 10 ml/hr
water flush. 10ml residual, re-instilled. Abdominal dressing in place. New TPN hung, infusing @ 47ml/hr through right femoral triple lumen.
[2023-11-16] MEDS: Parenteral Nutrition, Central 1120 IV (21:36)
[2023-11-16 23:13] LABS: Glucose - Point of Care 194 mg/dl (70-99)
[2023-11-16] MEDS: CATAPRES 0.2 MG PO (23:18)
[2023-11-17] VITALS (28 sets, daily range): BP systolic 99–150; BP diastolic 48–82; BMI 24.4
--- NOTE | 2023-11-17 01:15 | PTCARENOTE ---
Pt turned and repositioned,confused mumbling,denies pain.Restraints maintained for safety.VS stable,room air sat 95%,resps are easy nonlabored.TPN maintained at 47mls hour.Jevity 1.5 dobbhoff feedings at 10mls at this time.Close observation ongoing
throughout the night.
[2023-11-17 05:25] LABS: Hemoglobin 7.8 g/dL (12.0-16.0); Mean Corp Hgb Conc. 32.5 g/dL (33.0-37.0); Mean Corpuscular Hgb 28.2 pg (27.0-31.0); Mean Corpuscular Volume 86.6 fL (81.0-99.0); Mean Platelet Volume 9.9 fL (7.4-10.4); Platelet Count 516 10^3/uL (130-400); Red Blood Cell Count 2.77 10^6/uL (4.20-5.40); Red Cell Dist. Width 20.8 % (11.5-14.5); White Blood Cell Count 9.7 10^3/uL (4.8-10.8)
[2023-11-17] MEDS: NOVOLOG FLEXPEN 5 UNITS SC ×3 (05:33→18:05)
[2023-11-17] MEDS: NOVOLOG FLEXPEN-LOW RESISTANCE 1 UNITS SC ×2 (05:34→12:23)
[2023-11-17] MEDS: TYLENOL ORAL SOLUTION 650 MG TUBE ×4 (05:36→23:34)
[2023-11-17 05:44] LABS: Glucose - Point of Care 167 mg/dl (70-99)
[2023-11-17 05:48] LABS: Blood Urea Nitrogen 41 mg/dl (7-17); Calcium 9.7 mg/dl (8.4-10.2); Carbon Dioxide 23 mmol/L (22-30); Chloride 110 mmol/L (98-107); Estimated Creatinine Clearance 65 ml/min; Glucose 159 mg/dl (70-99); Potassium 4.7 mmol/L (3.5-5.1); Sodium 138 mmol/L (135-145); eGFR > 60.00
--- NOTE | 2023-11-17 07:08 | W.PN.INTV ---
Addendum entered and electronically signed by Rosalie Jones, DO 11/17/23 08:36:
Discussed with surgery, ok to stop TPN
Will stop, and discontinue CVC prior to transfer
Transfer to IMU, we will sign off upon transfer
Original Note:
Today's Communication / Plan
Recommendations
Agitation improving, can continue current regiment
Off cardene, BP improved
Advance TFs, will re-consult dietary for goal advancement
Need to address TPN needs as her R fem CVC is long and should be discontinued
Assessment
-
Patient is an 78 year old F with history of metastatic breast cancer (treated at [facility] on Ibrance->Afinitor) presenting to ED complaining of poor appetite, abdominal pain and N/V x 4-5 days. Of note, she had experienced weight
loss/anorexia with use of Afinitor. She began to complain of abdominal discomfort about 2 days ago. Today, family noted discoloration associated with her long standing chronic umbilical hernia. On evaluation in the ED, patient is noted to have
firm, tender and grossly discolored umbilical hernia concerning for incarceration +/- strangulation. BP 70s, Tmax 100.9, WBC 18, lactate 6, creat 1.9. She was seen by Colorectal Surgery who discussed benefit of urgent surgical intervention. She is
placed on levophed, and empiric abx and admitted to ICU.
Septic shock on pressors
Weaned off as of 11/09
Incarcerated umbilical hernia wtih concern for ischemic bowel s/p resection with anastomosis 11/03/23
Post-op VDRF
Aspiration PNA upon intubation, 2L bilious vomiting suctioned s/p NGT likely obstruction from hernia
Suspected lung injury, aspiration pneumonitis, culture positive Klebsiella oxytocin (S to Zosyn)
Possible component of pulmonary edema
Improved with diuresis
REINA, improved
Leukocytosis, improved
Lactic acidosis, improved
Hyponatremia, improved
Hyperglycemia, requiring insulin drip
Persistent fevers
Anemia, requiring transfusion 11/10
HTN Urgency
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
Metastatic breast cancer
Diagnosed 2017
On chemotherapy, held recently months ago due to significant side effects, neutropenia/leukopenia
Apparently refused port placement, per
Was being considered for hospice, palliative care at one point, per
Plan
Confused, with delirium
Pain/sedation: saphris PRN, seroquel q8, tylenol scheduled
RASS goals: 0
Off precedex, agitation ongoing-clonidine PO weaning down
Improving
Labile blood pressure and heart rate noted, seems to be related to agitation
Responding to Lasix given this morning
Extubated 11/14/23
BPAP post extubation PRN
Off cardene, BP improved
Chest x-ray with patchy infiltrate, heart failure versus aspiration pneumonitis
Repeat sputum culture with +kleb from aspiration 11/08/23
Completed MRP course 11/14 last dose, observe off
Aspiration still an ongoing risk given [facility]
Pressors off as of 11/09
Cardiac history reviewed--none
Echocardiogram with normal biventricular function, could not assess pulmonary artery pressures
Monitor on telemetry
Incarcerated bowel s/p resection with anastomosis 11/03/23
NG tube discontinued/surgery team following, no further interventions offered at this point
Aspiration precautions, HOB > 30 degrees
GI prophylaxis
Continue TPN per surgery
Tube feeds resumed past 24 hours
Replace DHT and resume again--advance diet as tolerated
Micro reviewed
Tracheal culture gram-negative bacilli, Klebsiella, sensitive to Zosyn
Unfortunately, right groin line remains due to no additional access available--TPN continues
These risks were reviewed at length multiple times throughout hospital stay with /declined new line
Possible colitis, ischemic bowel, aspiration PNA on presentation
ID following, off abx
CT AP reviewed, negative for collection 11/12/23
REINA present, no history of renal disease--improved
Creatinine normal
Replete potassium
TPN continue as per surgery
Lasix therapy intermittently
Hemoglobin noted, slowly trending down
DVT prophylaxis as assessed based on risk, including mechanical SCDs
Can transfuse if indicated for Hb <7, plt < 10
INR WNL
Maintain active type and screen but would minimize transfusion given risk for lung injury
Transfuse 1 unit on 11/10
Transfuse for hemoglobin less than 7
Reviewed with and daughter 11/11
No prior h/o diabetes or thyroid disease
Elevated blood sugars noted since starting TPN
Requiring initiation of insulin drip--bridged to SQ
Continue to follow hyperglycemic protocol
Lines- PICC attempted on L, could not thread, R fem line attempted (by myself >60 mins) could not thread. She has RUE lymphedema and L sided neck metastatic disease
CVC needed but having difficult access sites. IR placed right groin line
Unable to place additional access per interventional radiology 11/05 (metastatic breast cancer in the left involving the neck and right upper extremity lymphedema
According to , patient refused port placement in the past
Discussed worst-case scenario where we may have to accept chronic right groin placement but this would put patient at risk for infection
This has been reviewed on a daily basis multiple times with
IR has evaluated 3 times for access, no practical solution. Will need to maintain right groin line. Site looks okay
To date, has stated that if she were to develop cardiac arrest, life-threatening cardiac arrhythmias, that he would not want chest compressions, shock
Therefore patient is DNR
Prognosis guarded/poor
DVT prophylaxis: Continue with pharmacological and mechanical
GI prophylaxis: Remains on Protonix
Reviewed at length with critical care nursing, respiratory care, primary service, surgery
Reviewed with /daughter on rounds
Family Discussions
Karen 11/13/23- extensive conversation today on rounds regarding her progress in weaning, in my opinion is not significant enough to safely extubate. She is day #11, I think that at this point if she has not made significant progress, she is unlikely
to remain without full vent support. We will need to discuss in next 24-48 hours if family would like to move forward with comfort measures.
Jamal - I reviewed again with and daughter on 11/11 that I do not think patient has adequate conditioning from a respiratory standpoint to successfully be extubated and return to home, especially in the setting of metastatic breast cancer,
incarcerated bowel requiring emergent surgery, persistent fevers, prolonged mechanical ventilation.
Reviewed with patient and son that I do not think we will be able to liberate her from the ventilator. They have made it clear that they do not want tracheotomy.
I have been very kamar with the , son and daughter on multiple occasions throughout this week. Do not think patient will be able to make it back home in her prior functional state
In fact, I suspect she will require long-term nursing care/rehabilitation if successfully extubated
Had extensive discussion with on daily basis (sometimes 2-3 times a day)-Reviewed again today with son and poor prognosis 11/10 in the PM
, son and daughter have confirmed on a variety of occasions that tracheotomy is not an option
They seem to have focused on '14-day' number given to them for ET tube/mechanical ventilation prior to tracheotomy
Family would like to take opportunity for extubation, even if the risk for failure is high (i.e respiratory failure, cardiac arrest).
I have told him on a daily basis that she is not ready for extubation, and is not ready today. They want to avoid having her on the ventilator
Discussed potential outcomes which would include 1) extremely poor prognosis, transition to comfort while on the vent, withdrawal of care/comfort. 2) attempted extubation with high risk for failure, development of progressive respiratory distress,
cardiac arrhythmias, cardiac arrest with prompt transition to comfort. 3) attempted extubation with initial success but subsequent setbacks in the days/weeks that would prompt evaluation for rehospitalization, feeding tube, reintubation, invasive
procedures. states he would not want patient to be placed back on life support if fails extubation in the short-term (hours to few weeks). Family has suggested that ideally she would be at home and at home if it came to that.
Unfortunately, has misinterpreted/misconstrued many factual statements that we have made as a provider team. Therefore, I have tried to be consistent in my explanation of prognosis, plan for the day and I try to do this in the presence of
critical care nursing, respiratory care and son/daughter when able.
11/05/2023: Extensive update with at the bedside. He does not want his 1 daughter Samreen to be updated as she has difficulty processing information at that time, gets very anxious. Other 2 children are to be updated (Temo, Luna). All
questions answered
Karen 11/03/23- I had a long discussion with the and daughter at bedside regarding decision making. Initially patient had declined surgery as she did not want to live with a colostomy but then subsequently did not change her code status
despite urgency of the situation. She then changed her mind this morning stating she does want to live and would undergo surgery. The family did feel she was not quite sure/had cognitive impairment on presentation, but she seems more clear to them
this morning. It is difficult to discuss with her as she has very severe hearing impairment and does not use hearing aids. I answered all questions from including her future oncologic care, that he will need to discuss with their
oncologist for next steps. They are now agreeing for surgery and care team was updated in further discussions.
Diagnostic Data
Chest X-Ray: 11/12/23- Stable bilateral airspace disease/pneumonia.
11/10/23- Findings/impression: Endotracheal tube and nasogastric tube remain in place. Persistent interstitial and subtle airspace opacity is again demonstrated bilaterally. However, slightly improved aeration is suggested especially in the right
midlung zone. Slightly irregular retrocardiac opacity is essentially unchanged (atelectasis versus pneumonia).
No pneumothorax. The cardiac mediastinal margins are stable.
11/09/23- Diffusely increased interstitial and patchy groundglass opacities bilaterally, similar in appearance compared to the prior study.
11/07/23- Stable support devices. Bilateral airspace opacities with slight worsening in the left upper lobe.
CT Scan: AP 11/12/23- 1. Postoperative changes without overt evidence for bowel ischemia, within limitations of unenhanced technique.
2. Trace bilateral pleural effusions. Bibasilar airspace disease suspicious for pneumonia.
3. Evidence for osseous metastatic disease involving T10, L4 and the right ninth rib.
Echo: 11/06/23- Normal biventricular size and systolic function without regional wall motion abnormality. Estimated LVEF 55-60%.Aortic sclerosis without stenosis. Mild/moderate tricuspid regurgitation. Normal PASP. Estimated pulmonary artery pressure
of 34 mmHg assuming a right atrial pressure of 8 mmHg. No prior study available for comparison.
PFT's:
Reports and relevant images were personally reviewed.
-----
Critical Care time 31 mins -- The patient is admitted for acute critical illness for the treatment of vital organ failure and/or prevention of further life-threatening conditions. Total care includes time spent in review of history, physical exam,
medications, hemodynamic/ventilator parameters, laboratory data, imaging and discussion with house staff, pharmacy, respiratory therapy, electronics engineering manager, and nursing.
Subjective Dataa
Subjective Data
Date of Service:
Date of Service: November 17, 2023
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
Subjective:
no events ON
remains stable, agitation better
off cardene
Objective Data
Data Reviewed
Vital Signs / I&O / Oxygen:
Vital Signs
Temp Pulse Resp BP Pulse Ox
98.0 F 107 20 125/62 96
11/17/23 03:16 11/17/23 06:00 11/17/23 06:00 11/17/23 06:00 11/17/23 06:00
Intake and Output
11/16/23 11/17/23 11/18/23
06:59 06:59 06:59
Intake Total 1588 / 1635 1365.0 / 1365.0
Output Total 750 / 750 400 / 400
Balance 838 / 885 965.0 / 965.0
SaO2 [CPAP] 100
SaO2 [ASV] 95
SaO2 [A/C] 98
SaO2 96
Nasal Cannula flow liters per 2
minute
Physical Exam
General: Comfortable (Intermittently agitated depending on level of sedation), Other (Left neck changes, left chest wall changes from breast cancer, right upper extremity lymphedema) and Other (Right femoral groin line)
HEENT: Normocephalic, Anicteric and Moist Mucous Membranes
Cardiovascular: S1-S2, Regular Rhythm, Murmur (n), Rub (n), Peripheral Edema (RUE swelling/lymphedema) and Calf Tenderness (n)
Respiratory: Wheeze (n), Crackles (n), Rhonchi (bilateral, constant) and Non-Labored Respirations
GI: Soft, Non Distended, Non Tender, NG Tube (DHT in place) and Other (Abdominal dressing in place)
Neurology: Awake, Alert, No Motor Deficits (moving extremities), Other (confused, speaking nonsensically) and Other (agitation ongoing)
Skin: Cyanosis (n), Jaundice (n), Rash (n) and Other (numerous skin lesions over sternum, L side of neck--presumed fungating metastatic disease)
Labs/Micro/Reports
Lab Data
11/17/23 05:16
11/17/23 05:16
[2023-11-17] MEDS: NSS (PRESERVATIVE FREE) IV (07:25)
[2023-11-17] MEDS: CATAPRES 0.2 MG PO ×3 (07:28→23:34)
[2023-11-17] MEDS: MIRALAX 17 GRAMS TUBE (07:28)
[2023-11-17] MEDS: DULCOLAX 10 MG RECTAL (07:28)
[2023-11-17] MEDS: COLACE LIQUID 100 MG TUBE ×2 (07:28→20:26)
[2023-11-17] MEDS: LANTUS 0.15 UNITS SC (07:28)
[2023-11-17] MEDS: SEROQUEL 25 MG TUBE ×3 (07:28→23:34)
--- NOTE | 2023-11-17 07:50 | W.PN.HOSP.TC ---
Today's Communication/Plan
-
possible transfer to IMU today
advancing TF and possible d/c TPN - F/U with surgery
continue antipsychotics at current regimen with clonidine wean
Assessment / Plan
Assessment / Plan
Ms. Priscilla Dowell is a 78 y o woman with hx metastatic breast CA (follows at [facility], currently off medications with plans to start lower dose early November) presents to the ER with abdominal pain, nausea and vomiting found to have incarcerated and
strangulated umbilical hernia; s/p OR 11/02, admitted to ICU with septic shock. concern also raised for aspiration pneumonia.
Operative Findings 11/02
Operative Findings:
1. Strangulated umbilical hernia containing 45 cm of necrotic small bowel, fascial defect approximately 4 cm (widened for exposure and anastomosis), healthy proximal and distal bowel
2. Small bowel resection with primary stapled anastomosis using MICKI 80 blue load x2 (Agustín technique), mesenteric defect closed
3. Primary fascial closure under minimal tension with #1 Stratafix
4. Skin stapled, soft tissue packed
CT A/P
IMPRESSION:
1. Postoperative changes without overt evidence for bowel ischemia, within limitations of unenhanced technique.
2. Trace bilateral pleural effusions. Bibasilar airspace disease suspicious for pneumonia.
3. Evidence for osseous metastatic disease involving T10, L4 and the right ninth rib.
Incarcerated / Strangulated Umbilical Hernia
Septic Shock
S/p resection of 45 cm necrotic small bowel with internal anastomosis and fixation on 11/02 with surgery
Aspiration upon intubation with 2L bilious vomiting suctioned, aspiration pneumonitis noted.
Blood cultures no growth to date. Micro respiratory culture with Klebsiella
-Patient was on vancomycin and Zosyn from 11/01-11/06, then continued on Zosyn monotherapy 11/07. She developed new fevers after stopping antibiotics prompting ID consult. At this point CT A/P recommended but family refused. ID following and resumed
antibiotics for continued fevers; and also started micafungin
-empiric meropenem and micafungin started on 11/08; Micafungin now off; completed course of Meropenem on 11/14
-family initially refused CT A/P - ordered 11/12 without contrast - results above
-having BM
-pulled out NGT overnight 11/14; 11/15 now s/p dobhoff with TF advancing. hopefully stopping TPN today and pulling CVC
-appreciate consultants
-possible transfer to IMU later today
Acute hypoxemic respiratory failure secondary to ventilator dependent respiratory failure
-Postop patient was maintained on ventilatory support with difficulty weaning but able to be extubated on 11/14/23; now on 2L
-patient is DNR/DNI
Agitation
ICU Delirium
patient on standing Seroquel, received this AM
precedex weaned off
-standing clonidine; saphris PRN
Metastatic Breast Cancer
-Followed at [facility]. Currently on no active therapy / medications.
-On med holiday for a month with plan to revisit / restart meds in early November.
Acute blood loss anemia from surgery
11/11/2023 received 1 unit PRBC with appropriate rise
-Hg stable
Thrombocytosis
-Reactive/infection related as well, monitor
Hyponatremia
Resolved
Hypokalemia
Replete as needed
REINA - resolved
Stage 1 buttock pressure injury
Wound care
Pressure offloading
DVT Prophylaxis: lovenox
Full code
-Overall prognosis at this time remains grim
51 minutes spent on patient evaluation, medical decision making, coordination of care
Anticipated Discharge: > 48 hours
Subjective/Interval History
-
Date of Service: November 17, 2023
patient states she is feeling good today
appears more calm
wants mittens off
Objective Data
-
Labs:
Laboratory Results
11/17/23
05:16
WBC 9.7
Hgb 7.8 L
Hct 24.0 L
Plt Count 516 H
Sodium 138
Potassium 4.7
Chloride 110 H
Carbon Dioxide 23
BUN 41 H
Creatinine 0.6
Glucose 159 H
Calcium 9.7
Vital Signs:
Vital Signs
Temp Pulse Resp BP Pulse Ox
98.0 F 110 21 139/64 96
11/17/23 03:16 11/17/23 07:00 11/17/23 07:00 11/17/23 07:00 11/17/23 07:00
I&O
11/16/23 11/17/23 11/18/23
06:59 06:59 06:59
Intake Total 1588 / 1635 1365.0 / 1365.0
Output Total 750 / 750 400 / 400
Balance 838 / 885 965.0 / 965.0
Review of Systems
-
History Source: Patient
All other systems: Reviewed and negative
Physical Exam
-
General: Other (frail appearing, confused )
HEENT: PERRLA
Respiratory: Negative Wheezes
Cardiac: Regular Rhythm and S1/S2
GI: Other (gauze c/d/i)
Musculoskeletal: Other (RUE lymphedema)
Neuro: Awake and Alert
Psych: Confused and Anxious
Data Reviewed
-
Diagnostic Radiology: Report Reviewed by me
Labs: Labs Reviewed by me
--- NOTE | 2023-11-17 10:53 | PTCARENOTE ---
Rec'd pt at 0700. Pt drowsy, awakens to verbal stimuli, oriented to self only. Follows some simple commands, KEENE with gen weakness. Monitor SR. Lungs coarse, pox 96% RA. Occas moist cough. +hypo BS, abd soft. Abd dressing in place. Saturated for
urine, pericare performed. Pt downgraded to IMU level. in to visit, updated on plan of care.
--- NOTE | 2023-11-17 11:38 | W.PN.GS2 ---
Addendum entered and electronically signed by aTj Parkinson MD 11/17/23 14:43:
I saw and examined the patient.
The [employer] Police Officer's note was reviewed and I agree with the note.
Comment: Extubated, more awake and talking, though not fully lucid. Off pressors. Denies pain. Abd exam approp, minimal ttp, incisional dressing cdi. Hayley TF at 20cc/hr, increase per nutrition recs. Stop TPN. PT/OT. Swallow eval eventually
Original Note:
Today's Communication / Plan
-
TF as tolerating
No further TPN
Assessment / Plan
-
Assessment: Patient is an 78 yo F with breast CA and treatment at [facility] p/w strangulated umbilical hernia
POD#14 Exploratory laparotomy, small bowel resection with primary anastomosis, primary umbilical hernia repair
CT A/P (11/11) in follow up: no significant bowel distension or radiographic signs of obstruction, no significant fluid around the anastomosis, no pneumatosis or free air, bl pleural effusions with airspace disease concerning for pneumonia, bony mets
ID following with us for abx
CXR with bl infiltrates, pulm following. Aspirated gastric contents early in admission
Prolonged intubation but was able to be extubated 11/14/23
HTN: on Cardene gtt
Afebrile, mild intermittent tachycardia
More alert today, confused. Did remove own NGT on 11/15 which was replaced with dobhoff
Evidence of returning bowel function. Tolerating trickle TF with +flatus/BM's. XR on 11/15 with resolving ileus and dobhoff well below GE junction.
Plan: [employer] following, NPO for now
tolerating TF, consult placed to dietary for recommendations. Continue to increase to goal as tolerated.
Will discontinue TPN after completing this current bag
continue bowel regimen, hold for diarrhea
ongoing supportive care
Subjective Data
-
Date of Service: November 17, 2023
Patient seen and examined at bedside with Dr. Parkinson. More alert today and answering simple questions. Denies pain. Confused.
Objective Data
-
Intake and Output
11/16/23 11/17/23 11/18/23
06:59 06:59 06:59
Intake Total 1588 / 1635 1365.0 / 1432.0 338 / 338
Output Total 750 / 750 400 / 400
Balance 838 / 885 965.0 / 1032.0 338 / 338
Intake:
IV fluids (Total) 125.0 / 125.0
Cardene 125.0 / 125.0
TPN/PPN 1128 / 1175 940 / 987 188 / 188
Tube feeding 170 / 170 150 / 160 60 / 60
Feeding tube flush amount 210 / 210 150 / 160 90 / 90
Amount instilled into GI Tube ( 80 / 80
Total)
[place] Sump 80 / 80
Output:
Urine, Voided 750 / 750 400 / 400
Other:
Number of approximated SMALL 1
amounts of urine
Number of approximated MODERATE 1
amounts of urine
How many times incontinent 1
SMALL amount urine
How many times incontinent 1
MODERATE amount urine
How many times incontinent 1 1 1
SATURATED amount urine
Vital Signs
Temp Pulse Resp BP Pulse Ox
98.3 F 100 18 136/72 96
11/17/23 08:00 11/17/23 10:00 11/17/23 10:00 11/17/23 10:00 11/17/23 07:00
Lab Results
11/17/23 05:16
11/17/23 05:16
Calcium 9.7 mg/dl (8.4-10.2) 11/17/23 05:16
Phosphorus 3.2 mg/dl (2.5-4.5) 11/12/23 04:00
Magnesium 2.1 mg/dl (1.6-2.3) 11/14/23 04:05
Total Bilirubin 0.6 mg/dl (0.2-1.3) 11/13/23 03:47
Direct Bilirubin 0.6 mg/dl (0.0-0.4) H 11/03/23 04:20
AST 63 U/L (14-36) H 11/13/23 03:47
ALT 36 U/L (0-35) H 11/13/23 03:47
Alkaline Phosphatase 245 U/L (38-126) H 11/13/23 03:47
Total Protein 4.8 g/dl (6.3-8.2) L 11/13/23 03:47
Albumin 2.2 g/dl (3.5-5.0) L 11/13/23 03:47
Physical Exam
-
ill appearing, confused, trying to clear secretions with weak cough, gurgling voice
ABD; soft, ND, NTTP, dobhoff in place
Incision with intact staple line, open area to umbilicus without purulence or erythema
[2023-11-17 12:32] LABS: Glucose - Point of Care 173 mg/dl (70-99)
--- NOTE | 2023-11-17 12:59 | VATNOTE ---
order to remove right femoral triple lumen catheter. Peripheral IV site had been established earlier. Catheter removed intact following hospital policy. Direct pressure applied for 10 minutes. Sterile occlusive dressing applied. Dry and intact
at this time.Primary care RN aware..
[2023-11-17] MEDS: LOVENOX 40 MG SC (17:58)
[2023-11-17] MEDS: NOVOLOG FLEXPEN-LOW RESISTANCE SC ×2 (18:05→23:33)
[2023-11-17 18:13] LABS: Glucose - Point of Care 88 mg/dl (70-99)
[2023-11-17 23:43] LABS: Glucose - Point of Care 72 mg/dl (70-99)
[2023-11-17] MEDS: NOVOLOG FLEXPEN SC (23:47)
[2023-11-18] VITALS (28 sets, daily range): BP systolic 90–166; BP diastolic 48–87; PULSE 98; O2SAT 96–97; BMI 24.2
--- NOTE | 2023-11-18 | PTCARENOTE ---
Assumed care of patient at 1900. Nursing assessment completed and as documented. Patient confused, oriented to self. Remains on RA saturations 93-96%. Left nare DHT in place marked at 65cm, placement verified and residuals assessed. Jevity 1.5
running at 40ml/hr with 25ml/hr flush, goal rate of 55. Medications given without difficulty. Hygiene care provided. Family at bedside and worried about leaving for the night, emotional support provided. Call francisco within reach, VSS, care
ongoing.
[2023-11-18 04:56] LABS: Hematocrit 24.8 % (37.0-47.0); Hemoglobin 8.1 g/dL (12.0-16.0); Mean Corp Hgb Conc. 32.7 g/dL (33.0-37.0); Mean Corpuscular Hgb 28.5 pg (27.0-31.0); Mean Corpuscular Volume 87.3 fL (81.0-99.0); Mean Platelet Volume 10.1 fL (7.4-10.4); Platelet Count 512 10^3/uL (130-400); Red Blood Cell Count 2.84 10^6/uL (4.20-5.40); White Blood Cell Count 9.3 10^3/uL (4.8-10.8)
[2023-11-18 05:18] LABS: Blood Urea Nitrogen 56 mg/dl (7-17); Calcium 10.1 mg/dl (8.4-10.2); Carbon Dioxide 20 mmol/L (22-30); Chloride 109 mmol/L (98-107); Estimated Creatinine Clearance 43 ml/min; Glucose 85 mg/dl (70-99); Potassium 5.2 mmol/L (3.5-5.1); Sodium 137 mmol/L (135-145); eGFR > 60.00
[2023-11-18 06:14] LABS: Glucose - Point of Care 96 mg/dl (70-99)
[2023-11-18] MEDS: TYLENOL ORAL SOLUTION 650 MG TUBE ×4 (06:33→23:04)
[2023-11-18] MEDS: NOVOLOG FLEXPEN 5 UNITS SC (06:33)
[2023-11-18] MEDS: NOVOLOG FLEXPEN-LOW RESISTANCE SC ×4 (06:33→23:06)
[2023-11-18] MEDS: SEROQUEL 25 MG TUBE ×3 (07:18→23:04)
[2023-11-18] MEDS: COLACE LIQUID 100 MG TUBE (07:19)
[2023-11-18] MEDS: DULCOLAX RECTAL (07:19)
[2023-11-18] MEDS: LANTUS 0.15 UNITS SC (07:19)
[2023-11-18] MEDS: CATAPRES 0.1 MG PO ×2 (07:19→20:03)
[2023-11-18] MEDS: MIRALAX TUBE (07:19)
[2023-11-18] MEDS: NSS (PRESERVATIVE FREE) IV (07:19)
--- NOTE | 2023-11-18 07:38 | W.PN.HOSP.TC ---
Addendum entered and electronically signed by Adia Huitron MD 11/18/23 10:27:
updated
explained severe deconditioning, swallowing he understands she still has a long road of recovery. I stated that if in coming days patient appears to be suffering and not making progress, hospice can still be considered and he understands
noted that creatinine up will give small bolus (TF just reached goal this AM)
Original Note:
Today's Communication/Plan
-
off TPN, CVC out
tube feeds at goal
daily ST eval
stop standing insulin and decrease lantus
PT/OT
Assessment / Plan
Assessment / Plan
Ms. Priscilla Dowell is a 78 y o woman with hx metastatic breast CA (follows at [facility], currently off medications with plans to start lower dose early November) presents to the ER with abdominal pain, nausea and vomiting found to have incarcerated and
strangulated umbilical hernia; s/p OR 11/02, admitted to ICU with septic shock. concern also raised for aspiration pneumonia.
Operative Findings 11/02
Operative Findings:
1. Strangulated umbilical hernia containing 45 cm of necrotic small bowel, fascial defect approximately 4 cm (widened for exposure and anastomosis), healthy proximal and distal bowel
2. Small bowel resection with primary stapled anastomosis using MICKI 80 blue load x2 (Agustín technique), mesenteric defect closed
3. Primary fascial closure under minimal tension with #1 Stratafix
4. Skin stapled, soft tissue packed
CT A/P
IMPRESSION:
1. Postoperative changes without overt evidence for bowel ischemia, within limitations of unenhanced technique.
2. Trace bilateral pleural effusions. Bibasilar airspace disease suspicious for pneumonia.
3. Evidence for osseous metastatic disease involving T10, L4 and the right ninth rib.
Incarcerated / Strangulated Umbilical Hernia
Septic Shock
S/p resection of 45 cm necrotic small bowel with internal anastomosis and fixation on 11/02 with surgery
Aspiration upon intubation with 2L bilious vomiting suctioned, aspiration pneumonitis noted.
Blood cultures no growth to date. Micro respiratory culture with Klebsiella
-Patient was on vancomycin and Zosyn from 11/01-11/06, then continued on Zosyn monotherapy 11/07. She developed new fevers after stopping antibiotics prompting ID consult. At this point CT A/P recommended but family refused. ID following and resumed
antibiotics for continued fevers; and also started micafungin
-empiric meropenem and micafungin started on 11/08; Micafungin now off; completed course of Meropenem on 11/14
-family initially refused CT A/P - ordered 11/12 without contrast - results above
-having BM
-pulled out NGT overnight 11/14; 11/15 now s/p dobhoff with TF advancing.
-TPN now off
-appreciate consultants
-now IMU status (11/17/23)
Acute hypoxemic respiratory failure secondary to ventilator dependent respiratory failure
-Postop patient was maintained on ventilatory support with difficulty weaning but able to be extubated on 11/14/23
-patient is DNR/DNI
Agitation
ICU Delirium
Severe Deconditioning
patient on standing Seroquel
precedex weaned off, on clonidine taper
Saphris PRN
PT/OT
Metastatic Breast Cancer
-Followed at [facility]. Currently on no active therapy / medications.
-On med holiday for a month with plan to revisit / restart meds in early November.
Hyperglycemia
-A1c 5.6%; required insulin on TPN
-stop standing insulin
-decrease lantus
Acute blood loss anemia from surgery
11/11/2023 received 1 unit PRBC with appropriate rise
-Hg stable
Thrombocytosis
-Reactive/infection related as well, monitor
Hyponatremia
Resolved
Hypokalemia
Replete as needed
REINA - resolved
Stage 1 buttock pressure injury
Wound care
Pressure offloading
DVT Prophylaxis: lovenox
DNR/DNI
-PT/OT ordered
-Overall prognosis at this time remains grim
51 minutes spent on patient evaluation, medical decision making, coordination of care
Anticipated Discharge: > 48 hours
Subjective/Interval History
-
Date of Service: November 18, 2023
woken up from sleep
Objective Data
-
Labs:
Laboratory Results
11/18/23
04:32
WBC 9.3
Hgb 8.1 L
Hct 24.8 L
Plt Count 512 H
Sodium 137
Potassium 5.2 H
Chloride 109 H
Carbon Dioxide 20 L
BUN 56 H
Creatinine 0.9
Glucose 85
Calcium 10.1
Vital Signs:
Vital Signs
Temp Pulse Resp BP Pulse Ox
97.8 F 87 20 142/67 93
11/18/23 03:00 11/18/23 07:00 11/18/23 07:00 11/18/23 07:00 11/18/23 06:00
I&O
11/17/23 11/18/23 11/19/23
06:59 06:59 06:59
Intake Total 1365.0 / 1432.0 837 / 837
Output Total 400 / 400 425 / 425
Balance 965.0 / 1032.0 412 / 412
Review of Systems
-
History Source: Patient
All other systems: Reviewed and negative
Physical Exam
-
General: Other (frail appearing, confused )
HEENT: PERRLA
Respiratory: Negative Wheezes
Cardiac: Regular Rhythm and S1/S2
GI: Other (gauze c/d/i)
Musculoskeletal: Other (RUE lymphedema)
Neuro: Awake and Alert
Psych: Confused and Other (more calm )
Data Reviewed
-
Diagnostic Radiology: Report Reviewed by me
Labs: Labs Reviewed by me
[2023-11-18 08:22] LABS: Magnesium 2.3 mg/dl (1.6-2.3)
--- NOTE | 2023-11-18 10:35 | PTCARENOTE ---
Rec'd pt at 0700. Pt IMU status. Pt drowsy, arousable to verbal stimuli, speech garbled, difficult to understand at times. Confused conversation. Monitor SR. Lungs sct coarse, occas moist cough. +BS, abd soft. Midline abd dressing intact. Tube feeds
increased to goal 55mls/hr. Pt incont for mod amt loose brown stool, upon assessing pt, pt noted to have large hard/formed stool at rectum. Pt disimpacted for large amt of formed/hard stool. Calazime cream applied to perineum. Pt incont of urine.
at bedside updated by RN. states his concern is getting her home as quickly as possible and wants to know how soon it can be done. Informed that pt's swallowing needs to be reassessed and we would want her to be able to
swallow prior to going home unless he was considering hospice. does not wish to pursue hospice or end of life care, but states that he knows her cancer is still an issue. wishes to take pt home with home health as soon as he is able.
Dr. Huitron also called and spoke with with update and plan of care.
[2023-11-18] MEDS: NSS 250 IV (11:07)
[2023-11-18 11:56] LABS: Glucose - Point of Care 105 mg/dl (70-99)
[2023-11-18 12:19] LABS: Glucose - Point of Care 127 mg/dl (70-99)
--- NOTE | 2023-11-18 13:01 | W.PN.GS2 ---
Addendum entered and electronically signed by Taj Parkinson MD 11/18/23 13:09:
I saw and examined the patient.
The Sales Operations Analyst's note was reviewed and I agree with the note.
Comment: Stable. More awake, alert and coherent today. TF at goal. Abd exam approp. incision cdi with central packing and linda. and son at bedside. PLan to cont TF. GAS METER INSTALLER evlauating sallow function. Discussed likely need for rehab upon DC.
Surgery will cont to follow peripherally.
Original Note:
Today's Communication / Plan
-
Continue TF
GAS METER INSTALLER following for clearance prior to PO diet advancement
Assessment / Plan
-
Assessment: Patient is an 78 yo F with breast CA and treatment at [facility] p/w strangulated umbilical hernia
11/03/23 Exploratory laparotomy, small bowel resection with primary anastomosis, primary umbilical hernia repair
CT A/P (11/11) in follow up: no significant bowel distension or radiographic signs of obstruction, no significant fluid around the anastomosis, no pneumatosis or free air, bl pleural effusions with airspace disease concerning for pneumonia, bony mets
ID following with us: currently off abx
Aspirated gastric contents early in admission: pulm following
Prolonged intubation post op but was able to be extubated 11/14/23. GAS METER INSTALLER following.
Mentation continues to improve
TF at goal with +flatus/stools. Off TPN since 11/16
AFVSS
Plan: GAS METER INSTALLER following, NPO for now
TF at goal with good bowel function
PT/OT/CM consulted as it is anticipated that she will need rehab upon dischage, discussed with her & spouse
continue bowel regimen, hold for diarrhea
will likely be able to remove linda prior to discharge
ongoing supportive care
Subjective Data
-
Date of Service: November 18, 2023
Patient seen and examined at bedside with Dr. Pariknson. Patient more conversive today, has been concerned for Dieter Bryant as she is watching the news and saw he was injured. She denies acute complaints. Voice still quite gurgly but she is
communicating more freely and more oriented today. Denies n/v. Passing flatus/stools.
Objective Data
-
Intake and Output
11/17/23 11/18/23 11/19/23
06:59 06:59 06:59
Intake Total 1365.0 / 1432.0 837 / 917 790 / 790
Output Total 400 / 400 425 / 425
Balance 965.0 / 1032.0 412 / 492 790 / 790
Intake:
IV fluids (Total) 125.0 / 125.0
Cardene 125.0 / 125.0
IV piggybacks 250 / 250
TPN/PPN 940 / 987 282 / 282
Tube feeding 150 / 160 250 / 305 330 / 330
Feeding tube flush amount 150 / 160 305 / 330 210 / 210
Output:
Urine, Voided 400 / 400 425 / 425
Other:
How many times incontinent 1 1
SMALL amount urine
How many times incontinent 1 1
MODERATE amount urine
How many times incontinent 1 1
SATURATED amount urine
Vital Signs
Temp Pulse Resp BP Pulse Ox
98.2 F 79 19 126/51 96
11/18/23 12:39 11/18/23 11:00 11/18/23 11:00 11/18/23 11:00 11/18/23 11:00
Lab Results
11/18/23 04:32
11/18/23 04:32
Calcium 10.1 mg/dl (8.4-10.2) 11/18/23 04:32
Phosphorus 3.2 mg/dl (2.5-4.5) 11/12/23 04:00
Magnesium 2.3 mg/dl (1.6-2.3) 11/18/23 04:32
Total Bilirubin 0.6 mg/dl (0.2-1.3) 11/13/23 03:47
Direct Bilirubin 0.6 mg/dl (0.0-0.4) H 11/03/23 04:20
AST 63 U/L (14-36) H 11/13/23 03:47
ALT 36 U/L (0-35) H 11/13/23 03:47
Alkaline Phosphatase 245 U/L (38-126) H 11/13/23 03:47
Total Protein 4.8 g/dl (6.3-8.2) L 11/13/23 03:47
Albumin 2.2 g/dl (3.5-5.0) L 11/13/23 03:47
Physical Exam
-
NAD, gurgling voice
ABD; soft, ND, NTTP, dobhoff in place
Incision with intact staple line, open area to umbilicus without purulence or erythema
--- NOTE | 2023-11-18 13:20 | PTCARENOTE ---
Pt more awake and alert at this time. Voice quality remains garbled, confused to situation, place and time but pt now forming coherent sentences and requests.
--- NOTE | 2023-11-18 14:51 | PTCARENOTE ---
Pt OOB to recliner chair with PT/OT, mod assist of 2 with walker. PT OOB ~ 1 1/2 hrs. Pt requesting to go to the bathroom and get back to bed. Pt assisted back to bed, incont for large loose/liquid ross stool. Had additional large liquid ross stool
via bedpan. Pt with multiple loose stools throughout shift.
--- NOTE | 2023-11-18 17:08 | PTOTSP ---
ST Follow-Up
Pt continues to present with inadequate airway protection, poor management of secretions, xerostomia, poor oral cavity condition, inconsistent laryngeal sensory response, and insufficient/weak reflexive cough. Pt is at a HIGH risk for aspiration of
her own secretions at this time.
Recommendations:
- Continue with NPO status including medications; continue TF.
- Aspiration precautions: HOB upright as often as possible; oral care QID with suctioning; oropharyngeal suctioning as able; consider nasopharyngeal suctioning.
- INSTRUMENTS SALES REPRESENTATIVE to continue to f/u on a HIGH priority to re-assess pt's candidacy for re-initiating PO diet consistencies.
- Ongoing conversations regarding GOC.
[2023-11-18] MEDS: LOVENOX 40 MG SC (17:14)
[2023-11-18 17:20] LABS: Glucose - Point of Care 128 mg/dl (70-99)
[2023-11-18] MEDS: CATAPRES PO (19:21)
[2023-11-18] MEDS: COLACE LIQUID TUBE (20:03)
--- NOTE | 2023-11-18 21:51 | PTCARENOTE ---
Pt received at 19:00, at bedside. Pt Ox 1-2. Frequently requesting repositioning. RA, coarse t/o. Garbled/wet vocal quality, refuses oral suction. SR-sinus tach, 90s-110s. Intermittently incontinent of urine. No BM noted at this time. Pt
using call francisco appropriately, call francisco within reach. Frequently repositioned. remains at bedside.
[2023-11-18 23:17] LABS: Glucose - Point of Care 120 mg/dl (70-99)
[2023-11-19] VITALS (28 sets, daily range): BP systolic 143–183; BP diastolic 64–95; BMI 24.4
[2023-11-19] MEDS: LIDOCAINE 4% PATCH 1 PATCH TOPICAL (03:42)
[2023-11-19] MEDS: SAPHRIS 2.5 MG SL (03:43)
[2023-11-19 04:16] LABS: Hematocrit 25.1 % (37.0-47.0); Hemoglobin 8.3 g/dL (12.0-16.0); Mean Corp Hgb Conc. 33.1 g/dL (33.0-37.0); Mean Corpuscular Hgb 28.8 pg (27.0-31.0); Mean Corpuscular Volume 87.2 fL (81.0-99.0); Mean Platelet Volume 9.8 fL (7.4-10.4); Platelet Count 569 10^3/uL (130-400); Red Blood Cell Count 2.88 10^6/uL (4.20-5.40); White Blood Cell Count 9.3 10^3/uL (4.8-10.8)
[2023-11-19 04:38] LABS: ALT (SGPT) 57 U/L (0-35); AST (SGOT) 92 U/L (14-36); Albumin 2.8 g/dl (3.5-5.0); Alkaline Phosphatase 512 U/L (38-126); Blood Urea Nitrogen 55 mg/dl (7-17); Carbon Dioxide 23 mmol/L (22-30); Chloride 107 mmol/L (98-107); Estimated Creatinine Clearance 43 ml/min; Glucose 119 mg/dl (70-99); Magnesium 2.2 mg/dl (1.6-2.3); Potassium 4.7 mmol/L (3.5-5.1); Sodium 138 mmol/L (135-145); Total Bilirubin 0.5 mg/dl (0.2-1.3); Total Protein 5.8 g/dl (6.3-8.2); eGFR > 60.00
[2023-11-19] MEDS: NOVOLOG FLEXPEN-LOW RESISTANCE SC ×2 (05:16→17:56)
--- NOTE | 2023-11-19 05:48 | PTCARENOTE ---
Pt c/o back pain, unrelieved by frequent repositioning. Pt states that she wants the bed to be 'flat flat'. Explained that it is not safe to be flat while TF is running. x1 lidocaine patch ordered and placed on pts mid back. Pt stated relief.
[2023-11-19] MEDS: TYLENOL ORAL SOLUTION 650 MG TUBE ×3 (06:30→17:16)
[2023-11-19] MEDS: SEROQUEL 25 MG TUBE ×2 (07:59→17:15)
[2023-11-19] MEDS: MIRALAX 17 GRAMS TUBE (07:59)
[2023-11-19] MEDS: COLACE LIQUID 100 MG TUBE ×2 (07:59→21:00)
[2023-11-19] MEDS: LANTUS 0.1 UNITS SC (08:05)
[2023-11-19] MEDS: NSS (PRESERVATIVE FREE) IV (08:05)
[2023-11-19 08:16] LABS: Glucose - Point of Care 183 mg/dl (70-99)
--- NOTE | 2023-11-19 08:30 | PTOTSP ---
Speech Language Pathology
Pt seen for dysphagia tx. Wet vocal quality noted at rest. Weak cough noted. Able to intermittently clear wet vocal quality post cough with suctioning. Provided ice chip x4 with immediate wet voice noted again. Weak deglutition noted with
multiple swallows per bolus needed to clear. Weak coughing noted in response. Pt is at a high risk for aspiration.
Recommend:
(1) NPO
(2) Oral care 4x/day with suctioning as needed
(3) Allow ice chips sparingly per Aspiration Risk Hydration Protocol (ARHP) to provide moisture/comfort and aid in loosening secretions
(4) Eventual VSE (not yet appropriate)
(5) FRENCH POLISHER to continue to follow
--- NOTE | 2023-11-19 08:34 | PN.DE.MGMTRT ---
Insulin Management
- -
11/19/2023: Diabetes Management F/U:
Patient admitted 11/01 with c/o poor appetite, abdominal pain and N/V for 4-5 days. PMH metastatic breast cancer (treated at [facility] on [facility]). Patient had experienced weight loss/anorexia with use of Afinitor.
She began to complain of abdominal discomfort about 2 days FLOTATION OPERATOR. On evaluation in the ED, patient was noted for firm, tender and grossly discolored umbilical hernia concerning for incarceration +/- strangulation.
Pt is now POD#12 s/p Exploratory laparotomy, small bowel resection with primary anastomosis and primary umbilical hernia repair.
Diabetes consult requested on 11/10 for Hyperglycemia after initiation of TPN and tube feeds. No known Hx of diabetes, A1C 5.6%, Cr 0.5, eGFR>60
Pt awake, alert, oriented to self only, unable to participate in discussion regarding insulin requirements.
Was extubated on 11/13 to 2 L NC. Off TPN on 11/17, now on Tube feeds at goal 55cc/hr.
Standing insulin discontinued on 11/17 and Lantus dose decreased to 10 units in AM
Blood sugars stable and in range 96 to 128.
Will make no change to current regimen, Cont Lantus 10 units in AM with low corrective insulin Q6 hrs.
Will follow and make further adjustments if necessary
Diabetes History
- -
Pre-Admission Diabetes Regimen
11/19/23
03:54
Creatinine 0.9
Lab Results
Hemoglobin A1c Cancelled 11/07/23 17:29
Insulin Pump Settings
IP Diabetes Regimen
11/18/23 11/18/23 11/18/23
11:45 12:08 17:08
Glucose
POC Glucose 105 H 127 H 128 H
11/18/23 11/19/23 11/19/23
23:05 03:54 08:04
Glucose 119 H
POC Glucose 120 H 183 H
Patient Education
--- NOTE | 2023-11-19 08:40 | PTCARENOTE ---
Rec'd pt at 0730 awake and alert resting in bed saying that her back hurt her and that she wanted to be repositioned or get oob. Overall is still disoriented to place or events and will make confusing comments but overall is haveing more
appropriate conversation. Was aware that it is supposed to be 100' outside today. Voice remains very wet sounding and garbled. Respirs are shallow but overall non-labored. RA sats are 96%. Occasionally will cough on her own a very moist non-prod
cough. Pt will not give a good cough however when asked. With oral suctioning if able to get pt to cough able to suction out a mod ot large amt of thick whitish/ross secretions. BS are in general sl coarse and decreased. Monitor ST. + pulses. Edema
as noted. R arm with +3 lymphedema. Denies chest pain.VS documented. ABd is round and soft with hyperactive BS. Incont of a small amt of liquid brown stool. Tolerating Jevity 1.5 tube feeds via L nare Feeding tube. 55 ml/hr with 25 ml/hr flush-100
ml residual. Incont of a saturated amt of urine. Capped int intact L wrist- site wnl. Skin and mouth care given. Remains with bilat soft wrist restraints in place for pt safety. Assisted at 0820 iwth assist of 2 oob kami the chair. Gait is weak but
was able to bear some wt. States she feels much better sitting up. at the bedside and updated. Call francisco in reach. Plan of care reviewed with pt and .
--- NOTE | 2023-11-19 11:20 | PTCARENOTE ---
Remains resting oob in the chair. Dozing at intervals. Per speech ok for ice chip sparingly per Aspiration Risk Hydration Protocol. Does have the wet voice and will cough intermittently with 1 or 2 ice chips. Family at the bedside
[2023-11-19] MEDS: DULCOLAX RECTAL (11:34)
--- NOTE | 2023-11-19 13:00 | PTCARENOTE ---
Pt has sat oob all morning and has tolerated well. Currently assisted with assist of 2 back to bed. Legs are weak but able to bear some wt. Denies pain. Still rambles with conversation but again overall some conversation is more appropriate.
Tolerating RA with sats of 98%. VS as documented. Remains in STach. Tolerating tube feeds - Residual 120 mls. Incont of a saturated amt of urine. Turned and repositioned. Skin care given. Soft wrist restraints remain for pt safety. Daughter at the
bedside. Call francisco in reach.
[2023-11-19] MEDS: NOVOLOG FLEXPEN-LOW RESISTANCE 1 UNITS SC (13:13)
[2023-11-19 13:22] LABS: Glucose - Point of Care 159 mg/dl (70-99)
--- NOTE | 2023-11-19 14:20 | CM ---
CM following re: discharge planning.
Reviewed pt's chart, met with pt, pot's and daughter Angie at bedside.
Per chart review, RISK OFFICER following, NPO for now, continue supportive care.
PT and OT evaluations noted - SNF level of carte recommended. CM discussed it with pt, pt's and daughter Angie. Pt's continue to pursue his plan to zachery the pt home at discharge with VN and caregiver services. The benefits of SNF
level of care explained, pt's expressed his agreement at some point and requested [facility]. Pt's stated he still might change the plan and will bring the pt home at discharge.
A referral to [facility] made.
D/C plan: Plan A: [facility] SNF if pt and family agree. Plan B: home with VN, caregiver services and family support if family requested.
CM will follow with discharge plan updates as hospitalization progresses
--- NOTE | 2023-11-19 14:41 | PTCARENOTE ---
Report called to IMU- No changes in assessment. Will transfer pt via bed.
[2023-11-19] MEDS: ZESTRIL 10 MG TUBE (14:59)
--- NOTE | 2023-11-19 15:18 | PTCARENOTE ---
BP has been creeping up all day currently 183 syst- Dr. Chavez updated and Lisinopril 10 mg via tube given. Will transfer pt to 0956
--- NOTE | 2023-11-19 15:38 | W.PN.HOSP.TC ---
Today's Communication/Plan
-
tf
speech eval daily
Assessment / Plan
Assessment / Plan
NAD, resting comfortably in bed
Scleral anicteric
Moist mucous membranes, NGT in place
No JVD
CTA bilateral
Normal S1-S2 no murmurs
Soft nontender nondistended bowel sounds active
No peripheral pitting edema
Moves extremities spontaneously
AAO
Incarcerated / Strangulated Umbilical Hernia
Septic Shock
S/p resection of 45 cm necrotic small bowel with internal anastomosis and fixation on 11/02 with surgery
Aspiration upon intubation with 2L bilious vomiting suctioned, aspiration pneumonitis noted.
Blood cultures no growth to date. Micro respiratory culture with Klebsiella
-Patient was on vancomycin and Zosyn from 11/01-11/06, then continued on Zosyn monotherapy 11/07. She developed new fevers after stopping antibiotics prompting ID consult. At this point CT A/P recommended but family refused. ID following and resumed
antibiotics for continued fevers; and also started micafungin
-empiric meropenem and micafungin started on 11/08; Micafungin now off; completed course of Meropenem on 11/14
-family initially refused CT A/P - ordered 11/12 without contrast - results above
-having BM
-pulled out NGT overnight 11/14; 11/15 now s/p dobhoff with TF at goal
- -Speech to continue to follow on daily basis
-TPN now off
-appreciate consultants
-now IMU status (11/17/23)
Acute hypoxemic respiratory failure secondary to ventilator dependent respiratory failure
-Postop patient was maintained on ventilatory support with difficulty weaning but able to be extubated on 11/14/23
-patient is DNR/DNI
Agitation
ICU Delirium
Severe Deconditioning
patient on standing Seroquel
precedex weaned off, on clonidine taper
Saphris PRN
PT/OT
Metastatic Breast Cancer
-Followed at [facility]. Currently on no active therapy / medications.
-On med holiday for a month with plan to revisit / restart meds in early November.
Hyperglycemia
-A1c 5.6%; required insulin on TPN
-stop standing insulin
-decrease lantus
Acute blood loss anemia from surgery
11/11/2023 received 1 unit PRBC with appropriate rise
-Hg stable
Thrombocytosis
-Reactive/infection related as well, monitor
Hyponatremia
Resolved
Hypokalemia
Replete as needed
REINA - resolved
Stage 1 buttock pressure injury
Wound care
Pressure offloading
DVT Prophylaxis: lovenox
DNR/DNI
-PT/OT ordered
Deconditioned and intubated for prolonged period of time. Discussed early mobilization and physical therapy/Occupational Therapy needs likely will require SNF on discharge if not rehab. Discussed the possibility of PEG tube if she does not start
swallowing. Noted that she can only keep Dobbhoff in for up to 14-21 days. Would like to get final decision on this with surgery
Anticipated Discharge: > 48 hours
Subjective/Interval History
-
Date of Service: November 19, 2023
Seen and examined. No new complaints. No acute overnight events.
Ms. Hendricks was sitting in bedside chair. Tolerated physical therapy well
Daughter Jose was also sitting to her . W was given a full update about her condition and what is going on. Discussed n.p.o. status tube feeds and if unable to tolerate swallowing and then possible need for PEG tube in the near future
Objective Data
-
Labs:
Laboratory Results
11/19/23
03:54
WBC 9.3
Hgb 8.3 L
Hct 25.1 L
Plt Count 569 H
Sodium 138
Potassium 4.7
Chloride 107
Carbon Dioxide 23
BUN 55 H
Creatinine 0.9
Glucose 119 H
Calcium 10.0
Total Bilirubin 0.5
AST 92 H
ALT 57 H
Alkaline Phosphatase 512 H
Vital Signs:
Vital Signs
Temp Pulse Resp BP Pulse Ox
98 F 101 21 175/81 98
11/19/23 12:40 11/19/23 15:00 11/19/23 15:00 11/19/23 15:00 11/19/23 15:00
I&O
11/18/23 11/19/23 11/20/23
06:59 06:59 06:59
Intake Total 837 / 917 2230 / 2310 785 / 785
Output Total 425 / 425
Balance 412 / 492 2230 / 2310 785 / 785
--- NOTE | 2023-11-19 15:59 | PTCARENOTE ---
Addendum entered by Portia Sorensen RN 11/19/23 18:29:
Blood pressure is now 159/84 after lisinopril dose
Original Note:
Patient transferred to IMU from ICU, report completed over phone and at bedside. Patient confused upon arrival with wrist restraints intact due to risk of pulling out medical tubes. at bedside. Patient and oriented to room. Blood
pressure elevated 180/81, Lisinopril administered by ICU team prior to transfer.
[2023-11-19] MEDS: LOVENOX 40 MG SC (17:15)
[2023-11-19 18:06] LABS: Glucose - Point of Care 134 mg/dl (70-99)
[2023-11-20] VITALS (12 sets, daily range): BP systolic 143–170; BP diastolic 77–92; PULSE 111–151; O2SAT 93; BMI 24.7
[2023-11-20 00:10] LABS: Glucose - Point of Care 129 mg/dl (70-99)
[2023-11-20] MEDS: TYLENOL ORAL SOLUTION 650 MG TUBE ×5 (00:27→23:51)
[2023-11-20] MEDS: SEROQUEL 25 MG TUBE ×4 (00:27→23:51)
[2023-11-20] MEDS: NOVOLOG FLEXPEN-LOW RESISTANCE SC ×4 (00:28→23:51)
--- NOTE | 2023-11-20 03:26 | PTCARENOTE ---
Pt continuing to have high BP's through night, SBP in 170's, HR 110-120. Reported to night PALLET ASSEMBLER since PRN medication ordered for SBP >180, unable to give.
[2023-11-20 06:02] LABS: Glucose - Point of Care 163 mg/dl (70-99)
[2023-11-20] MEDS: NOVOLOG FLEXPEN-LOW RESISTANCE 1 UNITS SC (06:31)
--- NOTE | 2023-11-20 08:20 | PTOTSP ---
Speech Language Pathology
Pt seen for dysphagia tx. Significant dried oral secretions noted with thick coating on palate. Oral care completed with use of suction toothbrush. Provided 4 ice chips and 2 sips of thin water via straw. Wet voice and coughing with all. This
loosened dried oral secretions, and these were removed from palate. Pt continues with signs of aspiration with all, likely secondary to deconditioning and prolonged intubation. However, improvement in cough strength noted this date. Clear vocal
quality also noted at rest compared to wet voice noted yesterday morning at rest. asking what she can do during the day to improve swallowing. Discussed effortful swallow and practiced this with saliva. Recommend doing this throughout the
day with both saliva and ice chips.
Recommend:
(1) NPO
(2) Oral care 4x/day with suctioning as needed
(3) Allow ice chips sparingly per Aspiration Risk Hydration Protocol (ARHP) to provide moisture/comfort and aid in loosening secretions
(4) Eventual VSE (not yet appropriate)
(5) MALT HOUSE LOADER to continue to follow
[2023-11-20 08:37] LABS: Glucose - Point of Care 125 mg/dl (70-99)
--- NOTE | 2023-11-20 08:45 | PN.DE.MGMTRT ---
Insulin Management
- -
11/20/2023: Diabetes Management Follow up
Patient admitted 11/01 with c/o poor appetite, abdominal pain and N/V for 4-5 days. PMH metastatic breast cancer (treated at [facility] on Ibrance->Afinitor). Patient had experienced weight loss/anorexia with use of Afinitor.
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 On evaluation in the ED, patient was noted for firm, tender and grossly discolored umbilical hernia concerning for incarceration +/- strangulation.
Pt is now POD#17 s/p Exploratory laparotomy, small bowel resection with primary anastomosis and primary umbilical hernia repair.
Diabetes consult requested on 11/10 for Hyperglycemia after initiation of TPN and tube feeds. No known Hx of diabetes, A1C 5.6%, Cr 0.5, eGFR>60
Pt awake, alert, oriented to self only, unable to participate in discussion regarding insulin requirements.
Was extubated on 11/13 to 2 L NC. Off TPN on 11/17, now on Tube feeds at goal 55cc/hr. Tube feeds held this AM for 200ml residual. To resume shortly.
Standing insulin discontinued on 11/17 and Lantus dose decreased to 10 units in AM
Blood sugars stable and in range 129 to 183.
Will make no change to current regimen, Cont Lantus 10 units in AM with low corrective insulin Q6 hrs.
Will follow and make further adjustments if necessary
Diabetes History
- -
Pre-Admission Diabetes Regimen
Lab Results
Hemoglobin A1c Cancelled 11/07/23 17:29
Insulin Pump Settings
IP Diabetes Regimen
11/19/23 11/19/23 11/19/23
13:11 17:55 23:59
POC Glucose 159 H 134 H 129 H
11/20/23 11/20/23
05:51 08:26
POC Glucose 163 H 125 H
Patient Education
[2023-11-20] MEDS: DULCOLAX 10 MG RECTAL (08:47)
[2023-11-20] MEDS: NSS (PRESERVATIVE FREE) IV ×2 (08:48→09:18)
[2023-11-20] MEDS: MIRALAX 17 GRAMS TUBE (08:48)
[2023-11-20] MEDS: ZESTRIL 10 MG TUBE (08:49)
[2023-11-20] MEDS: COLACE LIQUID 100 MG TUBE ×2 (08:50→19:44)
[2023-11-20] MEDS: LANTUS 0.1 UNITS SC (08:54)
--- NOTE | 2023-11-20 10:50 | CM ---
Addendum entered by Sparkle Proctor RN 11/20/23 14:13:
Met with who seemed anxious about his 's care and d/c plans; he repeatedly asks if patient can get OOB, stating MD told him it would help with her swallowing- provided repeated suggestion to speak with nurse in this regard.
wanting to discuss SNF options or HH options- provided NH and HH list for his review. 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
targeted d/c plans to be made, rather than SNF referrals if tube remains, and simultaneous HH referrals if tube comes out. agrees to meet again for d/c planning.
Original Note:
Patient with Dx Incarcerated / Strangulated Umbilical Hernia, Septic Shock, s/p resection of 45 cm necrotic small bowel, aspiration pneumonitis. Jevity tube feeds. ST for dysphagia. PT & OT ; requires assist of 2, recommend SNF vs HH.
Restraints.
SNF referral reviewed in [facility]; declined by [facility].
Spoke with patient's Kristopher; informed him patient was declined by [facility] due to tube feeds and restraints. Suggested to it may be more effective to wait to make additional SNF referrals once patient hopefully is out of
restraints, and he agrees. is hoping his will pass a swallow eval and tube feeds will be discontinued prior to d/c. wants to wait on SNF vs HH until final d/c needs are determined. Answered his questions about taking patient
home with VN and the need for possible caregiver. says he will be here all day.
Plan follow patient's progress and follow up with for d/c planning to SNF vs home with VN.
[2023-11-20 12:09] LABS: Glucose - Point of Care 97 mg/dl (70-99)
--- NOTE | 2023-11-20 14:36 | W.PN.HOSP.TC ---
Today's Communication/Plan
-
N.p.o.
Continue tube feeds
Continue working with speech therapy on daily basis
Advance diet as tolerated once cleared by speech
Provide aspiration precautions
Keep head of bed greater than 30 to 45 degrees per
Assessment / Plan
Assessment / Plan
NAD, resting comfortably in bed
Scleral anicteric
Moist mucous membranes, NGT in place
No JVD
CTA bilateral
Normal S1-S2 no murmurs
Soft nontender nondistended bowel sounds active
No peripheral pitting edema
Moves extremities spontaneously
AAO
Incarcerated / Strangulated Umbilical Hernia
Septic Shock
S/p resection of 45 cm necrotic small bowel with internal anastomosis and fixation on 11/02 with surgery
Aspiration upon intubation with 2L bilious vomiting suctioned, aspiration pneumonitis noted.
Blood cultures no growth to date. Micro respiratory culture with Klebsiella
-Patient was on vancomycin and Zosyn from 11/01-11/06, then continued on Zosyn monotherapy 11/07. She developed new fevers after stopping antibiotics prompting ID consult. At this point CT A/P recommended but family refused. ID following and resumed
antibiotics for continued fevers; and also started micafungin
-empiric meropenem and micafungin started on 11/08; Micafungin now off; completed course of Meropenem on 11/14
-family initially refused CT A/P - ordered 11/12 without contrast - results above
-having BM
-pulled out NGT overnight 11/14; 11/15 now s/p dobhoff with TF at goal
- -Speech to continue to follow on daily basis
-TPN now off
-appreciate consultants
-now IMU status (11/17/23)
Acute hypoxemic respiratory failure secondary to ventilator dependent respiratory failure
-Postop patient was maintained on ventilatory support with difficulty weaning but able to be extubated on 11/14/23
-patient is DNR/DNI
Agitation
ICU Delirium
Severe Deconditioning
patient on standing Seroquel
precedex weaned off, on clonidine taper
Saphris PRN
PT/OT
Metastatic Breast Cancer
-Followed at [facility]. Currently on no active therapy / medications.
-On med holiday for a month with plan to revisit / restart meds in early November.
Hyperglycemia
-A1c 5.6%; required insulin on TPN
-stop standing insulin
-decrease lantus
Acute blood loss anemia from surgery
11/11/2023 received 1 unit PRBC with appropriate rise
-Hg stable
Thrombocytosis
-Reactive/infection related as well, monitor
Hyponatremia
Resolved
Hypokalemia
Replete as needed
REINA - resolved
Stage 1 buttock pressure injury
Wound care
Pressure offloading
DVT Prophylaxis: lovenox
DNR/DNI
-PT/OT ordered
Deconditioned and intubated for prolonged period of time. Discussed early mobilization and physical therapy/Occupational Therapy needs likely will require SNF on discharge if not rehab. Discussed the possibility of PEG tube if she does not start
swallowing. Noted that she can only keep Dobbhoff in for up to 14-21 days. Would like to get final decision on this with surgery
Anticipated Discharge: > 48 hours
Subjective/Interval History
-
Date of Service: November 20, 2023
Seen and examined. No new complaints. No acute overnight events.
Seems to be more awake today
Tolerating tube feeds well next at bedside had lengthy discussion with him about bowel goals of care and plans.
Was asking if he would be able to take her home even if not ready for discharge. I informed him this would be leaving AGAINST MEDICAL ADVICE. She is highly critically ill and remained as such. High concern of aspiration. States that if he did
take her home he would pay for physical therapy occupational therapy speech therapy and physicians to come to the house to see her.
Objective Data
-
Vital Signs:
Vital Signs
Temp Pulse Resp BP Pulse Ox
98.3 F 123 22 161/91 98
11/20/23 11:43 11/20/23 12:54 11/20/23 12:54 11/20/23 12:54 11/20/23 12:54
I&O
11/19/23 11/20/23 11/21/23
06:59 06:59 06:59
Intake Total 2230 / 2310 1665 / 1665
Balance 2230 / 2310 1665 / 1665
--- NOTE | 2023-11-20 15:12 | W.PN.ID1 ---
Date of Service
Date of Service: November 20, 2023
Today's Communication
Observe off antibiotics.
Assessment / Plan
Fever - resolved
Strangulated Umbilical Hernia s/p resection with anastomosis 11/03/23
Pneumonia due to K. oxytoca
H/o aspiration
H/o leukopenia/neutropenia
- covid ag neg
- 11/07 sputum cx: K oxytoca - sensitive to most antibiotics
- blood cultures x2 from 11/07 : no growth to date
- recent negative UA
Continue to observe off antibiotics.
����������������������������������������������������������
Chief Complaint
-: Fever, Leukocytosis and Other (shock)
Subjective / Review of Systems
Review of Systems: No Fever and No Chills
Vital Signs / Physical Exam
Vital Signs
Vital Signs
Temp Pulse Resp BP Pulse Ox
98.3 F 123 22 161/91 98
11/20/23 11:43 11/20/23 12:54 11/20/23 12:54 11/20/23 12:54 11/20/23 12:54
Physical Exam
Constitutional: Comfortable, Chronically Ill and Non-toxic
Head: Other (Nasal Dobbhoff in place.)
Cardiovascular: Regular Rate; Negative S1/S2 or S3/S4
Pulmonary: Coarse
Gastrointestinal: Soft
Neurological: Awake, Alert and Other (Hard of hearing)
Psychological: Calm
Objective Data
Lab Data
Lab Results
11/19/23 03:54
11/19/23 03:54
ESR 133 mm/hour (0-20) H 11/12/23 04:00
PT 13.8 Sec (11.4-14.6) 11/12/23 12:45
INR 1.08 11/12/23 12:45
APTT 27.5 Sec (23.4-35.0) 11/02/23 20:30
Estimated Creat Clear 43 ml/min 11/19/23 03:54
Lactic Acid Cancelled 11/12/23 01:54
Total Bilirubin 0.5 mg/dl (0.2-1.3) 11/19/23 03:54
AST 92 U/L (14-36) H 11/19/23 03:54
ALT 57 U/L (0-35) H 11/19/23 03:54
Alkaline Phosphatase 512 U/L (38-126) H 11/19/23 03:54
C-Reactive Protein 64.30 mg/L (0.0-10.00) H 11/12/23 04:00
Most recent labs reviewed.
Micro Results:
11/08/23 10:28 Blood Culture - Final
Blood/Venous No Growth - Final Report
11/08/23 10:31 Blood Culture - Final
Blood/Venous No Growth - Final Report
11/08/23 10:28 Respiratory Culture - Final
Tracheal Aspirate Klebsiella oxytoca
Gram Stain - Final
11/02/23 20:37 Blood Culture - Final
Blood/Venous No Growth - Final Report
11/02/23 20:37 Blood Culture - Final
Blood/Venous No Growth - Final Report
--- NOTE | 2023-11-20 15:37 | PTCARENOTE ---
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 resting comfortably in bed with bilateral soft wrist restraints. Dobbhoff in left nare TF Jevity 1.5 55 mL/hr, 25 mL flush. 210 residual from Dobbhoff, hospitalist made aware and TF held and
then resumed after 2 hours. Call francisco in reach.
[2023-11-20] MEDS: LOVENOX 40 MG SC (16:58)
[2023-11-20 18:07] LABS: Glucose - Point of Care 120 mg/dl (70-99)
--- NOTE | 2023-11-20 20:13 | PTCARENOTE ---
Pt received from previous RN. Pt resting in bed, eyes closed, RR even and unlabored, arousable to voice. Spouse at bedside. Bilateral soft limb restraints maintained, for attempts to remove dobhoff. Skin intact, rang of motion exercises preformed.
Pt getting jevity 1.5 55ml/hr with 25 ml flush. Pt maintained q2 turn. Sinus tach on monitor. Call light in reach.
[2023-11-20 23:45] LABS: Glucose - Point of Care 113 mg/dl (70-99)
[2023-11-21] VITALS (16 sets, daily range): BP systolic 155–188; BP diastolic 78–126; PULSE 119–145; O2SAT 98; BMI 24.2
--- NOTE | 2023-11-21 03:18 | DOWNTIME ---
There was a [employer] Downtime on 11/21/2023 from 0100 to 11/21/2023 at 0255. Downtime documentation of patient's care, including medication administrations, has been reconciled in the electronic record per guidelines. Refer to the
patient's paper chart under the miscellaneous tab to see printed paper medication records and downtime forms.
[2023-11-21] MEDS: LOPRESSOR 5 MG IV ×2 (04:03→21:31)
[2023-11-21] MEDS: TYLENOL ORAL SOLUTION 650 MG TUBE ×3 (06:39→18:19)
[2023-11-21 06:48] LABS: Hematocrit 27.5 % (37.0-47.0); Hemoglobin 8.9 g/dL (12.0-16.0); Mean Corp Hgb Conc. 32.4 g/dL (33.0-37.0); Mean Corpuscular Hgb 28.4 pg (27.0-31.0); Mean Corpuscular Volume 87.9 fL (81.0-99.0); Mean Platelet Volume 9.6 fL (7.4-10.4); Platelet Count 645 10^3/uL (130-400); Red Blood Cell Count 3.13 10^6/uL (4.20-5.40); Red Cell Dist. Width 20.9 % (11.5-14.5); White Blood Cell Count 11.1 10^3/uL (4.8-10.8)
[2023-11-21] MEDS: ZESTRIL 10 MG TUBE (08:01)
[2023-11-21] MEDS: LANTUS 0.1 UNITS SC (08:01)
[2023-11-21] MEDS: NSS (PRESERVATIVE FREE) IV (08:01)
[2023-11-21] MEDS: SEROQUEL 25 MG TUBE ×2 (08:01→18:19)
[2023-11-21] MEDS: MIRALAX TUBE (08:02)
[2023-11-21] MEDS: NOVOLOG FLEXPEN-LOW RESISTANCE SC ×2 (08:02→18:19)
[2023-11-21] MEDS: COLACE LIQUID TUBE (08:02)
[2023-11-21] MEDS: DULCOLAX RECTAL (08:02)
[2023-11-21 08:03] LABS: Glucose - Point of Care 148 mg/dl (70-99)
--- NOTE | 2023-11-21 08:29 | PN.DE.MGMTRT ---
Insulin Management
- -
11/21/2023: Diabetes Management Follow up
Patient admitted 11/01 with c/o poor appetite, abdominal pain and N/V for 4-5 days. PMH metastatic breast cancer (treated at [facility] on Ibrance->Afinitor). Patient had experienced weight loss/anorexia with use of Afinitor.
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 On evaluation in the ED, patient was noted for firm, tender and grossly discolored umbilical hernia concerning for incarceration +/- strangulation.
Pt is now POD#18 s/p Exploratory laparotomy, small bowel resection with primary anastomosis and primary umbilical hernia repair.
Diabetes consult requested on 11/10 for Hyperglycemia after initiation of TPN and tube feeds. No known Hx of diabetes, A1C 5.6%, Cr 0.5, eGFR>60
Pt awake, alert, oriented to self only, having episode of vomiting.
Was extubated on 11/13 to 2 L NC. Off TPN on 11/17, now on Tube feeds at goal 55cc/hr. Tube feeds held briefly yesterday for residual 200. Glucose remained stable, 97.
Tube feeds currently on hold due to vomiting.
11/19Patient received Lantus 10 units in AM. Blood sugars stable and in range 97 to 120. Fasting glucose 148 11/20.
Will make no change to current regimen, Cont Lantus 10 units in AM with low corrective insulin Q6 hrs.
Will follow and make further adjustments if necessary
I spoke to patients nurse regarding insulin dose.
Diabetes History
- -
Pre-Admission Diabetes Regimen
Lab Results
Hemoglobin A1c Cancelled 11/07/23 17:29
Insulin Pump Settings
IP Diabetes Regimen
11/20/23 11/20/23 11/20/23
08:26 11:59 17:55
POC Glucose 125 H 97 120 H
11/20/23 11/21/23
23:34 07:52
POC Glucose 113 H 148 H
Patient Education
--- NOTE | 2023-11-21 08:46 | PTCARENOTE ---
Patient received from shift leader. Patient in bed, at bed side. AAO1-3 at times, VSS. No significant events through the night until end of shift leader were patient had vomiting episode. Patient also had multiple liquidy loose BM's
overnight, rectal trumpet placed. Dobbhoff in left nare, Tube feeds on hold at this time per hospitalist. General surgery made aware. No current complaints of pain or nausea at this time. Call francisco in reach.
--- NOTE | 2023-11-21 09:25 | W.PN.HOSP.TC ---
Today's Communication/Plan
-
Hold TF for now for NV and high residuals, can resume once symtpoms resolve
Provide zofran
Monitor BM, ross colored/foul smelling, likely TF, if getting worse chekc stool studies
Discuss with GI on the side
-Obtain Abdominal xray
- - If not constipated then will consult GI
- -Nonobstructive gas pattern. Full provide simeticone
Discuss with surgery options if unable to regain swallowing
Continue restraints
Keep HOB up while recieving TF
Daily speech eval, Will need video swallow eventually
May need to increase lisinopril if BP remains uncontrolled (likely inpart to NV), monitor closely
Assessment / Plan
Assessment / Plan
NAD, resting comfortably in bed
Scleral anicteric
Moist mucous membranes, NGT in place
No JVD
CTA bilateral
Normal S1-S2 no murmurs
Soft nontender nondistended bowel sounds active
No peripheral pitting edema
Moves extremities spontaneously
AAO
Incarcerated / Strangulated Umbilical Hernia
Septic Shock
S/p resection of 45 cm necrotic small bowel with internal anastomosis and fixation on 11/02 with surgery
Aspiration upon intubation with 2L bilious vomiting suctioned, aspiration pneumonitis noted.
Blood cultures no growth to date. Micro respiratory culture with Klebsiella
-Patient was on vancomycin and Zosyn from 11/01-11/06, then continued on Zosyn monotherapy 11/07. She developed new fevers after stopping antibiotics prompting ID consult. At this point CT A/P recommended but family refused. ID following and resumed
antibiotics for continued fevers; and also started micafungin
-empiric meropenem and micafungin started on 11/08; Micafungin now off; completed course of Meropenem on 11/14
-family initially refused CT A/P - ordered 11/12 without contrast - results above
-having BM
-pulled out NGT overnight 11/14; 11/15 now s/p dobhoff with TF at goal
- -Speech to continue to follow on daily basis
-TPN now off
-appreciate consultants
-now IMU status (11/17/23)
Acute hypoxemic respiratory failure secondary to ventilator dependent respiratory failure
-Postop patient was maintained on ventilatory support with difficulty weaning but able to be extubated on 11/14/23
-patient is DNR/DNI
Agitation
ICU Delirium
Severe Deconditioning
patient on standing Seroquel
precedex weaned off, on clonidine taper
Saphris PRN
PT/OT
Psych to eval for cognition and capacity
Metastatic Breast Cancer
-Followed at [facility]. Currently on no active therapy / medications.
-On med holiday for a month with plan to revisit / restart meds in early November.
Hyperglycemia
-A1c 5.6%; required insulin on TPN
-stop standing insulin
-decrease lantus
Acute blood loss anemia from surgery
11/11/2023 received 1 unit PRBC with appropriate rise
-Hg stable
Thrombocytosis
-Reactive/infection related as well, monitor
Hyponatremia
Resolved
Hypokalemia
Replete as needed
REINA - resolved
Stage 1 buttock pressure injury
Wound care
Pressure offloading
DVT Prophylaxis: lovenox
DNR/DNI
-PT/OT ordered
Deconditioned and intubated for prolonged period of time. Discussed early mobilization and physical therapy/Occupational Therapy needs likely will require SNF on discharge if not rehab. Discussed the possibility of PEG tube if she does not start
swallowing. Noted that she can only keep Dobbhoff in for up to 14. I spoke with surgery max time for dobhoff would be 14days, if needed can do Peg tube. was updated about this.
Again discussed with at bedside that if she does not begin swallowing then we will need to address alternative sources . such as a PEG tube. He tells me that she does not want to go hospice. States he does not believe she would want a PEG
tube. Is asking if you could take her home like this in order to have speech therapy see her at home for more than 10 minutes as she needs approximately '2 hours of speech therapy daily in order to see a improvement in her swallowing'. I told him
unfortunately, we are unable to discharge her at this time as she continues to have a Dobbhoff, it would not be safe to discharge her home with a Dobbhoff as this poses a aspiration risk. If she leaves without a Dobbhoff then concern is she is not
getting enough nutritional intake and this could lead to respiratory depression/arrest/cardiac arrest requiring CPR and ventilator but she is now a DNR/DNI. Informed him that if they wanted to leave then they would be leaving against medical advice
and they would need to figure out transportation home as she will likely require ambulance opposed to going home with a wheelchair or walker as she is not able to ambulate at this time due to her critical illness. He verbalized understanding.
I informed him we need to give her time to see how she does. She has had a complicated hospitalization. He has a long road ahead of her for recovery. Then he stated most of these patients recover at home mainly and most of the time spent at home.
I would rather just like to be able to take her home at this point and provide her with PT/OT/speech therapy and visiting nurse and pay for all this from his pocket.
He told me that he continues to look up everything on AI and that I really should start using it.
Anticipated Discharge: > 48 hours
Subjective/Interval History
-
Date of Service: November 21, 2023
Seen and examined. Noted to have multiple bouts of vomiting today. ross colored diarrheal stools foul-smelling however not consistent with C. difficile per nursing.
at bedside updated was provided
Objective Data
-
Labs:
Laboratory Results
11/21/23
05:47
WBC 11.1 H
Hgb 8.9 L
Hct 27.5 L
Plt Count 645 H
Vital Signs:
Vital Signs
Temp Pulse Resp BP Pulse Ox
97.7 F 117 20 168/84 97
11/21/23 07:30 11/21/23 08:01 11/21/23 02:02 11/21/23 08:01 11/21/23 02:00
I&O
11/20/23 11/21/23 11/22/23
06:59 06:59 06:59
Intake Total 1665 / 1665
Balance 1665 / 1665
[2023-11-21 12:02] LABS: Glucose - Point of Care 164 mg/dl (70-99)
--- NOTE | 2023-11-21 12:11 | CM ---
Patient with Dx Incarcerated / Strangulated Umbilical Hernia, Septic Shock, s/p resection of 45 cm necrotic small bowel, aspiration pneumonitis. Episode of vomiting today - Jevity tube feeds restarted. ST for dysphagia. Psych Consult for
capacity pending. PT & OT ; requires assist of 2, recommend SNF vs HH. Wrist Restraints per nursing.
Met with Dr Darrell Chavez, nurse Rich, [facility]; Dr Chavez met with patient/ at bedside to discuss feeding options. Patient remains confused and unable to follow instructions for ST trials and not safe to take PO. Per MD, indicated
he wants to take the patient home instead of SNF and he is not agreeable to PEG or hospice, stating patient would not want hospice. Hospice had already seen patient informally. Psych will evaluate patient today re; capacity to make decisions. Per
Dr Chavez, possible plan could be TPN instead of tube feedings in preparation for home. He asked if CM could determine if VN agency would be able to do TPN at home.
Spoke with [facility]; they are able to do TPN at home in tandem with [facility] providing the TPN and supplies. They would want [facility] nurse to do a teaching visit here, which is the usual process. The would need to be able to
manage the TPN at home or be willing to hire a nurse caregiver to manage the TPN. VN referral placed at Anali's request to review benefits.
CM will need to confirm VN agency with .
may benefit from allowing one of his children to be involved with patient's care needs at home and d/c plans.
Plan speak to about including his son in the d/c plans.
Plan continue to follow for possible TPN at home vs other feeding.
Plan follow up after Psych Capacity Eval.
Plan probable home, possibly with TPN, possibly with [facility], possibly with caregivers.
--- NOTE | 2023-11-21 12:42 | W.PN.ID1 ---
Date of Service
Date of Service: November 21, 2023
Today's Communication
- cholestasis may be due to tube feeds
- attribute liquid stool to cathartics
- observe off of antibiotics, if new fever or further progression of leukocytosis may consider further workup
Assessment / Plan
Fever - resolved
Leukocytosis - minimal
Strangulated Umbilical Hernia s/p resection with anastomosis 11/03/23
Pneumonia due to K. oxytoca
H/o aspiration
H/o leukopenia/neutropenia
- minimal new leukocytosis today, there is persistent thrombocytosis
- liquid stool today in the setting of scheduled cathartics - held
- cholestasis may be due to tube feeds
- observe off of antibiotics, if new fever or further progression of leukocytosis may consider further workup
����������������������������������������������������������
Chief Complaint
-: Fever, Leukocytosis and Other (shock)
Subjective / Review of Systems
afebrile
bp stable
minimal leukocytosis today, ongoing thrombocytosis noted which developed 11/14 with stopping antibiotics
cr 0.9
when last checked 11/18 alk phos was notably elevated, increasing transaminitis
AXR today: nonobstructive
single episdoe of liquid stools in the context of cathartic use - cathartics held
Vital Signs / Physical Exam
Vital Signs
Vital Signs
Temp Pulse Resp BP Pulse Ox
97.7 F 117 20 168/84 96
11/21/23 11:35 11/21/23 08:01 11/21/23 02:02 11/21/23 08:01 11/21/23 09:30
Physical Exam
Constitutional: No Acute Distress
Cardiovascular: Regular Rate and S1/S2; Negative Murmur or Rub
Pulmonary: Clear and Symmetric; Negative Wheezes or Rales
Gastrointestinal: Soft, Non Tender, Non Distended and Normal Bowel Sounds
Skin: Warm and Dry; Negative Rash or Jaundice
Objective Data
Lab Data
Lab Results
11/21/23 05:47
11/19/23 03:54
ESR 133 mm/hour (0-20) H 11/12/23 04:00
PT 13.8 Sec (11.4-14.6) 11/12/23 12:45
INR 1.08 11/12/23 12:45
APTT 27.5 Sec (23.4-35.0) 11/02/23 20:30
Estimated Creat Clear 43 ml/min 11/19/23 03:54
Lactic Acid Cancelled 11/12/23 01:54
Total Bilirubin 0.5 mg/dl (0.2-1.3) 11/19/23 03:54
AST 92 U/L (14-36) H 11/19/23 03:54
ALT 57 U/L (0-35) H 11/19/23 03:54
Alkaline Phosphatase 512 U/L (38-126) H 11/19/23 03:54
C-Reactive Protein 64.30 mg/L (0.0-10.00) H 11/12/23 04:00
Most recent labs reviewed.
Micro Results:
11/08/23 10:28 Blood Culture - Final
Blood/Venous No Growth - Final Report
11/08/23 10:31 Blood Culture - Final
Blood/Venous No Growth - Final Report
11/08/23 10:28 Respiratory Culture - Final
Tracheal Aspirate Klebsiella oxytoca
Gram Stain - Final
11/02/23 20:37 Blood Culture - Final
Blood/Venous No Growth - Final Report
11/02/23 20:37 Blood Culture - Final
Blood/Venous No Growth - Final Report
[2023-11-21] MEDS: NOVOLOG FLEXPEN-LOW RESISTANCE 1 UNITS SC (13:14)
--- NOTE | 2023-11-21 14:32 | PTCARENOTE ---
B/L wrist restrains off patient for a few hours and doing well, medsitter placed in room to continue monitoring for patient safety and to make sure Dobbhoff remains.
[2023-11-21 17:36] LABS: Glucose - Point of Care 134 mg/dl (70-99)
[2023-11-21] MEDS: MYLICON DROPS 20 MG PO (18:19)
[2023-11-21] MEDS: LOVENOX 40 MG SC (18:19)
--- NOTE | 2023-11-21 18:45 | PTCARENOTE ---
Patient noted to have removed Dobbhoff from original marking, nasal dressing off nose. Hospitalist made aware. REGION MANAGER came and placed new Dobbhoff in right nare at marking 70, awaiting xray for placement and ability to continue use. Patient was
doing well with restraint off during the day, restraint reapplied and reordered for removal of tube. Call francisco in reach, remains at patients bedside.
--- NOTE | 2023-11-21 18:51 | PTCARENOTE ---
pt small bore feeding tube pulled out by patient , physician requesting tube to be replaced, small bore feeding tube placed in R nare at 70cm , placement to be confirmed by x-ray , air bolus heard in abd on auscultation
--- NOTE | 2023-11-21 21:52 | PTCARENOTE ---
Pt given ordered prnq6 5mg Lopressor . For SBP >180. Pts BP 188/101 (125). Pt symptomatic, Pt denies any changes in vision, or dizziness.
[2023-11-21 23:52] LABS: Glucose - Point of Care 130 mg/dl (70-99)
[2023-11-22] VITALS (21 sets, daily range): BP systolic 152–182; BP diastolic 71–109; PULSE 109; BMI 23.1
[2023-11-22] MEDS: TYLENOL ORAL SOLUTION 650 MG TUBE ×5 (00:34→23:36)
[2023-11-22] MEDS: SEROQUEL 25 MG TUBE ×4 (00:34→23:36)
[2023-11-22] MEDS: MYLICON DROPS 20 MG PO ×5 (00:35→22:00)
[2023-11-22] MEDS: NOVOLOG FLEXPEN-LOW RESISTANCE SC ×4 (00:56→18:26)
--- NOTE | 2023-11-22 01:20 | PTCARENOTE ---
CXR confirmed correct placement of dobhoff in stomach. Tube feeds reinitiated by this RN, jevity 1.5 @ 55ml/hr with 25 flush. Pt tolerating feeds.
[2023-11-22 05:52] LABS: Glucose - Point of Care 148 mg/dl (70-99)
[2023-11-22 06:16] LABS: Hematocrit 25.7 % (37.0-47.0); Hemoglobin 8.5 g/dL (12.0-16.0); Mean Corp Hgb Conc. 33.1 g/dL (33.0-37.0); Mean Corpuscular Hgb 29.6 pg (27.0-31.0); Mean Corpuscular Volume 89.5 fL (81.0-99.0); Mean Platelet Volume 9.5 fL (7.4-10.4); Platelet Count 603 10^3/uL (130-400); Red Blood Cell Count 2.87 10^6/uL (4.20-5.40); Red Cell Dist. Width 20.4 % (11.5-14.5); White Blood Cell Count 8.4 10^3/uL (4.8-10.8)
[2023-11-22 06:21] LABS: Blood Urea Nitrogen 35 mg/dl (7-17); Calcium 9.7 mg/dl (8.4-10.2); Carbon Dioxide 27 mmol/L (22-30); Chloride 107 mmol/L (98-107); Estimated Creatinine Clearance 65 ml/min; Glucose 149 mg/dl (70-99); Potassium 4.1 mmol/L (3.5-5.1); Sodium 140 mmol/L (135-145); eGFR > 60.00
--- NOTE | 2023-11-22 07:39 | PN.DE.MGMTRT ---
Insulin Management
- -
11/22/2023: Diabetes Management Follow up
Patient admitted 11/01 with c/o poor appetite, abdominal pain and N/V for 4-5 days. PMH metastatic breast cancer (treated at [facility] on Ibrance->Afinitor). Patient had experienced weight loss/anorexia with use of Afinitor.
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 On evaluation in the ED, patient was noted for firm, tender and grossly discolored umbilical hernia concerning for incarceration +/- strangulation.
Pt is now POD#18 s/p Exploratory laparotomy, small bowel resection with primary anastomosis and primary umbilical hernia repair.
Diabetes consult requested on 11/10 for Hyperglycemia after initiation of TPN and tube feeds. No known Hx of diabetes, A1C 5.6%, Cr 0.5, eGFR>60
Pt awake, alert, oriented to self only. Family at bedside.
Was extubated on 11/13 to 2 L NC. Off TPN on 11/17, now on Tube feeds at goal 55cc/hr. /Tube feeds held briefly for residual 200. Glucose remained stable, 97. 11/20 Patient removed feeding tube, reinserted, glucose remained stable.
Lantus dose 10 units in AM. Blood sugars stable and in range 130 to 164, required only 1 unit corrective insulin. Fasting glucose 148 11/21.
Will make no change to current regimen, Cont Lantus 10 units in AM with low corrective insulin Q6 hrs.
Will follow and make further adjustments if necessary.
I spoke to patients nurse regarding insulin dose.
Diabetes History
- -
Pre-Admission Diabetes Regimen
11/22/23
05:42
Creatinine 0.6
Lab Results
Hemoglobin A1c Cancelled 11/07/23 17:29
Insulin Pump Settings
IP Diabetes Regimen
11/21/23 11/21/23 11/21/23
07:52 11:51 17:25
Glucose
POC Glucose 148 H 164 H 134 H
11/21/23 11/22/23 11/22/23
23:40 05:36 05:42
Glucose 149 H
POC Glucose 130 H 148 H
Patient Education
[2023-11-22] MEDS: ZESTRIL 10 MG TUBE ×2 (08:32→15:40)
[2023-11-22] MEDS: LANTUS 0.1 UNITS SC (08:32)
[2023-11-22] MEDS: NSS (PRESERVATIVE FREE) IV (08:33)
[2023-11-22 08:48] LABS: Glucose - Point of Care 136 mg/dl (70-99)
--- NOTE | 2023-11-22 08:49 | W.PN.ID1 ---
Date of Service
Date of Service: November 22, 2023
Today's Communication
- leukocytosis resolved, thrombocytosis now downtrending
- liquid stool 11/20 in the setting of scheduled cathartics - held
- cholestasis may be due to tube feeds
- ID service will no longer actively follow this patient please recall for further questions
Assessment / Plan
Fever - resolved
Leukocytosis - minimal
Strangulated Umbilical Hernia s/p resection with anastomosis 11/03/23
Pneumonia due to K. oxytoca
H/o aspiration
H/o leukopenia/neutropenia
- leukocytosis resolved, thrombocytosis now downtrending
- liquid stool 11/20 in the setting of scheduled cathartics - held
- cholestasis may be due to tube feeds
- ID service will no longer actively follow this patient please recall for further questions
����������������������������������������������������������
Chief Complaint
-: Leukocytosis
Subjective / Review of Systems
remains afebrile
bp stable
leukocytosis was transient, thrombocytosis now improving
cr stable
CXR last night: no acute CP process
AXR: nonobstructive bowel gas pattern
Vital Signs / Physical Exam
Vital Signs
Vital Signs
Temp Pulse Resp BP Pulse Ox
97.6 F 114 22 167/107 96
11/22/23 07:29 11/22/23 06:00 11/22/23 06:00 11/22/23 06:00 11/22/23 06:00
Physical Exam
Constitutional: No Acute Distress and Chronically Ill
Cardiovascular: Regular Rate and S1/S2; Negative Murmur or Rub
Pulmonary: Clear and Symmetric; Negative Wheezes or Rales
Gastrointestinal: Soft, Non Tender, Non Distended and Normal Bowel Sounds
Skin: Warm and Dry; Negative Rash or Jaundice
Wound: Other (dressing clean, dry, intact)
Objective Data
Lab Data
Lab Results
11/22/23 05:42
11/22/23 05:42
ESR 133 mm/hour (0-20) H 11/12/23 04:00
PT 13.8 Sec (11.4-14.6) 11/12/23 12:45
INR 1.08 11/12/23 12:45
APTT 27.5 Sec (23.4-35.0) 11/02/23 20:30
Estimated Creat Clear 65 ml/min 11/22/23 05:42
Lactic Acid Cancelled 11/12/23 01:54
Total Bilirubin 0.5 mg/dl (0.2-1.3) 11/19/23 03:54
AST 92 U/L (14-36) H 11/19/23 03:54
ALT 57 U/L (0-35) H 11/19/23 03:54
Alkaline Phosphatase 512 U/L (38-126) H 11/19/23 03:54
C-Reactive Protein 64.30 mg/L (0.0-10.00) H 11/12/23 04:00
Most recent labs reviewed.
Micro Results:
11/08/23 10:28 Blood Culture - Final
Blood/Venous No Growth - Final Report
11/08/23 10:31 Blood Culture - Final
Blood/Venous No Growth - Final Report
11/08/23 10:28 Respiratory Culture - Final
Tracheal Aspirate Klebsiella oxytoca
Gram Stain - Final
11/02/23 20:37 Blood Culture - Final
Blood/Venous No Growth - Final Report
11/02/23 20:37 Blood Culture - Final
Blood/Venous No Growth - Final Report
--- NOTE | 2023-11-22 12:02 | W.PN.UPDATE ---
Update Note
Progress Note Update
patient seen chart reviewed in detail. spoke with nursing and with dr robertson. this consult was ordered re ? of competency. there is concern that may sign patient out ama and the question was raised as to whether patient might be competent
to make different decisions. i entered the room in which and family members were gathered and introduced myself. informed me that ' we will not be doing that....' i left the room and informed dr robertson. i would suggest that
hospitalist could ask patient whether she would be willing to talk to me. if she were in agreement, i would then come back to speak with her alone if she would be okay w this. for now will sign off .
[2023-11-22 13:00] LABS: Glucose - Point of Care 144 mg/dl (70-99)
--- NOTE | 2023-11-22 14:22 | W.PN.HOSP.TC ---
Today's Communication/Plan
-
video swallow ordered per speech
continue tf
release restraints
Assessment / Plan
Assessment / Plan
NAD, resting comfortably in bed
Scleral anicteric
Moist mucous membranes, NGT in place
No JVD
CTA bilateral
Normal S1-S2 no murmurs
Soft nontender nondistended bowel sounds active
No peripheral pitting edema
Moves extremities spontaneously
FMS in place yellow ross stool
AAO
Incarcerated / Strangulated Umbilical Hernia
Septic Shock
S/p resection of 45 cm necrotic small bowel with internal anastomosis and fixation on 11/02 with surgery
Aspiration upon intubation with 2L bilious vomiting suctioned, aspiration pneumonitis noted.
Blood cultures no growth to date. Micro respiratory culture with Klebsiella
-Patient was on vancomycin and Zosyn from 11/01-11/06, then continued on Zosyn monotherapy 11/07. She developed new fevers after stopping antibiotics prompting ID consult. At this point CT A/P recommended but family refused. ID following and resumed
antibiotics for continued fevers; and also started micafungin
-empiric meropenem and micafungin started on 11/08; Micafungin now off; completed course of Meropenem on 11/14
-family initially refused CT A/P - ordered 11/12 without contrast - results above
-having BM
-pulled out NGT overnight 11/14; 11/15 now s/p dobhoff with TF at goal
- -Speech to continue to follow on daily basis
-TPN now off
-appreciate consultants
-now IMU status (11/17/23)
Acute hypoxemic respiratory failure secondary to ventilator dependent respiratory failure
-Postop patient was maintained on ventilatory support with difficulty weaning but able to be extubated on 11/14/23
-patient is DNR/DNI
Agitation
ICU Delirium
Severe Deconditioning
patient on standing Seroquel
precedex weaned off, on clonidine taper
Saphris PRN
PT/OT
Psych to eval for cognition and capacity, for which Mr. Dowell did not let happen
Metastatic Breast Cancer
-Followed at [facility]. Currently on no active therapy / medications.
-On med holiday for a month with plan to revisit / restart meds in early November.
Hyperglycemia
-A1c 5.6%; required insulin on TPN
-stop standing insulin
-decrease lantus
Acute blood loss anemia from surgery
11/11/2023 received 1 unit PRBC with appropriate rise
-Hg stable
Thrombocytosis
-Reactive/infection related as well, monitor
Hyponatremia
Resolved
Hypokalemia
Replete as needed
REINA - resolved
Stage 1 buttock pressure injury
Wound care
Pressure offloading
DVT Prophylaxis: lovenox
DNR/DNI
-PT/OT ordered
Her daughter, disha� and were all at bedside. A full update was provided. Remains on tube feeds via Dobbhoff.
Site and had she cannot leave/be discharged in this condition as it would not be safe. High risk of aspiration. If Dobbhoff tube comes out then lack of nutrition can lead to respiratory arrest cardiac arrest and even due to lack of ATP from
cr�pe cycle. I notified them that if she starts or really taking fluid in his 50s to early she may aspirate and go into respiratory distress/arrest/cardiac arrest and potentially . I told them yes that she has been here for 20 days but look
at the progress she has made. Let us keep taking care of her and doing everything that we can to provide for her in terms of p.o. intake. They stated that speech therapy would be coming in 15 minutes. They have not recommended video swallow.
asked about potentially transferring to another hospital. I told him I am not sure what additional management would be offered as speech therapy sessions would continue/remain to be short. Also notified him as there is no indication for
transfer to a different Medical Center he would have to find a accepting physician and then I will call the transfer center to set up transport and notified them who the accepting physician is
Anticipated Discharge: 24 - 48 hours
Subjective/Interval History
-
Date of Service: November 22, 2023
Seen and examined for medical management and
Yesterday in the evening was at bedside chair restraints off unclear Dobbhoff was pulled out or if moving and got snug on something per . However it needed to be replaced.
Objective Data
-
Labs:
Laboratory Results
11/22/23
05:42
WBC 8.4
Hgb 8.5 L
Hct 25.7 L
Plt Count 603 H
Sodium 140
Potassium 4.1
Chloride 107
Carbon Dioxide 27
BUN 35 H
Creatinine 0.6
Glucose 149 H
Calcium 9.7
Vital Signs:
Vital Signs
Temp Pulse Resp BP Pulse Ox
98.4 F 97 16 170/87 97
11/22/23 11:14 11/22/23 10:00 11/22/23 10:00 11/22/23 10:00 11/22/23 10:00
I&O
11/21/23 11/22/23 11/23/23
06:59 06:59 06:59
Intake Total 850 / 850 850 / 850
Balance 850 / 850 850 / 850
--- NOTE | 2023-11-22 15:27 | PTCARENOTE ---
Patient AAOx self, confused, agitated at times. Soft limb restraints removed at 1400 and patient tolerating. Medsitter still in place. Tube feeding at goal and patient tolerating. RA. Still with need for rectal trumpet. Midline abdominal dressing
CDI. Hypertensive aware and medications adjusted, see mar. All other VSS. NSR. at bedside. Will continue to closely monitor.
[2023-11-22 18:21] LABS: Glucose - Point of Care 130 mg/dl (70-99)
[2023-11-22] MEDS: LOVENOX 40 MG SC (18:25)
[2023-11-22] MEDS: LOPRESSOR 12.5 MG TUBE (20:22)
[2023-11-22 23:27] LABS: Glucose - Point of Care 139 mg/dl (70-99)
[2023-11-23] VITALS (13 sets, daily range): BP systolic 110–182; BP diastolic 58–101; BMI 23.8
[2023-11-23] MEDS: NOVOLOG FLEXPEN-LOW RESISTANCE SC ×5 (01:31→23:38)
--- NOTE | 2023-11-23 01:59 | PTCARENOTE ---
patient resting comfortably in bed, at bedside, no c/o pain or discomfort, BP meds given for hypertension.
patient has rectal trumpet, patent for brown liquid stool. patient incontinent of bladder,
patient alert to self but nothing else, not able to let me know where she was or why she was in the hospital.
patients wants to take her home, states he promised her she would not in a hospital
patients also asked about palliative / hospice care, education given, and i let him know i would pass on to case mgmt for follow up in am regarding his questions
patient bathed, mouth swabbed, and cream appllied to groin where she has red excoration, no further needs at this time.
[2023-11-23 06:29] LABS: Hematocrit 24.6 % (37.0-47.0); Hemoglobin 8.1 g/dL (12.0-16.0); Mean Corp Hgb Conc. 32.9 g/dL (33.0-37.0); Mean Corpuscular Hgb 28.6 pg (27.0-31.0); Mean Corpuscular Volume 86.9 fL (81.0-99.0); Mean Platelet Volume 9.6 fL (7.4-10.4); Platelet Count 574 10^3/uL (130-400); Red Blood Cell Count 2.83 10^6/uL (4.20-5.40); Red Cell Dist. Width 20.1 % (11.5-14.5); White Blood Cell Count 8.1 10^3/uL (4.8-10.8)
[2023-11-23] MEDS: TYLENOL ORAL SOLUTION 650 MG TUBE ×4 (06:39→23:29)
[2023-11-23 06:40] LABS: Blood Urea Nitrogen 34 mg/dl (7-17); Calcium 9.4 mg/dl (8.4-10.2); Carbon Dioxide 26 mmol/L (22-30); Chloride 105 mmol/L (98-107); Estimated Creatinine Clearance 55 ml/min; Glucose 123 mg/dl (70-99); Sodium 137 mmol/L (135-145); eGFR > 60.00
[2023-11-23 06:42] LABS: Glucose - Point of Care 138 mg/dl (70-99)
[2023-11-23] MEDS: LOPRESSOR 5 MG IV (06:43)
--- NOTE | 2023-11-23 07:35 | PN.DE.MGMTRT ---
Insulin Management
- -
11/23/2023: Diabetes Management F/U
Patient admitted 11/01 with c/o poor appetite, abdominal pain and N/V for 4-5 days. PMH metastatic breast cancer (treated at [facility] on Ibrance->Afinitor). Patient had experienced weight loss/anorexia with use of Afinitor.
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 On evaluation in the ED, patient was noted for firm, tender and grossly discolored umbilical hernia concerning for incarceration +/- strangulation.
Pt is now POD#19 s/p Exploratory laparotomy, small bowel resection with primary anastomosis and primary umbilical hernia repair.
Diabetes consult requested on 11/10 for Hyperglycemia after initiation of TPN and tube feeds. No known Hx of diabetes, A1C 5.6%, Cr 0.5, eGFR>60
Pt awake, alert, oriented to self only, resting in bed, offers no complaints. No Family at bedside.
Was extubated on 11/13 to 2 L NC. Off TPN on 11/17.
Tube feeds continued at goal 55cc/hr. Plan for swallow eval today.
Glucose remains stable and in range 123 to 139, fasting 123 this AM.
Will make no change to current regimen, Cont Lantus 10 units in AM with low corrective insulin Q6 hrs.
Will follow and make further adjustments if necessary.
Diabetes History
- -
Pre-Admission Diabetes Regimen
11/23/23
05:51
Creatinine 0.7
Lab Results
Hemoglobin A1c Cancelled 11/07/23 17:29
Insulin Pump Settings
IP Diabetes Regimen
11/22/23 11/22/23 11/22/23
08:36 12:49 18:09
Glucose
POC Glucose 136 H 144 H 130 H
11/22/23 11/23/23 11/23/23
23:16 05:51 06:31
Glucose 123 H
POC Glucose 139 H 138 H
Patient Education
[2023-11-23] MEDS: LANTUS 0.1 UNITS SC (08:48)
[2023-11-23] MEDS: SEROQUEL 25 MG TUBE ×3 (08:49→23:30)
[2023-11-23] MEDS: ZESTRIL 20 MG TUBE (08:49)
[2023-11-23] MEDS: LOPRESSOR 12.5 MG TUBE ×2 (08:49→20:39)
[2023-11-23] MEDS: NSS (PRESERVATIVE FREE) IV (10:52)
[2023-11-23] MEDS: ORETIC 12.5 MG PO (10:52)
[2023-11-23] MEDS: MYLICON DROPS 20 MG PO ×3 (10:54→23:29)
--- NOTE | 2023-11-23 11:01 | W.PN.GS2 ---
Today's Communication / Plan
-
Linda removed
Assessment / Plan
-
Assessment: Patient is an 78 yo F with breast CA and treatment at [facility] p/w strangulated umbilical hernia
11/03/23 Exploratory laparotomy, small bowel resection with primary anastomosis, primary umbilical hernia repair
Tolerating TF with bowel function
Incision healing well
AFVSS
Plan: SIDER following for PO intake determination
TF at goal with good bowel function
All linda removed at bedside. Continue to pack area of umbilicus. Discussed wound care with family.
Medical care as per primary team
Surgery to continue to follow peripherally, please call with questions or concerns
Subjective Data
-
Date of Service: November 23, 2023
Patient seen and evaluated at bedside with family present. Offers no acute complaints. Notes some abdominal soreness with cough and movement but minimal.
Objective Data
-
Intake and Output
11/22/23 11/23/23 11/24/23
06:59 06:59 06:59
Intake Total 850 / 850
Output Total 100 / 100
Balance 850 / 850 -100 / -100
Intake:
Tube feeding 550 / 550
Feeding tube flush amount 300 / 300
Output:
Liquid stool amount 100 / 100
Rectum 100 / 100
Other:
Number of approximated LARGE 1
amounts of urine
How many times incontinent 1 1
SATURATED amount urine
Vital Signs
Temp Pulse Resp BP Pulse Ox
97.7 F 108 19 181/87 94
11/23/23 07:29 11/23/23 06:43 11/23/23 00:00 11/23/23 06:43 11/23/23 00:00
Lab Results
11/23/23 05:51
11/23/23 05:51
Calcium 9.4 mg/dl (8.4-10.2) 11/23/23 05:51
Phosphorus 3.2 mg/dl (2.5-4.5) 11/12/23 04:00
Magnesium 2.2 mg/dl (1.6-2.3) 11/19/23 03:54
Total Bilirubin 0.5 mg/dl (0.2-1.3) 11/19/23 03:54
Direct Bilirubin 0.6 mg/dl (0.0-0.4) H 11/03/23 04:20
AST 92 U/L (14-36) H 11/19/23 03:54
ALT 57 U/L (0-35) H 11/19/23 03:54
Alkaline Phosphatase 512 U/L (38-126) H 11/19/23 03:54
Total Protein 5.8 g/dl (6.3-8.2) L 11/19/23 03:54
Albumin 2.8 g/dl (3.5-5.0) L 11/19/23 03:54
Physical Exam
-
NAD
ABD; soft, ND, NTTP, dobhoff in place for TF, fecal collection device present with loose stools noted
Incision with intact staple line, open area to umbilicus with granulation tissue and without purulence or erythema
--- NOTE | 2023-11-23 11:33 | PTOTSP ---
Video Swallow Study
Summary: Patient with mild-moderate oral and severe pharyngeal dysphagia with aspiration with an ineffective and at times delayed cough response with all consistencies provided (i.e., thin, mildly thick, moderately thick, and pudding thick via tsp).
Risk for aspiration related complications is high given acute deconditioning, poor state of dentition, limitations in mobility, and comorbidities (metastatic breast cancer).
Discussed with family that patient with severe dysphagia, prognosis and time for swallowing recovery is unknown but suspected to be prolonged in duration given deconditioning/weakness/comorbidities, and that repeat video swallow study is not
recommended prior to additional dysphagia therapy completed (ideally no earlier than 2 weeks from now per this mortgage underwriter's clinical judgement).
Recommend:
1. NPO and goals of care discussion (i.e., laborer marine terminal non-oral means vs comfort feeding)
2. Medications - via non-oral means (DHT in place)
3. Oral care 3x daily
4. Aspiration Risk Hydration Protocol - ice chips after oral care with nursing supervision
5. Dysphagia therapy at the acute care level and after D/C from acute care pending goals of care.
--- NOTE | 2023-11-23 11:47 | CM ---
Addendum entered by Sparkle Proctor RN 11/23/23 16:53:
Palliative Care referral placed.
Original Note:
Patient with Dx Incarcerated / Strangulated Umbilical Hernia, Septic Shock, s/p resection of necrotic small bowel, aspiration pneumonitis. Psych Consult attempt noted. Dobhoff tube - Jevity tube feeds. VSE today - recommend NPO. Remains
confused. PT & OT ; requires assist of 2, not ambulating, recommend skilled rehab.
Met with Dr Chavez, Bisi ST, , daughter Liz, son in law. Family given explanations patient did not pass swallow eval and PEG tube is recommended. /family asking appropriate questions about further PO trials and PEG tube insertion and
tube feedings.
Spoke with , Dtr and BROCK extensively; wants to observe ST trials over the weekend, he may make decision about PEG Sunday, he is now agreeing to consider SNF for PEG feeds and rehab and may tour some SNF facilities this weekend.
already has SNF list- suggested some local facilities and provided [facility] ratings. wants short term SNF only then home with VN, caregivers and Palliative Care. He will decide later if he will do the PEG feeds himself or hire a
private duty nurse for that. Caregiver list provided and informed him that some agencies such as [facility] have multiple services including VN, caregiver and private duty nurses. asked about Palliative Care again, and repeated
explanations were provided that they do not provide direct patient care but rather oversee care and help manage/coordinate care needs. and family were informed that Palliative Care will not see the patient here at or at SNF but will
start service when patient goes home.
Unable to place Palliative Care referral at this time through [facility], as [facility] website is down.
Plan follow up with on 11/25 for SNF preferences.
[2023-11-23 12:36] LABS: Glucose - Point of Care 119 mg/dl (70-99)
--- NOTE | 2023-11-23 15:38 | W.PN.HOSP.TC ---
Today's Communication/Plan
-
npo
tf via dobhoff
continue swallow eval
Assessment / Plan
Assessment / Plan
NAD, resting comfortably in bed
Scleral anicteric
Moist mucous membranes, NGT in place
No JVD
CTA bilateral
Normal S1-S2 no murmurs
Soft nontender nondistended bowel sounds active
No peripheral pitting edema
Moves extremities spontaneously
FMS in place yellow ross stool
AAO
Incarcerated / Strangulated Umbilical Hernia
Septic Shock
S/p resection of 45 cm necrotic small bowel with internal anastomosis and fixation on 11/02 with surgery
Aspiration upon intubation with 2L bilious vomiting suctioned, aspiration pneumonitis noted.
Blood cultures no growth to date. Micro respiratory culture with Klebsiella
-Patient was on vancomycin and Zosyn from 11/01-11/06, then continued on Zosyn monotherapy 11/07. She developed new fevers after stopping antibiotics prompting ID consult. At this point CT A/P recommended but family refused. ID following and resumed
antibiotics for continued fevers; and also started micafungin
-empiric meropenem and micafungin started on 11/08; Micafungin now off; completed course of Meropenem on 11/14
-family initially refused CT A/P - ordered 11/12 without contrast - results above
-having BM
-pulled out NGT overnight 11/14; 11/15 now s/p dobhoff with TF at goal
- -Speech to continue to follow on daily basis
-TPN now off
-appreciate consultants
-now IMU status (11/17/23)
Acute hypoxemic respiratory failure secondary to ventilator dependent respiratory failure
-Postop patient was maintained on ventilatory support with difficulty weaning but able to be extubated on 11/14/23
-patient is DNR/DNI
Agitation
ICU Delirium
Severe Deconditioning
patient on standing Seroquel
precedex weaned off, on clonidine taper
Saphris PRN
PT/OT
Psych to eval for cognition and capacity, for which Mr. Dowell did not let happen
Metastatic Breast Cancer
-Followed at [facility]. Currently on no active therapy / medications.
-On med holiday for a month with plan to revisit / restart meds in early November.
Hyperglycemia
-A1c 5.6%; required insulin on TPN
-stop standing insulin
-decrease lantus
Acute blood loss anemia from surgery
11/11/2023 received 1 unit PRBC with appropriate rise
-Hg stable
Thrombocytosis
-Reactive/infection related as well, monitor
Hyponatremia
Resolved
Hypokalemia
Replete as needed
REINA - resolved
Stage 1 buttock pressure injury
Wound care
Pressure offloading
DVT Prophylaxis: lovenox
DNR/DNI
-PT/OT ordered
Her daughter, disha� and were all at bedside. A full update was provided. Remains on tube feeds via Dobbhoff.
Again discussed the importance of swallowing and not leaving hospital before we have a clear answer on what we need ot do about nutritional intake if she is able to or not able to swallow. Optimisim from family is still there about swallowing and
being aggressive. I informed them that she has a total of 14days before the dobhoff need to come out, that means in 8days we will need to make a decision about nuturtional intake if she is not swallowing by then. Again i reviewed the risk with them
about swallowing if she is not ready. these risk includ pneumonitis/pneumonia/respiratory distress/respiratory arrest/cardiac arrest and .
Her daughter asked if pallitative care is involved then would she be able to be discharged home with the dobhoff. I informed her that would not be possible and that she cannot leave the house with a dobhoff.
We reviewed potentially needing a Peg tube if she is not able to orally swallow and that she would continue on TF as Mr. Dowell asked if they could put regular food through the tube, for which I said and No and her daughter asked if they could put
pills through the tube and I said yes.
I personally ask speech therapy to jon to see her thorugh the weekend. I will ask PT/OT to continue to see her through the weekened as well.
Anticipated Discharge: > 48 hours
Subjective/Interval History
-
Date of Service: November 23, 2023
seen and examined
no new complaints
no acute overnight events
Objective Data
-
Labs:
Laboratory Results
11/23/23
05:51
WBC 8.1
Hgb 8.1 L
Hct 24.6 L
Plt Count 574 H
Sodium 137
Potassium 4.0
Chloride 105
Carbon Dioxide 26
BUN 34 H
Creatinine 0.7
Glucose 123 H
Calcium 9.4
Vital Signs:
Vital Signs
Temp Pulse Resp BP Pulse Ox
97.8 F 98 17 163/76 98
11/23/23 11:07 11/23/23 14:00 11/23/23 14:00 11/23/23 14:00 11/23/23 14:00
I&O
11/22/23 11/23/23 11/24/23
06:59 06:59 06:59
Intake Total 850 / 850
Output Total 100 / 100
Balance 850 / 850 -100 / -100
[2023-11-23] MEDS: LOVENOX 40 MG SC (18:03)
[2023-11-23] MEDS: MYLICON DROPS PO (18:05)
[2023-11-23 18:54] LABS: Glucose - Point of Care 108 mg/dl (70-99)
--- NOTE | 2023-11-23 19:26 | PTCARENOTE ---
AAOx2 lucid conversation at times- not consistent. Follows simple commands and responds appropriately to questions. Tolerating tube feeds via dobhoff at goal. Oral care completed freq today- poor dentition. Rectal trumpet patent/ flushed for
loose stool no leaks. Constantly urinating- purewick placed for output. Spouse frequently upset and emotional support provided- Provider made aware of his needs/concerns and accommodating.
[2023-11-23 23:50] LABS: Glucose - Point of Care 120 mg/dl (70-99)
[2023-11-24] VITALS (11 sets, daily range): BP systolic 115–172; BP diastolic 54–87; BMI 23.4
[2023-11-24] MEDS: TYLENOL ORAL SOLUTION 650 MG TUBE ×4 (05:32→23:03)
[2023-11-24 06:09] LABS: Hematocrit 24.9 % (37.0-47.0); Mean Corp Hgb Conc. 32.1 g/dL (33.0-37.0); Mean Corpuscular Hgb 28.1 pg (27.0-31.0); Mean Corpuscular Volume 87.4 fL (81.0-99.0); Mean Platelet Volume 9.7 fL (7.4-10.4); Platelet Count 656 10^3/uL (130-400); Red Blood Cell Count 2.85 10^6/uL (4.20-5.40); White Blood Cell Count 7.8 10^3/uL (4.8-10.8)
[2023-11-24 06:27] LABS: Blood Urea Nitrogen 37 mg/dl (7-17); Calcium 9.5 mg/dl (8.4-10.2); Carbon Dioxide 28 mmol/L (22-30); Chloride 100 mmol/L (98-107); Estimated Creatinine Clearance 48 ml/min; Glucose 126 mg/dl (70-99); Potassium 4.3 mmol/L (3.5-5.1); Sodium 137 mmol/L (135-145); eGFR > 60.00
[2023-11-24] MEDS: NOVOLOG FLEXPEN-LOW RESISTANCE SC ×4 (06:33→23:44)
--- NOTE | 2023-11-24 08:12 | CON.GI ---
Addendum entered and electronically signed by Mateus Zamarripa MD 11/24/23 09:17:
I saw and examined the patient.
The [employer] or PA's note was reviewed and I agree with the note.
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 Post op had prolonged intubation for 2 weeks and was finally extubated 11/13. Since then
swallowing has been evaluated by Speech and VSE 11/22 showed aspiration with all consistencies of barium. Second opinion requested by
REC:
Given her failed VSE, agree with Speech to keep pt NPO and cont DHT feeds
Continue ST and hopefully swallowing improves slowly after her prolonged intubation
If she fails to improve, we can discuss alternative feeding methods, but given her metastatic breast cancer involving her chest wall in LUQ, PEG would not be ideal. Perhaps J tube may be preferable if necessary
Will otherwise sign off for now, but are available with any questions
Original Note:
Consultation
-
Date/Time Consultation Requested: 11/23/23 @ 17:52
Date/Time Consultation Performed: 11/24/23 @ 08:30
Requesting Provider: Dr. Darrell Chavez
Performing Provider: EDUAR Howard; Dr. Mateus Zamarripa
Reason for Consultation: dysphagia
Medical History
Chief Complaint / HPI
Chief Complaint: abdominal pain, nausea, vomiting
History of Present Illness:
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
umbilical hernia, who presented to the emergency room initially on 11/02/2023 with complaints of abdominal pain, nausea, and vomiting. Upon review of records, the patient's had noticed discoloration at the site of her prior umbilical hernia,
along with the symptoms as noted above, warranting ER evaluation. She was found to have septic shock on admission with concern for incarcerated and strangulated umbilical hernia and underwent urgent OR evaluation with exploratory surgery. She went
to the OR on 11/[address] Funez where she had an exploratory laparotomy with a small bowel resection of 45 cm of necrotic bowel removed, along with a primary umbilical hernia repair for a strangulated umbilical hernia. She was initially admitted
to the ICU and was on mechanical ventilation, with difficulty weaning. She required pressors for support short time which eventually were weaned off. She was placed on antibiotics as well and was evaluated by infectious disease given a sputum
culture from 11/07 that was growing K oxytoca. She had been treated with a course of meropenem and micafungin. She was ultimately able to be extubated on 11/13, and was eventually downgraded to the IMU. We are being asked to evaluate due to ongoing
dysphagia. She had been getting tube feeds via an NG tube, but this was pulled out and a Dobbhoff tube was placed on 11/15. She has been on tube feedings at goal since then. She is being followed by speech therapy but has been unable to tolerate
any p.o. by mouth. She underwent a video swallow on 11/22 which showed aspiration of all types of liquid consistencies.
Today she is awake and alert. She has no significant complaints and reports that today is 'the best I have felt.' Her and her deny any difficulty swallowing prior to her hospitalization. She denies ever coughing or choking with food or
liquids prior to now. She denies any abdominal pain, nausea, or vomiting. She has never had an EGD. She currently has a Dobbhoff tube in place with tube feedings at goal. She has been afebrile. Speech therapy is working with her, pending
reevaluation today. She was previously recommended strict n.p.o. given her video swallow findings. Routine labs reviewed from today and appear stable.
Past Medical History
Past Medical History: Cancer (Metastatic breast CA treated at [facility] on Ibrance previously and switched to Afinitor (off the past month due to side effects)) and Other (Umbilical hernia)
Past Surgical History: Other (Exploratory laparotomy with small bowel resection and anastomosis and primary umbilical hernia repair 11/03/23)
Social History
Tobacco: Non-Smoker
Alcohol: None
Drug: None
Personal:
Living: With Family
Family History
Family History: Reviewed & Not Pertinent
Allergies / Home Medications
Allergy/AdvReac Type Severity Reaction Status Date / Time
No Known Allergies Allergy Unverified 11/02/23 20:13
�Medication �Instructions �Recorded
aspirin 81 mg tablet,delayed 81 mg PO DAILYPRN PRN mild pain 11/02/23
release
dexamethasone 0.5 mg/5 mL oral 0 mg PO DAILYPRN PRN mouth sores 11/02/23
solution
magnesium gluconate 250 mg PO Q48H Supplement 11/02/23
Review of Systems
-
History Source: Patient
Constitutional: Reports No Symptoms
EENT: Reports No Symptoms
Respiratory: Reports Cough
Cardiac: Reports No Symptoms
Abdomen/GI: Reports Diarrhea (liquid stool in rectal bag) and Other (dysphagia)
: Reports No Symptoms
Musculoskeletal: Reports No Symptoms
Skin: Reports Other (breast cancer skin lesions to left neck and left upper abdomen)
Neurological: Reports Weakness (generalized)
Vital Signs
Temp Pulse Resp BP Pulse Ox
98.0 F 93 14 172/74 99
11/24/23 08:00 11/24/23 06:00 11/24/23 06:00 11/24/23 06:00 11/24/23 06:00
Physical Exam
Exam
General: Comfortable and Other (chronically ill appearing female, in NAD)
HEENT: Normocephalic, Anicteric and Atraumatic
Respiratory: Clear (overall diminished)
Cardiac: S1/S2 and Regular Rhythm
Breast: Deferred by me
GI: Soft, Non Tender, Non Distended and Other (soft bowel sounds)
Rectal: Deferred by Provider
Musculoskeletal: No Edema
Skin: Warm, Dry and Other (skin lesion to the LUQ and left neck (from breast cancer per pt/))
Neuro: Awake and Alert
Psych: Calm
Results
WBC 7.8 10^3/uL (4.8-10.8) 11/24/23 05:22
Hgb 8.0 g/dL (12.0-16.0) L 11/24/23 05:22
Hct 24.9 % (37.0-47.0) L 11/24/23 05:22
MCV 87.4 fL (81.0-99.0) 11/24/23 05:22
Plt Count 656 10^3/uL (130-400) H 11/24/23 05:22
Absolute Neuts (auto) 4.9 10^3/uL (1.4-6.5) 11/14/23 04:05
PT 13.8 Sec (11.4-14.6) 11/12/23 12:45
INR 1.08 11/12/23 12:45
APTT 27.5 Sec (23.4-35.0) 11/02/23 20:30
Sodium 137 mmol/L (135-145) 11/24/23 05:22
Potassium 4.3 mmol/L (3.5-5.1) 11/24/23 05:22
Chloride 100 mmol/L (98-107) 11/24/23 05:22
Carbon Dioxide 28 mmol/L (22-30) 11/24/23 05:22
BUN 37 mg/dl (7-17) H 11/24/23 05:22
Creatinine 0.8 mg/dL (0.6-1.0) 11/24/23 05:22
Calcium 9.5 mg/dl (8.4-10.2) 11/24/23 05:22
Total Bilirubin 0.5 mg/dl (0.2-1.3) 11/19/23 03:54
AST 92 U/L (14-36) H 11/19/23 03:54
ALT 57 U/L (0-35) H 11/19/23 03:54
Alkaline Phosphatase 512 U/L (38-126) H 11/19/23 03:54
Diagnostic Image Results:
11/23/23 VSE: Findings: The patient swallowing function was evaluated fluoroscopically and with videotape during the ingestion of several consistencies of barium, in conjunction with the speech pathologist. Thin liquid barium by spoon: Aspiration on
2 of 2 attempts. Goodrich consistency barium by spoon: Aspiration. Honey consistency barium by spoon: Aspiration. Barium pudding by spoon: Aspiration
11/12/23 CT A/P w/o IV contrast: IMPRESSION:
1. Postoperative changes without overt evidence for bowel ischemia, within limitations of unenhanced technique.
2. Trace bilateral pleural effusions. Bibasilar airspace disease suspicious for pneumonia.
3. Evidence for osseous metastatic disease involving T10, L4 and the right ninth rib.
Prior GI Procedures:
EGD: none
Colonoscopy: unknown
Assessment / Plan
-
The patient is an 78-year-old female with a past medical history significant for metastatic breast cancer, known umbilical hernia, who presented to the emergency room initially on 11/02/2023 with complaints of abdominal pain, nausea, and vomiting,
found to have septic shock secondary to a strangulated/incarcerated umbilical hernia status post exploratory laparotomy with 45 cm of small bowel resection with anastomosis and a primary umbilical hernia on 11/02, who has had a prolonged
hospitalization, requiring prolonged intubation, extubated on 11/13, now with ongoing difficulty swallowing and a video swallow showing aspiration of all liquid consistencies.
Problem list:
-septic shock 2/2 strangulated/incarcerated hernia s/p exploratory laparotomy and small bowel resection with anastomosis and umbilical hernia repair 11/02
-dysphagia, VES 11/22 showing aspiration of all liquid consistencies
-acute/chronic anemia s/p 1 unit PRBC
-acute hypoxic respiratory failure, extubated 11/13
-hx metastatic breast CA to lymphatic system, bones previously on Ibrance-->Afinitor which was held a month prior to admission followed at [facility]
Recommendations:
-Etiology of her difficulty swallowing likely multifactorial given her prolonged intubation versus hospital delirium versus weakness/deconditioning versus other
-Would continue tube feeds and evaluate her swallowing daily as it appears she is improving. Speech is following
-Dr. Zamarripa and I discussed with the pt and her at the bedside that if she continues to have difficulty, would need to further discuss a PEG tube but given her metastatic lesion to her upper abdomen this may be a challenge to place a PEG
tube. Would need to consider surgical placement if this was deemed necessary
-Continue aspiration precautions
-Continue Dobhoff with tube feedings as directed per nutrition recs
-Further medical management as per hospitalist
-Will sign of at this time, but be available if needed to discuss a PEG tube again. TT sent to the hospitalist
Data Reviewed
-
Radiology: Report Reviewed by me and Discussed with Physician
CT Scan: Report Reviewed by me and Discussed with Physician
Old Records: Reviewed
-
-
Thank you for consultation and allowing me to participate in the patient's care. Please call the manager distribution center GI physician during the after hours with any questions or concerns.
[2023-11-24] MEDS: ORETIC 12.5 MG PO (08:45)
[2023-11-24] MEDS: LOPRESSOR 12.5 MG TUBE ×2 (08:45→21:25)
[2023-11-24] MEDS: SEROQUEL 25 MG TUBE ×3 (08:45→23:01)
[2023-11-24] MEDS: ZESTRIL 20 MG TUBE (08:45)
[2023-11-24] MEDS: LANTUS 0.1 UNITS SC (08:45)
[2023-11-24] MEDS: MYLICON DROPS 20 MG PO ×4 (08:46→21:26)
[2023-11-24] MEDS: NSS (PRESERVATIVE FREE) IV (08:46)
--- NOTE | 2023-11-24 10:40 | W.PN.HOSP.TC ---
Today's Communication/Plan
-
.
Assessment / Plan
Assessment / Plan
NAD, resting comfortably in bed
Scleral anicteric
Moist mucous membranes, NGT in place
No JVD
CTA bilateral
Normal S1-S2 no murmurs
Soft nontender nondistended bowel sounds active
No peripheral pitting edema
Moves extremities spontaneously
FMS in place yellow ross stool
AA
Incarcerated / Strangulated Umbilical Hernia
Septic Shock
S/p resection of 45 cm necrotic small bowel with internal anastomosis and fixation on 11/02 with surgery
Aspiration upon intubation with 2L bilious vomiting suctioned, aspiration pneumonitis noted.
Blood cultures no growth to date. Micro respiratory culture with Klebsiella
-Patient was on vancomycin and Zosyn from 11/01-11/06, then continued on Zosyn monotherapy 11/07. She developed new fevers after stopping antibiotics prompting ID consult. At this point CT A/P recommended but family refused. ID following and resumed
antibiotics for continued fevers; and also started micafungin
-empiric meropenem and micafungin started on 11/08; Micafungin now off; completed course of Meropenem on 11/14
-family initially refused CT A/P - ordered 11/12 without contrast - results above
-having BM
-pulled out NGT overnight 11/14; 11/15 now s/p dobhoff with TF at goal
- -Speech to continue to follow on daily basis
-TPN now off
-appreciate consultants
-now IMU status (11/17/23)
Acute hypoxemic respiratory failure secondary to ventilator dependent respiratory failure
-Postop patient was maintained on ventilatory support with difficulty weaning but able to be extubated on 11/14/23
-patient is DNR/DNI
Agitation
ICU Delirium
Severe Deconditioning
patient on standing Seroquel
precedex weaned off, on clonidine taper
Saphris PRN
PT/OT
Psych to eval for cognition and capacity, for which Mr. Dowell did not let happen
Metastatic Breast Cancer
-Followed at [facility] [place]. Currently on no active therapy / medications.
-On med holiday for a month with plan to revisit / restart meds in early November.
Hyperglycemia
-A1c 5.6%; required insulin on TPN
-stop standing insulin
-decrease lantus
Acute blood loss anemia from surgery
11/11/2023 received 1 unit PRBC with appropriate rise
-Hg stable
Thrombocytosis
-Reactive/infection related as well, monitor
Hyponatremia
Resolved
Hypokalemia
Replete as needed
REINA - resolved
Stage 1 buttock pressure injury
Wound care
Pressure offloading
DVT Prophylaxis: lovenox
DNR/DNI
-PT/OT ordered
at bedside
Discussed swallowing. Continue to grasp at straws. States he reviewed Video Swallow images with Speech. States even though she is pocketing and can see it but states there is some food going down her food pipe.
Anticipated Discharge: 24 - 48 hours
Subjective/Interval History
-
Date of Service: November 24, 2023
seen and exmained
more cognizant today
answering questions appropriately and following commands
working well with speech
Objective Data
-
Labs:
Laboratory Results
11/24/23
05:22
WBC 7.8
Hgb 8.0 L
Hct 24.9 L
Plt Count 656 H
Sodium 137
Potassium 4.3
Chloride 100
Carbon Dioxide 28
BUN 37 H
Creatinine 0.8
Glucose 126 H
Calcium 9.5
Vital Signs:
Vital Signs
Temp Pulse Resp BP Pulse Ox
98.0 F 108 21 127/73 97
11/24/23 08:00 11/24/23 10:00 11/24/23 10:00 11/24/23 10:00 11/24/23 10:00
I&O
11/23/23 11/24/23 11/25/23
06:59 06:59 06:59
Intake Total 1900 / 1900 120 / 120
Output Total 100 / 100 200 / 200
Balance -100 / -100 1700 / 1700 120 / 120
[2023-11-24 12:16] LABS: Glucose - Point of Care 108 mg/dl (70-99)
[2023-11-24 18:06] LABS: Glucose - Point of Care 143 mg/dl (70-99)
[2023-11-24] MEDS: LOVENOX 40 MG SC (18:13)
--- NOTE | 2023-11-24 18:41 | PTCARENOTE ---
Rectal trumpet fell out thin brown stool- purewick placed pt verbalizes need to use bedpan/ bsc for bm.
--- NOTE | 2023-11-24 19:15 | PTCARENOTE ---
OOB all day, can take steps with walker- follows commands. AAOx3 today, very conversant. Patient and Spouse appreciative of progress and plan.
[2023-11-24 23:48] LABS: Glucose - Point of Care 135 mg/dl (70-99)
[2023-11-25] VITALS (16 sets, daily range): BP systolic 92–155; BP diastolic 45–113; PULSE 105–108; BMI 23.7
[2023-11-25] MEDS: TYLENOL ORAL SOLUTION 650 MG TUBE ×4 (05:53→23:54)
[2023-11-25 06:08] LABS: Hematocrit 25.3 % (37.0-47.0); Hemoglobin 8.3 g/dL (12.0-16.0); Mean Corp Hgb Conc. 32.8 g/dL (33.0-37.0); Mean Corpuscular Hgb 29.2 pg (27.0-31.0); Mean Corpuscular Volume 89.1 fL (81.0-99.0); Mean Platelet Volume 9.5 fL (7.4-10.4); Platelet Count 647 10^3/uL (130-400); Red Blood Cell Count 2.84 10^6/uL (4.20-5.40); Red Cell Dist. Width 19.9 % (11.5-14.5); White Blood Cell Count 8.5 10^3/uL (4.8-10.8)
[2023-11-25 06:10] LABS: Blood Urea Nitrogen 42 mg/dl (7-17); Calcium 9.4 mg/dl (8.4-10.2); Carbon Dioxide 28 mmol/L (22-30); Chloride 99 mmol/L (98-107); Estimated Creatinine Clearance 43 ml/min; Glucose 132 mg/dl (70-99); Sodium 136 mmol/L (135-145); eGFR > 60.00
[2023-11-25] MEDS: NOVOLOG FLEXPEN-LOW RESISTANCE 1 UNITS SC (06:27)
[2023-11-25 06:40] LABS: Glucose - Point of Care 160 mg/dl (70-99)
[2023-11-25] MEDS: LANTUS 0.1 UNITS SC (08:18)
[2023-11-25] MEDS: NSS (PRESERVATIVE FREE) IV (08:19)
[2023-11-25] MEDS: SEROQUEL 25 MG TUBE ×3 (08:19→23:54)
[2023-11-25] MEDS: LOPRESSOR 12.5 MG TUBE ×2 (08:19→21:00)
[2023-11-25] MEDS: ORETIC 12.5 MG PO (08:19)
[2023-11-25] MEDS: ZESTRIL 20 MG TUBE (08:19)
[2023-11-25] MEDS: MYLICON DROPS 20 MG PO ×4 (08:19→21:01)
--- NOTE | 2023-11-25 10:48 | W.PN.HOSP.TC ---
Today's Communication/Plan
-
swallow eval daily
rehab wiht pt/ot
Assessment / Plan
Assessment / Plan
NAD, resting comfortably in bed
Scleral anicteric
Moist mucous membranes, NGT in place
No JVD
CTA bilateral
Normal S1-S2 no murmurs
Soft nontender nondistended bowel sounds active
No peripheral pitting edema
Moves extremities spontaneously
FMS in place yellow ross stool
AA
Incarcerated / Strangulated Umbilical Hernia
Septic Shock
S/p resection of 45 cm necrotic small bowel with internal anastomosis and fixation on 11/02 with surgery
Aspiration upon intubation with 2L bilious vomiting suctioned, aspiration pneumonitis noted.
Blood cultures no growth to date. Micro respiratory culture with Klebsiella
-Patient was on vancomycin and Zosyn from 11/01-11/06, then continued on Zosyn monotherapy 11/07. She developed new fevers after stopping antibiotics prompting ID consult. At this point CT A/P recommended but family refused. ID following and resumed
antibiotics for continued fevers; and also started micafungin
-empiric meropenem and micafungin started on 11/08; Micafungin now off; completed course of Meropenem on 11/14
-family initially refused CT A/P - ordered 11/12 without contrast - results above
-having BM
-pulled out NGT overnight 11/14; 11/15 now s/p dobhoff with TF at goal
- -Speech to continue to follow on daily basis
-TPN now off
-appreciate consultants
-now IMU status (11/17/23)
Acute hypoxemic respiratory failure secondary to ventilator dependent respiratory failure
-Postop patient was maintained on ventilatory support with difficulty weaning but able to be extubated on 11/14/23
-patient is DNR/DNI
Agitation
ICU Delirium
Severe Deconditioning
patient on standing Seroquel
precedex weaned off, on clonidine taper
Saphris PRN
PT/OT
Psych to eval for cognition and capacity, for which Mr. Dowell did not let happen
Metastatic Breast Cancer
[place] [facility] [place] no active therapy / medications.
-On med holiday for a month with plan to revisit / restart meds in early November.
Hyperglycemia
-A1c 5.6%; required insulin on TPN
-stop standing insulin
-decrease lantus
Acute blood loss anemia from surgery
11/11/2023 received 1 unit PRBC with appropriate rise
-Hg stable
Thrombocytosis
-Reactive/infection related as well, monitor
Hyponatremia
Resolved
Hypokalemia
Replete as needed
REINA - resolved
Stage 1 buttock pressure injury
Wound care
Pressure offloading
DVT Prophylaxis: lovenox
DNR/DNI
-PT/OT ordered
at bedside
Today is happy with her progress. 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
Anticipated Discharge: > 48 hours
Subjective/Interval History
-
Date of Service: November 25, 2023
seen and examined
more awake today
feeling better. continue to practice swallowing exercise
per and report from rn using [employer] regularly now
Objective Data
-
Labs:
Laboratory Results
11/25/23
05:23
WBC 8.5
Hgb 8.3 L
Hct 25.3 L
Plt Count 647 H
Sodium 136
Potassium 4.0
Chloride 99
Carbon Dioxide 28
BUN 42 H
Creatinine 0.9
Glucose 132 H
Calcium 9.4
Vital Signs:
Vital Signs
Temp Pulse Resp BP Pulse Ox
98.3 F 108 17 127/113 97
11/25/23 07:15 11/25/23 10:00 11/25/23 10:00 11/25/23 10:00 11/25/23 02:58
I&O
11/24/23 11/25/23 11/26/23
06:59 06:59 06:59
Intake Total 1900 / 1900 1260 / 1260
Output Total 200 / 200 650 / 650
Balance 1700 / 1700 610 / 610
[2023-11-25 12:09] LABS: Glucose - Point of Care 129 mg/dl (70-99)
[2023-11-25] MEDS: NOVOLOG FLEXPEN-LOW RESISTANCE SC ×3 (12:46→23:48)
--- NOTE | 2023-11-25 14:05 | CHAP ---
Addendum entered by Saulo Tapia 11/25/23 15:37:
Prayer blanket provided, gratefully received.
Original Note:
Ms. Dowell was sitting in chair, with son visiting. She is doing better and was in good spirits. Emotional and spiritual support provided.
--- NOTE | 2023-11-25 15:19 | PTCARENOTE ---
Patient AAOx3, occasional forgetfulness. Only complaint is right ear feeling 'clogged and popping.' MD notified, debrox started. VSS. Tolerating tube feeds at goal. Continuing to closely monitor.
[2023-11-25] MEDS: LOVENOX 40 MG SC (17:44)
[2023-11-25 18:28] LABS: Glucose - Point of Care 134 mg/dl (70-99)
[2023-11-25 23:52] LABS: Glucose - Point of Care 114 mg/dl (70-99)
[2023-11-26] VITALS (9 sets, daily range): BP systolic 120–153; BP diastolic 62–83; BMI 23.3
[2023-11-26] MEDS: TYLENOL ORAL SOLUTION 650 MG TUBE ×4 (05:46→23:33)
[2023-11-26] MEDS: NOVOLOG FLEXPEN-LOW RESISTANCE 1 UNITS SC (05:47)
[2023-11-26 05:58] LABS: Glucose - Point of Care 150 mg/dl (70-99)
[2023-11-26 05:59] LABS: Hematocrit 25.9 % (37.0-47.0); Hemoglobin 8.5 g/dL (12.0-16.0); Mean Corp Hgb Conc. 32.8 g/dL (33.0-37.0); Mean Corpuscular Hgb 29.4 pg (27.0-31.0); Mean Corpuscular Volume 89.6 fL (81.0-99.0); Mean Platelet Volume 9.3 fL (7.4-10.4); Platelet Count 622 10^3/uL (130-400); Red Blood Cell Count 2.89 10^6/uL (4.20-5.40); Red Cell Dist. Width 19.9 % (11.5-14.5); White Blood Cell Count 8.4 10^3/uL (4.8-10.8)
--- NOTE | 2023-11-26 06:01 | PTCARENOTE ---
No complaints overnight; OOB with assist x 1 and rolling walker to BSC twice overnight. Large BM x 2, soft/formed. Pt no longer wants to take Seroquel that had been started during this admission, stating that it makes her sleepy. To f/u with AM
nurse and provider. Will continue to monitor and assess.
[2023-11-26 06:30] LABS: ALT (SGPT) 32 U/L (0-35); AST (SGOT) 47 U/L (14-36); Alkaline Phosphatase 465 U/L (38-126); Blood Urea Nitrogen 43 mg/dl (7-17); Calcium 9.2 mg/dl (8.4-10.2); Carbon Dioxide 28 mmol/L (22-30); Chloride 99 mmol/L (98-107); Estimated Creatinine Clearance 55 ml/min; Glucose 134 mg/dl (70-99); Magnesium 1.6 mg/dl (1.6-2.3); Potassium 4.1 mmol/L (3.5-5.1); Sodium 136 mmol/L (135-145); Total Bilirubin 0.3 mg/dl (0.2-1.3); eGFR > 60.00
--- NOTE | 2023-11-26 08:30 | PN.DE.MGMTRT ---
Insulin Management
- -
11/26/2023: Diabetes Management F/U
Patient admitted 11/01 with c/o poor appetite, abdominal pain and N/V for 4-5 days. PMH metastatic breast cancer (treated at [facility] on Ibrance->Afinitor). Patient had experienced weight loss/anorexia with use of Afinitor.
She began to complain of abdominal discomfort about 2 days [employer]. On evaluation in the ED, patient was noted for firm, tender and grossly discolored umbilical hernia concerning for incarceration +/- strangulation.
Pt is now POD#19 s/p Exploratory laparotomy, small bowel resection with primary anastomosis and primary umbilical hernia repair.
Diabetes consult requested on 11/10 for Hyperglycemia after initiation of TPN and tube feeds. No known Hx of diabetes, A1C 5.6%, Cr 0.5, eGFR>60
Pt awake, alert, oriented to self only, unable to discuss diabetes mgt. Sitting up in chair, Family ( and Dtr) at bedside, discussed diabetes plan of care.
Was extubated on 11/13 to 2 L NC. Off TPN on 11/17. failed swallow eval 11/22
Tube feeds continued at goal 55cc/hr. Plan for repeat swallow eval tomorrow.
Glucose remains stable and in range 108 to 160, fasting 134 this AM.
Will make no change to current regimen, Cont Lantus 10 units in AM with low corrective insulin Q6 hrs.
Will follow and make further adjustments if necessary.
Diabetes History
- -
Pre-Admission Diabetes Regimen
11/26/23
05:39
Creatinine 0.7
Lab Results
Hemoglobin A1c Cancelled 11/07/23 17:29
Insulin Pump Settings
IP Diabetes Regimen
11/25/23 11/25/23 11/25/23
11:57 18:17 23:41
Glucose
POC Glucose 129 H 134 H 114 H
11/26/23 11/26/23
05:39 05:46
Glucose 134 H
POC Glucose 150 H
Patient Education
[2023-11-26] MEDS: LANTUS 0.1 UNITS SC (08:55)
[2023-11-26] MEDS: ORETIC 12.5 MG PO (08:55)
[2023-11-26] MEDS: ZESTRIL 20 MG TUBE (08:55)
[2023-11-26] MEDS: LOPRESSOR 12.5 MG TUBE ×2 (08:55→21:04)
[2023-11-26] MEDS: NSS (PRESERVATIVE FREE) IV (08:56)
[2023-11-26] MEDS: MYLICON DROPS 20 MG PO ×4 (08:58→21:04)
[2023-11-26] MEDS: DEBROX EAR DROPS 1 DROP OTIC (09:03)
[2023-11-26] MEDS: SEROQUEL TUBE (09:45)
--- NOTE | 2023-11-26 11:01 | W.CON.PAL ---
Consultation
-
Date/Time Consultation Requested: 11/23/2023
Date/Time Consultation Performed: 11/26/2023
Requesting Provider: Dr. Darrell Chavez
Performing Provider: Dr. Pricilla Wheat
Reason for Consult: Goals of Care Discussion (Discussion of Palliative Care Services, Swallowing Concerns)
Primary Diagnosis: Stage IV Breast Cancer
Consult Requested By: Patient's Physician
Primary Care Physician: None
Reason for Admission
Illness Course/HPI
Priscilla is a 78 y/o female with Stage IV breast cancer with history of osseous mets, who was admitted to hospital 11/01 with abdominal pain secondary to incarcerated hernia. She is s/p resection of 45cm bowel on 11/02. Extubated 11/14/2023, and now in
IMU. Has been doing well with respect to bowel issues, however currently requiring dobhoff for nutrition due to impaired swallow. Palliative Care was consulted by attending physician to discuss goals of care.
Oncology History: SHe follows with Dr. Howard at [facility] in [place], cancer diagnosed approx 7 years ago and she had done well for a long time on ibrance. Most recently started on afinitir treatment August 2023, but treatment doses were reduced due to
med side effects. She has been off of medication since October 04, however the plan was to resume at a lower dose.
Functional Status & Support Systems
Current Functional Status:
She is currently recovering in the hospital post op and post-icu stay. Family reports that patient has been improving physically over the last few days, walking more with PT using walker.
At her baseline, she is fully independant of ADLs and IADLs, ambulates without assistive device and would walk several miles per day - this had been reduced over the past two months due to medication side effects
Home environment: 2 julee home with full first floor setup ( first floor bedroom + bathroom), has no equipment in the home as not needing at baseline.
Financial Aid Counselor/Family Support: Lives with spouse Temo, three children Liz, Angie, and son Temo live nearby
Other Support/Services in Place: Multiple family members live in the [facility]/[place] area and can assist
Review of Advanced Directives
Advanced Care Documentation Status: Incomplete (They are working on an advanced directive)
Surrogate Decision Maker (name & contact): Spouse Temo
Preferences Regarding Resuscitation at End of Life: DNR
Goals of Care Discussion
-
Individuals Present for Discussion & Relationship to Patient:
Spouse Temo, Daughter Liz
Patient able to participate in discussion at time of visit: Yes
Patient's Information Preferences: Fullt Involved/Speak
Illness Severity & Prognosis Discussion
Patient's awareness/understanding of illness: Life Threatening/Serious
Family's awareness/understanding of illness: Life Threatening/Serious
Patient & family understanding of treatment/care options:
At this time their goal is for her recovery and return to oncology treatments as an outpatient. They have already been in touch with oncologist Dr. Howard.
Patient Goals & Values Discussion
Summary of Patient's Goals of Care [Text6]:
Patient reports that 'your main concern of life is to live' her goals are treatment oriented, and she reports she has a strong will and perseverence. She reports that she was only expected to live a week when she was originally diagnosed and now
she is still here 7 years later. She had good response to afinitir, but stopped due to side effects. she would want to continue treatments if available to her
Pain & Symptom Assessment
[place] Symptom Scale 0=none, 10=worst
Pain: 0 (denies pain )
Nausea: 0
Shortness of Breath: 0
Objective Data
-
Objective Data:
Vital Signs
Temp Pulse Resp BP Pulse Ox
98.1 F 103 26 143/81 97
11/26/23 07:23 11/26/23 08:00 11/26/23 08:00 11/26/23 08:00 11/26/23 01:44
Laboratory Results
11/26/23 05:39
11/26/23 05:39
PT 13.8 Sec (11.4-14.6) 11/12/23 12:45
INR 1.08 11/12/23 12:45
APTT 27.5 Sec (23.4-35.0) 11/02/23 20:30
Hemoglobin A1c Cancelled 11/07/23 17:29
Total Protein 6.0 g/dl (6.3-8.2) L 11/26/23 05:39
Albumin 3.0 g/dl (3.5-5.0) L 11/26/23 05:39
Urine Color Yellow 11/08/23 10:28
Urine Clarity Clear (Clear) 11/08/23 10:28
Urine pH 6.0 (5.0-9.0) 11/08/23 10:28
Ur Specific [place] 1.005 (<1.030) 11/08/23 10:28
Urine Ketones Negative (Negative) 11/08/23 10:28
Urine Bilirubin Negative (Negative) 11/08/23 10:28
Palliative Performance Scale
Palliative Performance Scale:
PPS Level Ambulation Activity & Evidence of Disease Self Care Intake Conscious Level
100% Full Normal Activity & Work; Full Intake Full
No Evidence of Disease
90% Full Normal Activity & Work; Full Normal Full
Some Evidence of Disease
80% Full Normal Activity with Effort Full Normal or Full
Some Evidence of Disease Reduced
70% Reduced Unable Normal Job/Work Full Normal or Full
Significant Disease Reduced
60% Reduced Unable Hobby/Housework Occasional Normal or Full or Confusion
Significant Disease Assistance Reduced
50% Mainly Sit/Lie Unable to do Any Work Considerable Normal or Full or Confusion
Extensive Disease Assistance Req'd Reduced
40% Mainly in Bed Unable to do Most Activity Mainly Assistance Normal or Full or Drowsy;
Extensive Disease Reduced +/- Confusion
30% Totally Bed Unable to do Any Activity Total Care Normal or Full or Drowsy;
Bound Extensive Disease Reduced +/- Confusion
20% Totally Bed Bound Unable to do Any Activity Total Care Minimal to Full or Drowsy;
Extensive Disease Sips +/- Confusion
10% Totally Bed Bound Unable to do Any Activity Total Care Mouth Care Drowsy or Coma;
Extensive Disease Only +/- Confusion
0%
PPS Score Level: 50%, baseline 90%
Physical Exam
-
General: Well Developed and Conversant
HEENT: Moist Mucous Membranes and Other (Dobhoff in place. )
Respiratory: Clear to Auscultation
Cardiac: Regular Rhythm
Peripheral Vascular: No Edema
GI: Soft, Nontender and Nondistended
Neuro: Awake, Alert and Oriented
Psych: Calm
Assessment / Plan
-
Assessment/Plan:
Based on the current condition, prognosis, comorbidities, patient's goals & wishes as discussed above, the palliative care team has made the following recommendations:
Focus & Plan of Care: They report plan for repeat swallow study tomorrow and hope to continue to work with speech therapy to remove dobhoff and return to regular meals. If fails video swallow, then will entertain discussions about peg need. At this
time goals are treatment oriented with plan to resume cancer directed treatment in the future.
Palliative Care: Plan for outpatient palliative care after discharge
Advanced Care Directives, Resuscitation & Out of Hospital Medical Orders: They are working on advanced directives
Pain & Symptom Management: N/a
Discharge Planning Needs: Palliative care outpatient referral already received.
Other:
The above recommendations were discussed with the patient/family and medical team.
Care Reviewed
Time
Start Date: 11/26/23
Start Time: 09:50
Stop Date: 11/26/23
Stop Time: 10:57
Time Spent:
67 minutes time in room, additional 10 minutes floor time discussion with attending, RN and case management. total time 77 minutes
[2023-11-26 12:34] LABS: Glucose - Point of Care 120 mg/dl (70-99)
[2023-11-26] MEDS: NOVOLOG FLEXPEN-LOW RESISTANCE SC ×3 (12:47→23:33)
--- NOTE | 2023-11-26 15:57 | W.PN.HOSP.TC ---
Today's Communication/Plan
-
wean odd Seroquel
cont DIRECTOR OF USER EXPERIENCE
Assessment / Plan
Assessment / Plan
78yo F with PMHx of metastatic breast CA and LUE lympghadenopathy came with poor appetite and N/V. Found incarcerated umbilicval hernia. Elected concervative approach initially, however developed septic shock with necrotic bowel and d. Had Exlap on
11/04/23, intubated and started on pressors. ALso developed pneumonia due to aspiration during intubation. COmpleted Vanco/Zosyn/MErrem/Micafungin. Had ICU delirium that complicated extubation, however was finally extubated on 11/14/23. Complicated by
postOP dysphagia. TPN initially now switched to NGT feeding, pending further swallowing progress vs alternative means of feeding
#Septic shock 2/2 necrotic bowel 2/2 incarcerated hernia
#Aspiration pneumonia
completed Abx as per ID
#Acute hypoxic failure
improving
Off O2
#ICU delirium
wean off antipsychotics
#Metastatic breast CA
cont follow up upon d/c qwith previous specialists
#PostOP anemia
Hgb stable, comnt to follow
#Dysphagia
DIRECTOR OF USER EXPERIENCE follows
VSE peending
cont tube dfeeding
#Stage 1 pressure injury on buttocks
wound care
#REINA 2/2 septic shock
resolved
DNR/DNI
DVT ppx lovenox
I have spent at least 56min reviewing chart, test results, communication with consultants, family and direct patient care
Anticipated Discharge: > 48 hours
Subjective/Interval History
-
Date of Service: November 26, 2023
Objective Data
-
Labs:
Laboratory Results
11/26/23
05:39
WBC 8.4
Hgb 8.5 L
Hct 25.9 L
Plt Count 622 H
Sodium 136
Potassium 4.1
Chloride 99
Carbon Dioxide 28
BUN 43 H
Creatinine 0.7
Glucose 134 H
Calcium 9.2
Total Bilirubin 0.3
AST 47 H
ALT 32
Alkaline Phosphatase 465 H
Vital Signs:
Vital Signs
Temp Pulse Resp BP Pulse Ox
97.7 F 102 21 138/69 97
11/26/23 15:13 11/26/23 14:00 11/26/23 14:00 11/26/23 14:00 11/26/23 01:44
I&O
11/25/23 11/26/23 11/27/23
06:59 06:59 06:59
Intake Total 1260 / 1260
Output Total 650 / 650
Balance 610 / 610
Physical Exam
-
General: No Apparent Distress
Cardiac: Regular Rhythm
GI: Soft, Nontender and Nondistended
Genito-urinary: No Costovertebral Tender
Musculoskeletal: No Clubbing, No Cyanosis and No Edema
Skin: Warm
Neuro: Awake, Alert, Oriented and AO x 3
Psych: Calm
--- NOTE | 2023-11-26 17:09 | CM ---
Patient with Hx metastatic breast CA with Dx Septic Shock 2/2 necrotic bowel 2/2 incarcerated hernia s/p resection of necrotic small bowel, Aspiration pneumonia, Acute hypoxic failure, ICU delirium, dysphagia. Dobhoff tube - Jevity tube feeds. ST
for PO trials. VSE PT & OT 11/24 recommend skilled rehab.
Received phone call from Dr Wheat, Palliative Care; she will be seeing the patient here at to discuss goals of care. The plan is for repeat VSE tomorrow.
Phone call to ; left message requesting callback re; SNF preferences.
CM continuing to follow for d/c needs.
Plan follow up with for SNF preferences.
[2023-11-26] MEDS: MAGNESIUM SULFATE 50 IV (17:37)
[2023-11-26] MEDS: LOVENOX 40 MG SC (17:37)
[2023-11-26 17:41] LABS: Glucose - Point of Care 110 mg/dl (70-99)
[2023-11-26] MEDS: SEROQUEL 12.5 MG TUBE (21:04)
[2023-11-26 23:42] LABS: Glucose - Point of Care 132 mg/dl (70-99)
[2023-11-27] VITALS (12 sets, daily range): BP systolic 116–165; BP diastolic 60–90; PULSE 118–121; BMI 23.0
--- NOTE | 2023-11-27 03:50 | PTCARENOTE ---
Patient calling appropriately to get OOB to [facility]. No medsitter or restraints. at bedside. Tolerating TF via DHT. Mouth and lips very dry; oral care and moisturizer provided. Tele showing NSR/ST. Pt hears better in right ear. Abd incision
dressing C/D/I, no drainage. Turning self in bed. Bed alarm set for safety. Call francisco within reach.
[2023-11-27 03:59] LABS: Hematocrit 23.8 % (37.0-47.0); Hemoglobin 7.8 g/dL (12.0-16.0); Mean Corp Hgb Conc. 32.8 g/dL (33.0-37.0); Mean Corpuscular Hgb 29.4 pg (27.0-31.0); Mean Corpuscular Volume 89.8 fL (81.0-99.0); Mean Platelet Volume 9.3 fL (7.4-10.4); Platelet Count 599 10^3/uL (130-400); Red Blood Cell Count 2.65 10^6/uL (4.20-5.40); Red Cell Dist. Width 19.9 % (11.5-14.5); White Blood Cell Count 6.9 10^3/uL (4.8-10.8)
[2023-11-27 04:20] LABS: ALT (SGPT) 30 U/L (0-35); AST (SGOT) 49 U/L (14-36); Alkaline Phosphatase 439 U/L (38-126); Blood Urea Nitrogen 35 mg/dl (7-17); Calcium 9.3 mg/dl (8.4-10.2); Carbon Dioxide 29 mmol/L (22-30); Chloride 98 mmol/L (98-107); Estimated Creatinine Clearance 55 ml/min; Glucose 113 mg/dl (70-99); Phosphorus 3.7 mg/dl (2.5-4.5); Potassium 4.1 mmol/L (3.5-5.1); Sodium 135 mmol/L (135-145); Total Bilirubin 0.3 mg/dl (0.2-1.3); Total Protein 5.9 g/dl (6.3-8.2); eGFR > 60.00
[2023-11-27 05:44] LABS: Glucose - Point of Care 129 mg/dl (70-99)
[2023-11-27] MEDS: NOVOLOG FLEXPEN-LOW RESISTANCE SC ×4 (05:56→23:57)
[2023-11-27] MEDS: TYLENOL ORAL SOLUTION TUBE (05:56)
[2023-11-27 06:45] LABS: % Basophils 0.9 % (0-2); % Eosinophils 6.2 % (0-6); % Immature Granulocytes 1.3 % (0-0.5); % Lymphocytes 25.7 % (20.5-51.1); % Monocytes 8.6 % (1.7-9.3); % Neutrophils 57.3 % (42.2-75.2); Absolute Basophils 0.1 10^3/uL (0-0.2); Absolute Eosinophils 0.4 10^3/uL (0-0.7); Absolute Immature Granulocytes 0.1 10^3/uL (0-0.05); Absolute Lymphocytes 1.8 10^3/uL (1.2-3.4); Absolute Monocytes 0.6 10^3/uL (0.1-0.6); Nucleated Red Blood Cells % 0 %
[2023-11-27 06:47] LABS: Anisocytosis 1+; Hypersegmented Neutrophil 2+; Normal RBC Morphology No
[2023-11-27 06:50] LABS: Hypochromasia 1+
[2023-11-27 06:52] LABS: Target Cells Occasional
[2023-11-27 06:54] LABS: Stomatocytes 1+
--- NOTE | 2023-11-27 08:56 | PN.DE.MGMTRT ---
Insulin Management
- -
11/27/2023: Diabetes Management Follow up
Patient admitted 11/01 with c/o poor appetite, abdominal pain and N/V for 4-5 days. PMH metastatic breast cancer (treated at [facility] on Ibrance->Afinitor). Patient had experienced weight loss/anorexia with use of Afinitor.
She began to complain of abdominal discomfort about 2 days ASSISTED LIVING COORDINATOR. On evaluation in the ED, patient was noted for firm, tender and grossly discolored umbilical hernia concerning for incarceration +/- strangulation.
Pt is now POD#24 s/p Exploratory laparotomy, small bowel resection with primary anastomosis and primary umbilical hernia repair.
Diabetes consult requested on 11/10 for Hyperglycemia after initiation of TPN and tube feeds. No known Hx of diabetes, A1C 5.6%, Cr 0.5, eGFR>60
Pt awake, alert, resting in bed,oriented to self only, unable to discuss diabetes mgt. Failed swallow eval 11/22
Tube feeds continued at goal 55cc/hr. Plan for repeat video swallow evaluation.
Glucose remains stable and in range 110 to 150, fasting 129 this AM.
Will make no change to current regimen, Cont Lantus 10 units in AM with low corrective insulin Q6 hrs.
Will follow and make further adjustments if necessary.
Diabetes History
- -
Pre-Admission Diabetes Regimen
11/27/23
03:37
Creatinine 0.7
Lab Results
Hemoglobin A1c Cancelled 11/07/23 17:29
Insulin Pump Settings
IP Diabetes Regimen
11/26/23 11/26/23 11/26/23
12:23 17:30 23:31
Glucose
POC Glucose 120 H 110 H 132 H
11/27/23 11/27/23
03:37 05:33
Glucose 113 H
POC Glucose 129 H
Patient Education
[2023-11-27] MEDS: LANTUS 0.1 UNITS SC (09:06)
[2023-11-27] MEDS: ZESTRIL 20 MG TUBE (09:06)
[2023-11-27] MEDS: MYLICON DROPS 20 MG PO ×3 (09:07→17:56)
[2023-11-27] MEDS: NSS (PRESERVATIVE FREE) IV (09:07)
[2023-11-27] MEDS: LOPRESSOR 12.5 MG TUBE (09:07)
[2023-11-27] MEDS: ORETIC 12.5 MG PO (09:07)
[2023-11-27] MEDS: DEBROX EAR DROPS 1 DROP OTIC (09:08)
--- NOTE | 2023-11-27 10:48 | W.PN.HOSP.TC ---
Today's Communication/Plan
-
Increase Lopressor
cont tube feeding
VSE in AM
Assessment / Plan
Assessment / Plan
78yo F with PMHx of metastatic breast CA and LUE lympghadenopathy came with poor appetite and N/V. Found incarcerated umbilicval hernia. Elected concervative approach initially, however developed septic shock with necrotic bowel and d. Had Exlap on
11/04/23, intubated and started on pressors. ALso developed pneumonia due to aspiration during intubation. COmpleted Vanco/Zosyn/MErrem/Micafungin. Had ICU delirium that complicated extubation, however was finally extubated on 11/14/23. Complicated by
postOP dysphagia. TPN initially now switched to NGT feeding, pending further swallowing progress vs alternative means of feeding
#Septic shock 2/2 necrotic bowel 2/2 incarcerated hernia
#Aspiration pneumonia
completed Abx as per ID
#Acute hypoxic failure
improving
Off O2
#ICU delirium
wean off antipsychotics
#Metastatic breast CA
cont follow up upon d/c qwith previous specialists
#PostOP anemia
Hgb stable, cont to follow
#Dysphagia
MANAGER CT follows
VSE peending
cont tube dfeeding
#Stage 1 pressure injury on buttocks
wound care
#REINA 2/2 septic shock
resolved
#Alc.phos elevation
most likely 2/[address] on 11/13/23 showed small gall bladder stone, without signs of obstruction
bili WNL
cont
DNR/DNI
DVT ppx lovenox
I have spent at least 56min reviewing chart, test results, communication with consultants, family and direct patient care
Anticipated Discharge: 24 - 48 hours
Subjective/Interval History
-
Date of Service: November 27, 2023
Objective Data
-
Labs:
Laboratory Results
11/27/23
03:37
WBC 6.9
Hgb 7.8 L
Hct 23.8 L
Plt Count 599 H
Sodium 135
Potassium 4.1
Chloride 98
Carbon Dioxide 29
BUN 35 H
Creatinine 0.7
Glucose 113 H
Calcium 9.3
Total Bilirubin 0.3
AST 49 H
ALT 30
Alkaline Phosphatase 439 H
Vital Signs:
Vital Signs
Temp Pulse Resp BP Pulse Ox
99.0 F 103 19 145/76 97
11/27/23 07:54 11/27/23 06:00 11/27/23 06:00 11/27/23 04:00 11/26/23 01:44
I&O
11/26/23 11/27/23 11/28/23
06:59 06:59 06:59
Output Total 300 / 300
Balance -300 / -300
Review of Systems
-
History Source: Patient
All other systems: Reviewed and negative
Physical Exam
-
General: No Apparent Distress
HEENT: Normocephalic and Atraumatic
Respiratory: Clear to Auscultation
Cardiac: Regular Rhythm and Tachycardic
GI: Soft, Nontender and Nondistended
Genito-urinary: No Costovertebral Tender
Musculoskeletal: No Clubbing, No Cyanosis and No Edema
Skin: Warm
Neuro: Awake, Alert, Oriented and AO x 3
Psych: Calm
[2023-11-27 11:15] LABS: GGTP 751 U/L (12-43)
--- NOTE | 2023-11-27 11:33 | W.PN.PAL2 ---
Today's Communication
-
Spoke with hospitalist attending physician
Assessment / Plan
-
Assessment/Plan:
Awaiting Video Swallow
Plan for outpatient palliative care follow up after discharge
Reason for Admission
Illness Course/HPI
Priscilla is a 78 y/o female with Stage IV breast cancer with history of osseous mets, who was admitted to hospital 11/01 with abdominal pain secondary to incarcerated hernia. She is s/p resection of 45cm bowel on 11/02. Extubated 11/14/2023, and now in
IMU. Has been doing well with respect to bowel issues, however currently requiring dobhoff for nutrition due to impaired swallow. Palliative Care was consulted by attending physician to discuss goals of care.
Oncology History: SHe follows with Dr. Howard at [facility] in [place], cancer diagnosed approx 7 years ago and she had done well for a long time on ibrance. Most recently started on afinitir treatment August 2023, but treatment doses were reduced due to
med side effects. She has been off of medication since October 04, however the plan was to resume at a lower dose.
Initial palliative care consult completed on 11/25. Patient was seen today for followup.
At todays visit she was seated comfortably in chair, chatting with family. She was able to walk in the hallway with support of RN and therapy, and this morning has been doing exercises prescribed by EQUALIZER OPERATOR therapist. Video swallow eval rescheduled for
sunday AM, and she is hopeful that she will be able to return to oral intake without need for feeding tube. Denies pain or other symptoms at this time
Functional Status & Support Systems
Current Functional Status:
She is currently recovering in the hospital post op and post-icu stay. Family reports that patient has been improving physically over the last few days, walking more with PT using walker today and yesterday.
At her baseline, she is fully independant of ADLs and IADLs, ambulates without assistive device and would walk several miles per day - this had been reduced over the past two months due to medication side effects
Home environment: 2 julee home with full first floor setup ( first floor bedroom + bathroom), has no equipment in the home as not needing at baseline.
Content Director/Family Support: Lives with spouse Temo, three children Angie Hill, and son Temo live nearby
Other Support/Services in Place: Multiple family members live in the [facility] area and can assist
Review of Advanced Directives
Advanced Care Documentation Status: Incomplete (They are working on an advanced directive)
Surrogate Decision Maker (name & contact): Spouse Temo
Preferences Regarding Resuscitation at End of Life: DNR
Pain & Symptom Assessment
[place] Symptom Scale 0=none, 10=worst
Pain: 0
Shortness of Breath: 0
Objective Data
-
Objective Data:
Vital Signs
Temp Pulse Resp BP Pulse Ox
98.1 F 103 19 145/76 97
11/27/23 11:29 11/27/23 06:00 11/27/23 06:00 11/27/23 04:00 11/26/23 01:44
Laboratory Results
11/27/23 03:37
11/27/23 03:37
PT 13.8 Sec (11.4-14.6) 11/12/23 12:45
INR 1.08 11/12/23 12:45
APTT 27.5 Sec (23.4-35.0) 11/02/23 20:30
Hemoglobin A1c Cancelled 11/07/23 17:29
Total Protein 5.9 g/dl (6.3-8.2) L 11/27/23 03:37
Albumin 3.0 g/dl (3.5-5.0) L 11/27/23 03:37
Urine Color Yellow 11/08/23 10:28
Urine Clarity Clear (Clear) 11/08/23 10:28
Urine pH 6.0 (5.0-9.0) 11/08/23 10:28
Ur Specific [place] 1.005 (<1.030) 11/08/23 10:28
Urine Ketones Negative (Negative) 11/08/23 10:28
Urine Bilirubin Negative (Negative) 11/08/23 10:28
Palliative Performance Scale
Palliative Performance Scale:
PPS Level Ambulation Activity & Evidence of Disease Self Care Intake Conscious Level
100% Full Normal Activity & Work; Full Intake Full
No Evidence of Disease
90% Full Normal Activity & Work; Full Normal Full
Some Evidence of Disease
80% Full Normal Activity with Effort Full Normal or Full
Some Evidence of Disease Reduced
70% Reduced Unable Normal Job/Work Full Normal or Full
Significant Disease Reduced
60% Reduced Unable Hobby/Housework Occasional Normal or Full or Confusion
Significant Disease Assistance Reduced
50% Mainly Sit/Lie Unable to do Any Work Considerable Normal or Full or Confusion
Extensive Disease Assistance Req'd Reduced
40% Mainly in Bed Unable to do Most Activity Mainly Assistance Normal or Full or Drowsy;
Extensive Disease Reduced +/- Confusion
30% Totally Bed Unable to do Any Activity Total Care Normal or Full or Drowsy;
Bound Extensive Disease Reduced +/- Confusion
20% Totally Bed Bound Unable to do Any Activity Total Care Minimal to Full or Drowsy;
Extensive Disease Sips +/- Confusion
10% Totally Bed Bound Unable to do Any Activity Total Care Mouth Care Drowsy or Coma;
Extensive Disease Only +/- Confusion
0%
PPS Score Level:
Palliative Performance Scale:
PPS Level Ambulation Activity & Evidence of Disease Self Care Intake Conscious Level
100% Full Normal Activity & Work; Full Intake Full
No Evidence of Disease
90% Full Normal Activity & Work; Full Normal Full
Some Evidence of Disease
80% Full Normal Activity with Effort Full Normal or Full
Some Evidence of Disease Reduced
70% Reduced Unable Normal Job/Work Full Normal or Full
Significant Disease Reduced
60% Reduced Unable Hobby/Housework Occasional Normal or Full or Confusion
Significant Disease Assistance Reduced
50% Mainly Sit/Lie Unable to do Any Work Considerable Normal or Full or Confusion
Extensive Disease Assistance Req'd Reduced
40% Mainly in Bed Unable to do Most Activity Mainly Assistance Normal or Full or Drowsy;
Extensive Disease Reduced +/- Confusion
30% Totally Bed Unable to do Any Activity Total Care Normal or Full or Drowsy;
Bound Extensive Disease Reduced +/- Confusion
20% Totally Bed Bound Unable to do Any Activity Total Care Minimal to Full or Drowsy;
Extensive Disease Sips +/- Confusion
10% Totally Bed Bound Unable to do Any Activity Total Care Mouth Care Drowsy or Coma;
Extensive Disease Only +/- Confusion
0%
PPS Score Level: 60%, baseline 90%
Physical Exam
-
General: Well Developed
Respiratory: Clear to Auscultation
Cardiac: Regular Rhythm
Peripheral Vascular: No Edema
GI: Soft and Nontender
Psych: Calm
Care Reviewed
Data Reviewed
Reviewed with: Patient and Physician
Time
Start Date: 11/27/23
Start Time: 09:50
Stop Date: 11/27/23
Stop Time: 10:15
Time Spent:
25 mins
[2023-11-27 12:04] LABS: Hepatitis C Antibody Negative (Negative)
[2023-11-27 12:09] LABS: Glucose - Point of Care 140 mg/dl (70-99)
[2023-11-27] MEDS: TYLENOL ORAL SOLUTION 650 MG TUBE ×3 (13:00→23:51)
--- NOTE | 2023-11-27 14:40 | W.PN.HOSP.TC ---
Today's Communication/Plan
-
Cont tube feeding awaiting for VSE
labs in AM
Assessment / Plan
Assessment / Plan
78yo F with PMHx of metastatic breast CA and LUE lympghadenopathy came with poor appetite and N/V. Found incarcerated umbilicval hernia. Elected concervative approach initially, however developed septic shock with necrotic bowel and d. Had Exlap on
11/04/23, intubated and started on pressors. ALso developed pneumonia due to aspiration during intubation. COmpleted Vanco/Zosyn/MErrem/Micafungin. Had ICU delirium that complicated extubation, however was finally extubated on 11/14/23. Complicated by
postOP dysphagia. TPN initially now switched to NGT feeding, pending further swallowing progress vs alternative means of feeding
A/P
#Septic shock 2/2 necrotic bowel 2/2 incarcerated hernia
#Aspiration pneumonia
completed Abx as per ID
#Acute hypoxic failure
improving
Off O2
#ICU delirium
wean off antipsychotics
#Metastatic breast CA
cont follow up upon d/c qwith previous specialists
#PostOP anemia
Hgb stable, cont to follow
#Dysphagia
EARLY CHILDHOOD SPECIAL EDUCATOR follows
VSE
cont tube feeding
#Stage 1 pressure injury on buttocks
wound care
#REINA 2/2 septic shock
resolved
#Alc.phos elevation
most likely 2/[address] on 11/13/23 showed small gall bladder stone, without signs of obstruction
bili WNL
cont monitoring
DNR/DNI
DVT ppx lovenox
I have spent at least 36min reviewing chart, test results, communication with consultants, family and direct patient care
Anticipated Discharge: 24 - 48 hours
Subjective/Interval History
-
Date of Service: November 27, 2023
Objective Data
-
Labs:
Laboratory Results
11/27/23
03:37
WBC 6.9
Hgb 7.8 L
Hct 23.8 L
Plt Count 599 H
Sodium 135
Potassium 4.1
Chloride 98
Carbon Dioxide 29
BUN 35 H
Creatinine 0.7
Glucose 113 H
Calcium 9.3
Total Bilirubin 0.3
AST 49 H
ALT 30
Alkaline Phosphatase 439 H
Vital Signs:
Vital Signs
Temp Pulse Resp BP Pulse Ox
98.1 F 104 27 145/86 97
11/27/23 11:29 11/27/23 12:00 11/27/23 12:00 11/27/23 12:00 11/26/23 01:44
I&O
11/26/23 11/27/23 11/28/23
06:59 06:59 06:59
Output Total 300 / 300
Balance -300 / -300
Review of Systems
-
History Source: Patient
All other systems: Reviewed and negative
Physical Exam
-
General: No Apparent Distress
Respiratory: Clear to Auscultation
GI: Soft, Nontender and Nondistended
Genito-urinary: No Costovertebral Tender
Musculoskeletal: No Clubbing, No Cyanosis and No Edema
Skin: Warm
Neuro: Awake, Alert, Oriented and AO x 3
Hematologic / Lymphatic: No Lymphadenopathy
Psych: Calm
--- NOTE | 2023-11-27 16:51 | CM ---
Addendum entered by Sparkle Proctor RN 11/27/23 16:57:
PT 11/26 recommending skilled rehab. OT 11/26 recommending HH vs SNF.
Original Note:
Patient with Hx metastatic breast CA with Dx Septic Shock 2/2 necrotic bowel 2/2 incarcerated hernia s/p resection of necrotic small bowel, Aspiration pneumonia, Acute hypoxic failure, ICU delirium, dysphagia. Dobhoff tube - Jevity tube feeds.
Await VSE- rescheduled for 11/27. Seen by Palliative Care for GOC.
No callback from re; his SNF choices. CM unsure if still wants SNF.
Plan follow up with for SNF preferences after VSE and GOC discussions.
[2023-11-27] MEDS: LOVENOX 40 MG SC (17:56)
[2023-11-27 18:00] LABS: Glucose - Point of Care 114 mg/dl (70-99)
--- NOTE | 2023-11-27 18:25 | PTCARENOTE ---
ST on tele, BP 120s-140s/ 70-90s. AAOx3, very conversant today. Denies pain - Scheduled Tylenol given. Freq oral care completed- poor dentition. Frequently doing different sound s humming and speech exercises. Tolerating Tube feeds. Now
continent of bowel and bladder. +Formed brown stool today. OOB in chair- frequently get up to reposition- or lays in bed to rest. Emotional support, encouragement provided with much appreciation. Spouse at bedside all day.
[2023-11-27] MEDS: SEROQUEL 12.5 MG TUBE (21:18)
[2023-11-27] MEDS: LOPRESSOR 25 MG TUBE (21:18)
[2023-11-27] MEDS: MYLICON DROPS PO (21:22)
[2023-11-27 23:54] LABS: Glucose - Point of Care 106 mg/dl (70-99)
[2023-11-28] VITALS (13 sets, daily range): BP systolic 120–180; BP diastolic 70–102; PULSE 94; BMI 22.8
[2023-11-28] MEDS: TYLENOL ORAL SOLUTION 650 MG TUBE ×3 (05:56→17:20)
[2023-11-28] MEDS: NOVOLOG FLEXPEN-LOW RESISTANCE SC ×4 (06:39→22:14)
[2023-11-28 06:44] LABS: % Eosinophils 6.3 % (0-6); % Immature Granulocytes 0.8 % (0-0.5); % Lymphocytes 23.4 % (20.5-51.1); % Monocytes 10.2 % (1.7-9.3); % Neutrophils 58.3 % (42.2-75.2); Absolute Basophils 0.1 10^3/uL (0-0.2); Absolute Eosinophils 0.5 10^3/uL (0-0.7); Absolute Immature Granulocytes 0.1 10^3/uL (0-0.05); Absolute Lymphocytes 1.7 10^3/uL (1.2-3.4); Absolute Monocytes 0.7 10^3/uL (0.1-0.6); Absolute Neutrophils 4.2 10^3/uL (1.4-6.5); Hematocrit 24.1 % (37.0-47.0); Hemoglobin 7.9 g/dL (12.0-16.0); Mean Corp Hgb Conc. 32.8 g/dL (33.0-37.0); Mean Corpuscular Hgb 29.2 pg (27.0-31.0); Mean Corpuscular Volume 88.9 fL (81.0-99.0); Mean Platelet Volume 9.2 fL (7.4-10.4); Nucleated Red Blood Cells % 0 %; Platelet Count 571 10^3/uL (130-400); Red Blood Cell Count 2.71 10^6/uL (4.20-5.40); Red Cell Dist. Width 19.9 % (11.5-14.5); White Blood Cell Count 7.2 10^3/uL (4.8-10.8)
[2023-11-28 06:51] LABS: Glucose - Point of Care 124 mg/dl (70-99)
[2023-11-28 07:04] LABS: ALT (SGPT) 30 U/L (0-35); AST (SGOT) 50 U/L (14-36); Albumin 3.2 g/dl (3.5-5.0); Alkaline Phosphatase 412 U/L (38-126); Blood Urea Nitrogen 32 mg/dl (7-17); Calcium 9.4 mg/dl (8.4-10.2); Carbon Dioxide 31 mmol/L (22-30); Chloride 96 mmol/L (98-107); Estimated Creatinine Clearance 55 ml/min; Glucose 119 mg/dl (70-99); Magnesium 1.7 mg/dl (1.6-2.3); Potassium 4.3 mmol/L (3.5-5.1); Sodium 134 mmol/L (135-145); Total Bilirubin 0.3 mg/dl (0.2-1.3); eGFR > 60.00
--- NOTE | 2023-11-28 08:05 | PN.DE.MGMTRT ---
Insulin Management
- -
11/28/2023: Diabetes Management Follow up
Patient admitted 11/01 with c/o poor appetite, abdominal pain and N/V for 4-5 days. PMH metastatic breast cancer (treated at [facility] on Ibrance->Afinitor). Patient had experienced weight loss/anorexia with use of Afinitor.
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 On evaluation in the ED, patient was noted for firm, tender and grossly discolored umbilical hernia concerning for incarceration +/- strangulation.
Pt is now POD#24 s/p Exploratory laparotomy, small bowel resection with primary anastomosis and primary umbilical hernia repair.
Diabetes consult requested on 11/10 for Hyperglycemia after initiation of TPN and tube feeds. No known Hx of diabetes, A1C 5.6%, Cr 0.5, eGFR>60
Pt awake, alert, resting in bed, oriented to self only, unable to discuss diabetes mgt. For VSE today
Tube feeds continued at goal 55cc/hr. Glucose remains stable and in range 100 to 140, fasting 119 this AM.
Will make no change to current regimen, Cont Lantus 10 units in AM with low corrective insulin Q6 hrs.
Will follow and make further adjustments if necessary.
Diabetes History
- -
Pre-Admission Diabetes Regimen
11/28/23
06:21
Creatinine 0.7
Lab Results
Hemoglobin A1c Cancelled 11/07/23 17:29
Insulin Pump Settings
IP Diabetes Regimen
11/27/23 11/27/23 11/27/23
11:57 17:48 23:42
Glucose
POC Glucose 140 H 114 H 106 H
11/28/23 11/28/23
06:21 06:37
Glucose 119 H
POC Glucose 124 H
Patient Education
[2023-11-28] MEDS: MAGNESIUM SULFATE 102 GRAMS IV (08:51)
[2023-11-28] MEDS: LANTUS 0.1 UNITS SC (08:51)
[2023-11-28] MEDS: ZESTRIL 20 MG TUBE (08:52)
[2023-11-28] MEDS: LOPRESSOR 25 MG TUBE ×2 (08:52→19:51)
[2023-11-28] MEDS: ORETIC 12.5 MG PO (08:52)
[2023-11-28] MEDS: MYLICON DROPS PO ×4 (08:54→19:52)
[2023-11-28] MEDS: DEBROX EAR DROPS 1 DROP OTIC (08:55)
--- NOTE | 2023-11-28 09:56 | W.PN.HOSP.TC ---
Addendum entered and electronically signed by Jericho Miguel MD 11/29/23 12:32:
#Chronic L lower face asymmetry
confirmed no new changes in fascial expression
Original Note:
Today's Communication/Plan
-
VSE today
\\cont tube feeding
Assessment / Plan
Assessment / Plan
78yo F with PMHx of metastatic breast CA and LUE lympghadenopathy came with poor appetite and N/V. Found incarcerated umbilical hernia. Elected conservative approach initially, however developed septic shock with necrotic bowel and d. Had Exlap on
11/04/23, intubated and started on pressors. ALso developed pneumonia due to aspiration during intubation. Completed Vanco/Zosyn/Merrem/Micafungin. Had ICU delirium that complicated extubation, however was finally extubated on 11/14/23. Complicated by
postOP dysphagia. TPN initially now switched to NGT feeding, pending further swallowing progress vs alternative means of feeding
A/P
#Septic shock 2/2 necrotic bowel 2/2 incarcerated hernia
#Aspiration pneumonia
completed Abx as per ID
#Acute hypoxic failure
improving
Off O2
#ICU delirium
wean off antipsychotics
#Metastatic breast CA
cont follow up upon d/c qwith previous specialists
#PostOP anemia
Hgb stable, cont to follow
#Dysphagia
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
VSE
cont tube feeding
#Stage 1 pressure injury on buttocks
wound care
#REINA 2/2 septic shock
resolved
#Reactive thrombocytosis
improving
#Alk.phos elevation
#Mild transaminitis
most likely 2/2 bowel ischemia and previous surgery, improving without intervention
CT on 11/13/23 showed small gall bladder stone, without signs of obstruction
bili WNL
cont monitoring
DNR/DNI
DVT ppx lovenox
I have spent at least 36min reviewing chart, test results, communication with consultants, family and direct patient care
Anticipated Discharge: 24 - 48 hours
Subjective/Interval History
-
Date of Service: November 28, 2023
Objective Data
-
Labs:
Laboratory Results
11/28/23
06:21
WBC 7.2
Hgb 7.9 L
Hct 24.1 L
Plt Count 571 H
Sodium 134 L
Potassium 4.3
Chloride 96 L
Carbon Dioxide 31 H
BUN 32 H
Creatinine 0.7
Glucose 119 H
Calcium 9.4
Total Bilirubin 0.3
AST 50 H
ALT 30
Alkaline Phosphatase 412 H
Vital Signs:
Vital Signs
Temp Pulse Resp BP Pulse Ox
98.1 F 96 26 145/79 96
11/28/23 03:21 11/28/23 06:00 11/28/23 06:00 11/28/23 06:00 11/27/23 23:51
I&O
11/27/23 11/28/23 11/29/23
06:59 06:59 06:59
Intake Total 1170 / 1170
Output Total 300 / 300
Balance 870 / 870
Physical Exam
-
General: Well Nourished
HEENT: Normocephalic
Respiratory: Clear to Auscultation
Cardiac: Regular Rhythm
GI: Soft, Nontender and Nondistended
Musculoskeletal: No Clubbing, No Cyanosis and No Edema
Neuro: Awake, Alert, Oriented and AO x 3
Psych: Calm
--- NOTE | 2023-11-28 10:13 | W.PN.PAL2 ---
Today's Communication
-
.
Assessment / Plan
-
Assessment/Plan:
Based on the current condition, prognosis, comorbidities, patient's goals & wishes as discussed above, the palliative care team has made the following recommendations:
Focus & Plan of Care:
Awaiting VSE results
Pain & Symptom Management:
None
Discharge Planning Needs:
When ready for discharge, would recommend homecare, walker, and outpatient palliative care follow up
The above recommendations were discussed with the patient/family and medical team.
Reason for Admission
Illness Course/HPI
Priscilla is a 78 y/o female with Stage IV breast cancer with history of osseous mets, who was admitted to hospital 11/01 with abdominal pain secondary to incarcerated hernia. She is s/p resection of 45cm bowel on 11/02. Extubated 11/14/2023, and now in
IMU. Has been doing well with respect to bowel issues, however currently requiring dobhoff for nutrition due to impaired swallow. Palliative Care was consulted by attending physician to discuss goals of care.
Oncology History: SHe follows with Dr. Howard at [facility] in [place], cancer diagnosed approx 7 years ago and she had done well for a long time on ibrance. Most recently started on afinitir treatment August 2023, but treatment doses were reduced due to
med side effects. She has been off of medication since October 04, however the plan was to resume at a lower dose.
Initial palliative care consult completed on 11/25. Patient was seen today for followup.
Patient has been overall stable over past 24 hours without new symptoms. scheduled for video swallow this morning, hopeful that she will be able to resume regular diet.
Has been working with PT. Family would prefer to take her home after discharge with outpatient palliative care and homecare support. Will likely require DME - walker
Functional Status & Support Systems
Current Functional Status:
She is currently recovering in the hospital post op and post-icu stay. Family reports that patient has been improving physically over the last few days, walking more with PT using walker today and yesterday.
At her baseline, she is fully independant of ADLs and IADLs, ambulates without assistive device and would walk several miles per day - this had been reduced over the past two months due to medication side effects
Home environment: 2 julee home with full first floor setup ( first floor bedroom + bathroom), has no equipment in the home as not needing at baseline.
Weighbridge Operator/Family Support: Lives with spouse Temo, three children Liz, Angie, and son Temo live nearby
Other Support/Services in Place: Multiple family members live in the [facility] area and can assist
Pain & Symptom Assessment
[place] Symptom Scale 0=none, 10=worst
Pain: 0
Tired: 0
Drowsy: 0
Nausea: 0
Shortness of Breath: 0
Depressed: 0
Anxiety: 0
Wellbein
Objective Data
-
Objective Data:
Vital Signs
Temp Pulse Resp BP Pulse Ox
97.9 F 96 26 145/79 96
11/28/23 07:30 11/28/23 06:00 11/28/23 06:00 11/28/23 06:00 11/27/23 23:51
Laboratory Results
11/28/23 06:21
11/28/23 06:21
PT 13.8 Sec (11.4-14.6) 11/12/23 12:45
INR 1.08 11/12/23 12:45
APTT 27.5 Sec (23.4-35.0) 11/02/23 20:30
Hemoglobin A1c Cancelled 11/07/23 17:29
Total Protein 6.0 g/dl (6.3-8.2) L 11/28/23 06:21
Albumin 3.2 g/dl (3.5-5.0) L 11/28/23 06:21
Urine Color Yellow 11/08/23 10:28
Urine Clarity Clear (Clear) 11/08/23 10:28
Urine pH 6.0 (5.0-9.0) 11/08/23 10:28
Ur Specific [place] 1.005 (<1.030) 11/08/23 10:28
Urine Ketones Negative (Negative) 11/08/23 10:28
Urine Bilirubin Negative (Negative) 11/08/23 10:28
Palliative Performance Scale
Palliative Performance Scale:
PPS Level Ambulation Activity & Evidence of Disease Self Care Intake Conscious Level
100% Full Normal Activity & Work; Full Intake Full
No Evidence of Disease
90% Full Normal Activity & Work; Full Normal Full
Some Evidence of Disease
80% Full Normal Activity with Effort Full Normal or Full
Some Evidence of Disease Reduced
70% Reduced Unable Normal Job/Work Full Normal or Full
Significant Disease Reduced
60% Reduced Unable Hobby/Housework Occasional Normal or Full or Confusion
Significant Disease Assistance Reduced
50% Mainly Sit/Lie Unable to do Any Work Considerable Normal or Full or Confusion
Extensive Disease Assistance Req'd Reduced
40% Mainly in Bed Unable to do Most Activity Mainly Assistance Normal or Full or Drowsy;
Extensive Disease Reduced +/- Confusion
30% Totally Bed Unable to do Any Activity Total Care Normal or Full or Drowsy;
Bound Extensive Disease Reduced +/- Confusion
20% Totally Bed Bound Unable to do Any Activity Total Care Minimal to Full or Drowsy;
Extensive Disease Sips +/- Confusion
10% Totally Bed Bound Unable to do Any Activity Total Care Mouth Care Drowsy or Coma;
Extensive Disease Only +/- Confusion
0%
PPS Score Level: 60%, baseline 90%
Physical Exam
-
General: No Apparent Distress
HEENT: Moist Mucous Membranes and Poor Dentition
Respiratory: Non Labores Respirations
Psych: Calm
Care Reviewed
Data Reviewed
Reviewed with: Patient
Time
Start Date: 11/28/23
Start Time: 10:20
Stop Date: 11/28/23
Stop Time: 10:42
[2023-11-28 12:25] LABS: Glucose - Point of Care 100 mg/dl (70-99)
--- NOTE | 2023-11-28 12:28 | W.PN.UPDATE ---
Update Note
Progress Note Update
Started full liquid with supplement as discussed with BIOENGINEER based on their eval and conversation with the family. NG to be removed. Hopefully will improve swallowing but risk aspiration still high. Family aware and in the agreement as per BIOENGINEER
--- NOTE | 2023-11-28 13:01 | PTOTSP ---
Video Swallow Examination
Overall, while there is improved swallow function (amount and depth of aspiration and degree of pharyngeal stasis is less) compared to 11/23/23 study. However, the patient continues to demonstrate an oral pharyngeal dysphagia with high risk for
persistent laryngeal penetration/aspiration. Aspiration risk and related complications as well as the alternative of prolonged NPO impact on swallow were discussed with the patient and . The wishes to begin a modified oral diet as he
believes this will improve her outlook while hopefully increasing her swallow strength and function. he is aware of aspiration risk.
Recommend
1. Thin liquids with some denser material consistent with those on a full liquid diet. Spoke with MD who will order full liquid diet.
2. Liquid supplements as per md/dietary given chance of patient not reaching full nutritional needs by mouth.
3. Consider pulling ng tube which may further improve pharyngeal clearance.
4. Supervision with cues to dry swallow, intermittent cough/throat clear. Single sips of liquid (no continuous swallows).
5. Meds crushed in honey thick liquid
6. Aspiration precautions.
ST will continue to follow and advance diet as indicated/appropriate.
--- NOTE | 2023-11-28 13:08 | PTCARENOTE ---
Dobhoff discontinued at request of Dr Miguel. Patient ordering full liquid diet with assistance of .
[2023-11-28 16:48] LABS: Glucose - Point of Care 81 mg/dl (70-99)
[2023-11-28] MEDS: LOVENOX 40 MG SC (17:20)
[2023-11-28] MEDS: SEROQUEL 12.5 MG TUBE (19:51)
[2023-11-28 22:12] LABS: Glucose - Point of Care 79 mg/dl (70-99)
[2023-11-29 00:02] VITALS: BP 114/79
[2023-11-29] MEDS: TYLENOL ORAL SOLUTION 650 MG TUBE (00:03)
[2023-11-29 02:00] VITALS: BP 94/53
[2023-11-29 04:00] VITALS: BP 111/49
[2023-11-29 04:40] VITALS: BMI 22.5
--- NOTE | 2023-11-29 04:42 | PTCARENOTE ---
Patient able to sleep. Cooperative and thankful for care. remains at the bedside overnight. Tele showing NSR. Tolerating full liquids; pt prefers chocolate ensure. Abd dressing intact. Continent of B&B. SCDs on. Calling appropriately, assist
x1 to BSC/BR. Call francisco within reach.
[2023-11-29 05:00] LABS: % Basophils 1.5 % (0-2); % Eosinophils 5.8 % (0-6); % Immature Granulocytes 0.9 % (0-0.5); % Lymphocytes 27.7 % (20.5-51.1); % Monocytes 9.8 % (1.7-9.3); % Neutrophils 54.3 % (42.2-75.2); Absolute Basophils 0.1 10^3/uL (0-0.2); Absolute Eosinophils 0.4 10^3/uL (0-0.7); Absolute Immature Granulocytes 0.1 10^3/uL (0-0.05); Absolute Lymphocytes 2.1 10^3/uL (1.2-3.4); Absolute Monocytes 0.7 10^3/uL (0.1-0.6); Hematocrit 24.2 % (37.0-47.0); Hemoglobin 8.2 g/dL (12.0-16.0); Mean Corp Hgb Conc. 33.9 g/dL (33.0-37.0); Mean Corpuscular Hgb 29.6 pg (27.0-31.0); Mean Corpuscular Volume 87.4 fL (81.0-99.0); Mean Platelet Volume 9.2 fL (7.4-10.4); Nucleated Red Blood Cells % 0 %; Platelet Count 564 10^3/uL (130-400); Red Blood Cell Count 2.77 10^6/uL (4.20-5.40); Red Cell Dist. Width 19.9 % (11.5-14.5); White Blood Cell Count 7.4 10^3/uL (4.8-10.8)
[2023-11-29 05:27] LABS: ALT (SGPT) 31 U/L (0-35); AST (SGOT) 54 U/L (14-36); Albumin 3.4 g/dl (3.5-5.0); Blood Urea Nitrogen 26 mg/dl (7-17); Carbon Dioxide 24 mmol/L (22-30); Estimated Creatinine Clearance 65 ml/min; Glucose 79 mg/dl (70-99); Total Bilirubin 0.5 mg/dl (0.2-1.3); Total Protein 6.6 g/dl (6.3-8.2); eGFR > 60.00
[2023-11-29 05:37] LABS: Alkaline Phosphatase 351 U/L (38-126); Calcium 9.6 mg/dl (8.4-10.2); Chloride 101 mmol/L (98-107); Sodium 134 mmol/L (135-145)
[2023-11-29 06:00] VITALS: BP 150/75
[2023-11-29] MEDS: TYLENOL ORAL SOLUTION TUBE (06:00)
[2023-11-29] MEDS: NOVOLOG FLEXPEN-LOW RESISTANCE SC (06:00)
[2023-11-29 07:44] LABS: Glucose - Point of Care 91 mg/dl (70-99)
[2023-11-29 08:00] VITALS: BP 123/77
--- NOTE | 2023-11-29 08:39 | PN.DE.MGMTRT ---
Insulin Management
- -
11/29/2023: Diabetes Management Follow up
Patient admitted 11/01 with c/o poor appetite, abdominal pain and N/V for 4-5 days. PMH metastatic breast cancer (treated at [facility] on Ibrance->Afinitor). Patient had experienced weight loss/anorexia with use of Afinitor.
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 On evaluation in the ED, patient was noted for firm, tender and grossly discolored umbilical hernia concerning for incarceration +/- strangulation.
Pt is now POD#26 s/p Exploratory laparotomy, small bowel resection with primary anastomosis and primary umbilical hernia repair.
Diabetes consult requested on 11/10 for Hyperglycemia after initiation of TPN and tube feeds. No known Hx of diabetes, A1C 5.6%, Cr 0.5, eGFR>60
Pt awake, alert, resting in bed, oriented to self only, unable to discuss diabetes mgt.
Feeding tube removed 11/27, 1pm, patient has been tolerating full liquids with ensure supplement. Glucose range 79 to 100. Required no corrective insulin 11/27. Will stop daily lantus and continue low corrective insulin ac.
Will follow and make further adjustments if necessary.
Diabetes History
- -
Pre-Admission Diabetes Regimen
11/29/23
04:37
Creatinine 0.6
Lab Results
Hemoglobin A1c Cancelled 11/07/23 17:29
Insulin Pump Settings
IP Diabetes Regimen
11/28/23 11/28/23 11/28/23
12:13 16:37 21:56
Glucose
POC Glucose 100 H 81 79
11/29/23 11/29/23
04:37 07:33
Glucose 79
POC Glucose 91
Patient Education
[2023-11-29] MEDS: DEBROX EAR DROPS 1 DROP OTIC (08:48)
[2023-11-29] MEDS: ORETIC 12.5 MG PO (08:48)
[2023-11-29] MEDS: ZESTRIL 20 MG TUBE (08:49)
[2023-11-29] MEDS: MYLICON DROPS 20 MG PO (08:49)
[2023-11-29] MEDS: LOPRESSOR 25 MG TUBE (08:49)
[2023-11-29] MEDS: LANTUS SC (08:50)
--- NOTE | 2023-11-29 11:45 | W.PN.PAL2 ---
Today's Communication
-
.
Assessment / Plan
-
Assessment/Plan:
Palliative care will follow as outpatient.
Palliative fci visit scheduled 12/13
Discussed with case management - family requests walker/commode, and will likely need homecare vn/pt/ot
Reason for Admission
Illness Course/HPI
Priscilla is a 78 y/o female with Stage IV breast cancer with history of osseous mets, who was admitted to hospital 11/01 with abdominal pain secondary to incarcerated hernia. She is s/p resection of 45cm bowel on 11/02. Extubated 11/14/2023, and now in
IMU. Has been doing well with respect to bowel issues, however currently requiring dobhoff for nutrition due to impaired swallow. Palliative Care was consulted by attending physician to discuss goals of care.
Oncology History: SHe follows with Dr. Howard at [facility] in [place], cancer diagnosed approx 7 years ago and she had done well for a long time on ibrance. Most recently started on afinitir treatment August 2023, but treatment doses were reduced due to
med side effects. She has been off of medication since October 04, however the plan was to resume at a lower dose.
Initial palliative care consult completed on 11/25. Patient was seen today for followup.
Patient allowed to resume diet - full liquids. Per family, they report she will likely be discharged today.
She denies any symptoms at this time
Functional Status & Support Systems
Current Functional Status:
At her baseline, she is fully independant of ADLs and IADLs, ambulates without assistive device and would walk several miles per day - this had been reduced over the past two months due to medication side effects
Home environment: 2 julee home with full first floor setup ( first floor bedroom + bathroom), has no equipment in the home as not needing at baseline.
Heel Top Lift Splitter/Family Support: Lives with spouse Temo, three children Liz, Angie, and son Temo live nearby
Other Support/Services in Place: Multiple family members live in the [facility] area and can assist
Pain & Symptom Assessment
[place] Symptom Scale 0=none, 10=worst
Pain: 0
Drowsy: 0
Nausea: 0
Appetite: 0
Shortness of Breath: 0
Depressed: 0
Anxiety: 0
Wellbein
Objective Data
-
Objective Data:
Vital Signs
Temp Pulse Resp BP Pulse Ox
98.2 F 102 24 123/77 93
11/29/23 11:21 11/29/23 08:00 11/29/23 08:00 11/29/23 08:00 11/29/23 04:22
Laboratory Results
11/29/23 04:37
11/29/23 04:37
PT 13.8 Sec (11.4-14.6) 11/12/23 12:45
INR 1.08 11/12/23 12:45
APTT 27.5 Sec (23.4-35.0) 11/02/23 20:30
Hemoglobin A1c Cancelled 11/07/23 17:29
Total Protein 6.6 g/dl (6.3-8.2) 11/29/23 04:37
Albumin 3.4 g/dl (3.5-5.0) L 11/29/23 04:37
Urine Color Yellow 11/08/23 10:28
Urine Clarity Clear (Clear) 11/08/23 10:28
Urine pH 6.0 (5.0-9.0) 11/08/23 10:28
Ur Specific [place] 1.005 (<1.030) 11/08/23 10:28
Urine Ketones Negative (Negative) 11/08/23 10:28
Urine Bilirubin Negative (Negative) 11/08/23 10:28
Palliative Performance Scale
Palliative Performance Scale:
PPS Level Ambulation Activity & Evidence of Disease Self Care Intake Conscious Level
100% Full Normal Activity & Work; Full Intake Full
No Evidence of Disease
90% Full Normal Activity & Work; Full Normal Full
Some Evidence of Disease
80% Full Normal Activity with Effort Full Normal or Full
Some Evidence of Disease Reduced
70% Reduced Unable Normal Job/Work Full Normal or Full
Significant Disease Reduced
60% Reduced Unable Hobby/Housework Occasional Normal or Full or Confusion
Significant Disease Assistance Reduced
50% Mainly Sit/Lie Unable to do Any Work Considerable Normal or Full or Confusion
Extensive Disease Assistance Req'd Reduced
40% Mainly in Bed Unable to do Most Activity Mainly Assistance Normal or Full or Drowsy;
Extensive Disease Reduced +/- Confusion
30% Totally Bed Unable to do Any Activity Total Care Normal or Full or Drowsy;
Bound Extensive Disease Reduced +/- Confusion
20% Totally Bed Bound Unable to do Any Activity Total Care Minimal to Full or Drowsy;
Extensive Disease Sips +/- Confusion
10% Totally Bed Bound Unable to do Any Activity Total Care Mouth Care Drowsy or Coma;
Extensive Disease Only +/- Confusion
0%
PPS Score Level: 60%, baseline 90%
Physical Exam
-
General: Well Developed
HEENT: Atraumatic and Moist Mucous Membranes
Respiratory: Clear to Auscultation
Cardiac: Regular Rhythm
Peripheral Vascular: No Edema
Neuro: Awake and Alert
Psych: Calm
Care Reviewed
Data Reviewed
Reviewed with: Patient
Time
Start Date: 11/29/23
--- NOTE | 2023-11-29 12:05 | CM ---
Patient with Hx metastatic breast CA with Dx Septic Shock 2/2 necrotic bowel 2/2 incarcerated hernia s/p resection of necrotic small bowel, Aspiration pneumonia, Acute hypoxic failure, ICU delirium, dysphagia. Full liquid diet. PT & OT recommend
HH.
Message from Dr Wheat; she passed the swallow test at least enough to get full liquids. Family said Dr miguel is planning on discharging home. We will arrange for palliative follow up, they wanted to know if you will setup homecare and they
need a commode and walker for home today. Dr Wheat is willing to follow patient/write orders for VN, as patient has no PCP in [place] (her PCP is in [place]).
Met with patient, Kristopher and daughter Liz; all agree to d/c home today. IMM completed. Discussed VN and offered agency choices; chose [facility] rather than [facility] which was previously setup ([facility] referral cancelled). /Dtr
agree to RW and commode- informed them PT will provide. Daughter asking about a foam wedge for the bed and incontinent pads, overbed table - gave her contact info for Reg at [facility]. Liz inquired about a list of what foods are allowed on her
diet and is aware that [employer] will meet with them today. Family will provide transport home in their vehicle.
Script for RW & commode provided to Jie, PT and RW & commode were issued to family.
Plan home today with [facility] with RW & Commode, with Palliative Care, with family.
--- NOTE | 2023-11-29 12:12 | W.DCSUMMARY ---
Addendum entered and electronically signed by Jericho Miguel MD 11/29/23 13:54:
PAtient is not diabetic as HgbA1c was 5.5 on 11/07/23 - no need in home insulin
Original Note:
Discharge Summary
Discharge Data
Date of Admission: 11/02/23
Date of Discharge: 11/29/23
-
Pending Results: No
Hospital Course
78yo F with PMHx of metastatic breast CA and LUE lympghadenopathy came with poor appetite and N/V. Found incarcerated umbilical hernia. Elected conservative approach initially, however developed septic shock with necrotic bowel and d. Had Exlap on
11/04/23, intubated and started on pressors. ALso developed pneumonia due to aspiration during intubation. Completed Vanco/Zosyn/Merrem/Micafungin. Had ICU delirium that complicated extubation, however was finally extubated on 11/14/23. Complicated by
postOP dysphagia. TPN initially then switched to NGT feeding and finally able to start on oral diet. NG removed on 11/28/23. Patient did well with PT/OT and family agreeable with d/c home with services. ULTRASONOGRAPHER providing diet recommendations upon d/c and
palliative to be involved upon d/c.Patient medically stable and agreeable with d/c plan. LFT continued to improve.
I have spent at least 36min preparing patient discharge, reviewing chart, test results and direct patient care
Patient was managed for:
#Septic shock 2/2 necrotic bowel 2/2 incarcerated hernia
#Aspiration pneumonia
#Acute hypoxic failure
#ICU delirium
#Metastatic breast CA
#PostOP anemia
#Dysphagia
#Stage 1 pressure injury on buttocks
#REINA 2/2 septic shock
#Reactive thrombocytosis#Alk.phos elevation
#Mild transaminitis
Discharge Plan
-
Patient Disposition: Home (Routine Discharge)
Discharge Diagnosis/Procedures: Ischemic bowel 2/2 strangulated hernia
Diet: Other diet
Additional Diets: Full liquid
Activity: No strenuous activity
Additional Activity: Do not lift over 15 lbs until 4-6 weeks after surgery
Driving Restrictions: As prior to admission
Bathing Restrictions: OK to Shower
Other Services: VN
Wound Care: Lightly pack the opening in your skin near your umbilicus with dry gauze dressing until the opening has closed. Change daily and as needed for drainage.
Referrals:
Kary Frausto CRNP [Specified Professional Personl] -
Bijan Gonzales MD [Active] - in two to three weeks
NONE,* [Family Provider] -
Prescriptions:
New
metoprolol succinate [Toprol XL] 25 mg tablet extended release 24 hr
25 mg PO DAILY Qty: 30 0RF
lisinopril 20 mg Tablet
20 mg feeding tube DAILY 30 Days Qty: 30 0RF
hydrochlorothiazide 12.5 mg Tablet
12.5 mg PO DAILY 30 Days Qty: 30 0RF
docusate sodium [Colace] 100 mg capsule
100 mg PO BID Qty: 60 0RF
Continued
aspirin 81 mg Tablet,Delayed Release (Dr/Ec)
81 mg PO DAILYPRN PRN (Reason: mild pain)
Discontinued
dexamethasone 0.5 mg/5 mL Solution
0 mg PO DAILYPRN PRN (Reason: mouth sores)
Patient Comments:
11/02/23: patient swishes and spits out the solution, does not swallow. It is prescribed 10 ml 4 times a day, but they are unsure of exact dose they take at home.
magnesium gluconate 250 mg tablet
250 mg PO Q48H
Discharge Orders:
Discharge Patient (As Directed); Ordered 11/29/23
Ordered By: Jericho Miguel
Discharge Date and Time
Print Language: KHMER
--- NOTE | 2023-11-29 13:05 | VNURNOTE ---
Home Health Liaison met with patient, spouse, and daughter at bedside to discuss [facility] nurse/therapy, visits, schedule and homebound status. Patient is agreeable and understands that visits at home will be 1-3 x per week to assess and teach medical
management. [facility] brochure provided with contact information. Patient is aware that [facility] will contact them for start of care within a few days after discharge from .
[facility] referral completed in [facility].
[2023-11-29 13:20] VITALS: BP 124/81
== END 2023-11-29 14:05 | disposition home health service (06) | DRG 853 ==
LOC: IMU 23:36
PROVIDERS: Hospitalist; Internal Medicine Critical Care Medicine; Nurse Practitioner Family; Radiology Diagnostic Radiology; Registered Nurse; Student in an Organized Health Care Education/Training Program; Surgery; ADMITTING PHYSICIAN Hospitalist; ATTENDING PHYSICIAN Internal Medicine; CONSULT PHYSICIAN Internal Medicine; CONSULT PHYSICIAN Internal Medicine Hospice and Palliative Medicine; CONSULT PHYSICIAN Specialist; CONSULT PHYSICIAN Student in an Organized Health Care Education/Training Program; CONSULT PHYSICIAN Surgery; EMERGENCY PHYSICIAN Emergency Medicine
PROC: 3E033XZ Introduction of Vasopressor into Peripheral Vein, Percutaneous Approach (ICD-10-PCS; 2023-11-02)
PROC: 0WQF0ZZ Repair Abdominal Wall, Open Approach (ICD-10-PCS; 2023-11-03)
PROC: 0WBF0ZZ Excision of Abdominal Wall, Open Approach (ICD-10-PCS; 2023-11-03)
PROC: 0BH17EZ Insertion of Endotracheal Airway into Trachea, Via Natural or Artificial Opening (ICD-10-PCS; 2023-11-03)
PROC: 5A1955Z Respiratory Ventilation, Greater than 96 Consecutive Hours (ICD-10-PCS; 2023-11-03)
PROC: 05HY33Z Insertion of Infusion Device into Upper Vein, Percutaneous Approach (ICD-10-PCS; 2023-11-03)
PROC: 0D9670Z Drainage of Stomach with Drainage Device, Via Natural or Artificial Opening (ICD-10-PCS; 2023-11-03)
PROC: 0DB80ZZ Excision of Small Intestine, Open Approach (ICD-10-PCS; 2023-11-03)
PROC: 06HM33Z Insertion of Infusion Device into Right Femoral Vein, Percutaneous Approach (ICD-10-PCS; 2023-11-04)
PROC: 3E0436Z Introduction of Nutritional Substance into Central Vein, Percutaneous Approach (ICD-10-PCS; 2023-11-06)
PROC: 30243N1 Transfusion of Nonautologous Red Blood Cells into Central Vein, Percutaneous Approach (ICD-10-PCS; 2023-11-11)
PROC: 0BP1XDZ Removal of Intraluminal Device from Trachea, External Approach (ICD-10-PCS; 2023-11-14)
PROC: 0DH67UZ Insertion of Feeding Device into Stomach, Via Natural or Artificial Opening (ICD-10-PCS; 2023-11-16)
DX: A41.9 Sepsis, unspecified organism (principal); J69.0 Pneumonitis due to inhalation of food and vomit; R65.21 Severe sepsis with septic shock; J96.01 Acute respiratory failure with hypoxia; N17.0 Acute kidney failure with tubular necrosis; K55.019 Acute (reversible) ischemia of small intestine, extent unspecified; K42.1 Umbilical hernia with gangrene; C79.51 Secondary malignant neoplasm of bone; C77.9 Secondary and unspecified malignant neoplasm of lymph node, unspecified; E87.1 Hypo-osmolality and hyponatremia; E87.20 Acidosis, unspecified; D62 Acute posthemorrhagic anemia; F05 Delirium due to known physiological condition; E87.6 Hypokalemia; L89.301 Pressure ulcer of unspecified buttock, stage 1; R45.1 Restlessness and agitation; C50.919 Malignant neoplasm of unspecified site of unspecified female breast; R73.9 Hyperglycemia, unspecified; K21.9 Gastro-esophageal reflux disease without esophagitis; H91.90 Unspecified hearing loss, unspecified ear; R74.01 Elevation of levels of liver transaminase levels; K80.20 Calculus of gallbladder without cholecystitis without obstruction; D75.838 Other thrombocytosis; R13.10 Dysphagia, unspecified; I16.0 Hypertensive urgency; Z66 Do not resuscitate; Z11.52 Encounter for screening for COVID-19; Z92.21 Personal history of antineoplastic chemotherapy; Z78.1 Physical restraint status
CPT/HCPCS: 88307; 36556; 36600; 71045; 74018; 74176; 74230; 76937; 80048; 80053; 80202; 81003; 82248; 82330; 82805; 82962; 82977; 83036; 83605; 83735; 84100; 84132; 84478; 84484; 85014; 85018; 85025; 85027; 85610; 85652; 85730; 86140; 86803; 86850; 86900; 86901; 86920; 87040; 87070; 87077; 87186; 87205; 87811; 92526; 92610; 92611; 93005; 93306; 93971; 94002; 94003; 96361; 96365; 96366; 96367; 96375; 97163; 97167; 97530; 97535; 99291; P9016